=== PATIENT | female | born 1950 | race Caucasian/White ===

== ENCOUNTER → 2019-02-15 08:32 | Outpatient (CLI) | payer MEDICARE, SELFPAY ==
[2019-02-15 09:09] LABS: Basophils # 0.1 K/mm3 (0-0.2); Basophils % 1.2 % (0.1-2.0); Eosinophils # 0.8 K/mm3 (0.0-0.4); Eosinophils % 15.3 % (0.1-12.0); Hematocrit 43.5 % (37.0-47.0); Hemoglobin 13.4 g/dL (12.2-16.2); Lymphocytes # 1.4 K/mm3 (0.7-4.5); Lymphocytes % 25.9 % (10-50); Mean Corpuscular HGB Conc 30.8 g/dL (31.8-35.4); Mean Corpuscular Hemoglobin 28.8 pg (27.0-31.2); Mean Corpuscular Volume 93.4 fl (81-99); Monocytes # 0.3 K/mm3 (0.1-1.0); Monocytes % 5.9 % (1.7-9.3); Neutrophils # 2.8 K/mm3 (1.8-7.8); Neutrophils % 51.7 % (37.0-80.0); Platelet Count 204 K/mm3 (142-424); Red Blood Count 4.66 M/mm3 (4.20-5.40); Red Cell Distribution Width 14.6 % (11.5-17.5); White Blood Count 5.4 K/mm3 (4.8-10.8)
[2019-02-15 09:51] LABS: Alanine Aminotransferase 20 U/L (12-78); Albumin Level 3.7 gm/dL (3.4-5.0); Albumin/Globulin Ratio 1.3 (1.1-1.8); Alkaline Phosphatase 99 U/L (46-116); Aspartate Amino Transferase 21 U/L (15-37); Bilirubin,Total 0.6 mg/dL (0.2-1.0); Blood Urea Nitrogen 11 mg/dL (7-18); Calcium 9.2 mg/dL (8.5-10.1); Carbon Dioxide 26 mmol/L (21.0-32.0); Chloride 105 mmol/L (98-107); Chol/HDL Ratio 4.1 (1-3.5); Cholesterol 184 mg/dL (140-200); Creatinine,Serum 1.01 mg/dL (0.55-1.02); Estimated Glomerular Filt Rate 54 ml/min (>60); GFR (African American) 66 ML/MIN (>60); Globulin 2.9 gm/dl (1.3-3.2); Glucose 179 mg/dL (74-106); HDL Cholesterol 45 mg/dL (29-89); LDL Cholesterol 110 mg/dL (0-130); Sodium 141 mmol/L (136-145); Total Protein,Serum 6.6 gm/dL (6.4-8.2); Triglycerides 144 mg/dL (30-200); VLDL Cholesterol 29 mg/dL (0-40)
== END ==
PROVIDERS: PCP Internal Medicine Adolescent Medicine; Visit Provider Internal Medicine Adolescent Medicine
DX: J43.1 Panlobular emphysema (principal); Z86.39 Personal history of other endocrine, nutritional and metabolic disease; Z79.899 Other long term (current) drug therapy
CPT/HCPCS: 36415; 80053; 80061; 85025

== ENCOUNTER 2019-05-23 10:06 | Observation (INO) ==
--- NOTE | 2019-05-23 10:11 | Emergency Department Note ---
ED Disposition Clinical Impression: COPD with acute exacerbation RLL pneumonia Qualifiers: Aspiration pneumonia type: unspecified Disposition: Admitted as Observation Condition on Discharge: Fair (Stable) Referrals: Tyrell Owens MD [Primary Care Provider] - - Critical Care Critical Care Time: No Attestation: On , the high probability of a clinically significant, sudden or life threatening deterioration of the following system(s) required my full and direct attention, intervention and personal management. The time I documented below is in addition to time spent performing reported procedures but includes the following listed in this critical care notation. Medical Decision Making - Medical Records Medical records reviewed: Yes: I reviewed the patient's medical records. - Nii Inquiry Pt receiving controlled substance: No Nii was queried for this patient: No Vital Signs: 05/23/19 10:19 05/23/19 10:40 05/23/19 11:02 Temperature 98.1 F Temperature Source Oral Pulse Rate 92 H Pulse Rate [Right Radial] 102 H 86 Respiratory Rate 26 H 21 Blood Pressure [Right Arm] 231/99 H 154/59 H Blood Pressure Mean [Right Arm] 143 90 Blood Pressure Source [Right Arm] Automatic Cuff Automatic Cuff Blood Pressure Position [Right Arm] Sitting Sitting 02 Sat by Pulse Oximetry 90 L 95 98 Oxygen Delivery Method Room Air Nasal Cannula Oxygen Flow Rate (LPM) 2 - Lab Data Lab results reviewed: Yes: I reviewed the patient's lab results. Lab Results 05/23/19 10:13: Specimen Source R brachial, O2 % 2lpm, ABG pH 7.35, ABG pCO2 44.0, ABG pO2 71.6 L, ABG HCO3 23.6, ABG Total CO2 25.0, ABG O2 Saturation 94, ABG Base Excess -2.0 05/23/19 10:16: WBC 5.5, RBC 5.20, Hgb 15.5, Hct 46.7, MCV 89.8, MCH 29.7, MCHC 33.1, RDW 13.2, Plt Count 173, MPV 9.0, Neut % (Auto) 50.5, Lymph % (Auto) 27.3, [place] % (Auto) 4.3, Eos % (Auto) 17.0 H, Baso % (Auto) 0.9, Neut # (Auto) 2.8, Lymph # (Auto) 1.5, [place] # (Auto) 0.2, Eos # (Auto) 0.9 H, Baso # (Auto) 0.1 05/23/19 10:16: Sodium 144, Potassium 3.9, Chloride 107, Carbon Dioxide 25, Anion Gap 15.9 H, BUN 14, Creatinine 0.88, Estimated Creat Clear 80, Estimated GFR 64, Est GFR ( Amer) 77, Glucose 136 H, Calcium 9.1 05/23/19 10:16: B-Natriuretic Peptide 133 H 05/23/19 10:16: Lactate 1.3 05/23/19 10:16: Magnesium 2.2, Troponin I < 0.02 05/23/19 10:16: Total Bilirubin 0.6, Direct Bilirubin 0.1, Indirect Bilirubin 0.5, AST 20, ALT 23, Alkaline Phosphatase 88, Total Protein 7.7, Albumin 4.1 Result diagrams: 05/23/19 10:16 05/23/19 10:16 Orders (Tests/Meds): ED MEDICATIONS Discontinued Medications Generic Name Dose Route Start Last Admin Trade Name Freq PRN Reason Stop Dose Admin Albuterol Sulfate 10 mg 05/23/19 10:15 Albuterol 0.083% 2.5mg/3ml [facility] 05/23/19 10:16 ONCE ONE Albuterol/Ipratropium 3 ml 05/23/19 10:15 05/23/19 10:40 Duoneb 3ml Critical access hospital 05/23/19 10:16 3 ml ONCE ONE Administration Methylprednisolone Sodium Succinate 125 mg 05/23/19 10:16 05/23/19 10:22 Solu-Medrol 125mg/2ml Vial IV 05/23/19 10:17 125 mg ONCE ONE Administration ORDERS Category Date Time Status Influenza A&B Antigens, Rapid [Rapid Influenza A&B Lab 05/23/19 11:50 Received Antigens] Stat Troponin I Q3H Lab 05/23/19 13:15 Ordered Troponin I Q3H Lab 05/23/19 16:15 Ordered Blood Culture Stat Micro 05/23/19 10:16 Received - Radiology Data #1 Image(s): Chest Image Reviewed: Yes I reviewed the patient's radiology results [address] [place] [address] XRay Report Signed Patient: Ann Mcneill MR#: [id number] : 1950 Acct:[id number] Age/Sex: 68 / F ADM Date: 05/23/19 Loc: ER Attending Dr: Ordering Physician: Leonel Molina III, DO Date of Service: 05/23/19 Procedure(s): XR chest portable Accession Number(s): [id number] cc: Tyrell Owens MD; Rodney Moseley MD~ PROCEDURE: XR CHEST PORTABLE CLINICAL HISTORY: Dsypnea, wheezing COMPARISON: XR CHEST 2V from 01/08/2019 FINDINGS: The cardiomediastinal silhouette and pulmonary vascularity are within normal limits. Increased markings present in the right lung base may be due to an area of atelectasis or infiltrate No acute bony abnormalities. IMPRESSION: Right lower lobe atelectasis or infiltrate Dictated by: Rodney Moseley MD 05/23/2019 11:21 Electronically signed by Rodney Moseley MD in [place] 05/23/2019 11:21 - ECG Data Tracing #1 I reviewed this ECG and interpreted as documented below: (EKG at 10:15 AM showed a normal sinus rhythm at [address]-T changes.) Medical Decision Narrative: 10:21 patient evaluated. EKG, portable chest x-ray and screening labs ordered. I have also ordered a DuoNeb treatment followed by a 1 hour albuterol continuous neb. I have also ordered Solu-Medrol 125 mg IV push and may consider magnesium IV piggyback depending on how patient progresses. EEG performed and evaluated. 11:07 this patient's initial blood pressure was elevated repeat blood pressure at this time is 149/54. Patient had received 1 DuoNeb treatment and is currently getting her 1 hour continuous albuterol neb treatment. Patient sounds about 50% better but she still has diffuse end expiratory wheezing. Patient apparently does not use a nebulizer at home. She simply uses an MDI rescue inhaler without an AeroChamber. I have explained to patient that I am considering looking to possibly admit the patient for observation for further IV steroids and neb treatments. 11:58 patient's case discussed with her PCP Dr. Owens. He is agreed to accept care/admission of this patient. In light of her chest x-ray I have ordered Rocephin 1 g IV piggyback and Zithromax 500 mg IV piggyback. We will admit her and keep her on steroids and neb treatments also. Patient is aware of the res ults of her work-up, diagnosis and care plan. She agrees understands and all questions answered. Resp/SOB HPI - General Stated Complaint: soa Time Seen by Provider: 05/23/19 10:11 Mode of Arrival: Ambulatory Source of Information: Patient Limitations: No Limitations - History of Present Illness Patient is here in emergency room via private vehicle from home complaining of shortness of breath. Patient has a history of emphysema. She apparently has been having difficulty over the past 2 to 3 days, but her shortness of breath seemed to increase quite significantly last night. She has had a nonproductive cough and is audibly wheezing. Patient has been compliant with her home meds. No chest pain. No other complaints. - Related Data Home Medications Medication Instructions Recorded Confirmed hydroCHLOROthiazide [HCTZ 25mg 25 mg PO DAILY 05/23/19 05/23/19 tab] Previous Rx's Medication Instructions Recorded Albuterol Sulfate [Albuterol HFA 1 - 2 puffs IH Q4-6H PRN #1 inh 01/08/19 Inhaler] Allergies Allergy/AdvReac Type Severity Reaction Status Date / Time No Known Allergies Allergy Verified 01/08/19 14:39 [facility] History - Hepatitis A Screen Drug use history?: No Attestation statement:: This patient has been screened for Hepatitis A risk factors. I have reviewed the patient's past medical history: Yes - Social History Smoking Status: Former smoker #Yrs smoked (if former smoker): 55 Alcohol Intake: never Occupational Status: other ROS Obtained: Yes All systems reviewed & no additional complaints - Constitutional Constitutional: Reports system reviewed and no additional complaints, except as docu - Eyes Eyes: Reports system reviewed and no additional complaints, except as docu - ENT Ears, Nose, Mouth, and Throat: Reports system reviewed and no additional complaints, except as docu - Cardiovascular Cardiovascular: Reports system reviewed and no additional complaints, except as docu, Reports as per HPI, Denies chest pain, Denies diaphoresis, Reports dyspnea, Reports dyspnea on exertion, Denies leg edema - Respiratory Respiratory: Yes system reviewed and no additional complaints, except as docu, Yes as per HPI, Yes non-productive cough, Yes dyspnea, Yes wheezing - Gastrointestinal Gastrointestingal: Reports: system reviewed and no additional complaints, except as docu - Genitourinary Female Genitourinary: Reports system reviewed and no additional complaints, except as docu - Musculoskeletal Musculoskeletal: Reports system reviewed and no additional complaints, except as docu - Integumentary/Breasts Skin/Breast: Reports system reviewed and no additional complaints, except as docu - Neurologic Neurologic: Reports system reviewed and no additional complaints, except as docu - Endocrine Endocrine: Reports system reviewed and no additional complaints, except as docu - Hematologic/Lymphatic Henatologic/Lymphatic: Reports system reviewed and no additional complaints, except as docu - Allergic/Immunologic Allergic/Immunologic: Reports system reviewed and no additional complaints, except as docu Physical Exam - General General appearance: alert, anxious (mildly), in distress (In mild respiratory d istress with audible wheezing and accessory respiratory muscle use.) - Head Head exam: atraumatic, normocephalic - Eye Eye exam: Present: PERRL, EOMI - ENT ENT exam: Present: mucous membranes moist - Neck Neck exam: Present: trachea midline - Chest Chest inspection: Present: normal inspection, symmetric chest wall rise - Respiratory Respiratory exam: Present: wheezes (inspiratory and expiratory), accessory muscle use, other (Diminished BS bilaterally.) - Cardiovascular Cardiovascular exam: Present: tachycardia, normal heart sounds. Absent: systolic murmur - Abdominal Exam Abdominal exam: Present: soft, normal bowel sounds. Absent: tenderness, rebound - Extremities Exam Extremities exam: Present: normal inspection, full ROM - Neurological Exam Neurological exam: Present: alert, oriented X3, CN II-XII intact - Psychiatric Psychiatric exam: Present: anxious (mildly) - Skin Skin exam: Present: warm, dry, intact, normal color. Absent: rash, diaphoresis, erythema
[2019-05-23 10:38] LABS: Basophils # 0.1 K/mm3 (0-0.2); Basophils % 0.9 % (0.1-2.0); Eosinophils # 0.9 K/mm3 (0.0-0.4); Hematocrit 46.7 % (37.0-47.0); Hemoglobin 15.5 g/dL (12.2-16.2); Lymphocytes # 1.5 K/mm3 (0.7-4.5); Lymphocytes % 27.3 % (10-50); Mean Corpuscular HGB Conc 33.1 g/dL (31.8-35.4); Mean Corpuscular Volume 89.8 fl (81-99); Monocytes # 0.2 K/mm3 (0.1-1.0); Monocytes % 4.3 % (1.7-9.3); Neutrophils # 2.8 K/mm3 (1.8-7.8); Neutrophils % 50.5 % (37.0-80.0); Platelet Count 173 K/mm3 (142-424); Red Cell Distribution Width 13.2 % (11.5-17.5); White Blood Count 5.5 K/mm3 (4.8-10.8)
[2019-05-23 10:40] LABS: ABG HCO3 23.6 mmhg (22.0-26.0); ABG Oxygen Saturation 94 % (90-100); ABG PH 7.35 mmol/L (7.35-7.45); ABG PO2 71.6 mmhg (80-100)
[2019-05-23 10:41] LABS: Oxygen 2LPM %
[2019-05-23 10:47] LABS: Albumin Level 4.1 gm/dL (3.4-5.0); Bilirubin,Direct 0.1 mg/dL (0.0-0.2); Bilirubin,Indirect 0.5 mg/dL (0.0-0.9); Bilirubin,Total 0.6 mg/dL (0.2-1.0); Total Protein,Serum 7.7 gm/dL (6.4-8.2)
[2019-05-23 11:28] LABS: Anion Gap 15.9 mEq/L (5-15); Calcium 9.1 mg/dL (8.5-10.1)
--- NOTE | 2019-05-23 12:54 | Pharmacy Consult Notes ---
[facility] Pharmacy VTE Monitoring - Patient Demographics Admission date: 05/23/19 Report Date: 05/23/19 Time: 12:54 Allergies/Adverse Reactions: Patient Allergies No Known Allergies Allergy (Verified 01/08/19 14:39) Height: 1.7 m Weight: 95.254 kg Patient Problems: Current Active Problems RLL pneumonia (Acute) COPD with acute exacerbation (Acute) - VTE Risk Labs: VTE Related Lab Results Hgb 15.5 g/dL (12.2-16.2) 05/23/19 10:16 Hct 46.7 % (37.0-47.0) 05/23/19 10:16 Plt Count 173 K/mm3 (142-424) 05/23/19 10:16 BUN 14 mg/dL (7-18) 05/23/19 10:16 Creatinine 0.88 mg/dL (0.55-1.02) 05/23/19 10:16 Estimated Creat Clear 80 mL/min (50-200) 05/23/19 10:16 - Prophylaxis VTE Prophylaxis Ordered?: Yes Types of VTE Prophylaxis: TEDS Knee High Location of Applied Device: Bilateral Lower Extremeties - VTE Diagnosis Confirmed Treatment or plan recommended: Continue Current Treatment
--- NOTE | 2019-05-23 18:00 | History & Physical Report ---
*Admission Date: 05/23/19 *Chief complaint: Cough and congestion *History of present illness: Patient is here in emergency room via private vehicle from home complaining of shortness of breath. Patient has a history of emphysema. She apparently has been having difficulty over the past 2 to 3 days, but her shortness of breath seemed to increase quite significantly last night. She has had a nonproductive cough and is audibly wheezing. Patient has been compliant with her home meds. No chest pain. No other complaints. Hasn't been on her stiolto at home because of insurance issues... Not in office since January. [facility] History I have reviewed the patient's past medical history: Yes Medical History: Reports:: Hypertension Denies:: Diabetes Mellitus Type 1, Diabetes Mellitus Type 2 *Have you ever received a pneumonia vaccine?: Yes *Have you received a flu vaccine this season?: Yes Other Surgeries: Yes: Tubal Ligation - *Social History Educational Level: Completed [employer] Smoking Status: Former smoker Tobacco Type: cigarettes # Packs/Day (cigarettes): 1 #Yrs smoked (if former smoker): 50 Smoking End Date: 5 years ago Alcohol Intake: never *Occupational Status:: retired Housing: house Household Members: none *Travel in the last 8 weeks: None Family Hx:: Stroke Review of Systems - Review of Systems Review of systems:: pertinent systems reviewed and negative unless documented below Meds Home Medications Medication Instructions Recorded Confirmed Type Albuterol Sulfate [Albuterol HFA 1 - 2 puffs IH Q4-6H PRN #1 inh 01/08/19 05/23/19 Rx Inhaler] hydroCHLOROthiazide [HCTZ 25mg 25 mg PO DAILY 05/23/19 05/23/19 History tab] Allergies Allergy/AdvReac Type Severity Reaction Status Date / Time No Known Allergies Allergy Verified 01/08/19 14:39 Exam Vital signs and Labs for Last 24 Hours: Temp Pulse Resp BP Pulse Ox 97.6 F 95 H 22 131/52 L 95 05/23/19 16:00 05/23/19 16:00 05/23/19 16:00 05/23/19 16:00 05/23/19 16:00 Laboratory Results - last 24 hr 05/23/19 10:13: Specimen Source R brachial, O2 % 2lpm, ABG pH 7.35, ABG pCO2 44.0, ABG pO2 71.6 L, ABG HCO3 23.6, ABG Total CO2 25.0, ABG O2 Saturation 94, ABG Base Excess -2.0 05/23/19 10:16: WBC 5.5, RBC 5.20, Hgb 15.5, Hct 46.7, MCV 89.8, MCH 29.7, MCHC 33.1, RDW 13.2, Plt Count 173, MPV 9.0, Neut % (Auto) 50.5, Lymph % (Auto) 27.3, [place] % (Auto) 4.3, Eos % (Auto) 17.0 H, Baso % (Auto) 0.9, Neut # (Auto) 2.8, Lymph # (Auto) 1.5, [place] # (Auto) 0.2, Eos # (Auto) 0.9 H, Baso # (Auto) 0.1 05/23/19 10:16: Sodium 144, Potassium 3.9, Chloride 107, Carbon Dioxide 25, Anion Gap 15.9 H, BUN 14, Creatinine 0.88, Estimated Creat Clear 80, Estimated GFR 64, Est GFR ( Amer) 77, Glucose 136 H, Calcium 9.1 05/23/19 10:16: B-Natriuretic Peptide 133 H 05/23/19 10:16: Lactate 1.3 05/23/19 10:16: Magnesium 2.2, Troponin I < 0.02 05/23/19 10:16: Total Bilirubin 0.6, Direct Bilirubin 0.1, Indirect Bilirubin 0.5, AST 20, ALT 23, Alkaline Phosphatase 88, Total Protein 7.7, Albumin 4.1 05/23/19 12:08: Influenza Type A Ag Negative, Influenza Type B Ag Negative 05/23/19 13:18: Troponin I 0.02 05/23/19 16:20: Troponin I 0.03 I & O for Last 24 hours: Intake & Output 05/21/19 05/22/19 05/23/19 05/24/19 11:59 11:59 11:59 11:59 Intake Total 360 / 360 Balance 360 / 360 Weight 210 lb 208 lb 4 oz - Constitutional no acute distress, obese - *Routine HEENT Exam Head: Present: normocephalic, atraumatic Eye: Present: EOMI, PERRL ENT: Present: mucous membranes moist - *Routine Neck Exam Present: supple, full ROM. Absent: lymphadenopathy - *Routine Respiratory Exam Present: rales (in left lower lung field. Wheezing on expiration) - *Routine Cardiovascular Exam Present: RRR - *Routine Abdominal Exam Present: soft, normoactive bowel sounds - *Routine Extremities Exam Present: cyanosis, clubbing, edema - *Routine Neurological Exam Present: alert, oriented X3 Assessment and Plan (1) COPD with acute exacerbation Current visit: Yes Status: Acute Category: Medical Code(s): J44.1 - Chronic obstructive pulmonary disease with (acute) exacerbation Agree with admit... needs O2, IV steroids, IFV and abx. May need 2-3 days in house given new O2 requirement. (2) RLL pneumonia Current visit: Yes Status: Acute Qualifiers: Aspiration pneumonia type: unspecified Category: Medical Code(s): J18.9 - Pneumonia, unspecified organism
--- NOTE | 2019-05-23 18:43 | Electrocardiograph Report ---
APPROVED REPORT Exam: Resting ECG HR:100 bpm ECG Measurements Heart Rate 100 AXES [place] 142 P 80 QRSd 90 QRS 80 QT 336 T78 QTc 433 <Conclusion> Normal sinus rhythm Nonspecific ST and T wave abnormality Abnormal ECG Electronically signed by : Mateusz Pena, 05/23/2019 18:43:14
--- NOTE | 2019-05-24 07:48 | Progress Note ---
Internal Medicine - PN: Subj *Date: 05/24/19 *Time: 07:45 Interval history: Patient is without complaints. She is aggressively trying to wean herself from oxygen. Her room air sats have been sufficient but patient does report dyspnea on exertion to and from the bathroom Exam Vital signs and Labs for Last 24 Hours: Temp Pulse Resp BP Pulse Ox 97.5 F L 86 18 139/67 95 05/24/19 04:00 05/24/19 06:25 05/24/19 04:00 05/24/19 04:00 05/24/19 06:25 Laboratory Results - last 24 hr 05/23/19 10:13: Specimen Source R brachial, O2 % 2lpm, ABG pH 7.35, ABG pCO2 44.0, ABG pO2 71.6 L, ABG HCO3 23.6, ABG Total CO2 25.0, ABG O2 Saturation 94, ABG Base Excess -2.0 05/23/19 10:16: WBC 5.5, RBC 5.20, Hgb 15.5, Hct 46.7, MCV 89.8, MCH 29.7, MCHC 33.1, RDW 13.2, Plt Count 173, MPV 9.0, Neut % (Auto) 50.5, Lymph % (Auto) 27.3, [place] % (Auto) 4.3, Eos % (Auto) 17.0 H, Baso % (Auto) 0.9, Neut # (Auto) 2.8, Lymph # (Auto) 1.5, [place] # (Auto) 0.2, Eos # (Auto) 0.9 H, Baso # (Auto) 0.1 05/23/19 10:16: Sodium 144, Potassium 3.9, Chloride 107, Carbon Dioxide 25, Anion Gap 15.9 H, BUN 14, Creatinine 0.88, Estimated Creat Clear 80, Estimated GFR 64, Est GFR ( Amer) 77, Glucose 136 H, Calcium 9.1 05/23/19 10:16: B-Natriuretic Peptide 133 H 05/23/19 10:16: Lactate 1.3 05/23/19 10:16: Magnesium 2.2, Troponin I < 0.02 05/23/19 10:16: Total Bilirubin 0.6, Direct Bilirubin 0.1, Indirect Bilirubin 0.5, AST 20, ALT 23, Alkaline Phosphatase 88, Total Protein 7.7, Albumin 4.1 05/23/19 12:08: Influenza Type A Ag Negative, Influenza Type B Ag Negative 05/23/19 13:18: Troponin I 0.02 05/23/19 16:20: Troponin I 0.03 I & O for Last 24 hours: Intake & Output 05/21/19 05/22/19 05/23/19 05/24/19 11:59 11:59 11:59 11:59 Intake Total 730 / 730 Balance 730 / 730 Weight 210 lb 208 lb 4 oz Narrative: She shows no signs of respiratory distress. Lungs have diffuse expiratory wheezes heard anteriorly and posteriorly with rales in the posterior right base. Heart has a regular rate and rhythm Assessment and Plan (1) RLL pneumonia Current visit: Yes Status: Acute Qualifiers: Aspiration pneumonia type: unspecified Category: Medical Code(s): J18.9 - Pneumonia, unspecified organism (2) COPD with acute exacerbation Current visit: Yes Status: Acute Category: Medical Code(s): J44.1 - Chronic obstructive pulmonary disease with (acute) exacerbation - Assessment and plan all Dx Assessment and Plan for all problems:: Continue antibiotics, IV steroids, aerosols. Encourage patient to ambulate. I did recommend she use oxygen to relieve any dyspnea
[2019-05-24 08:14] LABS: Basophils % 0.1 % (0.1-2.0); Eosinophils % 0.4 % (0.1-12.0); Hematocrit 41.1 % (37.0-47.0); Lymphocytes % 11.9 % (10-50); Mean Corpuscular HGB Conc 32.7 g/dL (31.8-35.4); Mean Corpuscular Volume 90.4 fl (81-99); Monocytes # 0.1 K/mm3 (0.1-1.0); Monocytes % 1.7 % (1.7-9.3); Neutrophils # 6.9 K/mm3 (1.8-7.8); Neutrophils % 85.9 % (37.0-80.0); Platelet Count 183 K/mm3 (142-424); Red Blood Count 4.55 M/mm3 (4.20-5.40); Red Cell Distribution Width 13.6 % (11.5-17.5)
[2019-05-24 08:22] LABS: Hemoglobin 13.5 g/dL (12.2-16.2)
[2019-05-24 08:23] LABS: Anion Gap 16.7 mEq/L (5-15)
[2019-05-24 09:06] LABS: Lymphocytes % 15 % (10-50); Monocytes % 2 % (2-9); Neutrophils % 83 % (42-76); RBC Morphology Normal; Total Cells Counted 100
--- NOTE | 2019-05-25 08:24 | Discharge Summary ---
General - General Admission date:: 05/23/19 Discharge date: 05/25/19 HPI HPI: Patient is here in emergency room via private vehicle from home complaining of shortness of breath. Patient has a history of emphysema. She apparently has been having difficulty over the past 2 to 3 days, but her shortness of breath seemed to increase quite significantly last night. She has had a nonproductive cough and is audibly wheezing. Patient has been compliant with her home meds. No chest pain. No other complaints. Hasn't been on her stiolto at home because of insurance issues... Not in office since January. Hospital Course Hospital Course: Patient was admitted and placed on Rocephin and azithromycin as well as intravenous Solu-Medrol to treat her pneumonia and underlying COPD exacerbation. By the following morning patient was aggressively attempting to wean herself from oxygen and noticed mild dyspnea on exertion to and from the bathroom. Patient continued to ambulate and use supplemental oxygen only as needed. She remained off any supplemental oxygen from May 24 May 25. On the morning of the she was ambulating without difficulty. She was eating. Dyspnea was minimal. Patient was discharged home. Patient has been advised to follow- up with Dr. Dwyer within the next 2 days. She will go home on antibiotics, steroids and has been instructed to use her albuterol inhaler every 4 hours while she is awake Objective Vital signs: Temp Pulse Resp BP Pulse Ox 97.6 F 99 H 20 157/64 H 95 05/25/19 08:00 05/25/19 08:00 05/25/19 08:00 05/25/19 08:00 05/25/19 08:00 no acute distress - *Routine Respiratory Exam Present: rales (Faint rales right base), wheezes (Minimal and improved from yest erday) - *Routine Cardiovascular Exam Present: RRR, Normal S1, Normal S2 Results Labs on day of discharge: Labs from last 24 hours 05/24/19 05/24/19 07:30 07:30 WBC 8.0 D RBC 4.55 Hgb 13.5 D Hct 41.1 MCV 90.4 MCH 29.6 MCHC 32.7 RDW 13.6 Plt Count 183 MPV 9.0 Neut % (Auto) 85.9 H Lymph % (Auto) 11.9 [place] % (Auto) 1.7 Eos % (Auto) 0.4 Baso % (Auto) 0.1 Neut # (Auto) 6.9 Lymph # (Auto) 1.0 [place] # (Auto) 0.1 Eos # (Auto) 0.0 Baso # (Auto) 0.0 Total Counted 100 Neutrophils % (Manual) 83 H Lymphocytes % (Manual) 15 Monocytes % (Manual) 2 Platelet Estimate Normal RBC Morphology Normal Sodium 141 Potassium 3.7 Chloride 105 Carbon Dioxide 23 Anion Gap 16.7 H BUN 15 Creatinine 0.88 Estimated Creat Clear 79 Estimated GFR 64 Est GFR ( Amer) 77 Glucose 181 H D Calcium 9.0 Preliminary micro results at discharge 05/24/19 04:45 Sputum Culture - Preliminary Sputum - Expectorated Sputum DS: Diagnosis - Discharge Diagnosis (1) RLL pneumonia Status: Acute (2) COPD with acute exacerbation Status: Acute Discharge Plan - Patient Discharge Instructions ACTIVITY: Continue current activity DIET: continue same diet Patient Instructions: DI for Chronic Obstructive Pulmonary Disease, DI for Pneumonia -- Adult - Follow up Plan Follow up with: Tyrell Owens MD [Primary Care Provider] - 2 days Disposition: Home, Self-Mcc Medications: Home Medications Medication Instructions Recorded Confirmed Type Albuterol Sulfate [Albuterol HFA 1 - 2 puffs IH Q4-6H PRN #1 inh 01/08/19 05/23/19 Rx Inhaler] hydroCHLOROthiazide [HCTZ 25mg 25 mg PO DAILY 05/23/19 05/23/19 History tab] Azithromycin [Z-Wero 250mg Tab*] 250 mg PO UD DOSE PK #6 tab 05/25/19 Rx Cefdinir [Omnicef 300mg Capsule] 300 mg PO BID #10 cap 05/25/19 Rx predniSONE [Deltasone 20mg 20 mg PO DIRECTED #21 tab 05/25/19 Rx tablet] Prescriptions/Medication Reconciliation: New Azithromycin [Z-Wero 250mg Tab*] 250 mg PO UD DOSE PK #6 tab predniSONE [Deltasone 20mg tablet] 20 mg PO DIRECTED #21 tab Cefdinir [Omnicef 300mg Capsule] 300 mg PO BID #10 cap Continued Albuterol Sulfate [Albuterol HFA Inhaler] 1 - 2 puffs IH Q4-6H PRN #1 inh PRN Reason: Shortness Of Breath Or Wheezing hydroCHLOROthiazide [HCTZ 25mg tab] 25 mg PO DAILY - Problem Reconciliation Problems Reviewed?: Yes
== END 2019-05-25 10:20 | disposition home or self-care (01) ==
LOC: ER 10:06 → 2ND 10:06
PROVIDERS: ADMIT Internal Medicine Adolescent Medicine; ATTEND Internal Medicine Adolescent Medicine
CPT/HCPCS: 36415; 71010; 71045; 80048; 80076; 82803; 83605; 83735; 83880; 84484; 85007; 85025; 87040; 87070; 87205; 87275; 87276; 93005; 94640; 94761; 96372; 96374; 99282; G0378; J0456

== ENCOUNTER 2019-06-19 06:45 | Inpatient (IN) ==
[2019-06-19 07:19] LABS: Basophils # 0.1 K/mm3 (0-0.2); Basophils % 0.9 % (0.1-2.0); Eosinophils # 0.9 K/mm3 (0.0-0.4); Hematocrit 46.2 % (37.0-47.0); Hemoglobin 14.8 g/dL (12.2-16.2); Lymphocytes # 1.7 K/mm3 (0.7-4.5); Lymphocytes % 28.7 % (10-50); Mean Corpuscular Volume 92.8 fl (81-99); Mean Platelet Volume 8.8 fl (7.4-10.4); Monocytes # 0.3 K/mm3 (0.1-1.0); Monocytes % 4.8 % (1.7-9.3); Neutrophils % 50.6 % (37.0-80.0); Platelet Count 300 K/mm3 (142-424); Red Blood Count 4.98 M/mm3 (4.20-5.40); Red Cell Distribution Width 13.3 % (11.5-17.5); White Blood Count 5.9 K/mm3 (4.8-10.8)
[2019-06-19 07:19] LABS: ABG Base Excess -2.6 mmol/L (-2.4-2.3); ABG HCO3 21.9 mmhg (22.0-26.0); ABG Oxygen Saturation 98 % (90-100); ABG PCO2 34.7 mmhg (35.0-45.0); ABG PH 7.42 mmol/L (7.35-7.45); ABG PO2 101.7 mmhg (80-100)
[2019-06-19 07:23] LABS: Allen's Test Acceptable; Oxygen 2lpm nc %
[2019-06-19 07:30] LABS: Albumin Level 3.8 gm/dL (3.4-5.0); Anion Gap 15.5 mEq/L (5-15); Bilirubin,Direct 0.1 mg/dL (0.0-0.2); Bilirubin,Indirect 0.5 mg/dL (0.0-0.9); Bilirubin,Total 0.6 mg/dL (0.2-1.0); Calcium 9.7 mg/dL (8.5-10.1); Total Protein,Serum 7.5 gm/dL (6.4-8.2)
--- NOTE | 2019-06-19 07:31 | Emergency Department Note ---
ED Disposition Clinical Impression: Acute exacerbation of chronic obstructive airways disease, Obesity (BMI 30.0- 34.9), Eosinophilia Cardiac arrhythmia Qualifiers: Arrhythmia type: atrial flutter Atrial flutter type: unspecified Qualified Code(s): I48.92 - Unspecified atrial flutter Disposition: Admitted as Observation Condition on Discharge: Good Referrals: Tyrell Owens MD [Primary Care Provider] - - Critical Care Critical Care Time: No Attestation: On 06/19/19, the high probability of a clinically significant, sudden or life threatening deterioration of the following system(s) required my full and direct attention, intervention and personal management. The time I documented below is in addition to time spent performing reported procedures but includes the following listed in this critical care notation. Medical Decision Making - Medical Records Medical records reviewed: Yes: I reviewed the patient's medical records. - Nii Inquiry Pt receiving controlled substance: No Vital Signs: 06/19/19 06:56 06/19/19 07:13 06/19/19 07:17 Temperature 97.8 F Temperature Source Oral Pulse Rate Pulse Rate [Left Radial] 164 H 155 H Respiratory Rate 32 H 32 H Blood Pressure [Right Arm] 207/117 H 171/75 H Blood Pressure Mean [Right Arm] 147 107 Blood Pressure Source [Right Arm] Blood Pressure Position [Right Arm] Sitting Sitting 02 Sat by Pulse Oximetry 90 L 95 96 Oxygen Delivery Method Room Air Nasal Cannula Nasal Cannula Oxygen Flow Rate (LPM) 2 2 06/19/19 07:28 06/19/19 07:30 Temperature Temperature Source Pulse Rate 138 H Pulse Rate [Left Radial] 152 H Respiratory Rate Blood Pressure [Right Arm] 152/69 H Blood Pressure Mean [Right Arm] 96 Blood Pressure Source [Right Arm] Automatic Cuff Blood Pressure Position [Right Arm] Supine 02 Sat by Pulse Oximetry 98 95 Oxygen Delivery Method Nasal Cannula Room Air Oxygen Flow Rate (LPM) 2 - Lab Data Lab results reviewed: Yes: I reviewed the patient's lab results. Lab Results 06/19/19 06:56: WBC 5.9, RBC 4.98, Hgb 14.8, Hct 46.2, MCV 92.8, MCH 29.7, MCHC 32.0, RDW 13.3, Plt Count 300, MPV 8.8, Neut % (Auto) 50.6, Lymph % (Auto) 28.7, [place] % (Auto) 4.8, Eos % (Auto) 15.0 H, Baso % (Auto) 0.9, Neut # (Auto) 3.0, Lymph # (Auto) 1.7, [place] # (Auto) 0.3, Eos # (Auto) 0.9 H, Baso # (Auto) 0.1 06/19/19 06:56: Sodium 142, Potassium 3.5, Chloride 104, Carbon Dioxide 26, Anion Gap 15.5 H, BUN 18, Creatinine 1.16 H, Estimated Creat Clear 68, Estimated GFR 46 L, Est GFR ( Amer) 56 L, Glucose 152 H, Calcium 9.7, Total Bilirubin 0.6, Direct Bilirubin 0.1, Indirect Bilirubin 0.5, AST 26, ALT 29, Alkaline Phosphatase 89, Troponin I 0.03, Total Protein 7.5, Albumin 3.8 06/19/19 06:56: Lactate 2.2 H 06/19/19 07:08: Specimen Source Left radial, O2 % 2lpm nc, ABG pH 7.42, ABG pCO2 34.7 L, ABG pO2 101.7 H, ABG HCO3 21.9 L, ABG Total CO2 23.0, ABG O2 Saturation 98, ABG Base Excess -2.6 L, Rodney Test Acceptable Result diagrams: 06/19/19 06:56 06/19/19 06:56 Orders (Tests/Meds): ED MEDICATIONS Generic Name Dose Route Start Last Admin Trade Name Freq PRN Reason Stop Dose Admin Sodium Chloride 1,000 mls @ 999 mls/hr 06/19/19 07:15 06/19/19 07:06 Sod Chlor 0.9% 1000ml Bag IV 06/19/19 08:15 999 mls/hr .Q1H1M AMANDA Administration Diltiazem HCl 125 mg/ Sodium 125 mls @ 5 mls/hr 06/19/19 07:45 06/19/19 07:31 Chloride IV 07/19/19 07:44 5 mls/hr .Q25H AMANDA Administration Protocol 5 MG/HR Ceftriaxone Sodium 1 gm/ 50 mls @ 100 mls/hr 06/19/19 07:44 Sodium Chloride IV 06/19/19 08:13 ONCE ONE Protocol Discontinued Medications Generic Name Dose Route Start Last Admin Trade Name Freq PRN Reason Stop Dose Admin Albuterol/Ipratropium 3 ml 06/19/19 07:08 06/19/19 07:28 Duoneb 3ml Neb IH 06/19/19 07:09 3 ml ONCE ONE Administration Diltiazem HCl 10 mg 06/19/19 07:30 06/19/19 07:30 Cardizem 125mg/25ml Vial IV 06/19/19 07:31 10 mg ONCE ONE Administration Methylprednisolone Sodium Succinate 125 mg 06/19/19 07:05 06/19/19 07:05 Solu-Medrol 125mg/2ml Vial IV 06/19/19 07:06 125 mg ONCE ONE Administration ORDERS Category Date Time Status Chest XR -- portable [XR chest portable] Stat Exams 06/19/19 07:02 Taken B-Type Natriuretic Peptide Stat Lab 06/19/19 07:44 Ordered PT INR [Prothrombin Time INR] Stat Lab 06/19/19 07:28 Received T4 (Thyroxine) Stat Lab 06/19/19 06:56 Received Thyroid Stimulating Hormone Stat Lab 06/19/19 06:56 Received Troponin I Q3H Lab 06/19/19 10:15 Ordered Troponin I Q3H Lab 06/19/19 13:15 Ordered Blood Culture Stat Micro 06/19/19 06:56 Received - Radiology Data #1 Image(s): Chest Image Reviewed: Yes I reviewed the patient's radiology image Preliminary Findings: Abnormal (copd) - ECG Data Tracing #1 Arrhythmias present: aflutter Ischemic changes: non-specific ST-T wave changes - Physician Consults Physician Consulted: guillermo Reason -: Admission Resp/SOB HPI - General Chief Complaint: Shortness of Breath/Dyspnea Stated Complaint: SOB Time Seen by Provider: 06/19/19 07:05 Mode of Arrival: Wheelchair Source of Information: Patient, Relative, Medical Record Limitations: No Limitations Description of Symptoms (Recalled from ER Triage Doc. by RN): to ed per pvt car with c/o sob, chest tightness, rapid heart rate states sob woke her up this am. c/o rapid heart rate x several days. pt keeps a blood pressure diary and 06/16 her heart rate was 150's. pt states she took several albuterol txs this am with no change in symptoms. pt denies any hx of irreg or rapid heart rate. - History of Present Illness over the last few days has increased sob and heart rate - no def chest pain - had recent admit with sob - no known arrthymia MD Complaint: shortness of breath Onset (ago): day(s) Context: recent illness Severity: moderate Known history of: COPD Associated symptoms: cough, palpitations - Related Data Home oxygen amount: none Home Medications Medication Instructions Recorded Confirmed hydroCHLOROthiazide [HCTZ 25mg 25 mg PO DAILY 05/23/19 06/19/19 tab] Umeclidinium Brm/Vilanterol Tr 1 inh IH DAILY 06/19/19 06/19/19 [Anoro Ellipta 62.5-25 Mcg INH] Previous Rx's Medication Instructions Recorded Albuterol Sulfate [Albuterol HFA 1 - 2 puffs IH Q4-6H PRN #1 inh 01/08/19 Inhaler] Allergies Allergy/AdvReac Type Severity Reaction Status Date / Time No Known Allergies Allergy Verified 01/08/19 14:39 [facility] History - Hepatitis A Screen Drug use history?: No High risk sexual behaviors?: No History of sexually transmitted infection?: No Currently employed?: No Childcare worker?: No Do you have indoor plumbing?: Yes Do you have electricity?: Yes Attestation statement:: This patient has been screened for Hepatitis A risk factors. I have reviewed the patient's past medical history: Yes Medical History: Reports:: Hypertension Denies:: Diabetes Mellitus Type 1, Diabetes Mellitus Type 2, Home Oxygen Other Surgeries: Yes: Tubal Ligation - Social History Smoking Status: Former smoker Tobacco Type: cigarettes # Packs/Day (cigarettes): 1 #Yrs smoked (if former smoker): 50 Alcohol Intake: never Occupational Status: retired Housing: house Household Members: none Family Hx:: Stroke ROS Obtained: Yes All systems reviewed & no additional complaints - Constitutional Constitutional: Denies fever(s) - Eyes Eyes: Denies change in vision - ENT Ears, Nose, Mouth, and Throat: Denies sore throat - Cardiovascular Cardiovascular: Reports as per HPI, Denies chest pain, Reports dyspnea, Reports rapid heart rate - Respiratory Respiratory: Yes as per HPI, Yes cough, Yes non-productive cough, No coughing up blood - Gastrointestinal Gastrointestingal: Denies: abdominal pain - Genitourinary Male Genitourinary: Denies hematuria - Musculoskeletal Musculoskeletal: Denies joint pain, Denies joint swelling - Integumentary/Breasts Skin/Breast: Denies rash - Neurologic Neurologic: Denies focal weakness, Denies headache(s), Denies seizure-like activity Physical Exam - General General appearance: alert, in no apparent distress, obese - Head Head exam: normocephalic - Eye Eye exam: Present: PERRL, EOMI. Absent: scleral icterus - ENT ENT exam: Present: mucous membranes dry - Neck Neck exam: Present: trachea midline - Respiratory Respiratory exam: Present: wheezes. Absent: respiratory distress - Cardiovascular Cardiovascular exam: Present: tachycardia, irregular rhythm - Abdominal Exam Abdominal exam: Present: soft - Extremities Exam Extremities exam: Present: full ROM - Neurological Exam Neurological exam: Present: alert, oriented X3, CN II-XII intact - Psychiatric Psychiatric exam: Present: normal affect - Skin Skin exam: Absent: rash
[2019-06-19 07:45] LABS: INR 1.06 (0.9-1.1)
[2019-06-19 07:52] LABS: Thyroid Stimulating Hormone 4.29 uIU/ml (0.358-3.740)
--- NOTE | 2019-06-19 09:03 | Pharmacy Consult Notes ---
[facility] Pharmacy VTE Monitoring - Patient Demographics Admission date: 06/19/19 Report Date: 06/19/19 Time: 09:03 Allergies/Adverse Reactions: Patient Allergies No Known Allergies Allergy (Verified 01/08/19 14:39) Height: 1.68 m Weight: 93.894 kg Patient Problems: Current Active Problems Cardiac arrhythmia (Acute) Acute exacerbation of chronic obstructive airways disease (Acute) Obesity (BMI 30.0-34.9) (Acute) Eosinophilia (Acute) - VTE Risk Labs: VTE Related Lab Results Hgb 14.8 g/dL (12.2-16.2) 06/19/19 06:56 Hct 46.2 % (37.0-47.0) 06/19/19 06:56 Plt Count 300 K/mm3 (142-424) 06/19/19 06:56 PT 11.0 seconds (9.4-11.8) 06/19/19 07:28 INR 1.06 (0.9-1.1) 06/19/19 07:28 BUN 18 mg/dL (7-18) 06/19/19 06:56 Creatinine 1.16 mg/dL (0.55-1.02) H 06/19/19 06:56 Estimated Creat Clear 68 mL/min (50-200) 06/19/19 06:56 - Prophylaxis VTE Prophylaxis Ordered?: Yes Types of VTE Prophylaxis: TEDS Knee High Location of Applied Device: Bilateral Lower Extremeties - VTE Diagnosis Confirmed Treatment or plan recommended: Continue Current Treatment
--- NOTE | 2019-06-19 09:18 | Consult Report ---
History of Present Illness Consult date: 06/19/19 Requesting physician: Cholo Valdez Chief complaint: A. flutter with RVR Additional Medical History:: 1. COPD A. Tobacco use, discontinued 5 years ago, 75-year pack history 2. Hypertension 3. Hyperlipidemia 4. Family history of heart disease and diabetes 5. Atrial flutter, 06/19/2019, converted to sinus rhythm with IV diltiazem History of present illness: 68-year-old white female with known history of COPD and hypertension presented to the emergency department for 3-day history of increasing shortness of breath and rapid heart rate on her home blood pressure monitor. Patient denies any chest pain but relates increasing feeling of panic attack/shortness of breath symptoms. She denies any fever, chills, nausea, vomiting or diarrhea. She was recently started on Anora inhaler but has not noticed a significant benefit. In the ER patient was noted to have a heart rate in the 150 to 160 bpm range with an EKG showing what was felt to be atrial flutter. She was started on IV diltiazem with improvement in rate and by the time she was up on the floor the patient's heart rate was in the 80s and appeared to be sinus (confirmed by EKG). Her breathing was improved at this point. [facility] History Medical History: Reports:: Hypertension Denies:: Diabetes Mellitus Type 1, Diabetes Mellitus Type 2, Home Oxygen *Have you ever received a pneumonia vaccine?: No *Have you received a flu vaccine this season?: No Other Surgeries: Yes: Tubal Ligation - *Social History Smoking Status: Former smoker Tobacco Type: cigarettes # Packs/Day (cigarettes): 1 #Yrs smoked (if former smoker): 50 Alcohol Intake: never *Occupational Status:: retired Housing: house Household Members: none *Travel in the last 8 weeks: None Family Hx:: Stroke Meds Home Medications Medication Instructions Recorded Confirmed Type Albuterol Sulfate [Albuterol HFA 1 - 2 puffs IH Q4-6H PRN #1 inh 01/08/19 06/19/19 Rx Inhaler] hydroCHLOROthiazide [HCTZ 25mg 25 mg PO DAILY 05/23/19 06/19/19 History tab] Umeclidinium Brm/Vilanterol Tr 1 puff IH DAILY 06/19/19 06/19/19 History [Anoro Ellipta 62.5-25 Mcg INH] Allergies Allergy/AdvReac Type Severity Reaction Status Date / Time No Known Allergies Allergy Verified 01/08/19 14:39 Review of Systems - Review of Systems Review of systems:: pertinent systems reviewed and negative unless documented below - *Cardiovascular Reports shortness of breath, Denies chest pain - *Respiratory Reports shortness of breath, Reports wheezing - *Gastrointestinal Denies loose stools, Denies nausea, Denies vomiting - *Genitourinary Denies blood in urine - *Musculoskeletal Denies joint pain, Denies back pain - *Neurologic Denies localized weakness, Denies headache(s), Denies seizure-like activity Exam Vital signs and Labs for Last 24 Hours: Temp Pulse Resp BP Pulse Ox 97.8 F 87 30 H 142/78 H 96 06/19/19 08:57 06/19/19 08:57 06/19/19 08:57 06/19/19 08:57 06/19/19 08:43 Laboratory Results - last 24 hr 06/19/19 06:56: WBC 5.9, RBC 4.98, Hgb 14.8, Hct 46.2, MCV 92.8, MCH 29.7, MCHC 32.0, RDW 13.3, Plt Count 300, MPV 8.8, Neut % (Auto) 50.6, Lymph % (Auto) 28.7, [place] % (Auto) 4.8, Eos % (Auto) 15.0 H, Baso % (Auto) 0.9, Neut # (Auto) 3.0, Lymph # (Auto) 1.7, [place] # (Auto) 0.3, Eos # (Auto) 0.9 H, Baso # (Auto) 0.1 06/19/19 06:56: Sodium 142, Potassium 3.5, Chloride 104, Carbon Dioxide 26, Anion Gap 15.5 H, BUN 18, Creatinine 1.16 H, Estimated Creat Clear 68, Estimated GFR 46 L, Est GFR ( Amer) 56 L, Glucose 152 H, Calcium 9.7, Total Bilirubin 0.6, Direct Bilirubin 0.1, Indirect Bilirubin 0.5, AST 26, ALT 29, Alkaline Phosphatase 89, Troponin I 0.03, Total Protein 7.5, Albumin 3.8 06/19/19 06:56: Lactate 2.2 H 06/19/19 06:56: TSH 4.29 H, Thyroxine (T4) 12.9 06/19/19 06:56: B-Natriuretic Peptide 107 H 06/19/19 07:08: Specimen Source Left radial, O2 % 2lpm nc, ABG pH 7.42, ABG pCO2 34.7 L, ABG pO2 101.7 H, ABG HCO3 21.9 L, ABG Total CO2 23.0, ABG O2 Saturation 98, ABG Base Excess -2.6 L, Rodney Test Acceptable 06/19/19 07:28: PT 11.0, INR 1.06 I & O for Last 24 hours: Intake & Output 06/16/19 06/17/19 06/18/19 06/19/19 11:59 11:59 11:59 11:59 Weight 204 lb 3 oz - *Routine HEENT Exam Head: Present: normocephalic Eye: Present: EOMI, PERRL ENT: Present: mucous membranes moist - *Routine Neck Exam Present: supple. Absent: JVD, carotid bruit - *Routine Respiratory Exam Present: decreased breath sounds, wheezes. Absent: accessory muscle use, rales, rhonchi - *Routine Cardiovascular Exam Present: RRR. Absent: murmur, gallop, rubs - *Routine Abdominal Exam Present: soft. Absent: tenderness, distended, guarding - *Routine Extremities Exam Absent: edema, calf tenderness - *Routine Neurological Exam Present: alert, oriented X3, moving all extremities Assessment and Plan (1) Atrial flutter with rapid ventricular response Current visit: Yes Status: Acute Category: Medical Code(s): I48.92 - Unspecified atrial flutter (2) Hypertension Current visit: Yes Status: Acute Category: Medical Code(s): I10 - Essential (primary) hypertension (3) Acute exacerbation of chronic obstructive airways disease Current visit: Yes Status: Acute Category: Medical Code(s): J44.1 - Chronic obstructive pulmonary disease with (acute) exacerbation - Assessment and plan all Dx Assessment and Plan for all problems:: 1. New onset atrial flutter with rapid ventricular response likely secondary to COPD exacerbation. Patient has converted to sinus rhythm with IV diltiazem which we will switch to oral medication. We will obtain an echocardiogram to evaluate left atrial size and left ventricular ejection fraction. Patient's CHADS-VASC score is 3 (HTN, female,age) and gives a 3.2% risk of stroke per year. Recommend anticoagulation due to high likelihood for recurrence of a. fib/flutter in this pt with advanced COPD. 2. HTN 3. COPD, acute exacerbation, per Dr. Valdez
--- NOTE | 2019-06-19 15:39 | Cardiology Report ---
APPROVED REPORT EXAM: Comprehensive 2D, Doppler, and color-flow Echocardiogram Education Administrative Assistant: Debra Hodge CRT Ht: 5 ft 6 in Wt: 204lbs BSA: 2.02 BP: 171/75 mmHg Indications: COPD.AFLUTTER,SOA,HTN,EX SMOKER Left Ventricle Left atrium is mildly enlarged, left ventricle is normal size, mild concentric left ventricular hypertrophy, visually estimated ejection fraction 55% with no regional wall motion abnormality, diastolic parameters are inconclusive. Right Ventricle Right atrium and right ventricle mildly enlarged with normal contractility. Aortic Valve Aortic valve is minimally thickened and fibrosed, there is no aortic stenosis or aortic insufficiency. Mitral Valve Mitral valve is grossly normal, there is mild mitral regurgitation. Tricuspid Valve Tricuspid valve is grossly normal, there is mild tricuspid regurgitation. Tricuspid regurgitation jet velocity is inadequate for calculation of the right ventricular systolic pressure. Pulmonic Valve Pulmonic valve is poorly visualized. Great Vessels Aortic root is normal size. Pericardium No significant pericardial effusion noted. Conclusion 1. Mild biatrial enlargement, normal left ventricular size, mild concentric left ventricular hypertrophy, visually estimated ejection fraction 55% with no regional wall motion abnormality, endocardial surfaces are poorly visualized, diastolic parameters are inconclusive. 2. Mildly enlarged right ventricle with normal contractility. 3. Mild mitral and tricuspid regurgitation. 4. No significant pericardial effusion noted. Electronically signed by : Star Roland, 06/19/2019 15:38:48
--- NOTE | 2019-06-19 17:17 | History & Physical Report ---
*Admission Date: 06/19/19 *Chief complaint: tachycardia, SOA *History of present illness: 68-year-old white female with known history of COPD and hypertension presented to the emergency department for 3-day history of increasing shortness of breath and rapid heart rate on her home blood pressure monitor. Patient denies any chest pain but relates increasing feeling of panic attack/shortness of breath symptoms. She denies any fever, chills, nausea, vomiting or diarrhea. She was recently started on Anora inhaler but has not noticed a significant benefit. States she has been using her albuterol every 3-4 hours for the past several days as well due to shortness of breath. In the ER patient was noted to have a heart rate in the 150 to 160 bpm range with an EKG showing what was felt to be atrial flutter. She was started on IV diltiazem with improvement in rate. Upon arriving to the floor her heart rate was normal sinus rhythm and no longer tachycardic. EKG obtained. Cardiology was consulted and saw the patient earlier today. Concern for pneumonia for COPD exacerbation on admission as underlying etiology for her tachyarrhythmia. Upon assessment this afternoon she states she is having consistent shortness of breath and feels more tight as she has not had a breathing treatment in a few h ours. Otherwise states she feels somewhat improved without having her fast heart rate. Denies nausea, vomiting, chest pain, syncope, fever. [facility] History I have reviewed the patient's past medical history: Yes Medical History: Reports:: Chronic Obstructive Pulmonary Disease (COPD), Hyperlipidemia, Hypertension Denies:: Diabetes Mellitus Type 1, Diabetes Mellitus Type 2, Home Oxygen *Have you ever received a pneumonia vaccine?: Yes *Have you received a flu vaccine this season?: Yes Other Surgeries: Yes: Tubal Ligation - *Social History Smoking Status: Former smoker Tobacco Type: cigarettes # Packs/Day (cigarettes): 1 #Yrs smoked (if former smoker): 50 Smoking End Date: 05/21/2014 Alcohol Intake: never *Occupational Status:: retired Housing: house Household Members: none *Travel in the last 8 weeks: None Family Hx:: Coronary Artery Disease, Hypertension Review of Systems - Review of Systems Review of systems:: unable to obtain, pertinent systems reviewed and negative unless documented below (Routine point review of systems performed, pertinent positives and negatives per HPI) - *Neurologic Denies localized weakness, Denies headache(s), Denies seizure-like activity Meds Home Medications Medication Instructions Recorded Confirmed Type Albuterol Sulfate [Albuterol HFA 1 - 2 puffs IH Q4-6H PRN #1 inh 01/08/19 06/19/19 Rx Inhaler] hydroCHLOROthiazide [HCTZ 25mg 25 mg PO DAILY 05/23/19 06/19/19 History tab] Cholecalciferol (Vitamin D3) 2,000 unit PO DAILY 06/19/19 06/19/19 History [Vitamin D3 1,000 Unit Cap] Garlic 1,000 mg PO DAILY 06/19/19 06/19/19 History [place]-3/Dha/Epa/Fish Oil [Fish Oil 1,000 mg PO DAILY 06/19/19 06/19/19 History 1,000 mg Softgel] Umeclidinium Brm/Vilanterol Tr 1 puff IH DAILY 06/19/19 06/19/19 History [Anoro Ellipta 62.5-25 Mcg INH] Allergies Allergy/AdvReac Type Severity Reaction Status Date / Time No Known Allergies Allergy Verified 01/08/19 14:39 Exam Vital signs and Labs for Last 24 Hours: Temp Pulse Resp BP Pulse Ox 97.9 F 79 22 130/62 98 06/19/19 09:15 06/19/19 17:00 06/19/19 17:00 06/19/19 17:00 06/19/19 17:00 Laboratory Results - last 24 hr 06/19/19 06:56: WBC 5.9, RBC 4.98, Hgb 14.8, Hct 46.2, MCV 92.8, MCH 29.7, MCHC 32.0, RDW 13.3, Plt Count 300, MPV 8.8, Neut % (Auto) 50.6, Lymph % (Auto) 28.7, [place] % (Auto) 4.8, Eos % (Auto) 15.0 H, Baso % (Auto) 0.9, Neut # (Auto) 3.0, Lymph # (Auto) 1.7, [place] # (Auto) 0.3, Eos # (Auto) 0.9 H, Baso # (Auto) 0.1 06/19/19 06:56: Sodium 142, Potassium 3.5, Chloride 104, Carbon Dioxide 26, Anion Gap 15.5 H, BUN 18, Creatinine 1.16 H, Estimated Creat Clear 68, Estimated GFR 46 L, Est GFR ( Amer) 56 L, Glucose 152 H, Calcium 9.7, Total Bili grey 0.6, Direct Bilirubin 0.1, Indirect Bilirubin 0.5, AST 26, ALT 29, Alkaline Phosphatase 89, Troponin I 0.03, Total Protein 7.5, Albumin 3.8 06/19/19 06:56: Lactate 2.2 H 06/19/19 06:56: TSH 4.29 H, Thyroxine (T4) 12.9 06/19/19 06:56: B-Natriuretic Peptide 107 H 06/19/19 07:08: Specimen Source Left radial, O2 % 2lpm nc, ABG pH 7.42, ABG pCO2 34.7 L, ABG pO2 101.7 H, ABG HCO3 21.9 L, ABG Total CO2 23.0, ABG O2 Saturation 98, ABG Base Excess -2.6 L, Rodney Test Acceptable 06/19/19 07:28: PT 11.0, INR 1.06 06/19/19 10:20: Troponin I 0.03 06/19/19 11:30: Lactate 1.4 06/19/19 13:25: Troponin I 0.03 I & O for Last 24 hours: Intake & Output 06/16/19 06/17/19 06/18/19 06/19/19 23:59 23:59 23:59 23:59 Intake Total 1330 / 1330 Output Total 500 / 500 Balance 830 / 830 Weight 92.618 kg - Constitutional mild distress, obese - *Routine HEENT Exam Head: Present: normocephalic Eye: Present: EOMI, PERRL ENT: Present: mucous membranes moist - *Routine Neck Exam Present: supple. Absent: lymphadenopathy - *Routine Respiratory Exam Present: accessory muscle use, prolonged expiratory phase, wheezes, crackles - *Routine Cardiovascular Exam Present: RRR - *Routine Abdominal Exam Present: soft, normoactive bowel sounds. Absent: tenderness - *Routine Extremities Exam Absent: cyanosis, clubbing, edema - *Routine Skin Exam Present: warm. Absent: rash - *Routine Neurological Exam Present: alert, oriented X3 Assessment and Plan (1) Atrial flutter with rapid ventricular response Current visit: Yes Status: Acute Category: Medical Code(s): I48.92 - Unspecified atrial flutter Improved after IV diltiazem. Transition oral long-acting dosage given. Cardiology consulted. Appreciate recommendations. Additional Recs: 1. New onset atrial flutter with rapid ventricular response likely secondary to COPD exacerbation. Patient has converted to sinus rhythm with IV diltiazem which we will switch to oral medication. We will obtain an echocardiogram to evaluate left atrial size and left ventricular ejection fraction. Patient's CHADS-VASC score is 3 (HTN, female,age) and gives a 3.2% risk of stroke per year. Recommend anticoagulation due to high likelihood for recurrence of a. fib/flutter in this pt with advanced COPD. (2) Hypertension Current visit: Yes Status: Chronic Category: Medical Code(s): I10 - Essential (primary) hypertension (3) Acute exacerbation of chronic obstructive airways disease Current visit: Yes Status: Acute Category: Medical Code(s): J44.1 - Chronic obstructive pulmonary disease with (acute) exacerbation Change in her control since switching inhalers due to insurance. Continue breathing treatments with scheduled every 6 hours, every 1 hour as needed. Antibiotics and steroids as prescribed (4) Pneumonia Current visit: Yes Status: Acute Qualifiers: Laterality: right Lung location: lower lobe of lung Category: Medical Code(s): J18.9 - Pneumonia, unspecified organism Infiltrate right lower lobe. Initiated on antibiotics. Cultures obtained. Monitor for improvement. O2 is necessary for goal greater than 88% while asleep, greater 92% while awake (5) Obesity (BMI 30.0-34.9) Current visit: Yes Status: Chronic Category: Medical Code(s): E66.9 - Obesity, unspecified Complicates all aspects of her care (6) Acute kidney injury Current visit: Yes Status: Acute Category: Medical Code(s): N17.9 - Acute kidney failure, unspecified Greater than 20% above baseline. Baseline creatinine 0.88. Will monitor for improvement with fluid resuscitation
[2019-06-20 05:56] LABS: Basophils % 0.1 % (0.1-2.0); Eosinophils % 0.3 % (0.1-12.0); Hematocrit 37.3 % (37.0-47.0); Lymphocytes # 0.9 K/mm3 (0.7-4.5); Lymphocytes % 18.9 % (10-50); Mean Corpuscular HGB Conc 32.1 g/dL (31.8-35.4); Mean Corpuscular Volume 92.7 fl (81-99); Mean Platelet Volume 8.7 fl (7.4-10.4); Monocytes # 0.1 K/mm3 (0.1-1.0); Monocytes % 2.9 % (1.7-9.3); Neutrophils # 3.7 K/mm3 (1.8-7.8); Neutrophils % 77.9 % (37.0-80.0); Platelet Count 245 K/mm3 (142-424); Red Blood Count 4.02 M/mm3 (4.20-5.40); Red Cell Distribution Width 13.4 % (11.5-17.5); White Blood Count 4.8 K/mm3 (4.8-10.8)
[2019-06-20 06:02] LABS: Anion Gap 12.9 mEq/L (5-15)
[2019-06-20 06:33] LABS: Calcium 8.4 mg/dL (8.5-10.1)
--- NOTE | 2019-06-20 07:28 | Progress Note ---
Subjective Date: 06/20/19 Time: 07:25 Principal diagnosis: A. flutter Interval history: 68 yo WF eating breakfast in NAD. States her breathing has improved and she feels significantly better than on admission. Telemetry reveals that she has maintained NSR overnight. Discussed anticoagulation and referral for EP evaluation. She wishes to discuss with Dr. Valdez. Exam Vital signs and Labs for Last 24 Hours: Temp Pulse Resp BP Pulse Ox 97.9 F 97 H 16 108/55 L 95 06/20/19 05:20 06/20/19 06:18 06/19/19 20:00 06/20/19 04:00 06/20/19 06:18 Laboratory Results - last 24 hr 06/19/19 06:56: Sodium 142, Potassium 3.5, Chloride 104, Carbon Dioxide 26, Anion Gap 15.5 H, BUN 18, Creatinine 1.16 H, Estimated Creat Clear 68, Estimated GFR 46 L, Est GFR ( Amer) 56 L, Glucose 152 H, Calcium 9.7, Total Bilirubin 0.6, Direct Bilirubin 0.1, Indirect Bilirubin 0.5, AST 26, ALT 29, Alkaline Phosphatase 89, Troponin I 0.03, Total Protein 7.5, Albumin 3.8 06/19/19 06:56: Lactate 2.2 H 06/19/19 06:56: TSH 4.29 H, Thyroxine (T4) 12.9 06/19/19 06:56: B-Natriuretic Peptide 107 H 06/19/19 07:28: PT 11.0, INR 1.06 06/19/19 10:20: Troponin I 0.03 06/19/19 11:30: Lactate 1.4 06/19/19 13:25: Troponin I 0.03 06/20/19 05:41: WBC 4.8, RBC 4.02 L, Hgb 12.0 L D, Hct 37.3, MCV 92.7, MCH 29.8, MCHC 32.1, RDW 13.4, Plt Count 245, MPV 8.7, Neut % (Auto) 77.9, Lymph % (Auto) 18.9, [place] % (Auto) 2.9, Eos % (Auto) 0.3, Baso % (Auto) 0.1, Neut # (Auto) 3.7, Lymph # (Auto) 0.9, [place] # (Auto) 0.1, Eos # (Auto) 0.0, Baso # (Auto) 0.0 06/20/19 05:41: Sodium 139, Potassium 3.9, Chloride 105, Carbon Dioxide 25, Anion Gap 12.9, BUN 13 D, Creatinine 0.92 D, Estimated Creat Clear 80, Estimated GFR 61, Est GFR ( Amer) 73 D, Glucose 232 H D, Calcium 8.4 L D , Magnesium 2.0 I & O for Last 24 hours: Intake & Output 06/17/19 06/18/19 06/19/19 06/20/19 11:59 11:59 11:59 11:59 Intake Total 4755 / 4755 Output Total 1650 / 1650 Balance 3105 / 3105 Weight 204 lb 3 oz 209 lb 7 oz - *Routine HEENT Exam Head: Present: normocephalic Eye: Present: EOMI, PERRL ENT: Present: mucous membranes moist - *Routine Respiratory Exam Present: rhonchi, wheezes. Absent: accessory muscle use, rales - *Routine Cardiovascular Exam Present: RRR. Absent: murmur, gallop, rubs - *Routine Extremities Exam Absent: edema, calf tenderness - *Routine Neurological Exam Present: alert, oriented X3, moving all extremities Progress Note: A&P (1) Atrial flutter with rapid ventricular response Status: Acute Current Visit: Yes (2) Hypertension Status: Chronic Current Visit: Yes (3) Acute exacerbation of chronic obstructive airways disease Status: Acute Current Visit: Yes (4) Pneumonia Status: Acute Current Visit: Yes (5) Obesity (BMI 30.0-34.9) Status: Chronic Current Visit: Yes (6) Acute kidney injury Status: Acute Current Visit: Yes Assessment and Plan for All Diagnoses:: 1. Continue diltiazem CD 240 mg daily. Recommend anticoagulation (due to elevated CHADS-VASC score) with plans to refer to Electrophysiology for further evaluation and treatment as outpatient. Echo showed preserved LVEF with mild LVH and mild MR. 2. COPD exacerbation/pneumonia, per Dr. Valdez
--- NOTE | 2019-06-20 08:27 | Progress Note ---
Internal Medicine - PN: Subj *Date: 06/20/19 *Time: 08:25 Interval history: Overnight patient has remained in sinus rhythm. She feels much better. Continues to have some dyspnea when she walks around the room. Exam Vital signs and Labs for Last 24 Hours: Temp Pulse Resp BP Pulse Ox 97.9 F 89 20 144/45 H 97 06/20/19 05:20 06/20/19 08:00 06/20/19 08:00 06/20/19 08:00 06/20/19 08:11 Laboratory Results - last 24 hr 06/19/19 06:56: B-Natriuretic Peptide 107 H 06/19/19 10:20: Troponin I 0.03 06/19/19 11:30: Lactate 1.4 06/19/19 13:25: Troponin I 0.03 06/20/19 05:41: WBC 4.8, RBC 4.02 L, Hgb 12.0 L D, Hct 37.3, MCV 92.7, MCH 29.8, MCHC 32.1, RDW 13.4, Plt Count 245, MPV 8.7, Neut % (Auto) 77.9, Lymph % (Auto) 18.9, [place] % (Auto) 2.9, Eos % (Auto) 0.3, Baso % (Auto) 0.1, Neut # (Auto) 3.7, Lymph # (Auto) 0.9, [place] # (Auto) 0.1, Eos # (Auto) 0.0, Baso # (Auto) 0.0 06/20/19 05:41: Sodium 139, Potassium 3.9, Chloride 105, Carbon Dioxide 25, Anion Gap 12.9, BUN 13 D, Creatinine 0.92 D, Estimated Creat Clear 80, Estimated GFR 61, Est GFR ( Amer) 73 D, Glucose 232 H D, Calcium 8.4 L D , Magnesium 2.0 I & O for Last 24 hours: Intake & Output 06/17/19 06/18/19 06/19/19 06/20/19 11:59 11:59 11:59 11:59 Intake Total 4755 / 4755 Output Total 1650 / 1650 Balance 3105 / 3105 Weight 204 lb 3 oz 209 lb 7 oz Narrative: Patient is pleasant, alert, oriented x3. Up in chair. Heart rate regular. Lungs have better air movement. Some tightness in the bases. Minimal expiratory wheezing. Abdomen soft, obese. No edema or clubbing. Assessment and Plan (1) Atrial flutter with rapid ventricular response Current visit: Yes Status: Acute Category: Medical Code(s): I48.92 - Unspecified atrial flutter (2) Hypertension Current visit: Yes Status: Chronic Category: Medical Code(s): I10 - Essential (primary) hypertension (3) Acute exacerbation of chronic obstructive airways disease Current visit: Yes Status: Acute Category: Medical Code(s): J44.1 - Chronic obstructive pulmonary disease with (acute) exacerbation (4) Pneumonia Current visit: Yes Status: Acute Qualifiers: Laterality: right Lung location: lower lobe of lung Category: Medical Code(s): J18.9 - Pneumonia, unspecified organism (5) Obesity (BMI 30.0-34.9) Current visit: Yes Status: Chronic Category: Medical Code(s): E66.9 - Obesity, unspecified (6) Acute kidney injury Current visit: Yes Status: Acute Category: Medical Code(s): N17.9 - Acute kidney failure, unspecified - Assessment and plan all Dx Assessment and Plan for all problems:: Patient improving. In regards to her atrial fibrillation issues I agree with Eliquis therapy. Echocardiogram looks good. When she is able to be discharged from her lung disease standpoint we will discharge her on 30-day event recorder. Assess at outpatient whether or not EP assessment versus deseeding Eliquis if she maintains sinus rhythm.
--- NOTE | 2019-06-21 08:27 | Discharge Summary ---
General - General Admission date:: 06/19/19 Discharge date: 06/21/19 HPI HPI: 68-year-old white female with known history of COPD and hypertension presented to the emergency department for 3-day history of increasing shortness of breath and rapid heart rate on her home blood pressure monitor. Patient denies any chest pain but relates increasing feeling of panic attack/shortness of breath symptoms. She denies any fever, chills, nausea, vomiting or diarrhea. She was recently started on Anora inhaler but has not noticed a significant benefit. States she has been using her albuterol every 3-4 hours for the past several days as well due to shortness of breath. In the ER patient was noted to have a heart rate in the 150 to 160 bpm range with an EKG showing what was felt to be atrial flutter. She was started on IV diltiazem with improvement in rate. Upon arriving to the floor her heart rate was normal sinus rhythm and no longer tachycardic. EKG obtained. Cardiology was consulted and saw the patient earlier today. Concern for pneumonia for COPD exacerbation on admission as underlying etiology for her tachyarrhythmia. Upon assessment this afternoon she states she is having consistent shortness of breath and feels more tight as she has not had a breathing treatment in a few hours. Otherwise states she feels somewhat improved without having her fast heart rate. Denies nausea, vomiting, chest pain, syncope, fever. Hospital Course Hospital Course: Patient was admitted to the hospital, aggressive antibiotic therapy and steroid therapy was started. Patient converted to sinus rhythm after a very brief period of time on a Cardizem drip. She had no further episodes of A. fib or flutter. Lungs improve dramatically over the next couple of days and she did not have any further oxygen requirement after midnight this morning. This morning she feels almost back to her baseline wishes to be discharged home. Plan will be to discharge her home on steroids and antibiotics for the COPD exacerbation as well as Eliquis for her atrial fib/flutter. We will place her in a 30-day event recorder to see if flutter or fib recurs or whether or not this was a reactive MAT syndrome from her COPD exacerbation. I will see her in short-term follow-up in 2 days. Objective Vital signs: Temp Pulse Resp BP Pulse Ox 97.5 F L 82 18 138/55 L 94 L 06/21/19 08:00 06/21/19 08:00 06/21/19 08:00 06/21/19 08:00 06/21/19 08:00 Narrative: Sitting up in a chair, breathing comfortably. Vital signs normal, alert and oriented x3. Oropharynx clear, moist. No JVD. Lungs have good air movement, minimal expiratory wheezing but much improved over admission and close to baseline. Heart rate regular without murmurs. Abdomen soft. No edema, clubbing or cyanosis. Neurologically intact. Results Labs on day of discharge: Preliminary micro results at discharge 06/19/19 06:56 Blood Culture - Preliminary Blood NO GROWTH AFTER 48 HOURS 06/19/19 06:56 Blood Culture - Preliminary Blood NO GROWTH AFTER 48 HOURS 06/20/19 18:30 Sputum Culture - Preliminary Sputum - Expectorated Sputum DS: Diagnosis - Discharge Diagnosis (1) Atrial flutter with rapid ventricular response Status: Resolved (2) Hypertension Status: Chronic (3) Acute exacerbation of chronic obstructive airways disease Status: Acute (4) Pneumonia Status: Acute (5) Obesity (BMI 30.0-34.9) Status: Chronic (6) Acute kidney injury Status: Resolved Discharge Plan - Patient Discharge Instructions ACTIVITY: Continue current activity DIET: continue same diet Patient Instructions: Eosinophilia, DI for Chronic Obstructive Pulmonary Disease, DI for Atrial Flutter, DI for Obesity -- Adult - Follow up Plan Follow up with: Tyrell Owens MD [Primary Care Provider] - 06/23/19 10:15 am Disposition: Home, Self-Longterm Medications: Home Medications Medication Instructions Recorded Confirmed Type Albuterol Sulfate [Albuterol HFA 1 - 2 puffs IH Q4-6H PRN #1 inh 01/08/19 06/19/19 Rx Inhaler] hydroCHLOROthiazide [HCTZ 25mg 25 mg PO DAILY 05/23/19 06/19/19 History tab] Cholecalciferol (Vitamin D3) 2,000 unit PO DAILY 06/19/19 06/19/19 History [Vitamin D3 1,000 Unit Cap] Garlic 1,000 mg PO DAILY 06/19/19 06/19/19 History [place]-3/Dha/Epa/Fish Oil [Fish Oil 1,000 mg PO DAILY 06/19/19 06/19/19 History 1,000 mg Softgel] Umeclidinium Brm/Vilanterol Tr 1 puff IH DAILY 06/19/19 06/19/19 History [Anoro Ellipta 62.5-25 Mcg INH] Apixaban [Eliquis 5mg tab] 5 mg PO BID 30 Days #60 pack 06/21/19 Rx Azithromycin [Zithromax 250mg 250 mg PO DIRECTED #6 tab 06/21/19 Rx tab] Cefdinir [Omnicef 300mg Capsule] 300 mg PO BID #14 cap 06/21/19 Rx Ipratropium/Albuterol Sulfate 3 ml IH QIDP PRN #120 neb 06/21/19 Rx [Duoneb 3mL neb] Promethazine/Dextromethorphan 5 ml PO Q6HP PRN #240 ml 06/21/19 Rx [Promethazine-Dm Syrup] predniSONE [Deltasone 20mg 20 mg PO BID 7 Days #14 tab 06/21/19 Rx tablet] Prescriptions/Medication Reconciliation: New predniSONE [Deltasone 20mg tablet] 20 mg PO BID 7 Days #14 tab Cefdinir [Omnicef 300mg Capsule] 300 mg PO BID #14 cap Azithromycin [Zithromax 250mg tab] 250 mg PO DIRECTED #6 tab Ipratropium/Albuterol Sulfate [Duoneb 3mL neb] 3 ml IH QIDP PRN #120 neb PRN Reason: Wheezing Apixaban [Eliquis 5mg tab] 5 mg PO BID 30 Days #60 pack Promethazine/Dextromethorphan [Promethazine-Dm Syrup] 5 ml PO Q6HP PRN #240 ml PRN Reason: Cough Continued Albuterol Sulfate [Albuterol HFA Inhaler] 1 - 2 puffs IH Q4-6H PRN #1 inh PRN Reason: Shortness Of Breath Or Wheezing Umeclidinium Brm/Vilanterol Tr [Anoro Ellipta 62.5-25 Mcg INH] 1 puff IH DAILY [place]-3/Dha/Epa/Fish Oil [Fish Oil 1,000 mg Softgel] 1,000 mg PO DAILY Cholecalciferol (Vitamin D3) [Vitamin D3 1,000 Unit Cap] 2,000 unit PO DAILY hydroCHLOROthiazide [HCTZ 25mg tab] 25 mg PO DAILY Garlic 1,000 mg PO DAILY - Problem Reconciliation Problems Reviewed?: Yes
--- NOTE | 2019-06-21 21:00 | Electrocardiograph Report ---
APPROVED REPORT Exam: Resting ECG HR:154 bpm ECG Measurements Heart Rate 154 AXES QRSd 80 QRS 70 QT 294 T257 QTc 470 <Conclusion> Atrial fibrillation with rapid ventricular response Marked ST abnormality, possible inferior subendocardial injury Abnormal ECG Electronically signed by : Tyrell Owens, 06/21/2019 20:59:48
--- NOTE | 2019-06-21 21:00 | Electrocardiograph Report ---
APPROVED REPORT Exam: Resting ECG HR:81 bpm ECG Measurements Heart Rate [address] 128 P 76 QRSd 86 QRS 78 QT 378 T97 QTc 439 <Conclusion> Normal sinus rhythm with sinus arrhythmia Nonspecific T wave abnormality Abnormal ECG Electronically signed by : Tyrell Owens, 06/21/2019 20:59:36
== END 2019-06-21 12:25 | disposition home or self-care (01) | DRG 190 ==
LOC: 2ND 06:45 → ER 06:45 → 2ND 08:59 → OBSVTOIN 08:59
PROVIDERS: ADMIT Internal Medicine Adolescent Medicine; ATTEND Internal Medicine Adolescent Medicine
CPT/HCPCS: J0456

== ENCOUNTER 2019-11-17 10:16 | Emergency (ER) | payer MEDICARE, MEDICAID, SELFPAY ==
[2019-11-17 10:28] VITALS: BP 124/59; PULSE 100; RESP 20; TEMP 36.7; O2SAT 94; BMI 29.7
[2019-11-17 10:30] VITALS: PULSE 91; PULSE 95
[2019-11-17 10:31] VITALS: BMI 29.7
--- NOTE | 2019-11-17 10:32 | XR_ITS ---
PROCEDURE: XR CHEST 2V CLINICAL HISTORY: SOA, prod cough COMPARISON: XR CHEST 2V from 01/08/2019 XR CHEST PORTABLE from 05/23/2019 XR CHEST PORTABLE from 06/19/2019 FINDINGS: The cardiomediastinal silhouette and pulmonary vascularity are within normal limits. COPD. No lobar consolidation or collapse. Benign-appearing lucency left humeral head IMPRESSION: No acute finding Dictated by: Rodney Moseley MD 11/17/2019 10:45 Electronically signed by Rodney Moseley MD in [place] 11/17/2019 10:45
--- NOTE | 2019-11-17 10:32 | PC.NURSE ---
ER gave verbal orders on pt at this time
--- NOTE | 2019-11-17 10:34 | PC.NURSE ---
rad notified of xray
[2019-11-17 10:40] VITALS: BP 124/59; PULSE 96; RESP 22; O2SAT 97
--- NOTE | 2019-11-17 10:47 | PC.NURSE ---
rt at bedside
--- NOTE | 2019-11-17 10:50 | HMH.EDSOB ---
ED Disposition Clinical Impression: Asthma with exacerbation, COPD exacerbation Disposition: Home, Self-Care Condition on Discharge: Good Instructions: DI for Emphysema Prescriptions: Azithromycin 250 mg PO DAILY 5 Days #6 tab Transmission Status: Pending to [facility] Ipratropium/Albuterol Sulfate [Combivent Respimat Inh] 2 puff IH QID #1 inh Transmission Status: Pending to [facility] methylPREDNISolone [Medrol 4mg tab] 4 mg PO DIRECTED #21 tab Transmission Status: Pending to [facility] Referrals: Tyrell Owens MD [Primary Care Provider] - - Critical Care Critical Care Time: No Attestation: On , the high probability of a clinically significant, sudden or life threatening deterioration of the following system(s) required my full and direct attention, intervention and personal management. The time I documented below is in addition to time spent performing reported procedures but includes the following listed in this critical care notation. Medical Decision Making - Medical Records Medical records reviewed: Yes: I reviewed the patient's medical records. - Nii Inquiry Pt receiving controlled substance: No Vital Signs: 11/17/19 10:28 11/17/19 10:40 Temperature 98.1 F Temperature Source Oral Pulse Rate [Right Radial] 100 H 96 H Respiratory Rate 20 22 Blood Pressure [Right Arm] 124/59 L 124/59 L Blood Pressure Mean [Right Arm] 80 80 Blood Pressure Source [Right Arm] Automatic Cuff Automatic Cuff Blood Pressure Position [Right Arm] Sitting Sitting 02 Sat by Pulse Oximetry 94 L 97 Oxygen Delivery Method Room Air - Lab Data Lab results reviewed: Yes: I reviewed the patient's lab results. Orders (Tests/Meds): ED MEDICATIONS Discontinued Medications Generic Name Dose Route Start Last Admin Trade Name Freq PRN Reason Stop Dose Admin Albuterol Sulfate 2.5 mg 11/17/19 10:32 Albuterol 0.083% 2.5mg/3ml [facility] 11/17/19 10:33 ONCE ONE Albuterol/Ipratropium 3 ml 11/17/19 10:32 Duoneb 3ml [facility] 11/17/19 10:33 ONCE ONE Methylprednisolone Sodium Succinate 125 mg 11/17/19 10:32 Solu-Medrol 125mg/2ml Vial IV 11/17/19 10:33 ONCE ONE - Radiology Data #1 Image(s): Chest Preliminary Findings: Normal/NAD Medical Decision Narrative: Patient improved after steroids and IV and neb treatments Resp/SOB HPI - General Chief Complaint: Shortness of Breath/Dyspnea Stated Complaint: inf Time Seen by Provider: 11/17/19 10:20 Mode of Arrival: Ambulatory Source of Information: Patient Limitations: No Limitations Description of Symptoms (Recalled from ER Triage Doc. by RN): Pt reports SOA and productive cough since of last week. Pt reports hx of COPD, states she feels like its a flare up of her COPD. Pt reports has been using nebulizers at home - History of Present Illness Yvoc-ludd-cud female comes and she states she is got a flareup of her emphysema. She is been more short of breath and had a dry cough for last 2 days. Patient denies any fever patient denies any malaise or arthralgias. Patient also denies any sore throat or headache. Patient also denies any loss of taste or smell. She states this happens to her every spring and also in the fall when her allergies start to flareup. - Related Data Home Medications Medication Instructions Recorded Confirmed hydroCHLOROthiazide [HCTZ 25mg 25 mg PO DAILY 05/23/19 06/19/19 tab] Cholecalciferol (Vitamin D3) 2,000 unit PO DAILY 06/19/19 06/19/19 [Vitamin D3 1,000 Unit Cap] Garlic 1,000 mg PO DAILY 06/19/19 06/19/19 [place]-3/Dha/Epa/Fish Oil [Fish Oil 1,000 mg PO DAILY 06/19/19 06/19/19 1,000 mg Softgel] Umeclidinium Brm/Vilanterol Tr 1 puff IH DAILY 06/19/19 06/19/19 [Anoro Ellipta 62.5-25 Mcg INH] Previous Rx's Medication Instructions Recorded Albuterol Sulfate [Ventolin HFA 1 - 2 puffs IH Q4-6H PRN #1 inh 01/08/19 Inhaler]
--- NOTE | 2019-11-17 10:56 | PC.NURSE ---
RT here giving neb tx
[2019-11-17 11:30] VITALS: BP 124/54; PULSE 89; RESP 20; TEMP 36.7; O2SAT 95
== END 2019-11-17 11:30 | disposition home or self-care (01) ==
LOC: ER 10:56
PROVIDERS: Emergency Provider Family Medicine; PCP Internal Medicine Adolescent Medicine
DX: J44.1 Chronic obstructive pulmonary disease with (acute) exacerbation (principal); E78.5 Hyperlipidemia, unspecified; I10 Essential (primary) hypertension; Z87.891 Personal history of nicotine dependence; Z79.899 Other long term (current) drug therapy
CPT/HCPCS: 71046; 96374; 99283

== ENCOUNTER 2019-12-22 13:48 | Emergency (ER) | payer MEDICARE, MEDICAID, SELFPAY ==
[2019-12-22 14:13] VITALS: BP 126/61; PULSE 93; RESP 24; TEMP 36.4; O2SAT 93; BMI 31.9
--- NOTE | 2019-12-22 14:24 | XR_ITS ---
PROCEDURE: XR CHEST 2V CLINICAL HISTORY: cough COMPARISON: XR CHEST PORTABLE from 05/23/2019 XR CHEST PORTABLE from 06/19/2019 XR CHEST 2V from 11/17/2019 FINDINGS: The cardiomediastinal silhouette and pulmonary vascularity are within normal limits. The lungs are clear without infiltrates, suspicious nodules, or pleural effusions. No acute bony abnormalities. IMPRESSION: No acute findings. Dictated by: Rodney Moseley MD 12/22/2019 15:14 Electronically signed by Rodney Moseley MD in [place] 12/22/2019 15:14
--- NOTE | 2019-12-22 14:50 | HMH.EDUTC ---
[facility] Disposition Clinical Impression: COPD exacerbation Disposition: Home, Self-Care Condition on Discharge: Good Instructions: Chronic Obstructive Pulmonary Disease, DI for Chronic Obstructive Pulmonary Disease Additional Instructions: Drink plenty of fluids. Take tylenol or ibuprofen for pain or fever. Take the medications as directed. Follow up with your regular doctor. GO TO THE ER FOR ANY WORSENING SYMPTOMS Don't start the oral steroids until tomorrow, since you had the shot here today. The cough medication (promethazine dm) will make you drowsy, so don't drive or operate heavy machinery after taking it. Prescriptions: Promethazine/Dextromethorphan [Promethazine-Dm Syrup] 5 ml PO Q6HP PRN #240 syrup PRN Reason: Cough Transmission Status: Received by [facility] predniSONE [Deltasone 10mg tablet] 10 mg PO DAILY 9 Days #21 tab Transmission Status: Received by [facility] levoFLOXacin [Levaquin 500mg tab] 500 mg PO DAILY #7 tab Transmission Status: Received by [facility] Referrals: Tyrell Owens MD [Primary Care Provider] - Time of Disposition: 14:53 Medical Decision Making - Medical Records Medical records reviewed: No: I reviewed the patient's medical records. - Nii Inquiry Pt receiving controlled substance: No Vital Signs: 12/22/19 14:13 12/22/19 15:13 Temperature 97.6 F 97.6 F Temperature Source Oral Pulse Rate 93 H Pulse Rate [Right Brachial] 93 H Respiratory Rate 24 24 Blood Pressure 126/61 Blood Pressure [Right Arm] 126/61 Blood Pressure Mean [Right Arm] 82 Blood Pressure Source [Right Arm] Automatic Cuff Blood Pressure Position [Right Arm] Sitting 02 Sat by Pulse Oximetry 93 L Oxygen Delivery Method Room Air Orders (Tests/Meds): ED MEDICATIONS Discontinued Medications Generic Name Dose Route Start Last Admin Trade Name Freq PRN Reason Stop Dose Admin Ceftriaxone Sodium 1 gm 12/22/19 14:48 12/22/19 15:11 Rocephin 1gm Vial IM 12/22/19 14:49 1 gm ONCE ONE Administration Protocol Lidocaine HCl 0 ml 12/22/19 14:48 12/22/19 15:11 Lidocaine 1% 10ml Mdv IM 12/22/19 14:49 2.1 ml ONCE ONE Administration Methylprednisolone Sodium Succinate 125 mg 12/22/19 14:48 12/22/19 15:11 Solu-Medrol 125mg/2ml Vial IM 12/22/19 14:49 125 mg ONCE ONE Administration - Radiology Data #1 Image(s): Chest Image Reviewed: Yes I reviewed the patient's radiology image, Yes I have reviewed radiologist's interpretation Preliminary Findings: No Infiltrates Seen PROCEDURE: XR CHEST 2V CLINICAL HISTORY: cough COMPARISON: XR CHEST PORTABLE from 05/23/2019 XR CHEST PORTABLE from 06/19/2019 XR CHEST 2V from 11/17/2019 FINDINGS: The cardiomediastinal silhouette and pulmonary vascularity are within normal limits. The lungs are clear without infiltrates, suspicious nodules, or pleural effusions. No acute bony abnormalities. IMPRESSION: No acute findings. Dictated by: Rodney Moseley MD 12/22/2019 15:14 Electronically signed by Rodney Moseley MD in [place] 12/22/2019 15:14 [facility] HPI - General Stated complaint: COPD Time Seen by Provider: 12/22/19 14:20 Mode of Arrival: Ambulatory Source of Information: Patient Limitations: No Limitations Description of Symptoms (Recalled from Triage Doc. by RN): PATIENT C/O COUGH WITH WHITE SPUTUM AND WHEEZING THAT STARTED 12/07. HAS HISTORY OF COPD HEENT Symptoms (Recalled from RN notes): No Resp Symptoms (Recalled from RN notes): Yes Skin Symptoms (Recalled from RN notes): No MS Symptoms (Recalled from RN notes): No Functional Status (Recalled from RN notes): WNL - History of Present Illness Provider Complaint: She has a history of COPD. She states that over the past 1 week she has been having a worsening cough and chest congestion. She denies any chest pain. She does have a history of being hospitalized in May 2019 with pneumonia.
[2019-12-22 15:13] VITALS: BP 126/61; PULSE 93; RESP 24; TEMP 36.4; O2SAT 93
== END 2019-12-22 15:18 | disposition home or self-care (01) ==
PROVIDERS: Emergency Provider Nurse Practitioner Family; PCP Internal Medicine Adolescent Medicine
DX: J44.1 Chronic obstructive pulmonary disease with (acute) exacerbation (principal); I10 Essential (primary) hypertension; E78.5 Hyperlipidemia, unspecified; Z79.899 Other long term (current) drug therapy; Z87.891 Personal history of nicotine dependence
CPT/HCPCS: 71046; 96372; 99202

== ENCOUNTER → 2020-01-19 12:54 | Outpatient (CLI) | payer MEDICARE, MEDICAID, SELFPAY ==
--- NOTE | 2020-01-19 12:57 | MM_ITS ---
PROCEDURE: MM DIG SCREENING MAMM BI W/CAD Digital Breast Tomosynthesis Included CLINICAL INDICATION: SCREENING There is no personal or family history of breast cancer. The patient has had previous mammograms but they are not available for review. COMPARISON: No exams were available for comparison TECHNIQUE: Standard CC and MLO images and 3D Tomosynthesis was obtained. R2 CAD reviewed. FINDINGS: Scattered fibroglandular densities are seen in the central portions of both breasts. There are couple of benign-appearing microcalcifications in each breast. There is minimal focal arterial calcification right breast. There is no suspicious lesion in either breast and no suspicious microcalcifications. IMPRESSION: Fibrofatty parenchyma with no suspicious lesions seen BI-RAD Category: 2 Benign Finding(s) FOLLOW-UP: 1YR 1 Year Follow-up (A letter has been sent to the patient regarding results of the study.) Dictated by: Dr. Beck Ty MD 01/20/2020 10:11 Dr. Beck Ty MD in [place] 01/20/2020 10:11
--- NOTE | 2020-01-19 12:57 | XR_ITS ---
PROCEDURE: XR DEXA AXIAL SKELETON CLINICAL HISTORY: POST MENOPAUSAL COMPARISON: No exams were available for comparison FINDINGS: The right hip BMD is 0.776 with a T-score of -0.7. The left hip BMD is 0.841 with a T-score of -0.8. The lumbar spine BMD is 1.029 with a T-score of -0.2. IMPRESSION: This patient is considered normal according to the World Health Organization criteria. Fracture risk is low. Based on these results a follow-up exam is recommended in 2 year. Dictated by: Rodney Moseley MD 01/23/2020 12:54 Rodney Moseley MD in [place] 01/23/2020 12:54
== END ==
PROVIDERS: PCP Internal Medicine Adolescent Medicine; Visit Provider Internal Medicine Adolescent Medicine
DX: Z12.31 Encounter for screening mammogram for malignant neoplasm of breast (principal); Z13.820 Encounter for screening for osteoporosis; Z78.0 Asymptomatic menopausal state; I48.92 Unspecified atrial flutter
CPT/HCPCS: 77063; 77067; 77080

== ENCOUNTER → 2020-01-28 09:25 | Outpatient (CLI) | payer MEDICARE, MEDICAID, SELFPAY ==
[2020-01-28 11:19] LABS: Hemoglobin A1C 8.4 % (4.0-6.0)
== END ==
PROVIDERS: Visit Provider Internal Medicine Adolescent Medicine
DX: R73.9 Hyperglycemia, unspecified (principal)
CPT/HCPCS: 36415; 83036

== ENCOUNTER 2020-02-14 10:28 | Emergency (ER) | payer MEDICARE, MEDICAID, SELFPAY ==
--- NOTE | 2020-02-14 10:31 | HMH.EDGENADL ---
ED Disposition Clinical Impression: Palpitations Atrial flutter Qualifiers: Atrial flutter type: typical Qualified Code(s): I48.3 - Typical atrial flutter Disposition: Home, Self-Care Condition on Discharge: Good Additional Instructions: You need to start taking metoprolol tartrate 50 mg twice per day. You were given 1 dose of that while you were here today, he will take another 1 tonight. Continue Cardizem as prescribed. Stop lisinopril/HCTZ as we discussed. You will see Dr. Hawley on 9 AM Sunday morning. If you have any further pain or complaints, or anything new or changing, come back to the emergency department prior to that visit. Prescriptions: Metoprolol Tartrate 50 mg PO BID 30 Days #60 tab Transmission Status: [facility] Referrals: Tyrell Owens MD [Primary Care Provider] - Time of Disposition: 14:12 - Critical Care Critical Care Time: No Attestation: On , the high probability of a clinically significant, sudden or life threatening deterioration of the following system(s) required my full and direct attention, intervention and personal management. The time I documented below is in addition to time spent performing reported procedures but includes the following listed in this critical care notation. Medical Decision Making - Medical Records Medical records reviewed: Yes: I reviewed the patient's medical records. MR Comment: 69-year-old female presents emergency department with concern for her heart racing. She arrives to the emergency department hemodynamically stable, but is tachycardic on arrival. Initial EKG shows atrial flutter with a right around 150. She takes Cardizem and Eliquis at home for atrial flutter, will get labs including troponin and treat with fluid bolus and diltiazem. She denies any pain at this time. Reassessment, patient remained stable. She continues to deny any pain, shortness of breath, or any other symptoms. Given that her creatinine was elevated and she has acute kidney injury, and she also has a small elevation in her troponin, will keep her around for a 3-hour troponin. Also spoke with her PCP, and asked her to continue her Cardizem, will add metoprolol tartrate 50 twice daily to her regimen and stop her lisinopril HCTZ. She will follow-up 9 AM on Sunday. Her second troponin was the same as her first, she denies any other symptoms, and she wishes to go home. Given this, will get her discharge. She was given strict return precautions and discharge instructions including follow-up for further evaluation and treatment and verbalizes an understanding and agreement with the plan. Safe to discharge. - Nii Inquiry Pt receiving controlled substance: No Vital Signs: 02/14/20 10:47 02/14/20 10:56 02/14/20 11:08 Temperature 97.6 F Temperature Source Oral Pulse Rate [Right Radial] 149 H 116 H 138 H Respiratory Rate 20 20 16 Blood Pressure [Right Arm] 123/107 H 123/62 123/62 Blood Pressure Mean [Right Arm] 112 82 82 Blood Pressure Source [Right Arm] Automatic Cuff Automatic Cuff Blood Pressure Position [Right Arm] Supine Supine 02 Sat by Pulse Oximetry 94 L 93 L 95 Oxygen Delivery Method Room Air Room Air Room Air 02/14/20 11:45 02/14/20 13:57 Temperature Temperature Source Pulse Rate [Right Radial] 84 63 Respiratory Rate 16 24 Blood Pressure [Right Arm] 111/62 115/60 Blood Pressure Mean [Right Arm] 78 78 Blood Pressure Source [Right Arm] Automatic Cuff Automatic Cuff Blood Pressure Position [Right Arm] Sitting Sitting 02 Sat by Pulse Oximetry 95 92 L Oxygen Delivery Method Room Air Room Air - Lab Data Lab Results 02/14/20 10:45: WBC 8.7, RBC 4.53, Hgb 14.0, Hct 40.8, MCV 90.1, MCH 31.0, MCHC 34.3, RDW 14.1, Plt Count 246, MPV 8.3, Neut % (Auto) 69.2, Lymph % (Auto) 17.7, [place] % (Auto) 4.4, Eos % (Auto) 7.8, Baso % (Auto) 0.9, Neut # (Auto) 6.0, Lymph # (Auto) 1.5, [place] # (Auto) 0.4, Eos # (Auto) 0.7 H, Baso # (Auto) 0.1 02/14/20 1
--- NOTE | 2020-02-14 10:35 | ECG_ITS ---
APPROVED REPORT Exam: Resting ECG HR:147 bpm ECG Measurements Heart Rate 147 AXES NM P -88 QRSd 76 QRS 71 QT 344 T -89 QTc 538 <Conclusion> Atrial flutter with variable AV block Marked ST abnormality, possible inferior subendocardial injury Abnormal ECG Electronically signed by : Tyrell Owens, 02/17/2020 20:23:02
[2020-02-14 10:47] VITALS: BP 123/107; PULSE 149; RESP 20; TEMP 36.4; O2SAT 94; BMI 29.7
--- NOTE | 2020-02-14 10:52 | XR_ITS ---
PROCEDURE: XR CHEST PORTABLE CLINICAL HISTORY: heart racing Tachycardia COMPARISON: CR XR CHEST PORTABLE from 06/19/2019 CR XR CHEST 2V from 11/17/2019 CR XR CHEST 2V from 12/22/2019 FINDINGS: The cardiomediastinal silhouette and pulmonary vascularity are within normal limits. The lungs are clear without infiltrates, suspicious nodules, or pleural effusions. No acute bony abnormalities. IMPRESSION: No acute findings. Dictated by: Rodney Moseley MD 02/14/2020 11:47 Rodney Moseley MD in [place] 02/14/2020 11:47
[2020-02-14 10:56] VITALS: BP 123/62; PULSE 116; RESP 20; O2SAT 93
[2020-02-14 11:06] LABS: Chloride 107 mmol/L (98-107)
[2020-02-14 11:07] LABS: Potassium 4.6 mmoL/L (3.5-5.1); Sodium 140 mmol/L (136-145)
[2020-02-14 11:08] VITALS: BP 123/62; PULSE 138; RESP 16; O2SAT 95
[2020-02-14 11:09] LABS: Alanine Aminotransferase 28 U/L (12-78); Alkaline Phosphatase 69 U/L (38-126); Aspartate Amino Transferase 33 U/L (14-36); Bilirubin,Total 0.4 mg/dl (0.2-1.3); Blood Urea Nitrogen 32 mg/dl (7-17); Creatinine Clearance Estimated 42 mL/min (50-200); Estimated Glomerular Filt Rate 30 ml/min (>60); GFR (African American) 36 ML/MIN (>60)
[2020-02-14 11:10] LABS: Albumin Level 4.2 g/dl (3.5-5.0); Albumin/Globulin Ratio 1.6 (1.1-1.8); Anion Gap 13.6 mEq/L (5-15); Calcium 10.3 mg/dl (8.4-10.2); Carbon Dioxide 24 mmol/L (22.0-30.0); Globulin 2.7 g/dL (1.3-3.2); Glucose 161 mg/dl (74-100); Total Protein,Serum 6.9 g/dl (6.3-8.2)
[2020-02-14 11:14] LABS: Basophils # 0.1 K/mm3 (0-0.2); Basophils % 0.9 % (0.1-2.0); Eosinophils # 0.7 K/mm3 (0.0-0.4); Eosinophils % 7.8 % (0.1-12.0); Hematocrit 40.8 % (37.0-47.0); Lymphocytes # 1.5 K/mm3 (0.7-4.5); Lymphocytes % 17.7 % (10-50); Mean Corpuscular HGB Conc 34.3 g/dL (31.8-35.4); Mean Corpuscular Volume 90.1 fl (81-99); Mean Platelet Volume 8.3 fl (7.4-10.4); Monocytes # 0.4 K/mm3 (0.1-1.0); Monocytes % 4.4 % (1.7-9.3); Neutrophils % 69.2 % (37.0-80.0); Platelet Count 246 K/mm3 (142-424); Red Blood Count 4.53 M/mm3 (4.20-5.40); Red Cell Distribution Width 14.1 % (11.5-17.5); White Blood Count 8.7 K/mm3 (4.8-10.8)
[2020-02-14 11:21] LABS: Prothrombin Time 12.1 seconds (9.4-11.8); Troponin I 0.06 ng/ml (0.00-0.034)
[2020-02-14 11:45] VITALS: BP 111/62; PULSE 84; RESP 16; O2SAT 95
[2020-02-14 13:57] VITALS: BP 115/60; PULSE 63; RESP 24; O2SAT 92
[2020-02-14 14:00] LABS: Troponin I 0.06 ng/ml (0.00-0.034)
[2020-02-14 14:26] VITALS: BP 120/60; PULSE 70; RESP 15; TEMP 36.4; O2SAT 92
== END 2020-02-14 14:27 | disposition home or self-care (01) ==
PROVIDERS: Emergency Provider Emergency Medicine; PCP Internal Medicine Adolescent Medicine
DX: R00.2 Palpitations (principal); I48.3 Typical atrial flutter; R73.9 Hyperglycemia, unspecified; J44.9 Chronic obstructive pulmonary disease, unspecified; I10 Essential (primary) hypertension; E78.5 Hyperlipidemia, unspecified; Z79.899 Other long term (current) drug therapy; Z87.891 Personal history of nicotine dependence
CPT/HCPCS: 71045; 80053; 84484; 85025; 85610; 93005; 96365; 96375; 99284

== ENCOUNTER → 2020-06-10 06:37 | Outpatient (CLI) | payer MEDICARE, MEDICAID, SELFPAY ==
--- NOTE | 2020-06-10 | CA_ITS ---
APPROVED REPORT Exam: Pharmacologic Technologist: Coty Collins, Ht: 5 ft 7 in Wt: 195 lbs BSA: 2.00 m2 Medical History Medications: Albuterol,,,,, ElIQUIS,,,,, AZITHROMYCIN,,,,, CardIZin,,,,, BREztri aeroshpere,,,,, Metrprolol,,,,, Stress Test Details Test: LEXISCAN HR Resting HR: 60 bpm Max Heart Rate (APMHR): 150 bpm Max HR Achieved: 78 bpm Target HR (85% APMHR): 127 bpm % of APMHR: 52 Recovery HR: 70 bpm BP Resting BP: 146/75 mmHg Max BP: 151/64 mmHg Recovery BP: 151.0/64.0 mmHg ECG Resting ECG: NSR, [place] Clinical Exercise duration: 04:00 min Highest Stage Achieved: Stress ECG Conclusion Symptoms: SOA, Malaise, No CP Arrhythmias/Ectopy: None ST-T Changes: No significant changes. Conclusion: Unremarkable Lexiscan stress, Myoview images reported separately. Test Summary REST . . . . . . . Resting REST 04:44 . . 60 . 146/ 75 . . Stage 1 . . . . . . . Cardiolite injected Stage 1 01:00 . . 72 . . . . Stage 2 01:00 . . 77 . . . . Stage 3 01:00 . . 75 . 147/ 67 . . Stage 4 01:00 . . 74 . 132/ 63 . Stop exercise at 04:00 RECOVERY 01:00 . . 72 . . . . RECOVERY 02:00 . . 72 . 140/ 69 . . RECOVERY 03:00 . . 70 . 140/ 69 . . RECOVERY 03:22 . . 71 . 151/ 64 . . Electronically signed by : Star Roland, 06/10/2020 13:35:51
--- NOTE | 2020-06-10 06:56 | NM_ITS ---
APPROVED REPORT Exam: Nuclear Stress Test Indication: hypertension Patient Location: Outpatient Stress Tech: Jo-Ann Huerta [place] Tech:SAVANNA Mayorga RT(R)(N) Ht: 5 ft 7 in Wt: 195 lbs Bra Size: 38d HR: 65 bpm BP: 146/75 mmHg BSA: 2.00 m2 BMI: 30.5 History: hypertension Procedure: Patient received a 0.4 mg of intravenous Lexiscan, resting heart rate 65 bpm, resting blood pressure 146/75 mmHg, with Lexiscan maximum heart rate achived was 70 bpm which is Less than 85 % of the maximum predicted heart rate and blood pressure was 151/64 mmHg. With Lexiscan, patient denied any complaint of chest pain. Electrocardiogram Resting electrocardiogram showed sinus rhythm, with Lexiscan there is less than 1.[address] segment depression noted from the baseline EKG. The EKG portion of the Lexiscan is nondiagnostic. Cardiac Stress and Resting SPECT Images: Cardiac Stress and Resting SPECT images were obtained using technetium 99m Myoview 32.5 mCi stress and 10.47 mCi at rest. Gated SPECT for analysis of segmental wall motion and calculation of the ejection fraction also done. Prone imaging were also obtained. Cardiac stress and resting SPECT images show mild fixed defect in the anterior wall with normal contractility SPECT is likely secondary to soft tissue attenuation, no reversible ischemia seen. Computer derived ejection fraction is 63% with no regional wall motion abnormality, right ventricle is normal size and contractility. Conclusion: 1. The EKG portion of the Lexiscan is nondiagnostic. 2. No scintigraphic evidence of reversible ischemia seen, computer derived ejection fraction is 63% with no regional wall motion abnormality, right ventricle is normal size and contractility. 3. Normal Lexiscan Myoview study. Electronically signed by : Star Roland, 06/10/2020 13:41:04
== END ==
PROVIDERS: PCP Internal Medicine Adolescent Medicine; Visit Provider Internal Medicine Adolescent Medicine
DX: R07.9 Chest pain, unspecified (principal)
CPT/HCPCS: 78452; 93017; A9502; J2785

== ENCOUNTER → 2020-08-02 11:22 | Outpatient (CLI) | payer MEDICARE, MEDICAID, SELFPAY ==
[2020-08-02 12:02] LABS: Basophils # 0.1 K/mm3 (0-0.2); Basophils % 0.9 % (0.1-2.0); Eosinophils # 0.9 K/mm3 (0.0-0.4); Eosinophils % 9.9 % (0.1-12.0); Hematocrit 43.9 % (37.0-47.0); Lymphocytes # 1.6 K/mm3 (0.7-4.5); Mean Corpuscular Hemoglobin 30.1 pg (27.0-31.2); Mean Platelet Volume 8.4 fl (7.4-10.4); Monocytes # 0.5 K/mm3 (0.1-1.0); Monocytes % 5.5 % (1.7-9.3); Neutrophils # 5.5 K/mm3 (1.8-7.8); Neutrophils % 64.7 % (37.0-80.0); Platelet Count 220 K/mm3 (142-424); Red Blood Count 4.67 M/mm3 (4.20-5.40); Red Cell Distribution Width 13.9 % (11.5-17.5); White Blood Count 8.5 K/mm3 (4.8-10.8)
[2020-08-02 12:56] LABS: Chloride 106 mmol/L (98-107)
[2020-08-02 12:57] LABS: Potassium 4.6 mmoL/L (3.5-5.1); Sodium 141 mmol/L (136-145)
[2020-08-02 12:59] LABS: Alanine Aminotransferase 42 U/L (12-78); Alkaline Phosphatase 96 U/L (38-126); Anion Gap 9.6 mEq/L (5-15); Aspartate Amino Transferase 38 U/L (14-36); Bilirubin,Total 0.7 mg/dl (0.2-1.3); Blood Urea Nitrogen 19 mg/dl (7-17); Carbon Dioxide 30 mmol/L (22.0-30.0); Cholesterol 190 mg/dl (140-200); Estimated Glomerular Filt Rate 55 ml/min (>60); GFR (African American) 66 ML/MIN (>60); Triglycerides 79 mg/dl (30-150); VLDL Cholesterol 16 mg/dL (0-40)
[2020-08-02 13:00] LABS: Albumin Level 4.3 g/dl (3.5-5.0); Albumin/Globulin Ratio 1.6 (1.1-1.8); Calcium 10.1 mg/dl (8.4-10.2); Chol/HDL Ratio 2.8 (1-3.5); Globulin 2.7 g/dL (1.3-3.2); Glucose 126 mg/dl (74-100); HDL Cholesterol 67 mg/dl (40-60)
[2020-08-02 13:11] LABS: Direct LDL Cholesterol 85.61 mg/dL (100-129)
[2020-08-02 13:29] LABS: Thyroid Stimulating Hormone 3.45 uIU/mL (0.465-4.68)
== END ==
PROVIDERS: Visit Provider Internal Medicine Adolescent Medicine
DX: I48.92 Unspecified atrial flutter (principal); Z79.899 Other long term (current) drug therapy
CPT/HCPCS: 36415; 80053; 80061; 84443; 85025

== ENCOUNTER → 2020-11-03 09:50 | Outpatient (CLI) | payer MEDICARE, MEDICAID, SELFPAY ==
[2020-11-03 10:42] LABS: Basophils # 0.1 K/mm3 (0-0.2); Basophils % 0.9 % (0.1-2.0); Eosinophils # 0.9 K/mm3 (0.0-0.4); Eosinophils % 12.6 % (0.1-12.0); Lymphocytes # 1.7 K/mm3 (0.7-4.5); Lymphocytes % 22.7 % (10-50); Mean Corpuscular HGB Conc 33.4 g/dL (31.8-35.4); Mean Corpuscular Hemoglobin 30.3 pg (27.0-31.2); Mean Corpuscular Volume 90.8 fl (81-99); Mean Platelet Volume 8.2 fl (7.4-10.4); Monocytes # 0.4 K/mm3 (0.1-1.0); Monocytes % 5.7 % (1.7-9.3); Neutrophils # 4.2 K/mm3 (1.8-7.8); Neutrophils % 58.1 % (37.0-80.0); Platelet Count 222 K/mm3 (142-424); Red Blood Count 4.63 M/mm3 (4.20-5.40); Red Cell Distribution Width 13.7 % (11.5-17.5); White Blood Count 7.3 K/mm3 (4.8-10.8)
[2020-11-03 11:01] LABS: Hemoglobin A1C 6.7 % (4.0-6.0)
[2020-11-03 11:17] LABS: Chloride 105 mmol/L (98-107)
[2020-11-03 11:18] LABS: Potassium 4.8 mmoL/L (3.5-5.1); Sodium 139 mmol/L (136-145)
[2020-11-03 11:21] LABS: Alanine Aminotransferase 25 U/L (12-78); Albumin Level 4.2 g/dl (3.5-5.0); Albumin/Globulin Ratio 1.6 (1.1-1.8); Alkaline Phosphatase 103 U/L (38-126); Anion Gap 13.8 mEq/L (5-15); Aspartate Amino Transferase 29 U/L (14-36); Bilirubin,Total 0.8 mg/dl (0.2-1.3); Blood Urea Nitrogen 20 mg/dl (7-17); Calcium 9.8 mg/dl (8.4-10.2); Carbon Dioxide 25 mmol/L (22.0-30.0); Cholesterol 172 mg/dl (140-200); Estimated Glomerular Filt Rate 49 ml/min (>60); GFR (African American) 59 ML/MIN (>60); Globulin 2.6 g/dL (1.3-3.2); Glucose 150 mg/dl (74-100); Total Protein,Serum 6.8 g/dl (6.3-8.2); Triglycerides 97 mg/dl (30-150); VLDL Cholesterol 19 mg/dL (0-40)
[2020-11-03 11:22] LABS: Chol/HDL Ratio 3.2 (1-3.5); HDL Cholesterol 54 mg/dl (40-60)
[2020-11-03 11:32] LABS: Direct LDL Cholesterol 85.53 mg/dL (100-129)
== END ==
PROVIDERS: Visit Provider Internal Medicine Adolescent Medicine
DX: E11.9 Type 2 diabetes mellitus without complications (principal); J43.1 Panlobular emphysema; Z86.39 Personal history of other endocrine, nutritional and metabolic disease
CPT/HCPCS: 36415; 80053; 80061; 83036; 85025

== ENCOUNTER → 2021-01-27 10:42 | Outpatient (CLI) | payer MEDICARE, MEDICAID, SELFPAY ==
[2021-01-27 11:16] LABS: Basophils # 0.1 K/mm3 (0-0.2); Basophils % 1.1 % (0.1-2.0); Eosinophils # 0.9 K/mm3 (0.0-0.4); Eosinophils % 9.9 % (0.1-12.0); Hematocrit 45.1 % (37.0-47.0); Hemoglobin 14.6 g/dL (12.2-16.2); Lymphocytes # 1.4 K/mm3 (0.7-4.5); Lymphocytes % 15.8 % (10-50); Mean Corpuscular HGB Conc 32.5 g/dL (31.8-35.4); Mean Corpuscular Hemoglobin 30.7 pg (27.0-31.2); Mean Corpuscular Volume 94.7 fl (81-99); Mean Platelet Volume 8.6 fl (7.4-10.4); Monocytes # 0.5 K/mm3 (0.1-1.0); Monocytes % 5.3 % (1.7-9.3); Neutrophils # 6.2 K/mm3 (1.8-7.8); Neutrophils % 67.9 % (37.0-80.0); Platelet Count 280 K/mm3 (142-424); Red Blood Count 4.76 M/mm3 (4.20-5.40); Red Cell Distribution Width 13.6 % (11.5-17.5); White Blood Count 9.1 K/mm3 (4.8-10.8)
[2021-01-27 13:58] LABS: Alanine Aminotransferase 19 U/L (12-78); Albumin Level 3.9 g/dl (3.5-5.0); Albumin/Globulin Ratio 1.5 (1.1-1.8); Alkaline Phosphatase 112 U/L (38-126); Anion Gap 13.3 mEq/L (5-15); Aspartate Amino Transferase 26 U/L (14-36); Bilirubin,Total 0.5 mg/dl (0.2-1.3); Blood Urea Nitrogen 14 mg/dl (7-17); Calcium 9.6 mg/dl (8.4-10.2); Carbon Dioxide 30 mmol/L (22.0-30.0); Chloride 101 mmol/L (98-107); Chol/HDL Ratio 3.6 (1-3.5); Cholesterol 164 mg/dl (140-200); Estimated Glomerular Filt Rate 55 ml/min (>60); GFR (African American) 66 ML/MIN (>60); Globulin 2.6 g/dL (1.3-3.2); Glucose 126 mg/dl (74-100); HDL Cholesterol 45 mg/dl (40-60); Potassium 4.3 mmoL/L (3.5-5.1); Sodium 140 mmol/L (136-145); Total Protein,Serum 6.5 g/dl (6.3-8.2); Triglycerides 92 mg/dl (30-150); VLDL Cholesterol 18 mg/dL (0-40)
[2021-01-27 14:09] LABS: Direct LDL Cholesterol 89.73 mg/dL (100-129)
[2021-01-27 14:28] LABS: Thyroid Stimulating Hormone 2.88 uIU/mL (0.465-4.68)
[2021-01-27 14:30] LABS: Hemoglobin A1C 6.6 % (4.0-6.0)
== END ==
PROVIDERS: Visit Provider Internal Medicine Adolescent Medicine
DX: E11.9 Type 2 diabetes mellitus without complications (principal); I10 Essential (primary) hypertension; Z86.39 Personal history of other endocrine, nutritional and metabolic disease; Z79.899 Other long term (current) drug therapy
CPT/HCPCS: 36415; 80053; 80061; 83036; 84443; 85025

== ENCOUNTER 2021-05-22 13:21 | Emergency (ER) | payer MEDICARE, MEDICAID, SELFPAY ==
--- NOTE | 2021-05-22 | CA_ITS ---
FINAL REPORT TECHNIQUE: extremity venous duplex was performed with augmentation and compression. CLINICAL HISTORY: left calf pain, patient denies trauma, states her LLE began hurting 05/20/21 with pain in left calf progressively getting worse. FINDINGS: Proper flow is seen throughout the deep venous system. There is no evidence of deep venous thrombosis. IMPRESSION: No evidence of deep venous thrombosis in the left lower extremity. Reviewed, Interpreted and Dictated by Kenneth Denny MD Transcribed by Ana Miranda Authenticated by Kenneth Denny MD on 05/23/2021 02:19:48 PM [facility]
[2021-05-22 13:29] VITALS: BP 162/63; PULSE 78; RESP 16; TEMP 36.2; O2SAT 97; BMI 34.2
--- NOTE | 2021-05-22 13:53 | HMH.EDGENADL ---
ED Disposition Clinical Impression: Pain of left calf Disposition: Home, Self-Care Condition on Discharge: Good Additional Instructions: Tylenol as needed for pain. Follow-up with your primary care provider, call tomorrow. Referrals: Provider,Referral, [Referring] - - Critical Care Critical Care Time: No Attestation: On , the high probability of a clinically significant, sudden or life threatening deterioration of the following system(s) required my full and direct attention, intervention and personal management. The time I documented below is in addition to time spent performing reported procedures but includes the following listed in this critical care notation. Medical Decision Making - Nii Inquiry Pt receiving controlled substance: No Vital Signs: 05/22/21 13:29 05/22/21 14:00 Temperature 97.1 F L Temperature Source Oral Pulse Rate 62 Pulse Rate [Radial] 78 Respiratory Rate 16 Blood Pressure 146/56 H Blood Pressure [Right Arm] 162/63 H Blood Pressure Mean [Right Arm] 96 Blood Pressure Position [Right Arm] Sitting 02 Sat by Pulse Oximetry 97 95 Oxygen Delivery Method Room Air - Lab Data Lab Results 05/22/21 14:14: WBC 8.1, RBC 4.52, Hgb 13.7, Hct 43.4, MCV 96.2, MCH 30.3, MCHC 31.4 L, RDW 13.8, Plt Count 211, MPV 9.1, Neut % (Auto) 64.3, Lymph % (Auto) 19.4, [place] % (Auto) 4.9, Eos % (Auto) 10.3, Baso % (Auto) 1.0, Neut # (Auto) 5.2, Lymph # (Auto) 1.6, [place] # (Auto) 0.4, Eos # (Auto) 0.8 H, Baso # (Auto) 0.1 05/22/21 14:14: Sodium 139, Potassium 4.2, Chloride 105, Carbon Dioxide 29, BUN 19 H, Creatinine 1.10 H, Estimated Creat Clear 71, Estimated GFR 49 L, Est GFR ( Amer) 59, Glucose 126 H, Calcium 10.0, Total Bilirubin 0.6, AST 50 H, ALT 41, Alkaline Phosphatase 103, Total Protein 6.9, Albumin 4.1, Globulin 2.8, Albumin/Globulin Ratio 1.5 Result diagrams: 05/22/21 14:14 05/22/21 14:14 Orders (Tests/Meds): ORDERS Category Date Time Status CMP [Comprehensive Metabolic Panel] Stat Lab 05/22/21 14:14 Results Medical Decision Narrative: 2:05 PM: Patient declines any medication for pain. 5 PM: Doppler ultrasound negative. Discussed other diagnostic possibilities such as sciatica. Offered treatment with pain medication and or steroids. Patient declines. She says that she would prefer to follow-up with her primary care provider, Dr. Owens, tomorrow. General Adult HPI - General Chief complaint: PAIN Stated complaint: left leg pain Time Seen by Provider: 05/22/21 13:53 Mode of Arrival: Ambulatory Limitations: No Limitations Description of Symptoms (Recalled from ER Triage Doc. by RN): to ed per pvt car with c/o lt calf pain starting 05/20. denies any injury. states pain getting worse - History of Present Illness HPI narrative: Left calf pain woke her up out of sleep on Sunday night and has not stopped since. Occasionally radiates up into her left anterior thigh. Also while she is laying here on the stretcher she says that her left buttock area is hurting. Denies low back pain. Denies numbness or weakness of the extremities. Denies swelling. Denies chest pain, hemoptysis, shortness of breath. She is concerned that she might have a blood clot. No history of blood clots. She in fact is on Eliquis for irregular heartbeat. No recent surgery, travel, hospitalizations. - Related Data Home Medications Medication Instructions Recorded Confirmed hydroCHLOROthiazide [HCTZ 25mg 25 mg PO DAILY 05/23/19 06/19/19 tab] Cholecalciferol (Vitamin D3) 2,000 unit PO DAILY 06/19/19 06/19/19 [Vitamin D3 1,000 Unit Cap] Garlic 1,000 mg PO DAILY 06/19/19 06/19/19 [place]-3/Dha/Epa/Fish Oil [Fish Oil 1,000 mg PO DAILY 06/19/19 06/19/19 1,000 mg Softgel] Umeclidinium Brm/Vilanterol Tr 1 puff IH DAILY 06/19/19 06/19/19 [Anoro Ellipta 62.5-25 Mcg INH] Previous Rx's Medication Instructions Recorded Albuterol Sulfate [Ventolin HFA 1 - 2 puffs I
[2021-05-22 14:00] VITALS: BP 146/56; PULSE 62; O2SAT 95
--- NOTE | 2021-05-22 14:18 | PC.NURSE ---
spoke with vascular and they informed staff it woulkd be 330/4 before they arrived for doppler
[2021-05-22 14:30] LABS: Basophils # 0.1 K/mm3 (0-0.2); Eosinophils # 0.8 K/mm3 (0.0-0.4); Eosinophils % 10.3 % (0.1-12.0); Hematocrit 43.4 % (37.0-47.0); Hemoglobin 13.7 g/dL (12.2-16.2); Lymphocytes # 1.6 K/mm3 (0.7-4.5); Lymphocytes % 19.4 % (10-50); Mean Corpuscular HGB Conc 31.4 g/dL (31.8-35.4); Mean Corpuscular Hemoglobin 30.3 pg (27.0-31.2); Mean Corpuscular Volume 96.2 fl (81-99); Mean Platelet Volume 9.1 fl (7.4-10.4); Monocytes # 0.4 K/mm3 (0.1-1.0); Monocytes % 4.9 % (1.7-9.3); Neutrophils # 5.2 K/mm3 (1.8-7.8); Neutrophils % 64.3 % (37.0-80.0); Platelet Count 211 K/mm3 (142-424); Red Blood Count 4.52 M/mm3 (4.20-5.40); Red Cell Distribution Width 13.8 % (11.5-17.5); White Blood Count 8.1 K/mm3 (4.8-10.8)
[2021-05-22 14:32] LABS: Chloride 105 mmol/L (98-107); Potassium 4.2 mmoL/L (3.5-5.1); Sodium 139 mmol/L (136-145)
[2021-05-22 14:35] LABS: Alanine Aminotransferase 41 U/L (12-78); Albumin Level 4.1 g/dl (3.5-5.0); Albumin/Globulin Ratio 1.5 (1.1-1.8); Alkaline Phosphatase 103 U/L (38-126); Aspartate Amino Transferase 50 U/L (14-36); Bilirubin,Total 0.6 mg/dl (0.2-1.3); Blood Urea Nitrogen 19 mg/dl (7-17); Creatinine Clearance Estimated 71 mL/min (50-200); Estimated Glomerular Filt Rate 49 ml/min (>60); GFR (African American) 59 ML/MIN (>60); Globulin 2.8 g/dL (1.3-3.2); Total Protein,Serum 6.9 g/dl (6.3-8.2)
[2021-05-22 14:36] LABS: Glucose 126 mg/dl (74-100)
[2021-05-22 17:31] LABS: Anion Gap 9.2 mEq/L (5-15); Carbon Dioxide 29 mmol/L (22.0-30.0)
[2021-05-22 17:34] VITALS: BP 125/74; PULSE 78; RESP 16; TEMP 36.6; O2SAT 97
== END 2021-05-22 17:35 | disposition home or self-care (01) ==
PROVIDERS: Emergency Provider Emergency Medicine; PCP Internal Medicine Adolescent Medicine
DX: M79.662 Pain in left lower leg (principal); J44.9 Chronic obstructive pulmonary disease, unspecified; E78.5 Hyperlipidemia, unspecified; I10 Essential (primary) hypertension; E11.9 Type 2 diabetes mellitus without complications; Z79.899 Other long term (current) drug therapy
CPT/HCPCS: 80053; 85025; 93971; 99282

== ENCOUNTER 2021-07-21 14:00 | Outpatient (RCR) | payer MEDICARE, MEDICAID, SELFPAY ==
--- NOTE | 2021-06-21 14:57 | HMH.PTOPEV ---
PT Outpatient Evaluation Rehab PT Outpatient Evaluation Start: 06/21/21 14:21 Freq: Status: Active Protocol: Document 06/21/21 14:47 GEOVANI (Rec: 06/21/21 14:57 CANDELARIOJORGE [id number]) Electronically Signed By Binu Coulter, PT 06/21/21 14:47 Outpatient Therapy Subjective History Subjective History Patient is a 70 year old female presenting to outpatient PT with reports L foot/ankle pain starting approximately 1 month ago of insidious onset. No recent imaging to report. At onset, patient was worried about having a DVT so she went to ED . Doppler ultrasound negative . Comorbidities include hx of emphysema, COPD, Afib, diabetes, HTN and HL. Chief Complaint Pain,Stiff Symptom Type Ache,Sharp Symptoms Relieved By Rest/Positioning,Ice, Prescription Meds Prior Functional Limitations None Current Functional Limitations Housework,Sleeping,Standing, Walking,Stairs,Balance Symptom Description Constant but Variable Level of pain today (0-10) 5 Pain scale - at its best (0-10) 3 Pain scale - at its worst (0-10) 9 Ankle/Foot Eval Gait Observation General Gait Pattern Observation Antalgic Gait,Decrease Weight Bear (L) Assistive Device Ambulation Assistive Device None Palpation Tenderness left Ankle/Foot Palpation Overall Comment Mid substance to distal achilles 3/4 ATF TTP positive ROM Ankle/Foot Dorsiflexion w/Knee Extended -8 Active Range Motion (degrees) Ankle/Foot Dorsiflexion w/Knee Extended -2 Passive Range (degrees) Ankle/Foot Plantar Flexion Active Range WFL of Motion (degrees) Ankle/Foot Eversion Active Range of 10 Motion (degrees) Ankle/Foot Eversion Passive Range of 20 Motion (degrees) Ankle/Foot Inversion Active Range of 16 Motion (degrees) Ankle/Foot Inversion Passive Range of 30 Motion (degrees) Ankle/Foot ROM Limitations Soft Tissue Tightness Great Toe ROM Reason Not Measured Within Functional Limits Accessory Movements Ankle Accessory Movements that Elicit Talus Dorsal Iuka,Talus Symptoms Ventral Iuka MMT left Ankle Dorsiflexion Strength Grade 4 Good Ankle Plantarflexion Strength Grade 4 Good Foot Eversion Strength Grade 4- Good- Foot Inversion Strength Grade 4- Good- Outpatient T
== END 2021-07-21 14:05 | disposition home or self-care (01) ==
LOC: PT 14:00
PROVIDERS: PCP Internal Medicine Adolescent Medicine; Visit Provider Internal Medicine Adolescent Medicine
DX: M25.572 Pain in left ankle and joints of left foot (principal)
CPT/HCPCS: 97010; 97014; 97110; 97112; 97163; G0283

== ENCOUNTER → 2021-12-10 08:03 | Outpatient (CLI) | payer MEDICARE, MEDICAID, SELFPAY | PROVIDERS: PCP Internal Medicine Adolescent Medicine; Visit Provider Ophthalmology | DX: Z01.812 Encounter for preprocedural laboratory examination (principal); Z20.822 Contact with and (suspected) exposure to COVID-19 | CPT/HCPCS: C9803; U0003; U0005 ==

== ENCOUNTER 2021-12-13 06:35 | Day surgery (SDC) | payer MEDICARE, MEDICAID, SELFPAY ==
[2021-12-08 08:50] VITALS: BMI 32.8
[2021-12-13] VITALS (8 sets, daily range): BP systolic 117–133; BP diastolic 54–64; PULSE 62–73; RESP 16–18; TEMP 36.6–36.8; O2SAT 94–99
[2021-12-13 18:27] LABS: POC Glucose,Bedside 170 (70-110)
== END 2021-12-13 08:30 | disposition home or self-care (01) ==
LOC: OR 06:37
PROVIDERS: PCP Internal Medicine Adolescent Medicine; Visit Provider Ophthalmology
DX: H26.9 Unspecified cataract (principal); E11.9 Type 2 diabetes mellitus without complications; Z79.84 Long term (current) use of oral hypoglycemic drugs
CPT/HCPCS: 66984; 82962; V2632

== ENCOUNTER → 2021-12-24 07:59 | Outpatient (CLI) | payer MEDICARE, MEDICAID, SELFPAY | PROVIDERS: PCP Internal Medicine Adolescent Medicine; Visit Provider Family Medicine | DX: Z01.812 Encounter for preprocedural laboratory examination (principal); Z20.822 Contact with and (suspected) exposure to COVID-19 | CPT/HCPCS: C9803; U0003; U0005 ==

== ENCOUNTER 2021-12-27 07:02 | Day surgery (SDC) | payer MEDICARE, MEDICAID, SELFPAY ==
[2021-12-22 12:39] VITALS: BMI 32.8
[2021-12-27] VITALS (8 sets, daily range): BP systolic 115–154; BP diastolic 62–77; PULSE 57–66; RESP 16–18; TEMP 36.1; O2SAT 94–99
[2021-12-27 07:34] LABS: POC Glucose,Bedside 174 (70-110)
== END 2021-12-27 09:02 | disposition home or self-care (01) ==
LOC: OR 07:03
PROVIDERS: PCP Internal Medicine Adolescent Medicine; Visit Provider Ophthalmology
DX: H25.813 Combined forms of age-related cataract, bilateral (principal)
CPT/HCPCS: 66984; 82962; V2632

== ENCOUNTER → 2022-07-05 08:17 | Outpatient (CLI) | payer MEDICARE, MEDICAID, SELFPAY ==
[2022-07-05 08:37] LABS: Basophils # 0.1 K/mm3 (0-0.2); Eosinophils # 1.5 K/mm3 (0.0-0.4); Eosinophils % 19.2 % (0.1-12.0); Hematocrit 42.8 % (37.0-47.0); Hemoglobin 13.5 g/dL (12.2-16.2); Lymphocytes # 1.5 K/mm3 (0.7-4.5); Mean Corpuscular HGB Conc 31.5 g/dL (31.8-35.4); Mean Corpuscular Hemoglobin 29.5 pg (27.0-31.2); Mean Corpuscular Volume 93.5 fl (81-99); Mean Platelet Volume 9.1 fl (7.4-10.4); Monocytes # 0.4 K/mm3 (0.1-1.0); Monocytes % 5.3 % (1.7-9.3); Neutrophils # 4.4 K/mm3 (1.8-7.8); Neutrophils % 55.6 % (37.0-80.0); Platelet Count 224 K/mm3 (142-424); Red Blood Count 4.58 M/mm3 (4.20-5.40); Red Cell Distribution Width 14.4 % (11.5-17.5); White Blood Count 7.9 K/mm3 (4.8-10.8)
[2022-07-05 09:02] LABS: Chloride 110 mmol/L (98-107); Sodium 141 mmol/L (136-145)
[2022-07-05 09:03] LABS: Potassium 4.4 mmoL/L (3.5-5.1)
[2022-07-05 09:05] LABS: Alanine Aminotransferase 27 U/L (12-78); Albumin Level 3.8 g/dl (3.5-5.0); Albumin/Globulin Ratio 1.5 (1.1-1.8); Alkaline Phosphatase 88 U/L (38-126); Anion Gap 10.4 mEq/L (5-15); Aspartate Amino Transferase 30 U/L (14-36); Bilirubin,Total 0.7 mg/dl (0.2-1.3); Blood Urea Nitrogen 18 mg/dl (7-17); Calcium 8.8 mg/dl (8.4-10.2); Carbon Dioxide 25 mmol/L (22.0-30.0); Estimated Glomerular Filt Rate 71 ml/min (>60); GFR (African American) 85 ML/MIN (>60); Globulin 2.5 g/dL (1.3-3.2); Glucose 119 mg/dl (74-100); Total Protein,Serum 6.3 g/dl (6.3-8.2)
[2022-07-05 09:06] LABS: Magnesium 1.8 mg/dl (1.6-2.3)
[2022-07-05 09:15] LABS: NT Pro Brain Natriuretic Pep. 655 pg/mL (0-125)
[2022-07-05 09:24] LABS: T4 (Thyroxine) 11.8 ug/dl (5.53-11.0)
[2022-07-05 09:37] LABS: Thyroid Stimulating Hormone 3.16 uIU/mL (0.465-4.68)
[2022-07-05 09:47] LABS: Free Thyroxine Index 3.5 ug/dL (5.93-13.13); Triiodothryronine (T3) Uptake 30 % (23.5-40.5)
== END ==
PROVIDERS: PCP Internal Medicine Adolescent Medicine; Visit Provider Internal Medicine Adolescent Medicine
DX: R06.09 Other forms of dyspnea (principal); R60.9 Edema, unspecified; J43.1 Panlobular emphysema
CPT/HCPCS: 36415; 80053; 83735; 83880; 84436; 84443; 84479; 85025

== ENCOUNTER → 2022-07-06 07:12 | Outpatient (CLI) | payer MEDICARE, MEDICAID, SELFPAY ==
--- NOTE | 2022-07-06 07:16 | CA_ITS ---
APPROVED REPORT EXAM: Comprehensive 2D, Doppler, and color-flow Echocardiogram Pain Management Specialist: Renée Puga RT(R) Ht: 5 ft 7 in Wt: 211lbs BSA: 2.07 BP: 130/68 mmHg Indications: SOB, COPD, ex smoker, edema, HTN, obesity, hyperlipidemia 2D Dimensions LVOT 1.99 cm (M/F) 1.5-2.5 M-Mode Dimensions RVDd 3.49 cm (0.9-2.6) LA Diam 3.49 cm (1.9-4.0) LVDd 3.87 cm (3.5-5.7) Ao Diam 2.77 cm (2.0-3.7) LVDs 3.06 cm (3.5-5.7) IVSd 1.11 cm (0.6-1.1) PWd 0.94 cm (0.6-1.1) EF (Teich) 43.30% FS 20.90% EDV (Teich) 64.70 mL TAPSE 1.75 (<1.7) ESV (Teich) 36.70 mL LV Diastology E Decel Time 203.00 (160-240 msec) E/A Ratio 1.4 MED E' 8.10 (< 7 cm/sec) E'/MED E' Ratio 12.10 (>14) Mitral Valve MV E Max Maksim. 98.00 (40-130 cm/s) MV A Velocity 72.00 (40-130 cm/s) E/A Ratio 1.37 MV Decel. Time 203.00 (160-240 ms) MV PHT 60.00 ms Left Ventricle Left atrium is mildly enlarged, left ventricle is normal size estimated ejection fraction 55% with no regional wall motion abnormality, diastolic parameters are inconclusive. Right Ventricle Right atrium right ventricular mildly enlarged with normal contractility. Aortic Valve Aortic valve is minimally thickened and fibrosed there is no aortic stenosis or aortic insufficiency. Mitral Valve Mitral valve is grossly normal, there is trace mitral regurgitation. Tricuspid Valve Tricuspid valve grossly normal, there is trace tricuspid regurgitation, tricuspid regurgitation jet velocity is inadequate for calculation of the right ventricular systolic pressure. Pulmonic Valve Pulmonic valve is poorly visualized. Great Vessels Aortic root is normal size. Inferior vena cava is normal size with normal inspiratory collapse. Pericardium No significant pericardial effusion noted. Conclusion 1. Mild biatrial enlargement, normal left ventricular size, estimated ejection fraction 55% with no regional wall motion abnormality. Diastolic parameters are inconclusive. 2. Mildly enlarged right ventricle with normal contractility. 3. Trace mitral and tricuspid regurgitation. 4. No significant pericardial effusion noted. 5. Inferior vena cava is normal size with normal inspiratory collapse. Electronically signed by : Star Roland MD 07/07/2022 10:34:10
--- NOTE | 2022-07-06 08:19 | CT_ITS ---
FINAL REPORT TECHNIQUE: Thin section axial images were obtained from the lung apices through the upper abdomen without contrast. This study was performed with techniques to keep radiation doses as low as reasonably achievable (ALARA). Individualized dose reduction techniques using automated exposure control or adjustment of mA and/or kV according to the patient's size were employed. CLINICAL HISTORY: HYPERTENSION, SOB, FATIGUE COMPARISON: none FINDINGS: There is a nodule in the isthmus measuring 13 mm. There is no mediastinal, hilar, or axillary lymphadenopathy. There is no pleural or pericardial effusion. The ascending aorta measures 4 cm. There is lingular atelectasis. There is a 3 mm subpleural right upper lobe nodule seen on image 28. The lungs are otherwise clear. Limited, unenhanced evaluation of the upper abdomen demonstrates a 12 mm left adrenal nodule. The remainder of the upper abdomen is without acute abnormality. There is no acute osseous abnormality. IMPRESSION: 4 cm ascending aortic aneurysm. Small right upper lobe pulmonary nodule. Recommend follow-up in 6-12 months. Thyroid nodule. Consider ultrasound. Reviewed, Interpreted and Dictated by Talia Yancey MD Transcribed by Vilma Poon Authenticated and [facility]
== END ==
PROVIDERS: PCP Internal Medicine Adolescent Medicine; Visit Provider Internal Medicine Adolescent Medicine
DX: R06.09 Other forms of dyspnea (principal); R60.9 Edema, unspecified; I10 Essential (primary) hypertension; J43.1 Panlobular emphysema
CPT/HCPCS: 71250; 93306

== ENCOUNTER → 2022-10-04 12:35 | Outpatient (CLI) | payer MEDICARE, MEDICAID, SELFPAY ==
--- NOTE | 2022-10-04 12:40 | MM_ITS ---
PROCEDURE INFORMATION: Exam: MG Bilateral Screening 3D Mammography Exam date and time: 10/04/2022 12:50 PM Age: 71 years old Clinical indication: Screening mammogram TECHNIQUE: Imaging protocol: Bilateral Screening tomosynthesis and 2D mammography including computer-aided detection (CAD) when performed. COMPARISON: MG MM DIG SCREENING MAMM BI W/CAD 01/19/2020 1:03 PM FINDINGS: MAMMOGRAPHY: Breast composition: There are scattered areas of fibroglandular density. Mass: None. Architectural distortion: No new or suspicious architectural distortion. Calcifications: No new or suspicious calcifications are present Asymmetric density: No new or suspicious asymmetric density is present Skin thickening: None. Axillary adenopathy: None. IMPRESSION: No mammographic evidence of malignancy. Recommend annual screening mammography unless otherwise clinically indicated. ASSESSMENT: BI-RADS category 1: Negative
== END ==
PROVIDERS: PCP Internal Medicine Adolescent Medicine; Visit Provider Internal Medicine Adolescent Medicine
DX: Z12.31 Encounter for screening mammogram for malignant neoplasm of breast (principal)
CPT/HCPCS: 77063; 77067

== ENCOUNTER → 2022-10-09 10:06 | Outpatient (CLI) | payer MEDICARE, MEDICAID, SELFPAY ==
--- NOTE | 2022-10-09 10:09 | US_ITS ---
FINAL REPORT TECHNIQUE: Ultrasound images of the thyroid were obtained. CLINICAL HISTORY: NODULE FINDINGS: The thyroid is enlarged. Right lobe of the thyroid measures 5.7 cm in length. Left lobe measures 5.4 cm in length. Thyroid is echogenic and is heterogeneous. There are multiple bilateral nodules. Nodule 1. Isthmus, 17 x 15 x 7 mm, solid and isoechoic. TI-RADS category 3. Nodule 2. Isthmus, 14 x 12 x 7 mm , solid and hypoechoic. TI-RADS category 4. Nodule 3: Isthmus, 8 x 7 x 6 mm, solid and isoechoic. TI-RADS category 3. Nodule 4. Right lobe, 15 x 15 x 14, solid and hyperechoic. TI-RADS category 3. IMPRESSION: Multiple thyroid nodules most consistent with multinodular goiter. Consider follow-up ultrasound in 6-12 months. Reviewed, Interpreted and Dictated by Gus Barrow III, MD Transcribed by Praveena Marmolejo Authenticated and [facility]
== END ==
PROVIDERS: PCP Internal Medicine Adolescent Medicine; Visit Provider Internal Medicine Adolescent Medicine
DX: E04.1 Nontoxic single thyroid nodule (principal)
CPT/HCPCS: 76536

== ENCOUNTER → 2022-10-19 09:15 | Outpatient (CLI) | payer MEDICARE, MEDICAID, SELFPAY ==
--- NOTE | 2022-10-19 09:19 | XR_ITS ---
FINAL REPORT CLINICAL HISTORY: rt shoulder pain COMPARISON: None FINDINGS: RIGHT SHOULDER Three views demonstrate no acute fracture or dislocation. The visualized joint spaces are normally aligned. The soft tissues are unremarkable. IMPRESSION: No acute process. Reviewed, Interpreted and Dictated by Kenneth Denny MD Transcribed by Cheryle Patten Authenticated and [facility]
== END ==
PROVIDERS: PCP Internal Medicine Adolescent Medicine; Visit Provider Orthopaedic Surgery
DX: M25.511 Pain in right shoulder (principal)
CPT/HCPCS: 73030

== ENCOUNTER 2023-01-17 10:21 | Outpatient (CLI) | payer MEDICARE, MEDICAID, SELFPAY ==
[2023-01-17 10:23] VITALS: BMI 32.1
[2023-01-17 10:30] VITALS: BP 158/85; PULSE 71; RESP 22; TEMP 36.4; O2SAT 94
--- NOTE | 2023-01-17 10:48 | XR_ITS ---
FINAL REPORT TECHNIQUE: Chest PA & Lateral CLINICAL HISTORY: copd exacerbation COMPARISON: 02/14/2020 FINDINGS: 2 views of the chest were performed. The heart size is normal. The mediastinum is within normal limits. Atelectasis at the left base. There are no pleural effusions. There is no pneumothorax. The bony thorax appears intact. IMPRESSION: Atelectasis at the left base. Reviewed, Interpreted and Dictated by Kenneth Denny MD Transcribed by Vilma Poon Authenticated and [facility]
[2023-01-17 10:53] LABS: Basophils # 0.1 K/mm3 (0-0.2); Basophils % 0.5 % (0.1-2.0); Eosinophils # 1.4 K/mm3 (0.0-0.4); Eosinophils % 13.1 % (0.1-12.0); Hematocrit 43.8 % (37.0-47.0); Hemoglobin 13.8 g/dL (12.2-16.2); Lymphocytes # 1.7 K/mm3 (0.7-4.5); Lymphocytes % 16.1 % (10-50); Mean Corpuscular HGB Conc 31.5 g/dL (31.8-35.4); Mean Corpuscular Hemoglobin 29.8 pg (27.0-31.2); Mean Corpuscular Volume 94.5 fl (81-99); Mean Platelet Volume 8.7 fl (7.4-10.4); Monocytes # 0.5 K/mm3 (0.1-1.0); Monocytes % 5.2 % (1.7-9.3); Neutrophils # 6.8 K/mm3 (1.8-7.8); Platelet Count 237 K/mm3 (142-424); Red Blood Count 4.64 M/mm3 (4.20-5.40); Red Cell Distribution Width 14.1 % (11.5-17.5); White Blood Count 10.4 K/mm3 (4.8-10.8)
[2023-01-17 11:04] LABS: Alanine Aminotransferase 28 U/L (12-78); Albumin Level 3.9 g/dl (3.5-5.0); Albumin/Globulin Ratio 1.3 (1.1-1.8); Alkaline Phosphatase 97 U/L (38-126); Aspartate Amino Transferase 31 U/L (14-36); Bilirubin,Total 0.3 mg/dl (0.2-1.3); Blood Urea Nitrogen 18 mg/dl (7-17); Calcium 9.6 mg/dl (8.4-10.2); Carbon Dioxide 28 mmol/L (22.0-30.0); Chloride 104 mmol/L (98-107); Creatinine Clearance Estimated 74 mL/min (50-200); Estimated Glomerular Filt Rate 61 ml/min (>60); GFR (African American) 74 ML/MIN (>60); Glucose 225 mg/dl (74-100); Sodium 140 mmol/L (136-145); Total Protein,Serum 6.9 g/dl (6.3-8.2)
[2023-01-17 11:08] VITALS: BP 151/76; PULSE 74; RESP 20; O2SAT 94
--- NOTE | 2023-01-17 11:47 | PC.NURSE ---
01/17/23 1054 pt taken to x-ray per rad staff via wc for cxr as ordered per md. report given
--- NOTE | 2023-01-17 11:48 | PC.NURSE ---
01/17/23 1101 pt returned from rad and assisted to recliner chair. report received-pt in stable condition.
[2023-01-17 12:20] VITALS: BP 157/63; PULSE 60; RESP 20; O2SAT 94
== END 2023-01-17 12:20 | disposition home or self-care (01) ==
LOC: INF 10:22
PROVIDERS: PCP Internal Medicine Adolescent Medicine; Visit Provider Internal Medicine Adolescent Medicine
DX: J44.1 Chronic obstructive pulmonary disease with (acute) exacerbation (principal); E86.0 Dehydration
CPT/HCPCS: 71046; 80053; 85025; 87040; 96360; 96367; 96375; J0696

== ENCOUNTER 2023-01-27 09:26 | Emergency (ER) | payer MEDICARE, MEDICAID, SELFPAY ==
[2023-01-27 09:26] VITALS: BP 154/93; PULSE 90; RESP 20; TEMP 36.7; O2SAT 96; BMI 33.6
--- NOTE | 2023-01-27 09:38 | EXP.UTC ---
Discharge Plan Disposition Patient Disposition: Home, Self-Care Condition: Good Prescriptions Prescriptions: New phenazopyridine [Pyridium] 200 mg tablet 200 mg PO Q8H 2 Days Qty: 6 0RF levofloxacin [levofloxacin] 500 mg tablet 500 mg PO DAILY Qty: 7 0RF No Action azithromycin 250 MG tablet 250 mg PO DAILY 5 Days Qty: 6 0RF Rx Instructions: mon-wed-fri albuterol sulfate 18 GM HFA aerosol inhaler 1 - 2 puffs inhalation Q4-6H PRN (Reason: Shortness Of Breath Or Wheezing) Qty: 1 0RF omega 0-bkm-xba-fish oil 1,000 MG capsule 1,000 mg PO DAILY ipratropium-albuterol 3 ML solution for nebulization 3 ml inhalation QIDP PRN (Reason: Wheezing) Qty: 120 2RF atorvastatin 40 MG tablet 40 mg PO HS lisinopril 20 MG tablet 20 mg PO DAILY zinc 50 MG tablet 140 mg PO DAILY omega-3 fatty acids-fish oil 1 EACH capsule 2 tab PO DAILY cholecalciferol (vitamin D3) 50 MCG capsule 50 mcg PO DAILY empagliflozin 25 MG tablet 25 mg PO DAILY metoprolol tartrate 50 MG tablet 50 mg PO BID apixaban 5 MG tablets,dose pack 5 mg PO BID rejsheoltg-nfettpea-eslzixrnsw 10.7 GM HFA aerosol inhaler 2 puff IH BID Referrals Follow up/Referrals: Tyrell Owens MD [Primary Care Provider] - See instructions Activity Restrictions/Add. Instructions Additional Instructions/Restrictions: Drink plenty of fluids. Take tylenol or ibuprofen for pain or fever. Take the medications as directed. Follow up with your regular doctor. GO TO THE ER FOR ANY WORSENING SYMPTOMS The pyridium will make your urine turn orange, this is an expected side effect. It will stain your clothes if it comes into contact with them. We will culture the urine. That will tell what bacteria is causing your infection and which antibiotics will treat it best. Sometimes the first antibiotic we prescribe turns out to not work against different bacteria. So, make sure you follow up within 3 days if you are not getting better. Clinical Impressions Clinical Impression: Acute UTI Instructions Patient Instructions: Urine Culture, DI for Urinary Tract Infection (UTI), Phenazopyridine Discharge ED Provider: Cholo Zaman [facility] General Stated complaint: stomach pain and back pain Time Seen by Provider: 01/27/23 09:38 History of Present Illness Provider Complaint: She c/o low back pain and lower abdominal pain for the past 2 days. She also has dysuria and urinary frequency. Related Data Home Medications Medication Instructions Recorded Confirmed omega 9-yuc-lbs-fish oil 1,000 mg 1,000 mg PO DAILY Cholesterol 06/19/19 01/17/23 (120 mg-180 mg) capsule apixaban 5 mg (74 tabs) tablets in 5 mg PO BID Blood thinner 12/08/21 01/17/23 a dose pack atorvastatin 40 mg tablet 40 mg PO HS Cholesterol 12/08/21 01/17/23 cholecalciferol (vitamin D3) 50 50 mcg PO DAILY Supplement 12/08/21 01/17/23 mcg (2,000 unit) capsule empagliflozin 25 mg tablet 25 mg PO DAILY Diabetes 12/08/21 01/17/23 lisinopril 20 mg tablet 20 mg PO DAILY bp 12/08/21 01/17/23 metoprolol tartrate 50 mg tablet 50 mg PO BID bp 12/08/21 01/17/23 omega-3 fatty acids-fish oil 340 2 tab PO DAILY Supplement 12/08/21 01/17/23 mg-1,000 mg capsule zinc 50 mg tablet 140 mg PO DAILY Supplement 12/08/21 01/17/23 budesonide 160 mcg-glycopyr 9 2 puff inhalation BID COPD 12/13/21 01/17/23 mcg-formot 4.8 mcg/actuation HFA inhaler Previous Rx's Medication Instructions Recorded albuterol sulfate 90 mcg/actuation 1 - 2 puffs inhalation Q4-6H PRN 01/08/19 aerosol inhaler Shortness Of Breath Or Wheezing #1 inh ipratropium 0.5 mg-albuterol 3 mg 3 ml inhalation QIDP PRN Wheezing 06/21/19 (2.5 mg base)/3 mL nebulization #120 neb soln azithromycin 250 mg tablet 250 mg PO DAILY Infection 5 days 11/17/19 #6 tabs levofloxacin 500 mg tablet 500 mg PO DAILY #7 tabs 01/27/23 phenazopyridine 200 mg tablet 2
--- NOTE | 2023-01-27 09:50 | XR_ITS ---
PROCEDURE INFORMATION: Exam: XR Chest Exam date and time: 01/27/2023 9:45 AM Age: 72 years old Clinical indication: Cough; Additional info: Back pain TECHNIQUE: Imaging protocol: Radiologic exam of the chest. Views: 2 views. COMPARISON: CR XR CHEST 2V 01/17/2023 10:51 AM FINDINGS: Lungs: There is lingular platelike atelectasis. Pleural spaces: Unremarkable. No pleural effusion. No pneumothorax. Heart/Mediastinum: Unremarkable. No cardiomegaly. Bones/joints: Unremarkable. IMPRESSION: Platelike atelectasis.
--- NOTE | 2023-01-27 09:50 | PC.NURSE ---
Called rad to let them know about order
[2023-01-27 10:01] LABS: Microscopic, Urine URINE MICROSCOPIC (MICROSCOPIC)
[2023-01-27 10:05] LABS: Appearance,Urine SL CLOUDY (Clear); Bilirubin,Urine Negative (Negative); Blood, Urine Negative (Negative); Color,Urine YELLOW (Yellow); Glucose,Urine (UA) Negative (Negative); Ketones,Urine Negative (Negative); Leukocyte Esterase,Urine 2+ (Negative); Nitrate,Urine POSITIVE (Negative); PH,Urine 6.5 (5.0-8.5); Protein,Urine Negative (Negative); Urobilinogen,Urine 0.2 EU/dl (0.2)
[2023-01-27 10:18] LABS: Bacteria,Urine 3+ /lpf; RBC,Urine Occasional #/hpf (0-3)
[2023-01-27 10:35] VITALS: BP 156/93; PULSE 90; RESP 18; TEMP 36.7; O2SAT 96
== END 2023-01-27 10:35 | disposition home or self-care (01) ==
PROVIDERS: Emergency Provider Nurse Practitioner Family; PCP Internal Medicine Adolescent Medicine
DX: N39.0 Urinary tract infection, site not specified (principal); B96.5 Pseudomonas (aeruginosa) (mallei) (pseudomallei) as the cause of diseases classified elsewhere; M54.59 Other low back pain; R10.30 Lower abdominal pain, unspecified; J44.9 Chronic obstructive pulmonary disease, unspecified; E11.9 Type 2 diabetes mellitus without complications; E78.5 Hyperlipidemia, unspecified; I10 Essential (primary) hypertension; M19.90 Unspecified osteoarthritis, unspecified site; Z79.84 Long term (current) use of oral hypoglycemic drugs; Z87.891 Personal history of nicotine dependence
CPT/HCPCS: 71046; 81001; 87086; 87088; 87186; 99204; 99212; G0463

== ENCOUNTER 2023-02-03 18:48 | Emergency (ER) | payer MEDICARE, MEDICAID, SELFPAY ==
[2023-02-03 18:56] VITALS: BP 163/59; PULSE 84; O2SAT 94
[2023-02-03 18:59] VITALS: BP 163/59; PULSE 81; RESP 17; TEMP 36.9; O2SAT 93; BMI 33.8
[2023-02-03 19:01] VITALS: BP 128/52; PULSE 75; O2SAT 94
[2023-02-03 19:06] LABS: Microscopic, Urine URINE MICROSCOPIC (MICROSCOPIC)
[2023-02-03 19:07] LABS: Appearance,Urine CLEAR (Clear); Bilirubin,Urine Negative (Negative); Blood, Urine Negative (Negative); Color,Urine YELLOW (Yellow); Glucose,Urine (UA) Negative (Negative); Ketones,Urine Negative (Negative); Leukocyte Esterase,Urine Negative (Negative); Nitrate,Urine Negative (Negative); Protein,Urine Negative (Negative); Specific Gravity, Urine 1.025 (1.005-1.030); Urobilinogen,Urine 0.2 EU/dl (0.2)
--- NOTE | 2023-02-03 19:12 | CT_ITS ---
PROCEDURE INFORMATION: Exam: CT Abdomen And Pelvis With Contrast Exam date and time: 02/03/2023 7:39 PM Age: 72 years old Clinical indication: Abdominal pain; Additional info: Diarrhea, llq pain TECHNIQUE: Imaging protocol: Computed tomography of the abdomen and pelvis with contrast. Radiation optimization: All CT scans at this facility use at least one of these dose optimization techniques: automated exposure control; mA and/or kV adjustment per patient size (includes targeted exams where dose is matched to clinical indication); or iterative reconstruction. Contrast material: ISOVUE; Contrast volume: 75 ml; Contrast route: IV; REPORTING DATA: Count of CT and Cardiac NM exams in prior 12 months: This patient has received [address] and 0 known cardiac nuclear medicine studies in the 12 months prior to the current study. COMPARISON: CT CHEST WO CON 07/06/2022 8:25 AM FINDINGS: Liver: Unremarkable. Gallbladder and bile ducts: Unremarkable. Pancreas: Multiloculated cystic lesion in the pancreatic neck measuring 3.5 x 2.0 x 2.0 cm. No pancreatic ductal dilation. Spleen: Unremarkable. Adrenal glands: Unremarkable. Kidneys and ureters: No renal or ureteral stones. No hydronephrosis. Non-specific bilateral symmetric perinephric fat stranding. Stomach and bowel: No evidence of bowel obstruction or acute inflammatory changes in the gastrointestinal tract. Small 2.0 cm intramural lipoma incidentally noted in the ascending colon. Appendix: Appendix is visualized and is normal. Intraperitoneal space: No free fluid. No pneumoperitoneum. Vasculature: Moderate amount of calcific arterial atherosclerosis throughout the aorta. No abdominal aortic aneurysm. Lymph nodes: Unremarkable. Urinary bladder: Unremarkable. Reproductive: Unremarkable. Bones/joints: No evidence of acute osseous abnormality. Soft tissues: Unremarkable. IMPRESSION: 1. No acute findings in the abdomen or pelvis. 2. Multiloculated cystic lesion in the pancreatic neck measuring 3.5 x 2.0 x 2.0 cm. Please see comments below for current guidelines. 3. Additional non-acute ancillary findings are detailed above. COMMENTS: Regarding incidental complex pancreatic cystic lesions greater than 2.5 cm in size, current guidelines recommend endoscopic ultrasound with fine needle aspiration and surgical consultation. (Reference: Prudence, 2017) REFERENCES: Prudence BRADLEY, et al. Management of Incidental Pancreatic Cysts: A White Paper of the ACR Incidental Findings Committee. J Am Adam Radiol. 2017;14(7):911-923.
--- NOTE | 2023-02-03 19:12 | XR_ITS ---
PROCEDURE INFORMATION: Exam: XR Chest Exam date and time: 02/03/2023 7:18 PM Age: 72 years old Clinical indication: Cough and fever; Additional info: Fever, cough TECHNIQUE: Imaging protocol: Radiologic exam of the chest. Views: 2 views. COMPARISON: CR XR CHEST 2V 01/27/2023 9:45 AM FINDINGS: Lungs: No evidence of acute airspace consolidation. No pulmonary edema. Platelike atelectasis in the left upper lobe, unchanged from prior exam. Pleural spaces: No significant pleural effusion. No pneumothorax. Heart/Mediastinum: Cardiomediastinal silouhette is within normal limits. Bones/joints: No evidence of acute osseous abnormality. IMPRESSION: No acute findings. No evidence of pneumonia.
[2023-02-03 19:19] LABS: Basophils % 0.6 % (0.1-2.0); Eosinophils # 0.7 K/mm3 (0.0-0.4); Eosinophils % 15.1 % (0.1-12.0); Hematocrit 41.5 % (37.0-47.0); Hemoglobin 13.1 g/dL (12.2-16.2); Lymphocytes # 0.8 K/mm3 (0.7-4.5); Lymphocytes % 16.7 % (10-50); Mean Corpuscular HGB Conc 31.5 g/dL (31.8-35.4); Mean Corpuscular Hemoglobin 29.5 pg (27.0-31.2); Mean Corpuscular Volume 93.6 fl (81-99); Mean Platelet Volume 8.7 fl (7.4-10.4); Monocytes # 0.3 K/mm3 (0.1-1.0); Neutrophils % 61.7 % (37.0-80.0); Platelet Count 177 K/mm3 (142-424); Red Blood Count 4.44 M/mm3 (4.20-5.40); Red Cell Distribution Width 14.1 % (11.5-17.5); White Blood Count 4.9 K/mm3 (4.8-10.8)
--- NOTE | 2023-02-03 19:20 | HMH.EDGENADL ---
Discharge Plan Disposition Patient Disposition: Home, Self-Care Condition: Good Prescriptions Prescriptions: New ondansetron 4 mg tablet,disintegrating 4 mg PO Q8H PRN (Reason: nausea and vomiting) 4 Days Qty: 10 0RF No Action azithromycin 250 MG tablet 250 mg PO DAILY 5 Days Qty: 6 0RF Rx Instructions: mon-wed-fri albuterol sulfate 18 GM HFA aerosol inhaler 1 - 2 puffs inhalation Q4-6H PRN (Reason: Shortness Of Breath Or Wheezing) Qty: 1 0RF omega 5-rpt-ehh-fish oil 1,000 MG capsule 1,000 mg PO DAILY ipratropium-albuterol 3 ML solution for nebulization 3 ml inhalation QIDP PRN (Reason: Wheezing) Qty: 120 2RF atorvastatin 40 MG tablet 40 mg PO HS lisinopril 20 MG tablet 20 mg PO DAILY zinc 50 MG tablet 140 mg PO DAILY omega-3 fatty acids-fish oil 1 EACH capsule 2 tab PO DAILY cholecalciferol (vitamin D3) 50 MCG capsule 50 mcg PO DAILY empagliflozin 25 MG tablet 25 mg PO DAILY metoprolol tartrate 50 MG tablet 50 mg PO BID apixaban 5 MG tablets,dose pack 5 mg PO BID lyhumbipuc-fzpidlni-vmxjsdkeoo 10.7 GM HFA aerosol inhaler 2 puff IH BID phenazopyridine [Pyridium] 200 mg tablet 200 mg PO Q8H 2 Days Qty: 6 0RF levofloxacin [levofloxacin] 500 mg tablet 500 mg PO DAILY Qty: 7 0RF Referrals Follow up/Referrals: Tyrell Owens MD [Primary Care Provider] - See instructions Activity Restrictions/Add. Instructions Additional Instructions/Restrictions: You were evaluated in the emergency department today. Please fiber picker your prescription for Zofran and take as needed for symptoms. Hydrate at home is much as possible. Take Tylenol and ibuprofen at home as needed for pain. Follow-up with your primary care provider over the next 3 days. Return to the emergency department for new or worsening symptoms. You have an incidental finding for a pancreatic cyst on your CT scan, which I recommend follow-up with your primary care provider for it. Clinical Impressions Clinical Impression: Diarrhea, Pancreas cyst Instructions Patient Instructions: DI for Diarrhea and Traveler's Diarrhea -- Adult, DI for Nausea -- Adult Discharge ED Provider: Talia Harman General Adult HPI General Chief complaint: Nausea/Vomiting/Diarrhea Stated complaint: Nausea,diarrhea,fever Time Seen by Provider: 02/03/23 19:12 Mode of Arrival: Ambulatory Source of Information: Patient Limitations: No Limitations Description of Symptoms (Recalled from ER Triage Doc. by RN): 72 yo F presents to ED with c/o diarrhea, fever, fatigue, weakness. pt reports that symptoms began sunday, pt began to feel worse. History of Present Illness HPI narrative: This patient is a 72-year-old female with a history of COPD, hypertension, atrial flutter, and obesity presenting to the emergency department for evaluation with concern for several days of diarrhea and left lower quadrant abdominal pain. She also notes that she has had fever, fatigue, and weakness. She states that her diarrhea is loose and watery and nothing seems to make it better or worse. She has not had much of an appetite, but she is still able to eat and drink without vomiting. She denies any sore throat or congestion, but she does admit to mild cough. She states she was seen last week and diagnosed with urinary tract infection and put on antibiotics for this. She reports compliance with the antibiotics. Related Data Home Medications Medication Instructions Recorded Confirmed omega 1-dkx-zxy-fish oil 1,000 mg 1,000 mg PO DAILY Cholesterol 06/19/19 01/17/23 (120 mg-180 mg) capsule apixaban 5 mg (74 tabs) tablets in 5 mg PO BID Blood thinner 12/08/21 01/17/23 a dose pack atorvastatin 40 mg tablet 40 mg PO HS Cholesterol 12/08/21 01/17/23 cholecalciferol (vitamin D3) 50 50 mcg PO DAILY Supplement 12/08/21 01/17/23 mcg (2,000 unit) capsule empagliflozin 25 mg tablet 25 mg PO DAILY Diabetes
[2023-02-03 19:25] LABS: WBC,Urine Occasional #/hpf (0-3)
[2023-02-03 19:26] LABS: Alanine Aminotransferase 29 U/L (12-78); Albumin Level 3.4 g/dl (3.5-5.0); Albumin/Globulin Ratio 1.2 (1.1-1.8); Alkaline Phosphatase 104 U/L (38-126); Anion Gap 13.1 mEq/L (5-15); Aspartate Amino Transferase 32 U/L (14-36); Bilirubin,Total 0.6 mg/dl (0.2-1.3); Blood Urea Nitrogen 13 mg/dl (7-17); Calcium 8.8 mg/dl (8.4-10.2); Carbon Dioxide 25 mmol/L (22.0-30.0); Chloride 104 mmol/L (98-107); Creatinine Clearance Estimated 77 mL/min (50-200); Estimated Glomerular Filt Rate 70 ml/min (>60); GFR (African American) 85 ML/MIN (>60); Globulin 2.8 g/dL (1.3-3.2); Glucose 146 mg/dl (74-100); Lipase 53 U/L (23-300); Magnesium 1.7 mg/dl (1.6-2.3); Potassium 4.1 mmoL/L (3.5-5.1); Sodium 138 mmol/L (136-145); Total Protein,Serum 6.2 g/dl (6.3-8.2)
--- NOTE | 2023-02-03 19:27 | PC.NURSE ---
patient gone to CT at this time.
[2023-02-03 19:44] LABS: T4 (Thyroxine) 12.1 ug/dl (5.53-11.0)
[2023-02-03 19:47] VITALS: BP 102/63; PULSE 77; RESP 20; TEMP 36.9; O2SAT 92
[2023-02-03 19:57] LABS: Thyroid Stimulating Hormone 1.69 uIU/mL (0.465-4.68)
[2023-02-03 20:00] VITALS: BP 117/57; PULSE 73; O2SAT 90
[2023-02-03 20:56] VITALS: BP 122/40; PULSE 76; RESP 18; TEMP 37; O2SAT 92
== END 2023-02-03 20:57 | disposition home or self-care (01) ==
PROVIDERS: Emergency Provider Emergency Medicine; PCP Internal Medicine Adolescent Medicine
DX: R19.7 Diarrhea, unspecified (principal); R50.9 Fever, unspecified; R53.1 Weakness; K86.2 Cyst of pancreas; J44.9 Chronic obstructive pulmonary disease, unspecified; I10 Essential (primary) hypertension; I48.92 Unspecified atrial flutter; E11.65 Type 2 diabetes mellitus with hyperglycemia; E78.5 Hyperlipidemia, unspecified; Z87.891 Personal history of nicotine dependence; R10.32 Left lower quadrant pain
CPT/HCPCS: 71046; 74177; 80053; 81001; 83690; 83735; 84436; 84443; 85025; 96361; 96374; 96375; 99285; J0131; J2405; Q9967

== ENCOUNTER → 2023-02-23 16:34 | Outpatient (CLI) | payer MEDICARE, MEDICAID, SELFPAY ==
--- OUTSIDE RECORDS SUMMARY | 2023-02-23 16:38 | XMS_ITS | Patient Health Record ---
Author Name Unknown Organization [facility] Address [address] [place] [address] Care Team Providers Care Cargo Broker Name Role Phone Tyrell Owens Primary Care Provider Tyrell Owens Unavailable Unavailable MarshaAnn Unavailable [phone] MikeykenzieMelvi Unavailable [phone] NunezAnn barriga Unavailable [phone] ALLERGIES No Known Allergies RESULTS Component Value Reference Range Notes Rapid Covid/Flu A-B Combo (N ot yet reviewed by provider) Interpretation: Performing Lab: Notes/Report: Rapid Covid neg Flu A neg Flu B neg M-Complete Blood Count Auto Diff Reviewed date:07/05/2022 04:39:12 PM Interpretation: Performing Lab: Notes/Report: WBC 7.9 4.8-10.8 K/mm3 RBC 4.58 4.20-5.40 M/mm3 HGB 13.5 12.2-16.2 g/dL HCT 42.8 37.0-47.0 % MCV 93.5 81-99 fl MCH 29.5 27.0-31.2 pg MCHC 31.5 31.8-35.4 g/dL RDW 14.4 11.5-17.5 % PLT 224 142-424 K/mm3 MPV 9.1 7.4-10.4 fl NE% 55.6 37.0-80.0 % LY% 19.0 1
--- OUTSIDE RECORDS SUMMARY | 2023-02-23 16:38 | XMS_ITS | Continuity of Care Document ---
Author Name Unknown Organization [facility] Address [address] [address] Encounter ANETTE LOPEZ [id number] Date(s): 08/12/22 - 08/12/22 [facility] [address] [facility] [address] [place] [address] [place] Encounter Diagnosis Acute URI(Discharge Diagnosis) - 08/12/22 Discharge Disposition: Home or Self Care Attending Physician: Piero Bahena Allergies, Adverse Reactions, Alerts No Known Allergies Functional Status 08/12/22 Recent Travel History No recent travel Other exposure to Infectious Disease Non e Medications Azithromycin 5 Day Dose Pack 250 mg oral tablet 1 packets, Oral, Daily, Take 2 tabs (500 mg) day 1, then 1 tablet (250 mg) daily, days 2 through 5,# 6 tab, 0 Refill(s), Start Date: 08/12/22 10:42:00 CDT, [facility], cm, 08/12/22 9:49:00 CDT, Height Start Date: 08/12/22 Status: Ordered Breztri Aerosphere inhalation aerosol 0 Refill(s), Start Date: 08/12/22 9:53:00 CDT Start Date: 08/12/22 Status: Ordered DilTIAZem (Eqv-Cardizem CD) 240 mg/24 hours oral capsule, extended release 0 Refill(s), Start Date: 08/12/22 9:53:00 CDT Start Date: 08/12/22 Status: Ordered Eliquis 5 mg oral tablet 5 mg = 1 tab, Oral, BID, # 60 tab, 0 Refill(s), Start Date: 08/12/22 9:53:00 CDT Start Date: 08/12/22 Status: Ordered furosemide 20 mg oral tablet 0 Refill(s), Start Date: 08/12/22 9:53:00 CDT Start Date: 08/12/22 Status: Ordered ipratropium-albuterol 0.5 mg-2.5 mg/3 mLinhalation solution 0 Refill(s), Start Date: 08/12/22 9:53:00 CDT Start Date: 08/12/22 Status: Ordered lisinopril 20 mg oral tablet 0 Refill(s), Start Date: 08/12/22 9:53:00 CDT Start Date: 08/12/22 Status: Ordered Medrol 4 mg oral tablet 1 packets, Oral, Daily, as directed on package labeling, # 21 tab, 0 Refill(s), Start Date: 08/12/22 10:42:00 CDT, Pharmacy: [facility], 170, cm, 08/12/22 9:49:00 CDT, Height Start Date: 08/12/22 Stop Date: 08/18/22 Status: Ordered metFORMIN 750 mg oral tablet, extended release 0 Refill(s), Start Date: 08/12/22 9:52:00 CDT Start Date: 08/12/22 Status: Ordered Problem List Condition Confirmation Course Effective Dates Status Health [facility] Informant Acute URI Confirmed Active Results Laboratory List Name
--- NOTE | 2023-02-23 16:41 | XR_ITS ---
PROCEDURE INFORMATION: Exam: XR Chest Exam date and time: 02/23/2023 4:43 PM Age: 72 years old Clinical indication: Cough; Additional info: Acute cough. Emphysema x 4-5 years TECHNIQUE: Imaging protocol: Radiologic exam of the chest. Views: 2 views. COMPARISON: CR XR CHEST 2V 02/03/2023 7:18 PM FINDINGS: Lungs: Regions of parenchymal scarring left lung base. Pleural spaces: Unremarkable. No pleural effusion. No pneumothorax. Heart/Mediastinum: Unremarkable. No cardiomegaly. Bones/joints: Unremarkable. IMPRESSION: No evidence of acute cardiopulmonary disease.
== END ==
PROVIDERS: PCP Internal Medicine Adolescent Medicine; Visit Provider Physician Assistant
DX: R05.1 Acute cough (principal)
CPT/HCPCS: 71046

== ENCOUNTER 2023-05-06 18:48 | Emergency (ER) | payer MEDICARE, MEDICAID, SELFPAY ==
[2023-05-06 18:49] VITALS: BP 150/62; PULSE 80; RESP 30; TEMP 36.5; O2SAT 88; BMI 33.2
[2023-05-06 19:00] VITALS: PULSE 89
--- NOTE | 2023-05-06 19:07 | ECG_ITS ---
APPROVED REPORT Exam: Resting ECG HR:75 bpm ECG Measurements Heart Rate 75 AXES SC 167 P 85 QRSd 93 QRS 88 QT 376 T 70 QTc 405 Conclusion SINUS RHYTHM NONSPECIFIC ST & T-WAVE ABNORMALITY BORDERLINE ECG UNCONFIRMED REPORT Electronically signed by : Tyrell Owens MD 05/07/2023 14:45:28
--- NOTE | 2023-05-06 19:13 | PC.NURSE ---
RT at BS to administer breathing treatment
--- NOTE | 2023-05-06 19:14 | XR_ITS ---
PROCEDURE INFORMATION: Exam: XR Chest Exam date and time: 05/06/2023 7:16 PM Age: 72 years old Clinical indication: Shortness of breath; Additional info: SOA TECHNIQUE: Imaging protocol: Radiologic exam of the chest. Views: 1 view. COMPARISON: CR XR CHEST 2V 02/23/2023 4:43 PM FINDINGS: Lungs: Unremarkable. No consolidation. Pleural spaces: Unremarkable. No pleural effusion. No pneumothorax. Heart/Mediastinum: Unremarkable. No cardiomegaly. Bones/joints: Unremarkable. IMPRESSION: No acute findings.
[2023-05-06 19:21] LABS: Chloride 103 mmol/L (98-107); Potassium 4.1 mmoL/L (3.5-5.1); Sodium 139 mmol/L (136-145)
[2023-05-06 19:23] LABS: Basophils # 0.1 K/mm3 (0-0.2); Basophils % 0.7 % (0.1-2.0); Eosinophils # 2.6 K/mm3 (0.0-0.4); Eosinophils % 28.9 % (0.1-12.0); Hematocrit 43.2 % (37.0-47.0); Hemoglobin 14.1 g/dL (12.2-16.2); Lymphocytes # 1.7 K/mm3 (0.7-4.5); Mean Corpuscular HGB Conc 32.6 g/dL (31.8-35.4); Mean Corpuscular Volume 91.9 fl (81-99); Mean Platelet Volume 9.4 fl (7.4-10.4); Monocytes # 0.5 K/mm3 (0.1-1.0); Monocytes % 5.2 % (1.7-9.3); Neutrophils # 4.2 K/mm3 (1.8-7.8); Neutrophils % 46.2 % (37.0-80.0); Platelet Count 241 K/mm3 (142-424); Red Cell Distribution Width 14.2 % (11.5-17.5)
[2023-05-06 19:24] LABS: Alanine Aminotransferase 28 U/L (12-78); Albumin Level 4.4 g/dl (3.5-5.0); Albumin/Globulin Ratio 1.4 (1.1-1.8); Alkaline Phosphatase 114 U/L (38-126); Anion Gap 13.1 mEq/L (5-15); Aspartate Amino Transferase 41 U/L (14-36); Bilirubin,Total 0.6 mg/dl (0.2-1.3); Blood Urea Nitrogen 16 mg/dl (7-17); Carbon Dioxide 27 mmol/L (22.0-30.0); Creatinine Clearance Estimated 69 mL/min (50-200); Estimated Glomerular Filt Rate 49 ml/min (>60); GFR (African American) 59 ML/MIN (>60); Globulin 3.2 g/dL (1.3-3.2); Total Protein,Serum 7.6 g/dl (6.3-8.2)
[2023-05-06 19:25] LABS: Calcium 9.6 mg/dl (8.4-10.2); Glucose 143 mg/dl (74-100)
[2023-05-06 19:32] VITALS: PULSE 88
--- NOTE | 2023-05-06 19:33 | [facility].EDCP ---
Discharge Plan Disposition Patient Disposition: Home, Self-Care Prescriptions Prescriptions: New amoxicillin-pot clavulanate 875-125 mg tablet 1 tab PO BID 7 Days Qty: 14 0RF No Action azithromycin 250 MG tablet 250 mg PO DAILY 5 Days Qty: 6 0RF Rx Instructions: mon-sun-sun albuterol sulfate 18 GM HFA aerosol inhaler 1 - 2 puffs inhalation Q4-6H PRN (Reason: Shortness Of Breath Or Wheezing) Qty: 1 0RF omega 9-sns-gcs-fish oil 1,000 MG capsule 1,000 mg PO DAILY ipratropium-albuterol 3 ML solution for nebulization 3 ml inhalation QIDP PRN (Reason: Wheezing) Qty: 120 2RF atorvastatin 40 MG tablet 40 mg PO HS lisinopril 20 MG tablet 20 mg PO DAILY zinc 50 MG tablet 140 mg PO DAILY omega-3 fatty acids-fish oil 1 EACH capsule 2 tab PO DAILY cholecalciferol (vitamin D3) 50 MCG capsule 50 mcg PO DAILY empagliflozin 25 MG tablet 25 mg PO DAILY metoprolol tartrate 50 MG tablet 50 mg PO BID apixaban 5 MG tablets,dose pack 5 mg PO BID pxiyrlliyp-oowwfhbp-jqcsxdqjeg 10.7 GM HFA aerosol inhaler 2 puff IH BID phenazopyridine [Pyridium] 200 mg tablet 200 mg PO Q8H 2 Days Qty: 6 0RF levofloxacin [levofloxacin] 500 mg tablet 500 mg PO DAILY Qty: 7 0RF ondansetron 4 mg tablet,disintegrating 4 mg PO Q8H PRN (Reason: nausea and vomiting) 4 Days Qty: 10 0RF Referrals Follow up/Referrals: Tyrell Owens MD [Primary Care Provider] - See instructions Activity Restrictions/Add. Instructions Additional Instructions/Restrictions: Call your family doctor to establish care for this visit to the emergency department and schedule follow-up within 48 hours to ensure improvement. If you have any worsening of your condition or any other concerning signs or symptoms, return to the emergency department or your primary care doctor for further evaluation. Augmentin twice daily for 7 days. Clinical Impressions Clinical Impression: COPD exacerbation Discharge ED Provider: Peter Stanton General Chief Complaint: Shortness of Breath/Dyspnea Stated Complaint: soa Time Seen by Provider: 05/06/23 18:55 Mode of Arrival: Ambulatory Source of Information: Patient Limitations: No Limitations Description of Symptoms (Recalled from ER Triage Doc. by RN): SOA since sunday pt took last neb this moring and has hx of copd and no fever History of Present Illness HPI narrative: 72-year-old female hypertension, lipid make a flutter status post ablation still on Eliquis, COPD not on home oxygen presenting with shortness of breath. Patient states she has been feeling short of breath since Sunday. She chose and came to the emergency department today, 05/06 because she felt that her blood pressure was going up, she felt she was working harder to breathe and felt she was getting worse. Ambulance brought patient in. Receiving nebulizer on arrival. States she feels a lot better. No fevers or chills, nausea or vomiting, diarrhea, constipation, belly pain, chest pain, or any other concerns. Related Data Home Medications Medication Instructions Recorded Confirmed omega 9-wnq-nzi-fish oil 1,000 mg 1,000 mg PO DAILY Cholesterol 06/19/19 01/17/23 (120 mg-180 mg) capsule apixaban 5 mg (74 tabs) tablets in 5 mg PO BID Blood thinner 12/08/21 01/17/23 a dose pack atorvastatin 40 mg tablet 40 mg PO HS Cholesterol 12/08/21 01/17/23 cholecalciferol (vitamin D3) 50 50 mcg PO DAILY Supplement 12/08/21 01/17/23 mcg (2,000 unit) capsule empagliflozin 25 mg tablet 25 mg PO DAILY Diabetes 12/08/21 01/17/23 lisinopril 20 mg tablet 20 mg PO DAILY bp 12/08/21 01/17/23 metoprolol tartrate 50 mg tablet 50 mg PO BID bp 12/08/21 01/17/23 omega-3 fatty acids-fish oil 340 2 tab PO DAILY Supplement 12/08/21 01/17/23 mg-1,000 mg capsule zinc 50 mg tablet 140 mg PO DAILY Supplement 12/08/21 01/17/23 budesonide 160 mcg-glycopyr 9 2 puff inhalation BID COPD 12/13/21
[2023-05-06 19:35] LABS: Coronavirus 19, PCR Not Detected (NotDetected); Influenza A, PCR Not Detected (NotDetected); Influenza B, PCR Not Detected (NotDetected)
[2023-05-06 19:36] LABS: Troponin I 0.07 ng/ml (0.00-0.034)
[2023-05-06 19:59] LABS: VBG Base Excess -1.7 mmol/L (-2.4-2.3); VBG HCO3 24.2 mmol/L (23-30); VBG PH 7.33 mmol/L (7.31-7.41); VBG PO2 63.6 mmol/L (28-40); VBG Total CO2 25.7 mmol/L (23-27)
[2023-05-06 22:24] LABS: Troponin I 0.06 ng/ml (0.00-0.034)
[2023-05-06 22:58] VITALS: BP 138/71; PULSE 74; RESP 16; TEMP 36.8; O2SAT 96
== END 2023-05-06 22:59 | disposition home or self-care (01) ==
PROVIDERS: Emergency Provider Emergency Medicine; PCP Internal Medicine Adolescent Medicine
DX: J44.1 Chronic obstructive pulmonary disease with (acute) exacerbation (principal); I10 Essential (primary) hypertension; I48.92 Unspecified atrial flutter; E11.9 Type 2 diabetes mellitus without complications; E78.5 Hyperlipidemia, unspecified; Z87.891 Personal history of nicotine dependence
CPT/HCPCS: 71045; 80053; 82803; 84484; 85025; 87636; 93005; 96365; 96375; 99285; J0696

== ENCOUNTER 2023-06-16 08:42 | Observation (INO) | payer MEDICARE, MEDICAID, SELFPAY ==
[2023-06-16] VITALS (16 sets, daily range): BP systolic 136–170; BP diastolic 60–82; PULSE 73–90; RESP 20–22; TEMP 36.5–36.9; O2SAT 85–98; BMI 33.3; BMI 32.5
--- NOTE | 2023-06-16 08:52 | XR_ITS ---
PROCEDURE INFORMATION: Exam: XR Chest Exam date and time: 06/16/2023 8:59 AM Age: 72 years old Clinical indication: Shortness of breath; Additional info: SOA TECHNIQUE: Imaging protocol: Radiologic exam of the chest. Views: 1 view. COMPARISON: CR XR CHEST PORTABLE 05/06/2023 7:16 PM FINDINGS: Lungs: Unremarkable. No consolidation. Pleural spaces: Unremarkable. No pleural effusion. No pneumothorax. Heart/Mediastinum: Unremarkable. No cardiomegaly. Vasculature: The aorta is calcified and tortuous. Bones/joints: Unremarkable. IMPRESSION: No acute findings.
--- NOTE | 2023-06-16 08:52 | ECG_ITS ---
APPROVED REPORT Exam: Resting ECG HR:81 bpm ECG Measurements Heart Rate 81 AXES UT 166 P 76 QRSd 94 QRS 83 QT 371 T 71 QTc 408 Conclusion SINUS RHYTHM NORMAL ECG UNCONFIRMED REPORT Electronically signed by : Tyrell Owens MD 06/19/2023 16:51:07
--- NOTE | 2023-06-16 09:01 | ED_ITS ---
Discharge Plan Disposition Patient Disposition: Admitted Clinical Impressions Clinical Impression: COPD exacerbation Discharge ED Provider: Ro Maldonado General Chief Complaint: Shortness of Breath/Dyspnea Stated Complaint: Difficulty breathing,coughing Time Seen by Provider: 06/16/23 08:52 History of Present Illness HPI narrative: This 72-year-old female with a history of atrial fibrillation on blood thinners, COPD presents to the ER with 12 hours of shortness of breath. Patient denies any chest pain. She states her COPD is flaring. Patient states she has taken her nebulizer treatment every 3 hours since last night without significant improvement of symptoms. She also has a mildly productive cough. She denies fevers, chills, nausea, vomiting, diarrhea, or other associated symptoms. Related Data Home Medications Medication Instructions Recorded Confirmed omega 6-vza-asu-fish oil 1,000 mg 1,000 mg PO DAILY Cholesterol 06/19/19 06/16/23 (120 mg-180 mg) capsule apixaban 5 mg (74 tabs) tablets in 5 mg PO BID Blood thinner 12/08/21 06/16/23 a dose pack atorvastatin 40 mg tablet 40 mg PO HS Cholesterol 12/08/21 06/16/23 cholecalciferol (vitamin D3) 50 50 mcg PO DAILY Supplement 12/08/21 06/16/23 mcg (2,000 unit) capsule lisinopril 20 mg tablet 20 mg PO DAILY Hypertension 12/08/21 06/16/23 metoprolol tartrate 50 mg tablet 50 mg PO BID Hypertension 12/08/21 06/16/23 budesonide 160 mcg-glycopyr 9 2 puff inhalation BID COPD 12/13/21 06/16/23 mcg-formot 4.8 mcg/actuation HFA inhaler azithromycin 250 mg tablet 250 mg PO DAILY Infection 06/16/23 06/16/23 prevention diltiazem HCl 240 mg 240 mg PO DAILY Hypertension 06/16/23 06/16/23 capsule,extended release 24 hr furosemide 20 mg tablet 20 mg PO DAILY Edema 06/16/23 06/16/23 metformin 750 mg tablet,extended 750 mg PO DAILY Diabetes 06/16/23 06/16/23 release 24 hr methocarbamol 750 mg tablet 750 mg PO BID PRN Muscle spasms 06/16/23 06/16/23 montelukast 10 mg tablet 10 mg PO DAILY Inflammation 06/16/23 06/16/23 zinc gluconate 50 mg tablet 50 mg PO DAILY Supplement 06/16/23 06/16/23 Previous Rx's Medication Instructions Recorded albuterol sulfate 90 mcg/actuation 1 - 2 puffs inhalation Q4-6H PRN 01/08/19 aerosol inhaler Shortness Of Breath Or Wheezing #1 inh ipratropium 0.5 mg-albuterol 3 mg 3 ml inhalation QIDP PRN Wheezing 06/21/19 (2.5 mg base)/3 mL nebulization #120 neb soln ondansetron 4 mg disintegrating 4 mg PO Q8H PRN nausea and 02/03/23 tablet vomiting 4 days #10 tabs Allergies Allergy/AdvReac Type Severity Reaction Status Date / Time No Known Allergies Allergy Verified 01/27/23 09:[address] [facility] Disclaimer: The information contained in this section may have been updated after the patient was seen, as this information can be updated by other users. Medical History (Updated 06/16/23 @ 15:18 by Ro Maldonado MD) COPD (chronic obstructive pulmonary disease) Diabetes type 2, controlled HLD (hyperlipidemia) HTN (hypertension) Osteoarthritis Surgical History History of bilateral tubal ligation History of phacoemulsification of cataract of both eyes with intraocular lens implantation Family History Coronary artery disease Hypertension Social History Smoking Status: Never smoker second hand exposure: No alcohol intake: never current occupational status: retired and disabled Travel in the last 8 weeks: None household members: none housing: apartment caffeine: Yes ROS Obtained: Yes All systems reviewed & no additional complaints except as documented Constitutional Constitutional: Denies chills, Denies fever(s), Denies headache(s) and Denies weakness Eyes Eyes: Denies change in vision ENT Ears, Nose, Mouth, and Throat: Denies dizziness, Denies headache(s), Denies nasal congestion and Denies sore throat Cardiovascular Cardiovascular: Denies chest pain, Reports dyspnea and Denies leg edema Respiratory Respiratory: Reports cough and Reports dyspnea Gastrointestinal Gastrointestingal: Denies abdominal pain, constipation, diarrhea, nausea or vomiting Genitourinary Female Genitourinary: Denies dysuria Musculoskeletal Musculoskeletal: Denies arthralgias, Denies myalgias, Denies numbness and Denies tingling Integumentary/Breasts Skin/Breast: Denies change in pigmentation Neurologic Neurologic: Denies dizziness, Denies headache(s), Denies numbness, Denies tingling and Denies weakness Physical Exam General General appearance: alert and in no apparent distress Head Head exam: atraumatic and normocephalic Eye Eye exam: Present PERRL and EOMI ENT ENT exam: Present mucous membranes moist Neck Neck exam: Present normal inspection and full ROM Chest Chest inspection: Present symmetric chest wall rise Respiratory Respiratory exam: Present wheezes, prolonged expiratory phase and other (Increased work of breathing, 92-94% on room air); Absent respiratory distress or stridor Cardiovascular Cardiovascular exam: Present regular rate and normal rhythm Abdominal Exam Abdominal exam: Present soft; Absent distention or tenderness Extremities Exam Extremities exam: Present full ROM Neurological Exam Neurological exam: Present alert and oriented X3; Absent motor sensory deficit Psychiatric Psychiatric exam: Present normal affect and normal mood Skin Skin exam: Present warm and dry HEART Score HEART Score HEART Score assessment performed?: Yes History (anamnesis): Slightly suspicious ECG: Normal Age: >65 years Risk factors: 3 or more risk factors Troponin: </= normal limit HEART Score: 4 Critical Care Critical Care Time Critical Care Time: No Medical Decision Making Nii Inquiry Pt receiving controlled substance: No Vital Signs Vital Signs: 06/16/23 09:03 06/16/23 09:07 06/16/23 09:07 Temperature 98.4 F Temperature Source Oral Pulse Rate 79 82 Pulse Rate [Right Radial] 83 Respiratory Rate 22 Blood Pressure Blood Pressure [Right Arm] 162/76 H Blood Pressure Mean Blood Pressure Mean [Right Arm] 104 Blood Pressure Source Blood Pressure Position 02 Sat by Pulse Oximetry 92 L Oxygen Delivery Method Room Air Oxygen Flow Rate (LPM) 06/16/23 09:30 06/16/23 10:00 06/16/23 10:36 Temperature Temperature Source Pulse Rate 76 77 Pulse Rate [Right Radial] Respiratory Rate 20 20 Blood Pressure 141/77 H 137/74 Blood Pressure [Right Arm] Blood Pressure Mean 96 95 Blood Pressure Mean [Right Arm] Blood Pressure Source Blood Pressure Position 02 Sat by Pulse Oximetry 98 98 85 L Oxygen Delivery Method Nasal Cannula Room Air Oxygen Flow Rate (LPM) 2 06/16/23 10:42 06/16/23 11:43 06/16/23 11:50 Temperature 98.4 F Temperature Source Oral Pulse Rate 73 73 73 Pulse Rate [Right Radial] Respiratory Rate 22 22 22 Blood Pressure 170/82 H 140/62 140/62 Blood Pressure [Right Arm] Blood Pressure Mean Blood Pressure Mean [Right Arm] Blood Pressure Source Automatic Cuff Automatic Cuff Automatic Cuff Blood Pressure Position Sitting Sitting Sitting 02 Sat by Pulse Oximetry 97 97 Oxygen Delivery Method Oxygen Flow Rate (LPM) Lab Data Labs: Lab Results 06/16/23 08:54: VBG pH 7.32, VBG pCO2 46.2, VBG pO2 46.5 H, VBG HCO3 23.3, VBG Total CO2 24.7, VBG O2 Saturation 81.4 H, VBG Base Excess -2.8 L 06/16/23 09:00: WBC 8.4, RBC 4.67, Hgb 13.7, Hct 42.3, MCV 90.5, MCH 29.2, MCHC 32.3, RDW 14.9, Plt Count 196, MPV 9.0, Neut % (Auto) 44.7, Lymph % (Auto) 15.1, [place] % (Auto) 3.7, Eos % (Auto) 35.8 H, Baso % (Auto) 0.7, Neut # (Auto) 3.8, Lymph # (Auto) 1.3, [place] # (Auto) 0.3, Eos # (Auto) 3.0 H, Baso # (Auto) 0.1, PT 11.3, INR 1.05, Sodium 137, Potassium 4.0, Chloride 104, Carbon Dioxide 29, Anion Gap 8.0, BUN 7, Creatinine 0.80, Estimated Creat Clear 76, Estimated GFR 70, Est GFR ( Amer) 85, Glucose 186 H, Calcium 9.0, Total Bilirubin 0.5, AST 37 H, ALT 28, Alkaline Phosphatase 97, Troponin I 0.03, NT-Pro-B Natriuret Pep 771 H, Total Protein 6.6, Albumin 3.7, Globulin 2.9, Albumin/Globulin Ratio 1.3 06/16/23 11:15: Chlamy pneumoniae PCR TNP, Adenovirus (PCR) Not detected, B. pertussis DNA (PCR) TNP, Coronavirus OC43 (PCR) Not detected, Coronavirus HKU1 (PCR) Not detected, Coronavirus 229E (PCR) Not detected, SARS-CoV-2 (PCR) Not detected, Coronavirus NL63 (PCR) Not detected, Human Metapneumovir PCR Not detected, Influenza A (H1) PCR Not detected, Influ A (H1N1/09) PCR Not detected, Influenza A (H3) PCR Not detected, Influenza Type A (PCR) Not detected, Influenza Type B (PCR) Not detected, M. pneumoniae (PCR) TNP, Parainfluenza 1 (PCR) Not detected, Parainfluenza 2 (PCR) Not detected, Parainfluenza 3 (PCR) Not detected, Parainfluenza 4 (PCR) Not detected, RSV (PCR) Not detected, Entero/Rhino (PCR) Not detected 06/16/23 09:00 06/16/23 09:00 Response Orders (Tests/Meds): ED MEDICATIONS Generic Name Dose Route Start Last Admin Trade Name Freq PRN Reason Stop Dose Admin Albuterol/Ipratropium 3 ml 06/16/23 12:00 06/16/23 11:48 Ipratropium/Albuterol 3 Ml [facility] 07/16/23 11:59 3 ml Q6RT [facility] Administration Apixaban 5 mg 06/16/23 21:00 Apixaban 5mg Tablet PO 07/16/23 20:59 BID [facility] Atorvastatin Calcium 40 mg 06/16/23 21:00 Atorvastatin 40mg Tablet PO 07/16/23 20:59 HS [facility] Budesonide 0.5 mg 06/16/23 18:00 Budesonide 0.5mg/2ml [facility] 07/16/23 17:59 BIDRT [facility] Diltiazem HCl 240 mg 06/17/23 09:00 Diltiazem Er 240mg Capsule PO 07/17/23 08:59 DAILY [facility] Doxycycline Hyclate 100 mg/ 250 mls @ 166.667 mls/hr 06/16/23 14:15 06/16/23 14:59 Sodium Chloride IV 06/26/23 14:14 166.667 mls/hr BID [facility]ANDA Administration Lisinopril 20 mg 06/17/23 09:00 Lisinopril 20mg Tablet PO 07/17/23 08:59 DAILY [facility] Metformin HCl 500 mg 06/17/23 07:00 Metformin 500mg Tablet PO 07/17/23 06:59 DAILYDM [facility] Metoprolol Tartrate 50 mg 06/16/23 21:00 Metoprolol Tartrate 50mg Tablet PO 07/16/23 20:59 BID [facility] Montelukast Sodium 10 mg 06/17/23 09:00 Montelukast Sodium 10mg Tab PO 07/17/23 08:59 DAILY [facility] Non-Formulary Medication 2 puff 06/16/23 21:00 Pbrhoqwtkg-Wtbtoono-Ysdrnohbdk 07/16/23 20:59 BID [facility] Pantoprazole Sodium 40 mg 06/16/23 21:00 Pantoprazole 40mg Tablet PO 07/16/23 20:59 HS [facility] Prednisone 40 mg 06/16/23 11:15 06/16/23 11:42 Prednisone 20mg Tab PO 07/16/23 11:14 40 mg DAILY [facility] Administration Vitamin D 50 mcg 06/17/23 09:00 Cholecalciferol 1,000 Units (25mcg) Tablet PO 07/17/23 08:59 DAILY [facility] Discontinued Medications Generic Name Dose Route Start Last Admin Trade Name Freq PRN Reason Stop Dose Admin Albuterol Sulfate 20 mg 06/16/23 10:06 06/16/23 10:30 Albuterol 0.083% 2.5 Mg/3 Ml [facility] 06/16/23 10:07 20 mg ONCE ONE Administration Albuterol/Ipratropium 9 ml 06/16/23 08:52 06/16/23 09:07 Ipratropium/Albuterol 3 Ml [facility] 06/16/23 08:53 9 ml ONCE ONE Administration Furosemide 40 mg 06/16/23 14:14 06/16/23 14:59 Furosemide 40mg/4ml Vial IV 06/16/23 14:15 40 mg ONCE ONE Administration ORDERS Category Date Time Status CXR --portable [XR chest portable] Stat Exams 06/16/23 08:52 Completed BNP [Brain Natriuretic Peptide] Stat Lab 06/16/23 09:00 Completed CBC w/Auto Diff [Complete Blood Count Auto Diff] Stat Lab 06/16/23 09:00 Completed CMP [Comprehensive Metabolic Panel] Stat Lab 06/16/23 09:00 Completed Complete Blood Count Auto Diff [facility] Lab 06/17/23 06:00 Ordered Comprehensive Metabolic Panel [facility] Lab 06/17/23 06:00 Ordered Full Resp Panel w/COVID ([facility]) Routine Lab 06/16/23 11:15 Completed Magnesium [facility] Lab 06/17/23 06:00 Ordered PT INR [Prothrombin Time INR] Stat Lab 06/16/23 09:00 Completed Trop I [Troponin I] Stat Lab 06/16/23 09:00 Completed Troponin I Q3H Lab 06/16/23 13:20 Completed Troponin I Q3H Lab 06/16/23 14:55 Received VBG [Venous Blood Gas] Stat RT 06/16/23 08:54 Completed MDM Narrative Medical Decision Narrative: In summary, this 72year old female presents to the emergency department today with shortness of breath. On initial evaluation patient is hemodynamically stable but has increased work of breathing, prolonged expiratory phase, 92-94% on room air, wheezing throughout. Differential diagnosis includes but is not limited to COPD exacerbation, pneumonia, ACS, arrhythmia, I considered PE however patient is not hypotensive or tachycardic and is already anticoagulated, her symptoms are also much more consistent with COPD exacerbation. Based on these concerns, I ordered cardiac workup, chest x-ray, breathing treatments. ECG personally interpreted demonstrates sinus rhythm, rate 81, no interval abnormalities, normal axis, no STEMI. Patient received DuoNeb for treatment. Labs personally reviewed demonstrate normal pH, no hypercarbia, initial troponin mildly elevated though likely due to strain. Repeat troponin pending. BNP mildly elevated but nonactionable at 771, no leukocytosis or anemia, CMP nonactionable. XR personally interpreted demonstrates no lobar infiltrate, no pneumothorax. On reassessment patient continues to have wheezing and shortness of breath requiring 2 L nasal cannula. Ambulatory oxygen saturation on room air was 85%. Patient has no history of home oxygen requirement. Patient was started on continuous albuterol. At this point I believe she requires admission and patient is amenable to this plan. I discussed this with the hospitalist Dr. Valdez who is in agreement with this plan. He requested that I order viral testing which has been added. Patient was admitted to his service for continued management
[2023-06-16] MEDS: IPRATROPIUM/ALBUTEROL 3 ML NEB 9 ML IH (09:07)
[2023-06-16 09:12] LABS: Chloride 104 mmol/L (98-107); Sodium 137 mmol/L (136-145)
--- NOTE | 2023-06-16 09:12 | PC.NURSE ---
pt currently receiving breathing treatment.
[2023-06-16 09:14] LABS: Basophils # 0.1 K/mm3 (0-0.2); Basophils % 0.7 % (0.1-2.0); Eosinophils % 35.8 % (0.1-12.0); Hematocrit 42.3 % (37.0-47.0); Hemoglobin 13.7 g/dL (12.2-16.2); Lymphocytes # 1.3 K/mm3 (0.7-4.5); Lymphocytes % 15.1 % (10-50); Mean Corpuscular HGB Conc 32.3 g/dL (31.8-35.4); Mean Corpuscular Hemoglobin 29.2 pg (27.0-31.2); Mean Corpuscular Volume 90.5 fl (81-99); Monocytes # 0.3 K/mm3 (0.1-1.0); Monocytes % 3.7 % (1.7-9.3); Neutrophils # 3.8 K/mm3 (1.8-7.8); Neutrophils % 44.7 % (37.0-80.0); Platelet Count 196 K/mm3 (142-424); Red Blood Count 4.67 M/mm3 (4.20-5.40); Red Cell Distribution Width 14.9 % (11.5-17.5); White Blood Count 8.4 K/mm3 (4.8-10.8)
[2023-06-16 09:15] LABS: Alanine Aminotransferase 28 U/L (12-78); Alkaline Phosphatase 97 U/L (38-126); Aspartate Amino Transferase 37 U/L (14-36); Bilirubin,Total 0.5 mg/dl (0.2-1.3); Blood Urea Nitrogen 7 mg/dl (7-17); Creatinine Clearance Estimated 76 mL/min (50-200); Estimated Glomerular Filt Rate 70 ml/min (>60); GFR (African American) 85 ML/MIN (>60)
[2023-06-16 09:16] LABS: VBG Base Excess -2.8 mmol/L (-2.4-2.3); VBG HCO3 23.3 mmol/L (23-30); VBG Oxygen Saturation 81.4 % (50-70); VBG PCO2 46.2 mmol/L (35-51); VBG PH 7.32 mmol/L (7.31-7.41); VBG PO2 46.5 mmol/L (28-40); VBG Total CO2 24.7 mmol/L (23-27)
[2023-06-16 09:16] LABS: Albumin Level 3.7 g/dl (3.5-5.0); Albumin/Globulin Ratio 1.3 (1.1-1.8); Carbon Dioxide 29 mmol/L (22.0-30.0); Globulin 2.9 g/dL (1.3-3.2); Glucose 186 mg/dl (74-100); Total Protein,Serum 6.6 g/dl (6.3-8.2)
[2023-06-16 09:17] LABS: INR 1.05 (0.9-1.1); Prothrombin Time 11.3 seconds (10.1-12.5)
[2023-06-16 09:28] LABS: Troponin I 0.03 ng/ml (0.00-0.034)
--- NOTE | 2023-06-16 09:34 | PC.NURSE ---
pt and family updated at this time on poc
--- NOTE | 2023-06-16 09:35 | PC.NURSE ---
pt updated on wait time for 2 hour troponin.
--- NOTE | 2023-06-16 10:25 | PC.NURSE ---
Helped pt back from the bathroom, assiting with putting gown on, connected pt back to bp cuff and p. ox and nasal canula
[2023-06-16 10:26] LABS: NT Pro Brain Natriuretic Pep. 771 pg/mL (0-125)
[2023-06-16] MEDS: ALBUTEROL 0.083% 2.5 MG/3 ML NEB 20 MG IH (10:30)
--- NOTE | 2023-06-16 10:41 | PC.NURSE ---
pt starting continuous neb at this time.
--- NOTE | 2023-06-16 11:03 | PC.NURSE ---
dr freed speaking with dr li
--- NOTE | 2023-06-16 11:04 | PC.NURSE ---
CARE MANAGEMENT NOTIFIED OF ADMISSION
--- NOTE | 2023-06-16 11:05 | EXP.HP ---
History of Present Illness *Admission Date: 06/16/23 *Reason for visit:: Shortness of breath *History of present illness: Ms. Mcneill is a 72-year-old female with history of A-fib, COPD, obesity, hypertension, and diabetes. She presented to the ER because of complaint of worsening shortness of breath over the past 24 hours. She denies any fever, nausea, vomiting, chest pain. States she is having a flare of her COPD. Workup in the ER was negative for leukocytosis. Chest x-ray showing some increased vascular congestion but no focal consolidation or pneumonia. Patient's oxygenation is poor and she was requiring 2 L to sat greater than 90%. She is in the mid 80s with ambulation and at rest. ER consulted medicine for admission and further management of COPD exacerbation. On my evaluation, she is wheezy and states she still feels short of breath. Also adds that over the past month she has had some dyspnea to the point that she was post to have a procedure done earlier this month at and they canceled the procedure because of her breathing. Due to see pulmonology next month. No known sick contacts. Has not smoked in over a decade. [facility] Disclaimer: The information contained in this section may have been updated after the patient was seen, as this information can be updated by other users. Medical History (Updated 06/16/23 @ 15:18 by Ro Maldonado MD) COPD (chronic obstructive pulmonary disease) Diabetes type 2, controlled HLD (hyperlipidemia) HTN (hypertension) Osteoarthritis Surgical History History of bilateral tubal ligation History of phacoemulsification of cataract of both eyes with intraocular lens implantation Family History Coronary artery disease Hypertension Social History Smoking Status: Never smoker second hand exposure: No alcohol intake: never current occupational status: retired and disabled Travel in the last 8 weeks: None household members: none housing: apartment caffeine: Yes Review of Systems Review of Systems Review of systems (narrative): 14 point review of systems performed, pertinent positives and negatives as per HPI Constitutional Constitutional: Denies headache(s) and Denies weakness ENT Ears, Nose, Mouth, and Throat: Denies dizziness and Denies headache(s) *Musculoskeletal Musculoskeletal: Denies numbness and Denies tingling *Neurologic Neurologic: Denies dizziness, Denies headache(s), Denies numbness, Denies tingling and Denies weakness Meds Home Medications and Allergies Home Medications Medication Instructions Recorded Confirmed Type albuterol sulfate 90 mcg/actuation 1 - 2 puffs inhalation Q4-6H PRN 01/08/19 06/16/23 Rx aerosol inhaler Shortness Of Breath Or Wheezing #1 inh omega [id number]-gca-[id number]-fish oil 1,000 mg 1,000 mg PO DAILY Cholesterol 06/19/19 06/16/23 History (120 mg-180 mg) capsule ipratropium 0.5 mg-albuterol 3 mg 3 ml inhalation QIDP PRN Wheezing 06/21/19 06/16/23 Rx (2.5 mg base)/3 mL nebulization #120 neb soln apixaban 5 mg (74 tabs) tablets in 5 mg PO BID Blood thinner 12/08/21 06/16/23 History a dose pack atorvastatin 40 mg tablet 40 mg PO HS Cholesterol 12/08/21 06/16/23 History cholecalciferol (vitamin D3) 50 50 mcg PO DAILY Supplement 12/08/21 06/16/23 History mcg (2,000 unit) capsule lisinopril 20 mg tablet 20 mg PO DAILY Hypertension 12/08/21 06/16/23 History metoprolol tartrate 50 mg tablet 50 mg PO BID Hypertension 12/08/21 06/16/23 History budesonide 160 mcg-glycopyr 9 2 puff inhalation BID COPD 12/13/21 06/16/23 History mcg-formot 4.8 mcg/actuation HFA inhaler ondansetron 4 mg disintegrating 4 mg PO Q8H PRN nausea and 02/03/23 06/16/23 Rx tablet vomiting 4 days #10 tabs azithromycin 250 mg tablet 250 mg PO DAILY Infection 06/16/23 06/16/23 History prevention diltiazem HCl 240 mg 240 mg PO DAILY Hypertension 06/16/23 06/16/23 History capsule,extended release 24 hr furosemide 20 mg tablet 20 mg PO DAILY Edema 06/16/23 06/16/23 History metformin 750 mg tablet,extended 750 mg PO DAILY Diabetes 06/16/23 06/16/23 History release 24 hr methocarbamol 750 mg tablet 750 mg PO BID PRN Muscle spasms 06/16/23 06/16/23 History montelukast 10 mg tablet 10 mg PO DAILY Inflammation 06/16/23 06/16/23 History zinc gluconate 50 mg tablet 50 mg PO DAILY Supplement 06/16/23 06/16/23 History New Prescriptions to Start Prescriptions: Allergies Allergy/AdvReac Type Severity Reaction Status Date / Time No Known Allergies Allergy Verified 01/27/23 09:49 Exam Data for Last 24 hours Vital signs and Labs for Last 24 Hours: Temp Pulse Resp BP Pulse Ox O2 Del Method O2 Flow Rate 98.4 F 73 22 170/82 H 97 Room Air 2 06/16/23 09:03 06/16/23 10:42 06/16/23 10:42 06/16/23 10:42 06/16/23 10:42 06/16/23 10:36 06/16/23 09:30 Laboratory Results - last 24 hr 06/16/23 08:54: VBG pH 7.32, VBG pCO2 46.2, VBG pO2 46.5 H, VBG HCO3 23.3, VBG Total CO2 24.7, VBG O2 Saturation 81.4 H, VBG Base Excess -2.8 L 06/16/23 09:00: WBC 8.4, RBC 4.67, Hgb 13.7, Hct 42.3, MCV 90.5, MCH 29.2, MCHC 32.3, RDW 14.9, Plt Count 196, MPV 9.0, Neut % (Auto) 44.7, Lymph % (Auto) 15.1, [place] % (Auto) 3.7, Eos % (Auto) 35.8 H, Baso % (Auto) 0.7, Neut # (Auto) 3.8, Lymph # (Auto) 1.3, [place] # (Auto) 0.3, Eos # (Auto) 3.0 H, Baso # (Auto) 0.1, PT 11.3, INR 1.05, Sodium 137, Potassium 4.0, Chloride 104, Carbon Dioxide 29, Anion Gap 8.0, BUN 7, Creatinine 0.80, Estimated Creat Clear 76, Estimated GFR 70, Est GFR ( Amer) 85, Glucose 186 H, Calcium 9.0, Total Bilirubin 0.5, AST 37 H, ALT 28, Alkaline Phosphatase 97, Troponin I 0.03, NT-Pro-B Natriuret Pep 771 H, Total Protein 6.6, Albumin 3.7, Globulin 2.9, Albumin/Globulin Ratio 1.3 I & O for Last 24 hours: Intake & Output 06/13/23 06/14/23 06/15/23 06/16/23 23:59 23:59 23:59 23:59 Weight 96.615 kg Constitutional Constitutional: mild distress, obese and chronically ill appearing *Routine HEENT Exam Head: Present normocephalic Eye: Present EOMI and PERRL ENT: Present mucous membranes moist *Routine Neck Exam Neck: Present supple; Absent lymphadenopathy *Routine Respiratory Exam Respiratory: Present prolonged expiratory phase, wheezes and normal respiratory effort; Absent rhonchi or crackles *Routine Cardiovascular Exam Cardiovascular: Present RRR *Routine Abdominal Exam Abdominal: Present soft and normoactive bowel sounds; Absent tenderness *Routine Rectal Exam Rectal:: deferred *Routine Genitalia Exam Genitalia:: deferred *Routine Extremities Exam Extremities: Present edema (2+ to knees); Absent cyanosis or clubbing *Routine Skin Exam Skin: Present warm; Absent rash *Routine Neurological Exam Neurological: Present alert, oriented X3 and moving all extremities; Absent altered mental status Assessment and Plan *Assessment and plan (1) COPD exacerbation: Status: Acute Category: Medical Code(s): J44.1 - Chronic obstructive pulmonary disease with (acute) exacerbation (2) Obesity (BMI 30.0-34.9): Status: Chronic Category: Medical Code(s): E66.9 - Obesity, unspecified (3) Hypertension: Status: Chronic Category: Medical Code(s): I10 - Essential (primary) hypertension (4) Atrial flutter: Status: Acute Qualifiers: Atrial flutter type: typical Qualified Code(s): I48.3 - Typical atrial flutter Category: Medical Code(s): I48.92 - Unspecified atrial flutter (5) Diabetes type 2, controlled: Status: Acute Category: Medical Code(s): E11.9 - Type 2 diabetes mellitus without complications Plan 72-year-old female with history of diabetes, COPD, A-fib. Presented to the ER with dyspnea. Workup in the ER concerning for COPD exacerbation. Discussed case with ER physician, request admission for new oxygen requirement and further management. Medicine agreed to admit. Necessitating 2 L nasal cannula oxygen for sats greater 90%. Problems addressed as follows: COPD with exacerbation -Chest imaging personally reviewed, no focal consolidation. Will initiate doxycycline 100 mg twice daily for 5 days and prednisone 40 mg daily for 5 days. Supplemental oxygen, goal sats greater 90%. Currently on 2 L. Appointment to see pulmonology as an outpatient in the next month, encouraged to keep this DuoNebs every 6 hours scheduled Continue home Breztri Comprehensive respiratory panel negative White cell count normal, repeat CBC, CMP, magnesium ordered for the morning Continue Singulair 10 mg daily Atrial fibrillation Hypertension Hyperlipidemia -On chronic anticoagulation with Eliquis, continue 5 mg twice daily. Continue diltiazem for rate control 240 mg daily and metoprolol tartrate 50 mg twice daily -Continue lisinopril 10 mg daily, Lipitor 40 Lasix 40 mg IV x 1 given edema Diabetes: A1c pending. Continue metformin 500 mg daily. Sliding scale insulin with fingersticks ACHS Full code Diabetic diet Eliquis
[2023-06-16 11:19] LABS: Adenovirus,PCR Not Detected (NotDetected); Coronavirus 19, PCR Not Detected (NotDetected); Coronavirus 229E Not Detected (NotDetected); Coronavirus NL63 Not Detected (NotDetected); Coronavirus OC43 Not Detected (NotDetected); Coronovirus HKU1,PCR Not Detected (NotDetected); Human Metapneumovirus Not Detected (NotDetected); Influenza A, PCR Not Detected (NotDetected); Influenza AH1, 2009 Not Detected (NotDetected); Influenza AH1, PCR Not Detected (NotDetected); Influenza AH3,PCR Not Detected (NotDetected); Influenza B, PCR Not Detected (NotDetected); Parainfluenza 1, PCR Not Detected (NotDetected); Parainfluenza 2, PCR Not Detected (NotDetected); Parainfluenza 3, PCR Not Detected (NotDetected); Parainfluenza 4, PCR Not Detected (NotDetected); Respiratory Syncytial Virus Not Detected (NotDetected); Rhinovirus/Enterovirus Not Detected (NotDetected)
[2023-06-16] MEDS: predniSONE 20MG TAB 40 MG PO (11:42)
[2023-06-16] MEDS: IPRATROPIUM/ALBUTEROL 3 ML NEB IH ×3 (11:48→23:14)
--- NOTE | 2023-06-16 11:50 | PC.NURSE ---
report called to Yinka Crenshaw at this time.
[2023-06-16 13:56] LABS: Troponin I 0.03 ng/ml (0.00-0.034)
[2023-06-16] MEDS: FUROSEMIDE 40MG/4ML VIAL 40 MG IV (14:59)
[2023-06-16] MEDS: DOXYCYCLINE HYCLATE 100 MG in 0.9 % SODIUM CHLORIDE 250 ML 166.667000000000002 MG IV ×2 (14:59→20:59)
[2023-06-16 15:21] LABS: Troponin I 0.03 ng/ml (0.00-0.034)
[2023-06-16] MEDS: humaLOG 100 UNITS/ML 3ML VIAL (SSI) SQ ×2 (16:42→20:59)
[2023-06-16 16:46] LABS: Hemoglobin A1C 7.8 % (4.0-6.0)
[2023-06-16 16:50] LABS: POC Glucose,Bedside 227 (70-110)
[2023-06-16] MEDS: BUDESONIDE 0.5MG/2ML NEB 0.5 MG IH (19:07)
[2023-06-16 20:42] LABS: POC Glucose,Bedside 209 (70-110)
[2023-06-16] MEDS: METOPROLOL TARTRATE 50MG TABLET 50 MG PO (20:59)
[2023-06-16] MEDS: PANTOPRAZOLE 40MG TABLET 40 MG PO (20:59)
[2023-06-16] MEDS: ATORVASTATIN 40MG TABLET 40 MG PO (20:59)
[2023-06-16] MEDS: APIXABAN 5MG TABLET 5 MG PO (20:59)
[2023-06-17] VITALS (12 sets, daily range): BP systolic 119–141; BP diastolic 56–73; PULSE 70–90; RESP 16–20; TEMP 36.5–36.8; O2SAT 86–96; BMI 32.1
--- NOTE | 2023-06-17 05:08 | PC.NURSE ---
Pt has had no complaints through the night. Pt uses the bedside commode independently. Remains on 2L NC O2 >90%. Lung sounds expiratory wheezing. BLE pitting edema and redness noted. Call light in reach.
[2023-06-17 06:28] LABS: POC Glucose,Bedside 134 (70-110)
[2023-06-17] MEDS: BUDESONIDE 0.5MG/2ML NEB 0.5 MG IH ×2 (06:30→19:03)
[2023-06-17] MEDS: IPRATROPIUM/ALBUTEROL 3 ML NEB IH ×4 (06:30→23:35)
[2023-06-17 07:41] LABS: Alanine Aminotransferase 17 U/L (12-78); Albumin Level 3.5 g/dl (3.5-5.0); Albumin/Globulin Ratio 1.3 (1.1-1.8); Alkaline Phosphatase 105 U/L (38-126); Anion Gap 8.7 mEq/L (5-15); Aspartate Amino Transferase 29 U/L (14-36); Bilirubin,Total 0.6 mg/dl (0.2-1.3); Blood Urea Nitrogen 9 mg/dl (7-17); Calcium 9.3 mg/dl (8.4-10.2); Carbon Dioxide 30 mmol/L (22.0-30.0); Chloride 103 mmol/L (98-107); Creatinine Clearance Estimated 74 mL/min (50-200); Estimated Glomerular Filt Rate 82 ml/min (>60); GFR (African American) 99 ML/MIN (>60); Globulin 2.6 g/dL (1.3-3.2); Glucose 136 mg/dl (74-100); Magnesium 1.8 mg/dl (1.6-2.3); Potassium 3.7 mmoL/L (3.5-5.1); Sodium 138 mmol/L (136-145); Total Protein,Serum 6.1 g/dl (6.3-8.2)
[2023-06-17 07:47] LABS: Basophils % 0.5 % (0.1-2.0); Eosinophils # 0.1 K/mm3 (0.0-0.4); Hematocrit 37.8 % (37.0-47.0); Hemoglobin 12.5 g/dL (12.2-16.2); Lymphocytes # 1.2 K/mm3 (0.7-4.5); Lymphocytes % 20.8 % (10-50); Mean Corpuscular HGB Conc 32.9 g/dL (31.8-35.4); Mean Corpuscular Hemoglobin 29.8 pg (27.0-31.2); Mean Corpuscular Volume 90.4 fl (81-99); Mean Platelet Volume 9.2 fl (7.4-10.4); Monocytes # 0.4 K/mm3 (0.1-1.0); Monocytes % 7.1 % (1.7-9.3); Neutrophils # 4.1 K/mm3 (1.8-7.8); Neutrophils % 69.5 % (37.0-80.0); Platelet Count 194 K/mm3 (142-424); Red Blood Count 4.19 M/mm3 (4.20-5.40); Red Cell Distribution Width 15.2 % (11.5-17.5)
[2023-06-17] MEDS: MONTELUKAST SODIUM 10MG TAB 10 MG PO (08:43)
[2023-06-17] MEDS: LISINOPRIL 20MG TABLET 20 MG PO (08:43)
[2023-06-17] MEDS: dilTIAZem ER 240MG CAPSULE 240 MG PO (08:43)
[2023-06-17] MEDS: METOPROLOL TARTRATE 50MG TABLET 50 MG PO (08:43)
[2023-06-17] MEDS: APIXABAN 5MG TABLET 5 MG PO (08:43)
[2023-06-17] MEDS: CHOLECALCIFEROL 1,000 UNITS (25MCG) TABLET 50 MCG PO (08:44)
[2023-06-17] MEDS: predniSONE 20MG TAB 40 MG PO (08:44)
[2023-06-17] MEDS: DOXYCYCLINE HYCLATE 100 MG in 0.9 % SODIUM CHLORIDE 250 ML 166.667000000000002 MG IV ×2 (08:46→20:06)
--- NOTE | 2023-06-17 13:38 | P.PN_ITS ---
Subjective *Date: 06/17/23 *Time: 13:38 Interval history: Patient continues to have oxygen requirement today. Intermittently desatting into the mid 80s. Necessitating 1 to 2 L. No nausea or vomiting. Does feel she is breathing a little bit better but still short of breath. Afebrile ov ernight. Cough minimally productive. No nausea or vomiting. Medical Exam Vital signs and Labs for Last 24 Hours: Vital Signs Temp Pulse Pulse Resp BP Pulse Ox O2 Del Method 06/17/23 13:00 Nasal Cannula 06/17/23 11:00 Nasal Cannula 06/17/23 11:44 76 06/17/23 11:44 84 06/17/23 11:44 86 L Room Air 06/17/23 08:00 97.8 F 76 18 141/73 H 92 L Nasal Cannula 06/17/23 08:00 78 06/17/23 09:00 Nasal Cannula 06/17/23 08:00 Nasal Cannula 06/17/23 06:30 76 06/17/23 06:30 90 06/17/23 06:30 92 L Nasal Cannula 06/17/23 06:56 Nasal Cannula 06/17/23 04:00 98.0 F 72 20 119/56 L 96 Nasal Cannula 06/17/23 05:00 Nasal Cannula 06/17/23 04:00 80 06/17/23 02:43 Nasal Cannula 06/17/23 00:00 80 06/16/23 20:00 90 06/17/23 00:00 97.7 F 78 18 135/56 L 92 L Nasal Cannula 06/17/23 00:42 Nasal Cannula 06/16/23 23:14 82 06/16/23 23:14 79 06/16/23 23:14 97 Nasal Cannula 06/16/23 23:00 Nasal Cannula 06/16/23 21:00 Nasal Cannula 06/16/23 20:00 Nasal Cannula 06/16/23 20:00 97.9 F 88 20 147/60 H 94 L Nasal Cannula 06/16/23 19:06 95 Nasal Cannula 06/16/23 18:34 Nasal Cannula 06/16/23 16:00 97.7 F 84 22 136/65 94 L Nasal Cannula 06/16/23 16:48 Nasal Cannula 06/16/23 16:04 90 06/16/23 15:10 91 L Nasal Cannula 06/16/23 14:33 Nasal Cannula O2 Flow Rate 06/17/23 13:00 2 06/17/23 11:00 2 06/17/23 11:44 06/17/23 11:44 06/17/23 11:44 06/17/23 08:00 2 06/17/23 08:00 06/17/23 09:00 2 06/17/23 08:00 2 06/17/23 06:30 06/17/23 06:30 06/17/23 06:30 2 06/17/23 06:56 2 06/17/23 04:00 2 06/17/23 05:00 2 06/17/23 04:00 06/17/23 02:43 2 06/17/23 00:00 06/16/23 20:00 06/17/23 00:00 2 06/17/23 00:42 2 06/16/23 23:14 06/16/23 23:14 06/16/23 23:14 3 06/16/23 23:00 2 06/16/23 21:00 3 06/16/23 20:00 3 06/16/23 20:00 2 06/16/23 19:06 5 06/16/23 18:34 3 06/16/23 16:00 3 06/16/23 16:48 3 06/16/23 16:04 06/16/23 15:10 3 06/16/23 14:33 2 Intake and Output 06/16/23 06/17/23 06/17/23 23:59 07:59 15:59 Intake Total 250 / 610 360 / 610 Output Total 1300 / 1900 600 / 1650 1050 / 1650 Balance -1300 / -1700 -350 / -1040 -690 / -1040 Intake: Intake, Oral Amount 360 / 360 Intake, Total IV Amount 250 / 250 Doxycycline Hyclate 100 mg In 0 250 / 250 .9 % Sodium Chloride 250 ml @ 166.667 mls/hr IV BID [facility] Rx#: [id number] Output: Output, Urine Amount 1300 / 1900 600 / 1650 1050 / 1650 Other: Number of Voids 3 0 Number of Unmeasured Voids 0 1 0 Weight 93.043 kg Patient Weight 06/17/23 23:59 Weight 93.043 kg Laboratory Results - last 24 hr 06/16/23 09:00: Hemoglobin A1c 7.8 H 06/16/23 13:20: Troponin I 0.03 06/16/23 14:55: Troponin I 0.03 06/16/23 16:37: POC Glucose 227 H 06/16/23 20:30: POC Glucose 209 H 06/17/23 06:21: POC Glucose 134 H 06/17/23 07:09: WBC 6.0 D, RBC 4.19 L, Hgb 12.5, Hct 37.8, MCV 90.4, MCH 29.8, MCHC 32.9, RDW 15.2, Plt Count 194, MPV 9.2, Neut % (Auto) 69.5, Lymph % (Auto) 20.8, [place] % (Auto) 7.1, Eos % (Auto) 2.0, Baso % (Auto) 0.5, Neut # (Auto) 4.1, Lymph # (Auto) 1.2, [place] # (Auto) 0.4, Eos # (Auto) 0.1, Baso # (Auto) 0.0, Sodium 138, Potassium 3.7, Chloride 103, Carbon Dioxide 30, Anion Gap 8.7, BUN 9 D, Creatinine 0.70, Estimated Creat Clear 74, Estimated GFR 82, Est GFR ( Amer) 99, Glucose 136 H D, Calcium 9.3, Magnesium 1.8, Total Bilirubin 0.6, AST 29, ALT 17 D, Alkaline Phosphatase 105, Total Protein 6.1 L, Albumin 3.5, Globulin 2.6, Albumin/Globulin Ratio 1.3 I & O for Labs for Last 24 Hours: Intake & Output 06/14/23 06/15/23 06/16/23 06/17/23 23:59 23:59 23:59 23:59 Intake Total 200 / 200 610 / 610 Output Total 1300 / 1900 1650 / 1650 Balance -1100 / -1700 -1040 / -1040 Weight 94.347 kg 93.043 kg Constitutional: Present no acute distress, obese and chronically ill appearing Head: Present atraumatic and normocephalic Neck: Present normal inspection Respiratory: Present prolonged expiratory phase, wheezes (Both inspiratory and expiratory) and normal respiratory effort; Absent rhonchi or crackles Cardiac: Present Reg Rate and Rhythm GI: Present soft and normal bowel sounds; Absent distention or tenderness Extremities: Present normal inspection and full ROM Skin: Present intact; Absent erythema Neuro: Present Grossly Intact, alert, awake, oriented x 3 and moves all extremities Assessment and Plan *Assessment and plan (1) COPD exacerbation: Status: Acute Category: Medical Code(s): J44.1 - Chronic obstructive pulmonary disease with (acute) exacerbation (2) Obesity (BMI 30.0-34.9): Status: Chronic Category: Medical Code(s): E66.9 - Obesity, unspecified (3) Hypertension: Status: Chronic Category: Medical Code(s): I10 - Essential (primary) hypertension (4) Atrial flutter: Status: Acute Qualifiers: Atrial flutter type: typical Qualified Code(s): I48.3 - Typical atrial flutter Category: Medical Code(s): I48.92 - Unspecified atrial flutter (5) Diabetes type 2, controlled: Status: Acute Category: Medical Code(s): E11.9 - Type 2 diabetes mellitus without complications Plan 72-year-old female with history of diabetes, COPD, A-fib. Presented to the ER with dyspnea. Workup in the ER concerning for COPD exacerbation. Discussed case with ER physician, request admission for new oxygen requirement and further management. Medicine agreed to admit. Necessitating 2 L nasal cannula oxygen for sats greater 90%. Continues to have oxygen requirement today. Continues to require inpatient management. Problems addressed as follows: COPD with exacerbation Continue doxycycline 100 mg IV twice daily x 5 days. Continue prednisone 40 mg p.o. x 5 days Supplemental oxygen, goal sats greater 90%. Currently on 2 L. Appointment to see pulmonology as an outpatient in the next month, encouraged to keep this DuoNebs every 6 hours scheduled Continue home Breztri White cell count remains normal at 6. Electrolytes and kidney function within normal range., repeat CBC, CMP, magnesium ordered for the morning Continue Singulair 10 mg daily Atrial fibrillation Hypertension Hyperlipidemia -On chronic anticoagulation with Eliquis, continue 5 mg twice daily. Continue diltiazem for rate control 240 mg daily and metoprolol tartrate 50 mg twice daily -Continue lisinopril 10 mg daily, Lipitor 40 Diabetes: A1C 7.8. Only takes long-acting metformin, will continue sliding scale during admission. Resume metformin at discharge. Fingersticks ACHS Full code Diabetic diet Eliquis
--- NOTE | 2023-06-17 14:02 | PC.NURSE ---
PT TOLERATED WALK TEST WELL. DID DESAT TO 89% BUT QUICKLY RECOVERED. CURRENTLY SATURATING 92% ON ROOM AIR AT REST.
[2023-06-17] MEDS: humaLOG 100 UNITS/ML 3ML VIAL (SSI) SQ ×2 (16:44→20:06)
[2023-06-17 16:52] LABS: POC Glucose,Bedside 232 (70-110)
--- NOTE | 2023-06-17 17:59 | PC.NURSE ---
pt has remained on room air for most of shift. tolerated walk test in hallway well without o2 support. no complaints.
[2023-06-17 19:36] LABS: POC Glucose,Bedside 232 (70-110)
[2023-06-17] MEDS: PANTOPRAZOLE 40MG TABLET 40 MG PO (20:06)
[2023-06-17] MEDS: ELIQUIS 5 MG PO (20:07)
[2023-06-17] MEDS: METFORMIN 750 MG 1 EACH PO (20:07)
[2023-06-17] MEDS: METOPROLOL TARTRATE 50 MG PO (20:07)
[2023-06-17] MEDS: PAT OWN MED ***ATORVASTATIN 40MG 40 MG PO (20:07)
[2023-06-17] MEDS: BUDESONIDE IH (20:15)
[2023-06-17] MEDS: GLYCOPYRROLATE IH (20:15)
[2023-06-17] MEDS: FORMOTEROL IH (20:15)
[2023-06-18] VITALS: BP 128/59; PULSE 70; PULSE 72; RESP 18; TEMP 36.4; O2SAT 90
[2023-06-18 04:00] VITALS: BP 121/58; PULSE 70; PULSE 74; RESP 18; TEMP 36.4; O2SAT 92; BMI 32.5
--- NOTE | 2023-06-18 05:03 | PC.NURSE ---
Pt has remained on room air, O2 sat >90%. Pt has had no complaints through the night. Expiratory wheezing bilaterally. Slight BLE edema present. Pt ambulates to the bedside commode.
[2023-06-18 05:34] VITALS: PULSE 73; PULSE 75; O2SAT 90
[2023-06-18] MEDS: FORMOTEROL IH (05:34)
[2023-06-18] MEDS: GLYCOPYRROLATE IH (05:34)
[2023-06-18] MEDS: BUDESONIDE IH (05:34)
[2023-06-18] MEDS: BUDESONIDE 0.5MG/2ML NEB 0.5 MG IH (05:34)
[2023-06-18] MEDS: IPRATROPIUM/ALBUTEROL 3 ML NEB IH (05:34)
[2023-06-18 06:02] LABS: POC Glucose,Bedside 142 (70-110)
[2023-06-18 06:52] LABS: Basophils % 0.4 % (0.1-2.0); Eosinophils # 0.2 K/mm3 (0.0-0.4); Eosinophils % 2.7 % (0.1-12.0); Hematocrit 37.8 % (37.0-47.0); Hemoglobin 12.5 g/dL (12.2-16.2); Lymphocytes # 1.7 K/mm3 (0.7-4.5); Lymphocytes % 22.8 % (10-50); Mean Corpuscular HGB Conc 32.9 g/dL (31.8-35.4); Mean Corpuscular Hemoglobin 29.5 pg (27.0-31.2); Mean Corpuscular Volume 89.5 fl (81-99); Mean Platelet Volume 9.1 fl (7.4-10.4); Monocytes # 0.5 K/mm3 (0.1-1.0); Neutrophils # 5.2 K/mm3 (1.8-7.8); Neutrophils % 68.2 % (37.0-80.0); Platelet Count 204 K/mm3 (142-424); Red Blood Count 4.23 M/mm3 (4.20-5.40); Red Cell Distribution Width 15.2 % (11.5-17.5); White Blood Count 7.6 K/mm3 (4.8-10.8)
[2023-06-18 06:59] LABS: Anion Gap 8.6 mEq/L (5-15); Blood Urea Nitrogen 16 mg/dl (7-17); Calcium 9.3 mg/dl (8.4-10.2); Carbon Dioxide 30 mmol/L (22.0-30.0); Chloride 104 mmol/L (98-107); Creatinine Clearance Estimated 74 mL/min (50-200); Estimated Glomerular Filt Rate 61 ml/min (>60); GFR (African American) 74 ML/MIN (>60); Glucose 136 mg/dl (74-100); Potassium 3.6 mmoL/L (3.5-5.1); Sodium 139 mmol/L (136-145)
--- NOTE | 2023-06-18 07:30 | P.DS_ITS ---
General Admission date:: 06/16/23 Discharge date: 06/18/23 HPI HPI HPI: Ms. Mcneill is a 72-year-old female with history of A-fib, COPD, obesity, hypertension, and diabetes. She presented to the ER because of complaint of worsening shortness of breath over the past 24 hours. She denies any fever, nausea, vomiting, chest pain. States she is having a flare of her COPD. Workup in the ER was negative for leukocytosis. Chest x-ray showing some increased vascular congestion but no focal consolidation or pneumonia. Patient's oxygenation is poor and she was requiring 2 L to sat greater than 90%. She is i n the mid 80s with ambulation and at rest. ER consulted medicine for admission and further management of COPD exacerbation. On my evaluation, she is wheezy and states she still feels short of breath. Also adds that over the past month she has had some dyspnea to the point that she was post to have a procedure done earlier this month at and they canceled the procedure because of her breathing. Due to see pulmonology next month. No known sick contacts. Has not smoked in over a decade. Hospital Course Hospital Course Hospital Course: 72-year-old female with history of diabetes, COPD, A-fib. Presented to the ER with dyspnea. Workup in the ER concerning for COPD exacerbation. Discussed case with ER physician, request admission for new oxygen requirement and further management. Medicine agreed to admit. Initially had an oxygen requirement of 2 L. Able to wean with treatment during admission to room air. Stable for discharge home to complete antibiotics and steroids. Problems addressed as follows: COPD with exacerbation Presented with COPD exacerbation, no focal consolidation on chest imaging. White cell count normal but had increased oxygen requirement which was new. Started on antibiotics and steroids. Able to wean oxygen during admission. Will continue doxycycline and prednisone to complete 5-day course. DuoNebs during admission. Resume Breztri and DuoNebs at home per home regimen. Continue Singulair. Patient scheduled to see pulmonology next month, encouraged to keep appointment. Given improvement, will discharge home with close follow- up with PCP later this week. Atrial fibrillation Hypertension Hyperlipidemia -On chronic anticoagulation with Eliquis, continue 5 mg twice daily. Continue diltiazem for rate control 240 mg daily and metoprolol tartrate 50 mg twice daily. Continue lisinopril 10 mg daily, Lipitor 40mg nightly. Diabetes: A1C 7.8. Only takes long-acting metformin, will continue sliding scale during admission. Resume metformin ER at discharge. Exam Data for Last 24 hours Vital signs and Labs for Last 24 Hours: Temp Pulse Resp BP Pulse Ox O2 Del Method O2 Flow Rate 98.0 F 78 20 119/56 L 92 L Nasal Cannula 2 06/17/23 04:00 06/17/23 08:00 06/17/23 04:00 06/17/23 04:00 06/17/23 06:30 06/17/23 09:00 06/17/23 09:00 Laboratory Results - last 24 hr 06/16/23 09:00: Hemoglobin A1c 7.8 H, NT-Pro-B Natriuret Pep 771 H 06/16/23 11:15: Chlamy pneumoniae PCR TNP, Adenovirus (PCR) Not detected, B. pertussis DNA (PCR) TNP, Coronavirus OC43 (PCR) Not detected, Coronavirus HKU1 (PCR) Not detected, Coronavirus 229E (PCR) Not detected, SARS-CoV-2 (PCR) Not detected, Coronavirus NL63 (PCR) Not detected, Human Metapneumovir PCR Not detected, Influenza A (H1) PCR Not detected, Influ A (H1N1/09) PCR Not detected, Influenza A (H3) PCR Not detected, Influenza Type A (PCR) Not detected, Influenza Type B (PCR) Not detected, M. pneumoniae (PCR) TNP, Parainfluenza 1 (PCR) Not detected, Parainfluenza 2 (PCR) Not detected, Parainfluenza 3 (PCR) Not detected, Parainfluenza 4 (PCR) Not detected, RSV (PCR) Not detected, Entero/Rhino (PCR) Not detected 06/16/23 13:20: Troponin I 0.03 06/16/23 14:55: Troponin I 0.03 06/16/23 16:37: POC Glucose 227 H 06/16/23 20:30: POC Glucose 209 H 06/17/23 06:21: POC Glucose 134 H 06/17/23 07:09: WBC 6.0 D, RBC 4.19 L, Hgb 12.5, Hct 37.8, MCV 90.4, MCH 29.8, MCHC 32.9, RDW 15.2, Plt Count 194, MPV 9.2, Neut % (Auto) 69.5, Lymph % (Auto) 20.8, [place] % (Auto) 7.1, Eos % (Auto) 2.0, Baso % (Auto) 0.5, Neut # (Auto) 4.1, Lymph # (Auto) 1.2, [place] # (Auto) 0.4, Eos # (Auto) 0.1, Baso # (Auto) 0.0, So dium 138, Potassium 3.7, Chloride 103, Carbon Dioxide 30, Anion Gap 8.7, BUN 9 D, Creatinine 0.70, Estimated Creat Clear 74, Estimated GFR 82, Est GFR ( Amer) 99, Glucose 136 H D, Calcium 9.3, Magnesium 1.8, Total Bilirubin 0.6, AST 29, ALT 17 D, Alkaline Phosphatase 105, Total Protein 6.1 L, Albumin 3.5, Globulin 2.6, Albumin/Globulin Ratio 1.3 I & O for Last 24 hours: Intake & Output 06/14/23 06/15/23 06/16/23 06/17/23 23:59 23:59 23:59 23:59 Intake Total 200 / 200 610 / 610 Output Total 1300 / 1900 600 / 600 Balance -1100 / -1700 Weight 94.347 kg 93.043 kg Constitutional Constitutional: no acute distress, obese and chronically ill appearing *Routine HEENT Exam Head: Present normocephalic Eye: Present EOMI and PERRL ENT: Present mucous membranes moist *Routine Neck Exam Neck: Present supple; Absent lymphadenopathy *Routine Respiratory Exam Respiratory: Present prolonged expiratory phase and wheezes; Absent rhonchi or crackles *Routine Cardiovascular Exam Cardiovascular: Present RRR *Routine Abdominal Exam Abdominal: Present soft and normoactive bowel sounds; Absent tenderness *Routine Rectal Exam Patient deferred: visual exam *Routine Exam Patient deferred: external exam *Routine Extremities Exam Extremities: Absent cyanosis, clubbing or edema *Routine Skin Exam Skin: Present warm; Absent rash *Routine Neurological Exam Neurological: Present alert, oriented X3 and moving all extremities; Absent altered mental status Results Data Completed and Pending Labs on day of discharge: Labs from last 24 hours 06/17/23 06/17/23 06/16/23 07:09 06:21 20:30 WBC 6.0 D RBC 4.19 L Hgb 12.5 Hct 37.8 MCV 90.4 MCH 29.8 MCHC 32.9 RDW 15.2 Plt Count 194 MPV 9.2 Neut % (Auto) 69.5 Lymph % (Auto) 20.8 [place] % (Auto) 7.1 Eos % (Auto) 2.0 Baso % (Auto) 0.5 Neut # (Auto) 4.1 Lymph # (Auto) 1.2 [place] # (Auto) 0.4 Eos # (Auto) 0.1 Baso # (Auto) 0.0 Sodium 138 Potassium 3.7 Chloride 103 Carbon Dioxide 30 Anion Gap 8.7 BUN 9 D Creatinine 0.70 Estimated Creat Clear 74 Estimated GFR 82 Est GFR ( Amer) 99 Glucose 136 H D POC Glucose 134 H 209 H Hemoglobin A1c Calcium 9.3 Magnesium 1.8 Total Bilirubin 0.6 AST 29 ALT 17 D Alkaline Phosphatase 105 Troponin I NT-Pro-B Natriuret Pep Total Protein 6.1 L Albumin 3.5 Globulin 2.6 Albumin/Globulin Ratio 1.3 Chlamy pneumoniae PCR Adenovirus (PCR) B. pertussis DNA (PCR) Coronavirus OC43 (PCR) Coronavirus HKU1 (PCR) Coronavirus 229E (PCR) SARS-CoV-2 (PCR) Coronavirus NL63 (PCR) Human Metapneumovir PCR Influenza A (H1) PCR Influ A (H1N1/09) PCR Influenza A (H3) PCR Influenza Type A (PCR) Influenza Type B (PCR) M. pneumoniae (PCR) Parainfluenza 1 (PCR) Parainfluenza 2 (PCR) Parainfluenza 3 (PCR) Parainfluenza 4 (PCR) RSV (PCR) Entero/Rhino (PCR) 06/16/23 06/16/23 06/16/23 16:37 14:55 13:20 WBC RBC Hgb Hct MCV MCH MCHC RDW Plt Count MPV Neut % (Auto) Lymph % (Auto) [place] % (Auto) Eos % (Auto) Baso % (Auto) Neut # (Auto) Lymph # (Auto) [place] # (Auto) Eos # (Auto) Baso # (Auto) Sodium Potassium Chloride Carbon Dioxide Anion Gap BUN Creatinine Estimated Creat Clear Estimated GFR Est GFR ( Amer) Glucose POC Glucose 227 H Hemoglobin A1c Calcium Magnesium Total Bilirubin AST ALT Alkaline Phosphatase Troponin I 0.03 0.03 NT-Pro-B Natriuret Pep Total Protein Albumin Globulin Albumin/Globulin Ratio Chlamy pneumoniae PCR Adenovirus (PCR) B. pertussis DNA (PCR) Coronavirus OC43 (PCR) Coronavirus HKU1 (PCR) Coronavirus 229E (PCR) SARS-CoV-2 (PCR) Coronavirus NL63 (PCR) Human Metapneumovir PCR Influenza A (H1) PCR Influ A (H1N1/) PCR Influenza A (H3) PCR Influenza Type A (PCR) Influenza Type B (PCR) M. pneumoniae (PCR) Parainfluenza 1 (PCR) Parainfluenza 2 (PCR) Parainfluenza 3 (PCR) Parainfluenza 4 (PCR) RSV (PCR) Entero/Rhino (PCR) 06/16/23 06/16/23 11:15 09:00 WBC RBC Hgb Hct MCV MCH MCHC RDW Plt Count MPV Neut % (Auto) Lymph % (Auto) [place] % (Auto) Eos % (Auto) Baso % (Auto) Neut # (Auto) Lymph # (Auto) [place] # (Auto) Eos # (Auto) Baso # (Auto) Sodium Potassium Chloride Carbon Dioxide Anion Gap BUN Creatinine Estimated Creat Clear Estimated GFR Est GFR ( Amer) Glucose POC Glucose Hemoglobin A1c 7.8 H Calcium Magnesium Total Bilirubin AST ALT Alkaline Phosphatase Troponin I NT-Pro-B Natriuret Pep 771 H Total Protein Albumin Globulin Albumin/Globulin Ratio Chlamy pneumoniae PCR TNP Adenovirus (PCR) Not detected B. pertussis DNA (PCR) TNP Coronavirus OC43 (PCR) Not detected Coronavirus HKU1 (PCR) Not detected Coronavirus 229E (PCR) Not detected SARS-CoV-2 (PCR) Not detected Coronavirus NL63 (PCR) Not detected Human Metapneumovir PCR Not detected Influenza A (H1) PCR Not detected Influ A (H1N1/09) PCR Not detected Influenza A (H3) PCR Not detected Influenza Type A (PCR) Not detected Influenza Type B (PCR) Not detected M. pneumoniae (PCR) TNP Parainfluenza 1 (PCR) Not detected Parainfluenza 2 (PCR) Not detected Parainfluenza 3 (PCR) Not detected Parainfluenza 4 (PCR) Not detected RSV (PCR) Not detected Entero/Rhino (PCR) Not detected DS: Diagnosis Discharge Diagnosis (1) COPD exacerbation: Status: Acute Code(s): J44.1 - Chronic obstructive pulmonary disease with (acute) exacerbation (2) Obesity (BMI 30.0-34.9): Status: Chronic Code(s): E66.9 - Obesity, unspecified (3) Hypertension: Status: Chronic Code(s): I10 - Essential (primary) hypertension (4) Atrial flutter: Status: Acute Code(s): I48.92 - Unspecified atrial flutter Qualifiers: Atrial flutter type: typical Qualified Code(s): I48.3 - Typical atrial flutter (5) Diabetes type 2, controlled: Status: Acute Code(s): E11.9 - Type 2 diabetes mellitus without complications Meds Home Medications and Allergies Home Medications Medication Instructions Recorded Confirmed Type albuterol sulfate 90 mcg/actuation 1 - 2 puffs inhalation Q4-6H PRN 01/08/19 06/16/23 Rx aerosol inhaler Shortness Of Breath Or Wheezing #1 inh omega 6-ert-jen-fish oil 1,000 mg 1,000 mg PO DAILY Cholesterol 06/19/19 06/16/23 History (120 mg-180 mg) capsule ipratropium 0.5 mg-albuterol 3 mg 3 ml inhalation QIDP PRN Wheezing 06/21/19 06/16/23 Rx (2.5 mg base)/3 mL nebulization #120 neb soln apixaban 5 mg (74 tabs) tablets in 5 mg PO BID Blood thinner 12/08/21 06/16/23 History a dose pack atorvastatin 40 mg tablet 40 mg PO HS Cholesterol 12/08/21 06/16/23 History cholecalciferol (vitamin D3) 50 50 mcg PO DAILY Supplement 12/08/21 06/16/23 History mcg (2,000 unit) capsule lisinopril 20 mg tablet 20 mg PO DAILY Hypertension 12/08/21 06/16/23 History metoprolol tartrate 50 mg tablet 50 mg PO BID Hypertension 12/08/21 06/16/23 History budesonide 160 mcg-glycopyr 9 2 puff inhalation BID COPD 12/13/21 06/16/23 History mcg-formot 4.8 mcg/actuation HFA inhaler ondansetron 4 mg disintegrating 4 mg PO Q8H PRN nausea and 02/03/23 06/16/23 Rx tablet vomiting 4 days #10 tabs azithromycin 250 mg tablet 250 mg PO DAILY Infection 06/16/23 06/16/23 History prevention diltiazem HCl 240 mg 240 mg PO DAILY Hypertension 06/16/23 06/16/23 History capsule,extended release 24 hr furosemide 20 mg tablet 20 mg PO DAILY Edema 06/16/23 06/16/23 History metformin 750 mg tablet,extended 750 mg PO DAILY Diabetes 06/16/23 06/16/23 History release 24 hr methocarbamol 750 mg tablet 750 mg PO BID PRN Muscle spasms 06/16/23 06/16/23 History montelukast 10 mg tablet 10 mg PO DAILY Inflammation 06/16/23 06/16/23 History zinc gluconate 50 mg tablet 50 mg PO DAILY Supplement 06/16/23 06/16/23 History doxycycline hyclate 100 mg capsule 100 mg PO BID 4 days #7 caps 06/17/23 Rx prednisone 20 mg tablet 40 mg PO DAILY 3 days #6 tabs 06/17/23 Rx New Prescriptions to Start Prescriptions: doxycycline jonahclate Cholo Valdez prednisone Cholo Valdez Allergies Allergy/AdvReac Type Severity Reaction Status Date / Time No Known Allergies Allergy Verified 01/27/23 09:49 Discharge Plan Disposition Patient Disposition: Home, Self-Care Condition: Fair Follow up Plan Follow up with: Tyrell Owens MD [Primary Care Provider] - 06/25/23 10:30 am Prescriptions/Medication Reconciliation: New prednisone 20 mg Tablet 40 mg PO DAILY 3 Days Qty: 6 0RF doxycycline hyclate 100 mg capsule 100 mg PO BID 4 Days Qty: 7 0RF Continued diltiazem HCl 240 mg capsule,extended release 24hr 240 mg PO DAILY furosemide 20 mg tablet 20 mg PO DAILY Patient Comments: TAKE ONE TABLET BY MOUTH EVERY DAY metformin 750 mg tablet extended release 24 hr 750 mg PO DAILY methocarbamol 750 mg Tablet 750 mg PO BID PRN (Reason: Muscle spasms) montelukast 10 mg tablet 10 mg PO DAILY zinc gluconate 50 mg Tablet 50 mg PO DAILY albuterol sulfate 18 GM HFA aerosol inhaler 1 - 2 puffs inhalation Q4-6H PRN (Reason: Shortness Of Breath Or Wheezing) Qty: 1 0RF omega 0-hhf-tfv-fish oil 1,000 MG capsule 1,000 mg PO DAILY ipratropium-albuterol 3 ML solution for nebulization 3 ml inhalation QIDP PRN (Reason: Wheezing) Qty: 120 2RF atorvastatin 40 MG tablet 40 mg PO HS lisinopril 20 MG tablet 20 mg PO DAILY cholecalciferol (vitamin D3) 50 MCG capsule 50 mcg PO DAILY metoprolol tartrate 50 MG tablet 50 mg PO BID apixaban 5 MG tablets,dose pack 5 mg PO BID hucxdfioqh-awwyslol-whnakguhux 10.7 GM HFA aerosol inhaler 2 puff IH BID ondansetron 4 mg tablet,disintegrating 4 mg PO Q8H PRN (Reason: nausea and vomiting) 4 Days Qty: 10 0RF Held azithromycin 250 MG tablet 250 mg PO DAILY Hold Instructions: Resume after completing doxycycline course Rx Instructions: mon-wed-fri Problem Reconciliation Problems Reviewed?: Yes Patient Discharge Instructions ACTIVITY: Continue current activity DIET: continue same diet Patient Instructions: DI for Heart Failure, DI for Chronic Obstructive Pulmonary Disease Providers Primary Care Provider: Tyrell Owens Admit Provider: Cholo Valdez Attending Provider: Cholo Valdez
[2023-06-18 07:38] VITALS: BP 135/53; PULSE 76; RESP 18; TEMP 36.7; O2SAT 91
[2023-06-18 08:00] VITALS: PULSE 80
--- NOTE | 2023-06-18 09:49 | PC.NURSE ---
RESP CARE NOTE: Pt walked 225 feet within 6 mins, oxygen saturation remained 91% throughout walk. Pt did have exertional dyspnea during the last 1 minute of walk that she described as level 3 of dyspnea scale.
--- NOTE | 2023-06-18 10:12 | HMH.PHAINT1 ---
Pharmacy Intervention Comments: DISCHARGE MEDICATION COUNSELING PROVIDED. DISCUSSED HOLDING AZITHROMYCIN UNTIL DOXYCYLINE COMPLETE. DISCUSSED STARTING THE FOLLOWING: -DOXYCYCLINE (TWICE DAILY, TAKE WITH FOOD, N/V/D, RASH/SKIN IRRITATION POSSIBLE) -PREDNISONE (STEROID, DAILY, TAKE WITH BREAKFAST, MAY CAUSE INSOMNIA, UPSET STOMACH, INCREASED HUNGER, INCREASED BLOOD SUGAR) PATIENT VERBALIZED NO QUESTIONS AT THIS TIME.
[2023-06-18] MEDS: DOXYCYCLINE HYCLATE 100 MG in 0.9 % SODIUM CHLORIDE 250 ML 166.667000000000002 MG IV (10:24)
[2023-06-18] MEDS: MONTELUKAST SODIUM 10MG TAB 10 MG PO (10:26)
[2023-06-18] MEDS: VITAMIN D3 50 MCG 1 EACH PO (10:27)
[2023-06-18] MEDS: predniSONE 20MG TAB 40 MG PO (10:27)
[2023-06-18] MEDS: DILTIAZEM 240 MG PO (10:28)
[2023-06-18] MEDS: ELIQUIS 5 MG PO (10:28)
[2023-06-18] MEDS: METOPROLOL TARTRATE 50 MG PO (10:28)
[2023-06-18] MEDS: LISINOPRIL 20 MG PO (10:28)
--- NOTE | 2023-06-19 11:25 | CARE MANAGER ---
Called and spoke with patient regarding recent discharge. Patient stated that she is doing well, was aware of f/u appt and has started new medication. No concerns voiced or questions at time of call.
== END 2023-06-18 12:45 | disposition home or self-care (01) ==
LOC: ER 08:50 → 2ND 11:22
PROVIDERS: Admitting Provider Internal Medicine Adolescent Medicine; Emergency Provider Emergency Medicine; PCP Internal Medicine Adolescent Medicine; Visit Provider Internal Medicine Adolescent Medicine
DX: E66.9 Obesity, unspecified; I10 Essential (primary) hypertension; I48.3 Typical atrial flutter; E11.9 Type 2 diabetes mellitus without complications; Z79.84 Long term (current) use of oral hypoglycemic drugs; Z79.899 Other long term (current) drug therapy; Z79.01 Long term (current) use of anticoagulants; I48.91 Unspecified atrial fibrillation; R06.02 Shortness of breath; R05.8 Other specified cough; J44.1 Chronic obstructive pulmonary disease with (acute) exacerbation
CPT/HCPCS: 36415; 71045; 80048; 80053; 82803; 82962; 83036; 83735; 83880; 84484; 85025; 85610; 87632; 87635; 93005; 94640; 99285; G0378

== ENCOUNTER 2023-07-18 15:22 | Observation (INO) | payer MEDICARE, MEDICAID, SELFPAY ==
--- NOTE | 2023-07-18 15:33 | PC.NURSE ---
arrived by w/c from ED admissions
[2023-07-18 16:00] VITALS: BP 130/72; PULSE 120; TEMP 36.8; O2SAT 93
[2023-07-18 16:24] VITALS: BMI 32.3
[2023-07-18 16:29] LABS: POC Glucose,Bedside 167 (70-110)
[2023-07-18 16:31] VITALS: PULSE 127
--- NOTE | 2023-07-18 17:00 | ECG_ITS ---
APPROVED REPORT Exam: Resting ECG HR:124 bpm ECG Measurements Heart Rate 124 AXES QRSd 70 QRS 72 QT 311 T 46 QTc 385 Conclusion ATRIAL FIBRILLATION WITH RAPID VENTRICULAR RESPONSE LOW QRS VOLTAGE IN PRECORDIAL LEADS [QRS DEFLECTION < 1.0 mV IN CHEST LEADS] NONSPECIFIC ST & T-WAVE ABNORMALITY ABNORMAL RHYTHM ECG UNCONFIRMED REPORT Electronically signed by : Tyrell Owens MD 07/19/2023 20:02:29
--- NOTE | 2023-07-18 17:25 | PC.NURSE ---
patient hear rate noted to be between 120-130's, monitor placed and rhythm indicates possible afib. EKG obtained and reads atrial fibrillation with rvr. Dr. Mendez notified. Awaiting orders.
--- NOTE | 2023-07-18 17:35 | CT_ITS ---
PROCEDURE INFORMATION: Exam: CTA Chest With Contrast Exam date and time: 07/18/2023 7:32 PM Age: 72 years old Clinical indication: Shortness of breath; Additional info: Pe, pna TECHNIQUE: Imaging protocol: Computed tomographic angiography of the chest with contrast. Exam focused on the arteries. 3D rendering (Not supervised by radiologist): MIP and/or 3D reconstructed images were created by the technologist. Radiation optimization: All CT scans at this facility use at least one of these dose optimization techniques: automated exposure control; mA and/or kV adjustment per patient size (includes targeted exams where dose is matched to clinical indication); or iterative reconstruction. Contrast material: ISOVUE 370; Contrast volume: 75 ml; Contrast route: INTRAVENOUS (IV); COMPARISON: 1. CT CHEST WO CON 07/06/2022 8:25 AM 2. CR XR CHEST PORTABLE 06/16/2023 8:59 AM 3. CR XR CHEST PORTABLE 05/06/2023 7:16 PM FINDINGS: Pulmonary arteries: There is no evidence for clinically relevant pulmonary arterial filling defect. Tiny distal filling defects may be present but are of dubious clinical significance. Aorta: There is atherosclerotic disease of the visualized aorta and its major branch vessels. Lungs: There is patchy atelectasis at the lung bases. Scattered areas of bronchial wall thickening which are likely chronic inflammatory. A few areas of subpleural reticulation are noted, nonspecific. There are few scattered areas of parenchymal consolidation which may reflect early or resolving pneumonia. There is clustered nodularity in the right middle lobe which is likely inflammatory. Pleural spaces: Unremarkable. No pneumothorax. No pleural effusion. Heart: Unremarkable. No cardiomegaly. No pericardial effusion. Coronary arteries: There is mild coronary atherosclerotic disease/calcification although evaluation is limited secondary to the non gated nature of the study. Lymph nodes: There are mildly prominent mediastinal lymph nodes which are nonenlarged. Bones/joints: There is diffuse degenerative disease of the visualized osseous structures. Soft tissues: Unremarkable. IMPRESSION: 1. Scattered small parenchymal consolidation and inflammatory nodularity suggesting early or resolving pneumonia. 2. No evidence for clinically relevant pulmonary arterial filling defect.
--- NOTE | 2023-07-18 17:37 | EXP.HP ---
History of Present Illness *Admission Date: 07/18/23 *Reason for visit:: SOB *History of present illness: Patient is a 72-year-old female with past medical history of COPD atrial fibrillation diabetes mellitus who presents to the hospital from pulmonary clinic due to complaint of shortness of breath. According to the patient she has been feeling short of breath for past 2 days, it is getting worse, she also has noticed lower extremity swelling. She mentions she always have left lower extremity swelling greater than the right leg, she has nonproductive cough. Patient has otherwise denied chest pain nausea vomiting diarrhea constipation dysuria fevers chills. [facility] Disclaimer: The information contained in this section may have been updated after the patient was seen, as this information can be updated by other users. Medical History (Updated 07/18/23 @ 15:57 by Leny Sampson RN) Acute respiratory failure with hypoxia Afib COPD (chronic obstructive pulmonary disease) Diabetes type 2, controlled HLD (hyperlipidemia) HTN (hypertension) Osteoarthritis Tachycardia Surgical History History of bilateral tubal ligation History of phacoemulsification of cataract of both eyes with intraocular lens implantation Family History Other Coronary artery disease Hypertension Social History (Updated 07/18/23 @ 15:46 by Leny Sampson, RN) Smoking Status: Never smoker second hand exposure: No alcohol intake: never current occupational status: retired and disabled Travel in the last 8 weeks: None household members: none housing: apartment caffeine: Yes Review of Systems Review of Systems Review of systems (narrative): as per HPI Meds Home Medications and Allergies Home Medications Medication Instructions Recorded Confirmed Type albuterol sulfate 90 mcg/actuation 1 - 2 puffs inhalation Q4-6H PRN 01/08/19 07/18/23 Rx aerosol inhaler Shortness Of Breath Or Wheezing #1 inh omega 8-dse-kdr-fish oil 1,000 mg 1,000 mg PO DAILY Cholesterol 06/19/19 07/18/23 History (120 mg-180 mg) capsule ipratropium 0.5 mg-albuterol 3 mg 3 ml inhalation QIDP PRN Wheezing 06/21/19 07/18/23 Rx (2.5 mg base)/3 mL nebulization #120 neb soln apixaban 5 mg (74 tabs) tablets in 5 mg PO BID Blood thinner 12/08/21 07/18/23 History a dose pack atorvastatin 40 mg tablet 40 mg PO HS Cholesterol 12/08/21 07/18/23 History cholecalciferol (vitamin D3) 50 50 mcg PO DAILY Supplement 12/08/21 07/18/23 History mcg (2,000 unit) capsule lisinopril 20 mg tablet 20 mg PO DAILY Hypertension 12/08/21 07/18/23 History metoprolol tartrate 50 mg tablet 50 mg PO BID Hypertension 12/08/21 07/18/23 History budesonide 160 mcg-glycopyr 9 2 puff inhalation BID COPD 12/13/21 07/18/23 History mcg-formot 4.8 mcg/actuation HFA inhaler azithromycin 250 mg tablet 250 mg PO DAILY Infection 06/16/23 07/18/23 History prevention diltiazem HCl 240 mg 240 mg PO DAILY Hypertension 06/16/23 07/18/23 History capsule,extended release 24 hr furosemide 20 mg tablet 20 mg PO DAILY Edema 06/16/23 07/18/23 History metformin 750 mg tablet,extended 750 mg PO DAILY Diabetes 06/16/23 07/18/23 History release 24 hr methocarbamol 750 mg tablet 750 mg PO BID PRN Muscle spasms 06/16/23 07/18/23 History montelukast 10 mg tablet 10 mg PO DAILY Inflammation 06/16/23 07/18/23 History zinc gluconate 50 mg tablet 50 mg PO DAILY Supplement 06/16/23 07/18/23 History pantoprazole 40 mg tablet,delayed 40 mg PO DAILY 07/18/23 07/18/23 History release New Prescriptions to Start Prescriptions: Allergies Allergy/AdvReac Type Severity Reaction Status Date / Time No Known Allergies Allergy Verified 07/18/23 14:00 Exam Data for Last 24 hours Vital signs and Labs for Last 24 Hours: Temp Pulse BP Pulse Ox O2 Del Method O2 Flow Rate 98.2 F 127 H 130/72 93 L Nasal Cannula 3 07/18/23 16:00 07/18/23 16:31 07/18/23 16:00 07/18/23 16:00 07/18/23 17:00 07/18/23 17:00 Laboratory Results - last 24 hr 07/18/23 16:21: POC Glucose 167 H I & O for Last 24 hours: Intake & Output 07/15/23 07/16/23 07/17/23 07/18/23 23:59 23:59 23:59 23:59 Weight 93.509 kg Constitutional Constitutional: no acute distress *Routine HEENT Exam Head: Present normocephalic Eye: Present EOMI and PERRL ENT: Present mucous membranes moist *Routine Neck Exam Neck: Present supple; Absent lymphadenopathy *Routine Respiratory Exam Respiratory: Present wheezes *Routine Cardiovascular Exam Cardiovascular: Present tachycardia and irregularly irregular *Routine Abdominal Exam Abdominal: Present soft and normoactive bowel sounds; Absent tenderness *Routine Rectal Exam Rectal:: deferred *Routine Genitalia Exam Genitalia:: deferred *Routine Extremities Exam Extremities: Absent cyanosis, clubbing or edema *Routine Skin Exam Skin: Present warm; Absent rash *Routine Neurological Exam Neurological: Present alert and oriented X3 Assessment and Plan *Assessment and plan (1) COPD exacerbation: Status: Acute Category: Medical Code(s): J44.1 - Chronic obstructive pulmonary disease with (acute) exacerbation (2) Acute respiratory failure with hypoxia: Status: Acute Category: Medical Code(s): J96.01 - Acute respiratory failure with hypoxia (3) Diabetes type 2, controlled: Status: Acute Category: Medical Code(s): E11.9 - Type 2 diabetes mellitus without complications (4) Atrial flutter: Status: Acute Qualifiers: Atrial flutter type: typical Qualified Code(s): I48.3 - Typical atrial flutter Category: Medical Code(s): I48.92 - Unspecified atrial flutter Plan Patient is a 72-year-old female with past medical history of COPD atrial fibrillation diabetes mellitus who presents to the hospital from pulmonary clinic due to complaint of shortness of breath. According to the patient she has been feeling short of breath for past 2 days, it is getting worse, she also has noticed lower extremity swelling. She mentions she always have left lower extremity swelling greater than the right leg, she has nonproductive cough. Patient has otherwise denied chest pain nausea vomiting diarrhea constipation dysuria fevers chills. Assessment and plan Acute hypoxic respiratory failure satting less than 90% on room air COPD exacerbation Suspect acute CHF Start DuoNebs Start IV Solu-Medrol CTA chest to rule out PE Start IV doxycycline A-fib with RVR IV Lopressor Resume home Cardizem, metoprolol Resume home Eliquis Diabetes mellitus Insulin sliding scale DVT prophylaxis-on Eliquis
[2023-07-18] MEDS: METOPROLOL TARTRATE 5MG/5ML VIAL 2.5 MG IV (17:45)
[2023-07-18] MEDS: LISINOPRIL 20MG TABLET 20 MG PO (17:46)
[2023-07-18] MEDS: FUROSEMIDE 20MG TABLET 20 MG PO (17:46)
[2023-07-18] MEDS: dilTIAZem ER 240MG CAPSULE 240 MG PO (17:47)
[2023-07-18] MEDS: METHYLPREDNISOLONE SOD SUCC 40MG VIAL 40 MG IV (18:27)
[2023-07-18] MEDS: DOXYCYCLINE HYCLATE 100 MG in 0.9 % SODIUM CHLORIDE 250 ML 166.667000000000002 MG IV (18:27)
[2023-07-18 19:13] LABS: Blood Urea Nitrogen 14 mg/dl (7-17); Calcium 8.7 mg/dl (8.4-10.2); Carbon Dioxide 25 mmol/L (22.0-30.0); Chloride 100 mmol/L (98-107); Creatinine Clearance Estimated 74 mL/min (50-200); Estimated Glomerular Filt Rate 54 ml/min (>60); GFR (African American) 66 ML/MIN (>60); Glucose 153 mg/dl (74-100); Sodium 131 mmol/L (136-145)
[2023-07-18 19:35] LABS: NT Pro Brain Natriuretic Pep. 2110 pg/mL (0-125)
[2023-07-18] MEDS: IOPAMIDOL-370 (76%);100ML BOTTLE 75 ML IV (19:48)
[2023-07-18] MEDS: 0.9 % SODIUM CHLORIDE 50 ML VIAL IV (19:49)
[2023-07-18] MEDS: SODIUM CHLORIDE 0.9% 10ML SYR (RAD ONLY) 10 ML IV (19:50)
[2023-07-18 20:00] VITALS: BP 128/68; PULSE 110; PULSE 95; RESP 18; TEMP 37.1; O2SAT 92; O2SAT 94
[2023-07-18] MEDS: ATORVASTATIN 40MG TABLET 40 MG PO (20:26)
[2023-07-18] MEDS: APIXABAN 5 MG 5 EACH PO (20:26)
[2023-07-18] MEDS: METOPROLOL TARTRATE 50MG TABLET 50 MG PO (20:27)
[2023-07-18] MEDS: LEVALBUTEROL 0.63MG/3ML NEB 0.630000000000000004 MG IH (20:42)
[2023-07-18 20:47] VITALS: PULSE 114; PULSE 124; O2SAT 94
[2023-07-18 21:12] LABS: POC Glucose,Bedside 171 (70-110)
[2023-07-19] VITALS (16 sets, daily range): BP systolic 86–128; BP diastolic 42–67; PULSE 69–100; RESP 14–26; TEMP 36.3–36.7; O2SAT 91–96; BMI 32.3
[2023-07-19] MEDS: LEVALBUTEROL 0.63MG/3ML NEB 0.630000000000000004 MG IH ×6 (01:01→22:03)
--- NOTE | 2023-07-19 04:36 | PC.NURSE ---
Pt is alert and oriented x4, and currently on 3L and sating at 95%. Pt reports SOB intermittently and c/o trouble breathing at times. Notified RT and Chris of changes, Neb orders increased to Q4. at the beginning of shift Pt HR was 120-130, Pt HR is 90-95 at this time Pt treated per MAR. Pt denies pain, and other needs at this time
[2023-07-19] MEDS: BUDESONIDE 0.5MG/2ML NEB 0.5 MG IH ×2 (05:18→18:24)
[2023-07-19] MEDS: METHYLPREDNISOLONE SOD SUCC 40MG VIAL 40 MG IV ×2 (05:28→16:23)
[2023-07-19] MEDS: DOXYCYCLINE HYCLATE 100 MG in 0.9 % SODIUM CHLORIDE 250 ML 166.667000000000002 MG IV (05:28)
[2023-07-19] MEDS: humaLOG 100 UNITS/ML 3ML VIAL (SSI) SQ ×4 (06:05→20:46)
[2023-07-19 06:15] LABS: POC Glucose,Bedside 210 (70-110)
--- NOTE | 2023-07-19 06:30 | CA_ITS ---
APPROVED REPORT EXAM: Comprehensive 2D, Doppler, and color-flow Echocardiogram Crude Unit Operator: Renée Puga RT(R) Ht: 5 ft 7 in Wt: 205lbs BSA: 2.04 BP: 130/72 mmHg Indications: COPD exacerbation, pedal edema, SOA, AFIB, HTN, tachycardia, DM, hyperlipidemia, ordered as a limted echo. 2D Dimensions Left Atrium 3.43 cm F: 2.7 - 3.8 M-Mode Dimensions RVDd 2.49 cm (0.9-2.6) LVDd 3.98 cm (3.5-5.7) Ao Diam 3.03 cm (2.0-3.7) LVDs 3.01 cm (3.5-5.7) IVSd 0.92 cm (0.6-1.1) PWd 0.92 cm (0.6-1.1) EF (Teich) 49.00% FS 24.40% EDV (Teich) 69.20 mL ESV (Teich) 35.30 mL Tricuspid Valve TR P. Velocity 257.00 cm/s RAP Estimate 10.00 mmHg RVSP 36.50 mmHg Other Information Study Quality: Fair Conclusion This is a limited TTE to evaluate for LVEF and pericardial effusion. Limited windows were obtained. The left ventricle size is normal. There is increased LV wall thickness. There is no regional wall motion abnormalities. LVEF is 65%. The right ventricle is normal in size and function. There is a small sized anterior pericardial effusion present. There is a slight invagination of the right ventricle in diastole, but with no clear echo indications of tamponade. The IVC is normal in size and collapsible with respirophasic variation. There is no significant transvalvular flow variation. Clinical correlation and serial TTE evaluations are recommended in the setting of pericardial effusion. Electronically signed by : Juliane Gastelum MD 07/19/2023 14:35:52
[2023-07-19 06:40] LABS: Chloride 101 mmol/L (98-107); Sodium 131 mmol/L (136-145)
[2023-07-19 06:41] LABS: Potassium 4.1 mmoL/L (3.5-5.1)
[2023-07-19 06:43] LABS: Blood Urea Nitrogen 20 mg/dl (7-17); Creatinine Clearance Estimated 57 mL/min (50-200); Estimated Glomerular Filt Rate 40 ml/min (>60); GFR (African American) 49 ML/MIN (>60)
[2023-07-19 06:44] LABS: Anion Gap 12.1 mEq/L (5-15); Calcium 8.4 mg/dl (8.4-10.2); Carbon Dioxide 22 mmol/L (22.0-30.0); Glucose 223 mg/dl (74-100)
[2023-07-19 07:05] LABS: Basophils % 0.8 % (0.1-2.0); Eosinophils % 0.1 % (0.1-12.0); Hematocrit 43.1 % (37.0-47.0); Hemoglobin 13.2 g/dL (12.2-16.2); Lymphocytes # 0.6 K/mm3 (0.7-4.5); Lymphocytes % 22.3 % (10-50); Mean Corpuscular HGB Conc 30.6 g/dL (31.8-35.4); Mean Corpuscular Hemoglobin 29.4 pg (27.0-31.2); Mean Platelet Volume 8.7 fl (7.4-10.4); Monocytes # 0.1 K/mm3 (0.1-1.0); Monocytes % 4.2 % (1.7-9.3); Neutrophils # 1.8 K/mm3 (1.8-7.8); Neutrophils % 72.6 % (37.0-80.0); Platelet Count 177 K/mm3 (142-424); Red Blood Count 4.48 M/mm3 (4.20-5.40); Red Cell Distribution Width 14.9 % (11.5-17.5); White Blood Count 2.4 K/mm3 (4.8-10.8)
--- NOTE | 2023-07-19 08:12 | HMH.PHAINT1 ---
Pharmacy Intervention Comments: Reviewed home medications using external fill history and spoke with patient at bedside. Of note, pt said doctor asked her to hold the pantoprazole 1 week ago prior to a procedure (07/11) and she has not resumed taking it since then.
[2023-07-19] MEDS: *PAT OWN MED* APIXABAN 5MG TABLET 5 MG PO ×2 (08:52→20:48)
[2023-07-19] MEDS: METOPROLOL TARTRATE 50 MG PO ×2 (08:52→20:49)
[2023-07-19] MEDS: DILTIAZEM 240 MG PO (08:52)
--- NOTE | 2023-07-19 09:47 | EXP.PULM.CON ---
History of Present Illness History of present illness: Ms. Mcneill is a 72-year-old female greater than [id number] smoking history, last smoked in 2013 cancer diagnosis COPD with frequent exacerbation presented to the clinic yesterday with worsening respiratory status and hypoxia eventually admitted for further evaluation and management. Patient today admits improving respiratory status. [facility] Disclaimer: The information contained in this section may have been updated after the patient was seen, as this information can be updated by other users. Medical History (Updated 07/19/23 @ 11:54 by Rodney Presley MD) Acute and chronic respiratory failure with hypoxia Acute respiratory failure with hypoxia Afib COPD (chronic obstructive pulmonary disease) Diabetes type 2, controlled HLD (hyperlipidemia) HTN (hypertension) Osteoarthritis Tachycardia Surgical History History of bilateral tubal ligation History of phacoemulsification of cataract of both eyes with intraocular lens implantation Family History Other Coronary artery disease Hypertension Social History (Updated 07/18/23 @ 15:46 by Leny Sampson, RN) Smoking Status: Never smoker second hand exposure: No alcohol intake: never current occupational status: retired and disabled Travel in the last 8 weeks: None household members: none housing: apartment caffeine: Yes Review of Systems Constitutional Constitutional: Denies anorexia, Denies body ache(s), Reports fatigue and Reports lethargy Eyes Eyes: Denies eye discharge, Denies dry eyes, Denies irritation and Denies itchy eyes ENT Ears, Nose, Mouth, and Throat: Denies epistaxis, Denies facial pain, Denies lip swelling and Denies throat swelling *Cardiovascular Cardiovascular: Reports dyspnea and Reports dyspnea on exertion *Respiratory Respiratory: Reports chest congestion, Reports cough, Reports dyspnea, Reports dyspnea on exertion, Denies excessive phlegm production, Denies hemoptysis, Denies pain on inspiration and Reports wheezing *Gastrointestinal Gastrointestinal: Denies abdominal pain, Denies belching and Denies cramping *Musculoskeletal Musculoskeletal: Reports back pain, Reports myalgias and Reports other (No small joint swelling or Pain) Psychiatric Psychiatric: Denies homicidal ideation and Denies suicidal ideation Endocrine Endocrine: Reports fatigue and Denies heat intolerance Hematologic/Lymphatic Hematologic/Lymphatic: Denies easy bleeding and Denies lymphadenopathy Allergic/Immunologic Allergic/Immunologic: Denies itchy eyes, Denies lip swelling, Denies throat swelling and Reports wheezing Pulmonology Exam Inpatient Vital signs and Labs for Last 24 Hours: Temp Pulse Resp BP Pulse Ox O2 Del Method O2 Flow Rate 97.9 F 86 16 114/52 L 95 Nasal Cannula 3 07/19/23 08:00 07/19/23 08:00 07/19/23 08:00 07/19/23 08:00 07/19/23 08:00 07/19/23 09:29 07/19/23 09:29 Laboratory Results - last 24 hr 07/18/23 16:21: POC Glucose 167 H 07/18/23 18:41: NT-Pro-B Natriuret Pep 2110 H 07/18/23 18:55: Sodium 131 L, Potassium 4.0, Chloride 100, Carbon Dioxide 25, Anion Gap 10.0, BUN 14, Creatinine 1.00, Estimated Creat Clear 74, Estimated GFR 54 L, Est GFR ( Amer) 66, Glucose 153 H, Calcium 8.7 07/18/23 20:33: POC Glucose 171 H 07/19/23 05:59: WBC 2.4 L, RBC 4.48, Hgb 13.2, Hct 43.1, MCV 96.0, MCH 29.4, MCHC 30.6 L, RDW 14.9, Plt Count 177, MPV 8.7, Neut % (Auto) 72.6, Lymph % (Auto) 22.3, [place] % (Auto) 4.2, Eos % (Auto) 0.1, Baso % (Auto) 0.8, Neut # (Auto) 1.8, Lymph # (Auto) 0.6 L, [place] # (Auto) 0.1, Eos # (Auto) 0.0, Baso # (Auto) 0.0, Sodium 131 L, Potassium 4.1, Chloride 101, Carbon Dioxide 22, Anion Gap 12.1, BUN 20 H D, Creatinine 1.30 H D, Estimated Creat Clear 57, Estimated GFR 40 L, Est GFR ( Amer) 49 L D, Glucose 223 H D, Calcium 8.4 07/19/23 06:02: POC Glucose 210 H I & O for Labs for Last 24 Hours: Intake & Output 02/2607/17/23 07/18/23 07/19/23 23:59 23:59 23:59 23:59 Intake Total 480 / 600 360 / 360 Output Total 200 / 200 0 / 0 Balance 280 / 400 360 / 360 Weight 206 lb 2.436 oz 206 lb 2.433 oz Constitutional: Present moderate distress Head: Present normocephalic and atraumatic ENT: Present normal exam, normal oropharynx and mucous membranes moist Neck: Present normal inspection and full ROM Respiratory: Present prolonged expiratory phase, respiratory distress, wheezes and able to speak in complete sentences Cardiac: Present S1/S2, Tachycardia and radial pulses present GI: Present soft and distention; Absent tenderness or guarding Rectal (female): Present deferred (female): Present deferred Skin: Present intact; Absent cyanosis or jaundice Neuro: Present alert, awake and oriented x 3 Extremities: Present normal inspection; Absent clubbing or cyanosis Psychiatric: Present normal affect and cooperative Meds Home Medications and Allergies Home Medications Medication Instructions Recorded Confirmed Type albuterol sulfate 90 mcg/actuation 1 - 2 puffs inhalation Q4-6H PRN 01/08/19 07/18/23 Rx aerosol inhaler Shortness Of Breath Or Wheezing #1 inh omega 1-jyk-yah-fish oil 1,000 mg 2,000 mg PO DAILY Cholesterol 06/19/19 07/19/23 History (120 mg-180 mg) capsule ipratropium 0.5 mg-albuterol 3 mg 3 ml inhalation QIDP PRN Wheezing 06/21/19 07/18/23 Rx (2.5 mg base)/3 mL nebulization #120 neb soln atorvastatin 40 mg tablet 40 mg PO HS Cholesterol 12/08/21 07/18/23 History cholecalciferol (vitamin D3) 50 50 mcg PO DAILY Supplement 12/08/21 07/18/23 History mcg (2,000 unit) capsule lisinopril 20 mg tablet 20 mg PO DAILY Hypertension 12/08/21 07/18/23 History metoprolol tartrate 50 mg tablet 50 mg PO BID Hypertension 12/08/21 07/18/23 History budesonide 160 mcg-glycopyr 9 2 puff inhalation BID COPD 12/13/21 07/18/23 History mcg-formot 4.8 mcg/actuation HFA inhaler azithromycin 250 mg tablet 250 mg PO DAILY Infection 06/16/23 07/18/23 History prevention diltiazem HCl 240 mg 240 mg PO DAILY Hypertension 06/16/23 07/18/23 History capsule,extended release 24 hr furosemide 20 mg tablet 20 mg PO DAILY Edema 06/16/23 07/18/23 History metformin 750 mg tablet,extended 750 mg PO DAILY Diabetes 06/16/23 07/18/23 History release 24 hr montelukast 10 mg tablet 10 mg PO DAILY Inflammation 06/16/23 07/18/23 History zinc gluconate 50 mg tablet 50 mg PO DAILY Supplement 06/16/23 07/18/23 History apixaban 5 mg tablet (Eliquis) 5 mg PO BID 07/19/23 07/19/23 History New Prescriptions to Start Prescriptions: Allergies Allergy/AdvReac Type Severity Reaction Status Date / Time No Known Allergies Allergy Verified 07/18/23 14:00 Results Laboratory Findings 07/19/23 05:59 07/19/23 05:59 Abnormal lab findings: Abnormal Labs 07/18/23 07/18/23 07/18/23 16:21 18:41 18:55 WBC MCHC Lymph # (Auto) Sodium 131 L BUN Creatinine Estimated GFR 54 L Est GFR ( Amer) Glucose 153 H POC Glucose 167 H NT-Pro-B Natriuret Pep 2110 H 07/18/23 07/19/23 07/19/23 20:33 05:59 06:02 WBC 2.4 L MCHC 30.6 L Lymph # (Auto) 0.6 L Sodium 131 L BUN 20 H D Creatinine 1.30 H D Estimated GFR 40 L Est GFR ( Amer) 49 L D Glucose 223 H D POC Glucose 171 H 210 H NT-Pro-B Natriuret Pep Assessment and Plan *Assessment and plan (1) COPD with acute exacerbation: Status: Acute Category: Medical Code(s): J44.1 - Chronic obstructive pulmonary disease with (acute) exacerbation (2) Acute and chronic respiratory failure with hypoxia: Status: Acute Category: Medical Code(s): J96.21 - Acute and chronic respiratory failure with hypoxia (3) Pneumonia: Status: Resolved Qualifiers: Laterality: right Lung location: lower lobe of lung Category: Medical Code(s): J18.9 - Pneumonia, unspecified organism Plan Ms. Mcneill is a 72-year-old female greater than [id number] smoking history, last smoked in 2013 cancer diagnosis COPD with frequent exacerbation presented to the clinic yesterday with worsening respiratory status and hypoxia eventually admitted for further evaluation and management. Patient today admits improving respiratory status. No recent prior PFTs available for review. CTA upon admission no evidence of pulmonary embolism but bilateral nodular groundglass opacities noted. No dense consolidative changes noted. No significant emphysematous changes noted. No evidence of interstitial lung disease. Afebrile. Hemodynamically stable. Comprehensive respiratory viral PCR panel negative. Leukopenia noted. On examination patient appeared to be in moderate respiratory distress but significantly improved from yesterday. Chest continues to show significant wheezing though improved from yesterday. Patient on room air saturating 92%. Plan: Oxygen supplementation only as needed to maintain O2 saturation above 90 to 95% Change antibiotics to levofloxacin 750 mg daily to complete a total of 5-day course Follow with sputum culture, AFB and fungal prep and cultures. No need for airborne isolation. Continue Xopenex and ipratropium every 4 hours scheduled along with Pulmicort Q12 scheduled. Home inhalers include Trelegy 100. Continue methylprednisolone 40 mg IV every 12 hours # Thank you for involving pulmonary in this patient care. Will continue to follow.
--- NOTE | 2023-07-19 10:09 | PC.NURSE ---
Left lower ext with plus 2 edema noted.
[2023-07-19 10:21] LABS: POC Glucose,Bedside 207 (70-110)
[2023-07-19] MEDS: LEVOFLOXACIN/D5W 750 MG/150 ML 750 MG/150 ML PIGGYBACK 100 MG IV (12:21)
[2023-07-19] MEDS: IPRATROPIUM BROMIDE 0.5 MG/2.5ML SOLUTION IH ×3 (14:21→22:02)
--- NOTE | 2023-07-19 15:04 | P.PN_ITS ---
Subjective *Date: 07/19/23 *Time: 15:04 Interval history: patient was seen and evaluated at the bedside. No reported acute events overnight, denies chest pain, shortness of breath, nausea, vomiting, abdominal pain. Exam Data for Last 24 hours Vital signs and Labs for Last 24 Hours: Temp Pulse Resp BP Pulse Ox O2 Del Method O2 Flow Rate 98.1 F 98 H 17 106/50 L 91 L Room Air 2 07/19/23 11:40 07/19/23 14:20 07/19/23 11:40 07/19/23 11:40 07/19/23 14:20 07/19/23 14:20 07/19/23 14:19 Laboratory Results - last 24 hr 07/18/23 16:21: POC Glucose 167 H 07/18/23 18:41: NT-Pro-B Natriuret Pep 2110 H 07/18/23 18:55: Sodium 131 L, Potassium 4.0, Chloride 100, Carbon Dioxide 25, Anion Gap 10.0, BUN 14, Creatinine 1.00, Estimated Creat Clear 74, Estimated GFR 54 L, Est GFR ( Amer) 66, Glucose 153 H, Calcium 8.7 07/18/23 20:33: POC Glucose 171 H 07/19/23 05:59: WBC 2.4 L, RBC 4.48, Hgb 13.2, Hct 43.1, MCV 96.0, MCH 29.4, MCHC 30.6 L, RDW 14.9, Plt Count 177, MPV 8.7, Neut % (Auto) 72.6, Lymph % (Auto) 22.3, [place] % (Auto) 4.2, Eos % (Auto) 0.1, Baso % (Auto) 0.8, Neut # (Auto) 1.8, Lymph # (Auto) 0.6 L, [place] # (Auto) 0.1, Eos # (Auto) 0.0, Baso # (Auto) 0.0, Sodium 131 L, Potassium 4.1, Chloride 101, Carbon Dioxide 22, Anion Gap 12.1, BUN 20 H D, Creatinine 1.30 H D, Estimated Creat Clear 57, Estimated GFR 40 L, Est GFR ( Amer) 49 L D, Glucose 223 H D, Calcium 8.4 07/19/23 06:02: POC Glucose 210 H 07/19/23 10:14: POC Glucose 207 H I & O for Last 24 hours: Intake & Output 07/16/23 07/17/23 07/18/23 07/19/23 23:59 23:59 23:59 23:59 Intake Total 480 / 600 750 / 750 Output Total 200 / 200 0 / 0 Balance 280 / 400 750 / 750 Weight 93.509 kg 93.509 kg Constitutional Constitutional: no acute distress *Routine HEENT Exam Head: Present normocephalic Eye: Present EOMI and PERRL ENT: Present mucous membranes moist *Routine Neck Exam Neck: Present supple; Absent lymphadenopathy *Routine Respiratory Exam Respiratory: Present rhonchi and wheezes *Routine Cardiovascular Exam Cardiovascular: Present RRR *Routine Abdominal Exam Abdominal: Present soft and normoactive bowel sounds; Absent tenderness *Routine Extremities Exam Extremities: Absent cyanosis, clubbing or edema *Routine Skin Exam Skin: Present warm; Absent rash *Routine Neurological Exam Neurological: Present alert and oriented X3 Assessment and Plan *Assessment and plan (1) COPD exacerbation: Status: Acute Category: Medical Code(s): J44.1 - Chronic obstructive pulmonary disease with (acute) exacerbation (2) Acute respiratory failure with hypoxia: Status: Acute Category: Medical Code(s): J96.01 - Acute respiratory failure with hypoxia (3) Diabetes type 2, controlled: Status: Acute Category: Medical Code(s): E11.9 - Type 2 diabetes mellitus without complications (4) Atrial flutter: Status: Acute Qualifiers: Atrial flutter type: typical Qualified Code(s): I48.3 - Typical atrial flutter Category: Medical Code(s): I48.92 - Unspecified atrial flutter Plan Patient is a 72-year-old female with past medical history of COPD atrial fibrillation diabetes mellitus who presents to the hospital from pulmonary clinic due to complaint of shortness of breath. According to the patient she has been feeling short of breath for past 2 days, it is getting worse, she also has noticed lower extremity swelling. She mentions she always have left lower extremity swelling greater than the right leg, she has nonproductive cough. Patient has otherwise denied chest pain nausea vomiting diarrhea constipation dysuria fevers chills. Assessment and plan Acute hypoxic respiratory failure satting less than 90% on room air COPD exacerbation Suspect acute CHF Start DuoNebs Start IV Solu-Medrol CTA chest to rule out PE Started on Levofloxacin, continue Echo report - The left ventricle size is normal. There is increased LV wall thickness. There is no regional wall motion abnormalities. LVEF is 65%. The right ventricle is normal in size and function. There is a small sized anterior pericardial effusion present. There is a slight invagination of the right ventricle in diastole, but with no clear echo indications of tamponade. The IVC is normal in size and collapsible with respirophasic variation. There is no significant transvalvular flow variation. Diarrrhea present on admission check C diff sample AIRAM - hold off nephrotoxic meds A-fib with RVR IV Lopressor Resume home Cardizem, metoprolol Resume home Eliquis cardiology consulted for pericardial effusion per echo Diabetes mellitus Insulin sliding scale DVT prophylaxis-on Eliquis
--- NOTE | 2023-07-19 15:18 | PC.NURSE ---
aox 4, up with assistance as needed, weaned down from 3L TO 2L nc now at 94%, states she doesn't wear oxygen at home, echo done today, new Cardiology consult added today, 20g L ac sl.
--- NOTE | 2023-07-19 16:05 | EXP.CARD.CON ---
History of Present Illness History of Present Illness Consult date: 07/19/23 Requesting physician: Tita Mendez Consult reason: atrial fibrillation Chief complaint: SOA Additional Medical History:: 1. COPD A. Tobacco use, discontinued 2014, 75-year pack history B. CTA of the chest, 07/18/2023, scattered small parenchymal consolidation and inflammatory nodularity suggesting early or resolving pneumonia. No evidence for pulmonary embolus. 2. Hypertension A. Echo, 07/06/2022, mild biatrial enlargement, normal LV size, EF 55% with no regional WMA. Mild RV enlargement with normal contractility. Trace MR and TR. B. Limited echocardiogram, 07/19/2023, normal LV with increased LV wall thickness but no regional WMA. EF 65%. Small sized anterior pericardial effusion with slight invagination of the RV in diastole but no evidence of tamponade. 3. Hyperlipidemia 4. Family history of heart disease and diabetes 5. Atrial flutter, 06/19/2019, converted to sinus rhythm with IV diltiazem A. [id number] score 3 (hypertension, female, age) B. Anticoagulation with Eliquis 6. HFpEF, 07/19/2023 A. Echo, 06/2023, EF 65%. B. BNP 2109 with CTA of chest showing evidence for pneumonia History of present illness: Patient is a 72-year-old female with past medical history of COPD atrial fibrillation diabetes mellitus who presents to the hospital from pulmonary clinic due to complaint of shortness of breath. According to the patient she has been feeling short of breath for past 2 days, it is getting worse, she also has noticed lower extremity swelling. She mentions she always have left lower extremity swelling greater than the right leg, she has nonproductive cough. Patient has otherwise denied chest pain nausea vomiting diarrhea constipation dysuria fevers chills. The above per Dr. Mendez. Cardiology consulted for echocardiogram evidence of small pericardial effusion with RV invagination but without evidence of tamponade. Patient denies any chest pain, pressure or tightness. Shortness of breath has improved since hospitalization. [facility] Disclaimer: The information contained in this section may have been updated after the patient was seen, as this information can be updated by other users. Medical History (Updated 07/19/23 @ 17:21 by IWONA Benjamin) Acute and chronic respiratory failure with hypoxia Acute respiratory failure with hypoxia Afib COPD (chronic obstructive pulmonary disease) Diabetes type 2, controlled HLD (hyperlipidemia) HTN (hypertension) Osteoarthritis Tachycardia Surgical History History of bilateral tubal ligation History of phacoemulsification of cataract of both eyes with intraocular lens implantation Family History Other Coronary artery disease Hypertension Social History (Updated 07/18/23 @ 15:46 by Leny Sampson, RN) Smoking Status: Never smoker second hand exposure: No alcohol intake: never current occupational status: retired and disabled Travel in the last 8 weeks: None household members: none housing: apartment caffeine: Yes Review of Systems Review of Systems Review of systems:: pertinent systems reviewed and negative unless documented below *Cardiovascular Cardiovascular: Denies chest pain, Reports dyspnea and Reports dyspnea on exertion *Respiratory Respiratory: Reports dyspnea and Reports dyspnea on exertion Exam Data for Last 24 hours Vital signs and Labs for Last 24 Hours: Temp Pulse Resp BP Pulse Ox O2 Del Method O2 Flow Rate 97.6 F 73 20 105/42 L 94 L Room Air 2 07/19/23 15:29 07/19/23 15:29 07/19/23 15:29 07/19/23 15:29 07/19/23 15:29 07/19/23 15:29 07/19/23 14:19 Laboratory Results - last 24 hr 07/18/23 16:21: POC Glucose 167 H 07/18/23 18:41: NT-Pro-B Natriuret Pep 2110 H 07/18/23 18:55: Sodium 131 L, Potassium 4.0, Chloride 100, Carbon Dioxide 25, Anion Gap 10.0, BUN 14, Creatinine 1.00, Estimated Creat Clear 74, Estimated GFR 54 L, Est GFR ( Amer) 66, Glucose 153 H, Calcium 8.7 07/18/23 20:33: POC Glucose 171 H 07/19/23 05:59: WBC 2.4 L, RBC 4.48, Hgb 13.2, Hct 43.1, MCV 96.0, MCH 29.4, MCHC 30.6 L, RDW 14.9, Plt Count 177, MPV 8.7, Neut % (Auto) 72.6, Lymph % (Auto) 22.3, [place] % (Auto) 4.2, Eos % (Auto) 0.1, Baso % (Auto) 0.8, Neut # (Auto) 1.8, Lymph # (Auto) 0.6 L, [place] # (Auto) 0.1, Eos # (Auto) 0.0, Baso # (Auto) 0.0, Sodium 131 L, Potassium 4.1, Chloride 101, Carbon Dioxide 22, Anion Gap 12.1, BUN 20 H D, Creatinine 1.30 H D, Estimated Creat Clear 57, Estimated GFR 40 L, Est GFR ( Amer) 49 L D, Glucose 223 H D, Calcium 8.4 07/19/23 06:02: POC Glucose 210 H 07/19/23 10:14: POC Glucose 207 H I & O for Last 24 hours: Intake & Output 07/17/23 07/18/23 07/19/23 07/20/23 11:59 11:59 11:59 11:59 Intake Total 840 / 840 390 / 390 Output Total 200 / 200 0 / 0 Balance 640 / 640 390 / 390 Weight 206 lb 2.433 oz Constitutional Constitutional: no acute distress *Routine Respiratory Exam Respiratory: Present decreased breath sounds, wheezes and crackles *Routine Cardiovascular Exam Cardiovascular: Present irregularly irregular; Absent murmur, gallop or rubs *Routine Extremities Exam Extremities: Absent edema *Routine Neurological Exam Neurological: Present alert and oriented X3 Meds Home Medications and Allergies Home Medications Medication Instructions Recorded Confirmed Type albuterol sulfate 90 mcg/actuation 1 - 2 puffs inhalation Q4-6H PRN 01/08/19 07/18/23 Rx aerosol inhaler Shortness Of Breath Or Wheezing #1 inh omega 6-vrs-naf-fish oil 1,000 mg 2,000 mg PO DAILY Cholesterol 06/19/19 07/19/23 History (120 mg-180 mg) capsule ipratropium 0.5 mg-albuterol 3 mg 3 ml inhalation QIDP PRN Wheezing 06/21/19 07/18/23 Rx (2.5 mg base)/3 mL nebulization #120 neb soln atorvastatin 40 mg tablet 40 mg PO HS Cholesterol 12/08/21 07/18/23 History cholecalciferol (vitamin D3) 50 50 mcg PO DAILY Supplement 12/08/21 07/18/23 History mcg (2,000 unit) capsule lisinopril 20 mg tablet 20 mg PO DAILY Hypertension 12/08/21 07/18/23 History metoprolol tartrate 50 mg tablet 50 mg PO BID Hypertension 12/08/21 07/18/23 History budesonide 160 mcg-glycopyr 9 2 puff inhalation BID COPD 12/13/21 07/18/23 History mcg-formot 4.8 mcg/actuation HFA inhaler azithromycin 250 mg tablet 250 mg PO DAILY Infection 06/16/23 07/18/23 History prevention diltiazem HCl 240 mg 240 mg PO DAILY Hypertension 06/16/23 07/18/23 History capsule,extended release 24 hr furosemide 20 mg tablet 20 mg PO DAILY Edema 06/16/23 07/18/23 History metformin 750 mg tablet,extended 750 mg PO DAILY Diabetes 06/16/23 07/18/23 History release 24 hr montelukast 10 mg tablet 10 mg PO DAILY Inflammation 06/16/23 07/18/23 History zinc gluconate 50 mg tablet 50 mg PO DAILY Supplement 06/16/23 07/18/23 History apixaban 5 mg tablet (Eliquis) 5 mg PO BID 07/19/23 07/19/23 History New Prescriptions to Start Prescriptions: Allergies Allergy/AdvReac Type Severity Reaction Status Date / Time No Known Allergies Allergy Verified 07/18/23 14:00 Assessment and Plan *Assessment and plan (1) Acute and chronic respiratory failure with hypoxia: Status: Acute Category: Medical Code(s): J96.21 - Acute and chronic respiratory failure with hypoxia (2) COPD with acute exacerbation: Status: Acute Category: Medical Code(s): J44.1 - Chronic obstructive pulmonary disease with (acute) exacerbation (3) Diabetes type 2, controlled: Status: Acute Qualifiers: 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: unspecified [place] insulin use status Diabetes mellitus complication status: with unspecified complications Qualified Code(s): E11.8 - Type 2 diabetes mellitus with unspecified complications Category: Medical Code(s): E11.9 - Type 2 diabetes mellitus without complications (4) Afib: Status: Acute Qualifiers: Atrial fibrillation type: unspecified Qualified Code(s): I48.91 - Unspecified atrial fibrillation Category: Medical Code(s): I48.91 - Unspecified atrial fibrillation (5) Pericardial effusion: Status: Acute Category: Medical Code(s): I31.39 - Other pericardial effusion (noninflammatory) (6) (HFpEF) heart failure with preserved ejection fraction: Status: Acute Qualifiers: Heart failure chronicity: unspecified Qualified Code(s): I50.30 - Unspecified diastolic (congestive) heart failure Category: Medical Code(s): I50.30 - Unspecified diastolic (congestive) heart failure Plan 1. Acute hypoxic respiratory failure -Likely secondary to pneumonia and possible HFpEF with elevated BNP -Oxygen as needed -On antibiotics and steroid therapy along with pulmonary toiletry 2. Small pericardial effusion without evidence of tamponade -Will repeat limited echocardiogram tomorrow for follow-up -No need treatment at this time 3. History of atrial fibrillation -Continue Eliquis, diltiazem and beta-jose therapy 4. Diabetes mellitus 5. COPD with acute exacerbation -Treatment per pulmonary 6. HFpEF -Single dose of Lasix given on admission with subsequent AIRAM and decreased blood pressure. -Lasix and lisinopril subsequently discontinued -Continue to monitor renal function -Will add Jardiance 10 mg daily -Consider restarting Lasix and/or spironolactone pending renal functions tomorrow
[2023-07-19 16:17] LABS: POC Glucose,Bedside 219 (70-110)
[2023-07-19] MEDS: MONTELUKAST SODIUM 10MG TAB 10 MG PO (16:23)
[2023-07-19 20:19] LABS: POC Glucose,Bedside 185 (70-110)
[2023-07-19] MEDS: PANTOPRAZOLE 40MG TABLET 40 MG PO (20:47)
[2023-07-19] MEDS: ATORVASTATIN 40 MG PO (20:48)
[2023-07-20] VITALS (8 sets, daily range): BP systolic 98–115; BP diastolic 50–57; PULSE 68–113; RESP 18–22; TEMP 36.4–36.7; O2SAT 94–97; BMI 30.2
[2023-07-20] MEDS: IPRATROPIUM BROMIDE 0.5 MG/2.5ML SOLUTION IH ×3 (02:13→10:01)
[2023-07-20] MEDS: LEVALBUTEROL 0.63MG/3ML NEB 0.630000000000000004 MG IH ×3 (02:13→10:01)
[2023-07-20 05:19] LABS: POC Glucose,Bedside 206 (70-110)
[2023-07-20] MEDS: METHYLPREDNISOLONE SOD SUCC 40MG VIAL 40 MG IV (05:25)
[2023-07-20] MEDS: SODIUM CHLORIDE 0.9% 10ML FLUSH SYRINGE 10 ML IV (05:25)
[2023-07-20] MEDS: humaLOG 100 UNITS/ML 3ML VIAL (SSI) SQ ×2 (05:25→10:47)
[2023-07-20] MEDS: BUDESONIDE 0.5MG/2ML NEB 0.5 MG IH (06:26)
[2023-07-20 06:56] LABS: Anion Gap 13.3 mEq/L (5-15); Blood Urea Nitrogen 33 mg/dl (7-17); Calcium 9.1 mg/dl (8.4-10.2); Carbon Dioxide 24 mmol/L (22.0-30.0); Chloride 99 mmol/L (98-107); Creatinine Clearance Estimated 58 mL/min (50-200); Estimated Glomerular Filt Rate 44 ml/min (>60); GFR (African American) 53 ML/MIN (>60); Glucose 200 mg/dl (74-100); Potassium 4.3 mmoL/L (3.5-5.1); Sodium 132 mmol/L (136-145)
[2023-07-20 06:57] LABS: Basophils % 0.7 % (0.1-2.0); Eosinophils % 0.1 % (0.1-12.0); Hematocrit 43.6 % (37.0-47.0); Hemoglobin 13.4 g/dL (12.2-16.2); Lymphocytes # 1.1 K/mm3 (0.7-4.5); Lymphocytes % 19.1 % (10-50); Mean Corpuscular HGB Conc 30.7 g/dL (31.8-35.4); Mean Corpuscular Volume 94.5 fl (81-99); Mean Platelet Volume 9.6 fl (7.4-10.4); Monocytes # 0.2 K/mm3 (0.1-1.0); Monocytes % 3.6 % (1.7-9.3); Neutrophils # 4.6 K/mm3 (1.8-7.8); Neutrophils % 76.5 % (37.0-80.0); Platelet Count 207 K/mm3 (142-424); Red Blood Count 4.62 M/mm3 (4.20-5.40); Red Cell Distribution Width 15.3 % (11.5-17.5)
--- NOTE | 2023-07-20 08:00 | CA_ITS ---
APPROVED REPORT EXAM: Comprehensive 2D, Doppler, and color-flow Echocardiogram Government Affairs Researcher: Debra Hodge CRT Ht: 5 ft 7 in Wt: 206lbs BSA: 2.05 BP: 130/72 mmHg Indications: Pericardial Effusion Other Information Study Quality: Technically Difficult Conclusion This is a limited TTE to evaluate for pericardial effusion. Limited windows were obtained. Technically difficult study. The left ventricle appears normal in size and function. LVEF is 65%. There is a small sized, circumferential pericardial effusion present. The largest pocket measures 0.7 cm in diastole. There is no evidence of chamber collapsibility or transvalvular respirophasic variation. The IVC is small and collapsible. No echo indications of tamponade. Electronically signed by : Juliane Gastelum MD 07/20/2023 12:55:46
[2023-07-20] MEDS: ZINC SULFATE 220MG CAPSULE 220 MG PO (09:07)
[2023-07-20] MEDS: DILTIAZEM 240 MG PO (09:07)
[2023-07-20] MEDS: *PAT OWN MED* APIXABAN 5MG TABLET 5 MG PO (09:07)
--- NOTE | 2023-07-20 09:56 | P.PN_ITS ---
Subjective *Date: 07/20/23 *Time: 12:17 Interval history: No acute respiratory events overnight. Patient admits continued improvement in her respiratory symptoms. Pulmonology Exam Inpatient Vital signs and Labs for Last 24 Hours: Temp Pulse Resp BP Pulse Ox O2 Del Method O2 Flow Rate 97.9 F 113 H 19 98/53 L 97 Nasal Cannula 2 07/20/23 08:00 07/20/23 08:00 07/20/23 08:00 07/20/23 08:00 07/20/23 08:00 07/20/23 09:00 07/20/23 09:00 Laboratory Results - last 24 hr 07/19/23 10:14: POC Glucose 207 H 07/19/23 16:11: POC Glucose 219 H 07/19/23 20:02: POC Glucose 185 H 07/20/23 05:12: POC Glucose 206 H 07/20/23 06:08: WBC 6.0 D, RBC 4.62, Hgb 13.4, Hct 43.6, MCV 94.5, MCH 29.0, MCHC 30.7 L, RDW 15.3, Plt Count 207, MPV 9.6, Neut % (Auto) 76.5, Lymph % (Auto) 19.1, [place] % (Auto) 3.6, Eos % (Auto) 0.1, Baso % (Auto) 0.7, Neut # (Auto) 4.6, Lymph # (Auto) 1.1, [place] # (Auto) 0.2, Eos # (Auto) 0.0, Baso # (Auto) 0.0, Sodium 132 L, Potassium 4.3, Chloride 99, Carbon Dioxide 24, Anion Gap 13.3, BUN 33 H D, Creatinine 1.20 H, Estimated Creat Clear 58, Estimated GFR 44 L, Est GFR ( Amer) 53 L, Glucose 200 H, Calcium 9.1 I & O for Labs for Last 24 Hours: Intake & Output 07/17/23 07/18/23 07/19/23 07/20/23 23:59 23:59 23:59 23:59 Intake Total 480 / 600 990 / 1210 460 / 460 Output Total 200 / 200 0 / 0 0 / 0 Balance 280 / 400 990 / 1210 460 / 460 Weight 206 lb 2.436 oz 206 lb 2.433 oz 193 lb 1 oz Constitutional: Present mild distress Head: Present normocephalic and atraumatic ENT: Present normal exam, normal oropharynx and mucous membranes moist Neck: Present normal inspection and full ROM Respiratory: Present prolonged expiratory phase, respiratory distress, wheezes and able to speak in complete sentences Cardiac: Present S1/S2, Tachycardia and radial pulses present GI: Present soft and distention; Absent tenderness or guarding Rectal (female): Present deferred (female): Present deferred Skin: Present intact; Absent cyanosis or jaundice Neuro: Present alert, awake and oriented x 3 Extremities: Present normal inspection; Absent clubbing or cyanosis Psychiatric: Present normal affect and cooperative Assessment and Plan *Assessment and plan (1) COPD with acute exacerbation: Status: Acute Category: Medical Code(s): J44.1 - Chronic obstructive pulmonary disease with (acute) exacerbation (2) Acute and chronic respiratory failure with hypoxia: Status: Acute Category: Medical Code(s): J96.21 - Acute and chronic respiratory failure with hypoxia (3) Pneumonia: Status: Resolved Qualifiers: Laterality: right Lung location: lower lobe of lung Category: Medical Code(s): J18.9 - Pneumonia, unspecified organism Plan Ms. Mcneill is a 72-year-old female greater than [id number] smoking history, last smoked in 2013 cancer diagnosis COPD with frequent exacerbation presented to the clinic yesterday with worsening respiratory status and hypoxia eventually admitted for further evaluation and management. Patient today admits improving respiratory status. No recent prior PFTs available for review. CTA upon admission no evidence of pulmonary embolism but bilateral nodular groundglass opacities noted. No dense consolidative changes noted. No sig nificant emphysematous changes noted. No evidence of interstitial lung disease. Afebrile. Hemodynamically stable. Comprehensive respiratory viral PCR panel negative. Leukopenia noted. On initial consult examination patient appeared to be in moderate respiratory distress but significantly improved from yesterday. Chest continues to show significant wheezing though improved from yesterday. Patient on room air saturating 92%. Interval update: No acute respiratory events overnight. Continued to remain on room air. This morning on examination on room air saturating 94%. Continue to show wheezing but significantly improved. Plan: Oxygen supplementation only as needed to maintain O2 saturation above 90 to 95% Continue levofloxacin 750 mg daily to complete a total of 5-day course Follow with sputum culture, AFB and fungal prep and cultures. No need for airborne isolation. Continue Breztri which is home inhaler therapy upon discharge. DuoNebs every 6 hours on as-needed basis We instructed prednisone 40 mg daily to complete a total of 5-day course starting today upon discharge # Thank you for involving pulmonary in this patient care. Will follow the patient in pulmonary clinic 5 days post discharge.
[2023-07-20 10:34] LABS: POC Glucose,Bedside 274 (70-110)
[2023-07-20] MEDS: LEVOFLOXACIN/D5W 750 MG/150 ML 750 MG/150 ML PIGGYBACK 100 MG IV (12:30)
--- NOTE | 2023-07-20 13:33 | EXP.DC.SUM ---
General Admission date:: 07/18/23 Discharge date: 07/20/23 HPI HPI HPI: Patient is a 72-year-old female with past medical history of COPD atrial fibrillation diabetes mellitus who presents to the hospital from pulmonary clinic due to complaint of shortness of breath. According to the patient she has been feeling short of breath for past 2 days, it is getting worse, she also has noticed lower extremity swelling. She mentions she always have left lower extremity swelling greater than the right leg, she has nonproductive cough. Patient has otherwise denied chest pain nausea vomiting diarrhea constipation dysuria fevers chills. Hospital Course Hospital Course Hospital Course: Patient was seen and evaluated at the bedside on the day of discharge. Patient wishes to be discharged. All patient questions were answered and patient was given time to ask questions. Patient was discharged in stable condition. Patient understands that she can return to ER in case of any sudden changes in health. Total time spent on DC - 38 mins Patient is a 72-year-old female with past medical history of COPD atrial fibrillation diabetes mellitus who presents to the hospital from pulmonary clinic due to complaint of shortness of breath. According to the patient she has been feeling short of breath for past 2 days, it is getting worse, she also has noticed lower extremity swelling. She mentions she always have left lower extremity swelling greater than the right leg, she has nonproductive cough. Patient has otherwise denied chest pain nausea vomiting diarrhea constipation dysuria fevers chills. Assessment and plan Acute hypoxic respiratory failure satting less than 90% on room air - improved COPD exacerbation - improved DC on oral levofloxacin and Prednisone Echo report - The left ventricle size is normal. There is increased LV wall thickness. There is no regional wall motion abnormalities. LVEF is 65%. The right ventricle is normal in size and function. There is a small sized anterior pericardial effusion present. There is a slight invagination of the right ventricle in diastole, but with no clear echo indications of tamponade. The IVC is normal in size and collapsible with respirophasic variation. There is no significant transvalvular flow variation. Diarrrhea present on admission - resolved AIRAM - improving A-fib with RVR - stable Diabetes mellitus Insulin sliding scale DVT prophylaxis-on Eliquis Exam Data for Last 24 hours Vital signs and Labs for Last 24 Hours: Temp Pulse Resp BP Pulse Ox O2 Del Method O2 Flow Rate 98.0 F 91 H 18 115/56 L 94 L Nasal Cannula 2 07/20/23 11:28 07/20/23 11:28 07/20/23 11:28 07/20/23 11:28 07/20/23 11:28 07/20/23 12:14 07/20/23 12:14 Laboratory Results - last 24 hr 07/19/23 16:11: POC Glucose 219 H 07/19/23 20:02: POC Glucose 185 H 07/20/23 05:12: POC Glucose 206 H 07/20/23 06:08: WBC 6.0 D, RBC 4.62, Hgb 13.4, Hct 43.6, MCV 94.5, MCH 29.0, MCHC 30.7 L, RDW 15.3, Plt Count 207, MPV 9.6, Neut % (Auto) 76.5, Lymph % (Auto) 19.1, [place] % (Auto) 3.6, Eos % (Auto) 0.1, Baso % (Auto) 0.7, Neut # (Auto) 4.6, Lymph # (Auto) 1.1, [place] # (Auto) 0.2, Eos # (Auto) 0.0, Baso # (Auto) 0.0, Sodium 132 L, Potassium 4.3, Chloride 99, Carbon Dioxide 24, Anion Gap 13.3, BUN 33 H D, Creatinine 1.20 H, Estimated Creat Clear 58, Estimated GFR 44 L, Est GFR ( Amer) 53 L, Glucose 200 H, Calcium 9.1 07/20/23 10:28: POC Glucose 274 H I & O for Last 24 hours: Intake & Output 07/17/23 07/18/23 07/19/23 07/20/23 23:59 23:59 23:59 23:59 Intake Total 480 / 600 990 / 1210 700 / 700 Output Total 200 / 200 0 / 0 0 / 0 Balance 280 / 400 990 / 1210 700 / 700 Weight 93.509 kg 93.509 kg 87.572 kg Constitutional Constitutional: no acute distress *Routine HEENT Exam Head: Present normocephalic Eye: Present EOMI and PERRL ENT: Present mucous membranes moist *Routine Neck Exam Neck: Present supple; Absent lymphadenopathy *Routine Respiratory Exam Respiratory: Present CTA bilaterally *Routine Cardiovascular Exam Cardiovascular: Present RRR *Routine Abdominal Exam Abdominal: Present soft and normoactive bowel sounds; Absent tenderness *Routine Extremities Exam Extremities: Absent cyanosis, clubbing or edema *Routine Skin Exam Skin: Present warm; Absent rash *Routine Neurological Exam Neurological: Present alert and oriented X3 Results Data Completed and Pending Labs on day of discharge: Labs from last 24 hours 07/20/23 07/20/23 07/20/23 10:28 06:08 05:12 WBC 6.0 D RBC 4.62 Hgb 13.4 Hct 43.6 MCV 94.5 MCH 29.0 MCHC 30.7 L RDW 15.3 Plt Count 207 MPV 9.6 Neut % (Auto) 76.5 Lymph % (Auto) 19.1 [place] % (Auto) 3.6 Eos % (Auto) 0.1 Baso % (Auto) 0.7 Neut # (Auto) 4.6 Lymph # (Auto) 1.1 [place] # (Auto) 0.2 Eos # (Auto) 0.0 Baso # (Auto) 0.0 Sodium 132 L Potassium 4.3 Chloride 99 Carbon Dioxide 24 Anion Gap 13.3 BUN 33 H D Creatinine 1.20 H Estimated Creat Clear 58 Estimated GFR 44 L Est GFR ( Amer) 53 L Glucose 200 H POC Glucose 274 H 206 H Calcium 9.1 07/19/23 07/19/23 20:02 16:11 WBC RBC Hgb Hct MCV MCH MCHC RDW Plt Count MPV Neut % (Auto) Lymph % (Auto) [place] % (Auto) Eos % (Auto) Baso % (Auto) Neut # (Auto) Lymph # (Auto) [place] # (Auto) Eos # (Auto) Baso # (Auto) Sodium Potassium Chloride Carbon Dioxide Anion Gap BUN Creatinine Estimated Creat Clear Estimated GFR Est GFR ( Amer) Glucose POC Glucose 185 H 219 H Calcium DS: Diagnosis Discharge Diagnosis (1) COPD with acute exacerbation: Status: Acute Code(s): J44.1 - Chronic obstructive pulmonary disease with (acute) exacerbation (2) Acute and chronic respiratory failure with hypoxia: Status: Acute Code(s): J96.21 - Acute and chronic respiratory failure with hypoxia (3) Pneumonia: Status: Resolved Code(s): J18.9 - Pneumonia, unspecified organism Qualifiers: Laterality: right Lung location: lower lobe of lung Meds Home Medications and Allergies Home Medications Medication Instructions Recorded Confirmed Type albuterol sulfate 90 mcg/actuation 1 - 2 puffs inhalation Q4-6H PRN 01/08/19 07/18/23 Rx aerosol inhaler Shortness Of Breath Or Wheezing #1 inh omega 4-vkd-rfw-fish oil 1,000 mg 2,000 mg PO DAILY Cholesterol 06/19/19 07/19/23 History (120 mg-180 mg) capsule ipratropium 0.5 mg-albuterol 3 mg 3 ml inhalation QIDP PRN Wheezing 06/21/19 07/18/23 Rx (2.5 mg base)/3 mL nebulization #120 neb soln atorvastatin 40 mg tablet 40 mg PO HS Cholesterol 12/08/21 07/18/23 History cholecalciferol (vitamin D3) 50 50 mcg PO DAILY Supplement 12/08/21 07/18/23 History mcg (2,000 unit) capsule lisinopril 20 mg tablet 20 mg PO DAILY Hypertension 12/08/21 07/18/23 History metoprolol tartrate 50 mg tablet 50 mg PO BID Hypertension 12/08/21 07/18/23 History budesonide 160 mcg-glycopyr 9 2 puff inhalation BID COPD 12/13/21 07/18/23 History mcg-formot 4.8 mcg/actuation HFA inhaler azithromycin 250 mg tablet 250 mg PO DAILY Infection 06/16/23 07/18/23 History prevention diltiazem HCl 240 mg 240 mg PO DAILY Hypertension 06/16/23 07/18/23 History capsule,extended release 24 hr furosemide 20 mg tablet 20 mg PO DAILY Edema 06/16/23 07/18/23 History metformin 750 mg tablet,extended 750 mg PO DAILY Diabetes 06/16/23 07/18/23 History release 24 hr montelukast 10 mg tablet 10 mg PO DAILY Inflammation 06/16/23 07/18/23 History zinc gluconate 50 mg tablet 50 mg PO DAILY Supplement 06/16/23 07/18/23 History apixaban 5 mg tablet (Eliquis) 5 mg PO BID 07/19/23 07/19/23 History empagliflozin 10 mg tablet 10 mg PO DAILY 30 days #30 tabs 07/20/23 Rx (Jardiance) levofloxacin 500 mg tablet 500 mg PO DAILY 5 days #5 tabs 07/20/23 Rx prednisone 50 mg tablet 50 mg PO DAILY 5 days #5 tabs 07/20/23 Rx New Prescriptions to Start Prescriptions: empagliflozin [Jardiance] Andrea,Tita levofloxacin Andrea,Irfan prednisone Andrea,Irfan Allergies Allergy/AdvReac Type Severity Reaction Status Date / Time No Known Allergies Allergy Verified 07/18/23 14:00 Discharge Plan Disposition Patient Disposition: Home, Self-Care Condition: Good Follow up Plan Follow up with: Matty Salinas MD [Staff Physician] - 08/01/23 9:30 am Rodney Presley MD [Physician] - 08/07/23 3:30 pm Tyrell Owens MD [Primary Care Provider] - Enter time for follow up Prescriptions/Medication Reconciliation: New Jardiance 10 mg Tablet 10 mg PO DAILY 30 Days Qty: 30 0RF prednisone 50 mg tablet 50 mg PO DAILY 5 Days Qty: 5 0RF levofloxacin 500 mg tablet 500 mg PO DAILY 5 Days Qty: 5 0RF Continued diltiazem HCl 240 mg capsule,extended release 24hr 240 mg PO DAILY furosemide 20 mg tablet 20 mg PO DAILY Patient Comments: TAKE ONE TABLET BY MOUTH EVERY DAY metformin 750 mg tablet extended release 24 hr 750 mg PO DAILY montelukast 10 mg tablet 10 mg PO DAILY zinc gluconate 50 mg Tablet 50 mg PO DAILY azithromycin 250 MG tablet 250 mg PO DAILY Hold Instructions: Resume after completing doxycycline course Rx Instructions: mon-wed-sun Eliquis 5 mg tablet 5 mg PO BID albuterol sulfate 18 GM HFA aerosol inhaler 1 - 2 puffs inhalation Q4-6H PRN (Reason: Shortness Of Breath Or Wheezing) Qty: 1 0RF omega 6-ufc-jru-fish oil 1,000 MG capsule 2,000 mg PO DAILY ipratropium-albuterol 3 ML solution for nebulization 3 ml inhalation QIDP PRN (Reason: Wheezing) Qty: 120 2RF atorvastatin 40 MG tablet 40 mg PO HS lisinopril 20 MG tablet 20 mg PO DAILY cholecalciferol (vitamin D3) 50 MCG capsule 50 mcg PO DAILY metoprolol tartrate 50 MG tablet 50 mg PO BID [id number]-anqceanc-wgukeyljma 10.7 GM HFA aerosol inhaler 2 puff IH BID Problem Reconciliation Problems Reviewed?: Yes Patient Discharge Instructions ACTIVITY: Ambulate as tolerated DIET: continue same diet Patient Instructions: DI for Chronic Obstructive Pulmonary Disease Providers Primary Care Provider: Tyrell Owens Admit Provider: Tita Mendez Attending Provider: Tita Mendez
--- NOTE | 2023-07-20 13:42 | HMH.PHAINT1 ---
Pharmacy Intervention Comments: DISCHARGE MEDICATION COUNSELING PROVIDED. DISCUSSED THE FOLLOWING NEW MEDICATIONS: -JARDIANCE (FOR HEART DISEASE, ALSO IMPACTS BLOOD SUGAR, TAKE WITH FOOD, UPSET STOMACH POSSIBLE, INCREASED RISK OF UTI/YEAST INFECTION) -LEVOFLOXACIN (ANTIBIOTIC, DAILY, TAKE WITH FOOD, N/V/D POSSIBLE) -PREDNISONE (STEROID, DAILY, TAKE IN THE MORNING WITH BREAKFAST, N/V/D POSSIBLE, CAN ELEVATE BLOOD SUGAR, INSOMNIA POSSIBLE IF TAKEN TOO LATE IN THE DAY). PATIENT STATES SHE WAS TOLD TO HOLD OFF ON TAKING THE JARDIANCE UNTIL SHE FOLLOWS UP WITH CARDIOLOGY, NO FURTHER QUESTIONS VERBALIZED AT THIS TIME.
[2023-07-20 15:30] LABS: C difficile Toxins AB, EIA Negative (Negative)
--- NOTE | 2023-07-20 15:55 | EXP.CARD.PN ---
Subjective Subjective Date: 07/20/23 Time: 15:55 Principal diagnosis: Pericardial effusion Interval history: Patient was seen earlier today, this is a late note. 72-year-old white female in bedside chair in no acute distress. No complaints and is anxious to go home. Exam Data for Last 24 hours Vital signs and Labs for Last 24 Hours: Temp Pulse Resp BP Pulse Ox O2 Del Method O2 Flow Rate 98.0 F 91 H 18 115/56 L 94 L Nasal Cannula 2 07/20/23 11:28 07/20/23 11:28 07/20/23 11:28 07/20/23 11:28 07/20/23 11:28 07/20/23 12:14 07/20/23 12:14 Laboratory Results - last 24 hr 07/19/23 05:38: C. difficile Toxin A&B Negative 07/19/23 16:11: POC Glucose 219 H 07/19/23 20:02: POC Glucose 185 H 07/20/23 05:12: POC Glucose 206 H 07/20/23 06:08: WBC 6.0 D, RBC 4.62, Hgb 13.4, Hct 43.6, MCV 94.5, MCH 29.0, MCHC 30.7 L, RDW 15.3, Plt Count 207, MPV 9.6, Neut % (Auto) 76.5, Lymph % (Auto) 19.1, Mcdowell % (Auto) 3.6, Eos % (Auto) 0.1, Baso % (Auto) 0.7, Neut # (Auto) 4.6, Lymph # (Auto) 1.1, Mcdowell # (Auto) 0.2, Eos # (Auto) 0.0, Baso # (Auto) 0.0, Sodium 132 L, Potassium 4.3, Chloride 99, Carbon Dioxide 24, Anion Gap 13.3, BUN 33 H D, Creatinine 1.20 H, Estimated Creat Clear 58, Estimated GFR 44 L, Est GFR ( Amer) 53 L, Glucose 200 H, Calcium 9.1 07/20/23 10:28: POC Glucose 274 H I & O for Last 24 hours: Intake & Output 07/18/23 07/19/23 07/20/23 07/21/23 11:59 11:59 11:59 11:59 Intake Total 840 / 840 1090 / 1090 240 / 240 Output Total 200 / 200 0 / 0 Balance 640 / 640 1090 / 1090 240 / 240 Weight 206 lb 2.433 oz 193 lb 1 oz *Routine Respiratory Exam Respiratory: Present CTA bilaterally *Routine Cardiovascular Exam Cardiovascular: Present RRR Progress Note: A&P Assessment and plan (1) COPD with acute exacerbation: Status: Acute (2) Acute and chronic respiratory failure with hypoxia: Status: Acute (3) Pneumonia: Status: Resolved Assessment and Plan Assessment and Plan for All Diagnoses:: 1. Acute hypoxic respiratory failure -Likely secondary to pneumonia and possible HFpEF with elevated BNP -Oxygen as needed -On antibiotics and steroid therapy along with pulmonary toiletry 2. Small pericardial effusion without evidence of tamponade -Limited echo today shows slight improvement with no evidence of tamponade -No need treatment at this time 3. History of atrial fibrillation -Continue Eliquis, diltiazem and beta-jose therapy 4. Diabetes mellitus 5. COPD with acute exacerbation -Treatment per pulmonary 6. HFpEF -Single dose of Lasix given on admission with subsequent AIRAM and decreased blood pressure. -Lasix and lisinopril subsequently discontinued -Continue to monitor renal function -Will add Jardiance 10 mg daily if patient able to tolerate. Previously developed diarrhea on it. -Renal function slightly improved today. Stable from a cardiac standpoint for discharge home. Medication recommendations: Eliquis 5 mg twice daily Atorvastatin 40 mg daily Metoprolol 50 mg twice daily Diltiazem ER 240 mg daily Jardiance 10 mg daily if she can tolerate it Lasix 20 mg daily as needed Lisinopril 20 mg daily Follow-up in our office in 1 to 2 weeks.
--- NOTE | 2023-07-24 14:00 | CARE MANAGER ---
Contacted patient related to hospital discharge. She states she is tired, but is ok. Patient states that she is aware of follow up appointments. Denies questions or concerns.
== END 2023-07-20 14:36 | disposition home or self-care (01) ==
PROVIDERS: Admitting Provider Internal Medicine; PCP Internal Medicine Adolescent Medicine; Visit Provider Internal Medicine
DX: J44.1 Chronic obstructive pulmonary disease with (acute) exacerbation (principal); J96.01 Acute respiratory failure with hypoxia; E11.9 Type 2 diabetes mellitus without complications; I48.3 Typical atrial flutter; J96.21 Acute and chronic respiratory failure with hypoxia; J18.9 Pneumonia, unspecified organism; I48.91 Unspecified atrial fibrillation; I31.39 Other pericardial effusion (noninflammatory); I50.30 Unspecified diastolic (congestive) heart failure; R19.7 Diarrhea, unspecified
CPT/HCPCS: G0379; 36415; 71275; 80048; 82962; 83880; 85025; 87070; 87116; 87186; 87205; 87206; 87220; 87324; 93005; 93308; 94640; 94761; G0378; J1956; Q9967

== ENCOUNTER 2023-08-17 07:03 | Outpatient (CLI) | payer MEDICARE, MEDICAID, SELFPAY ==
--- NOTE | 2023-08-17 | CA_ITS ---
APPROVED REPORT Exam: Pharmacologic Technologist: Adia Rousseau, Ht: 5 ft 7 in Wt: 196 lbs BSA: 2.00 m2 HR: 96 bpm BP: 126/54 mmHg Rhythm: AFIB, CONTROLLED V.RATE, LOW VOLTAGE QRS Indications: CP, ABN EKG Medical History Medical History: HTN, Hyperlipidemia, Diabetes, Smoking Medications: Lisinopril,,,,, Metoprolol,,,,, Metformin,,,,, Atorvastatin,,,,, Duoneb,,,,, Albuterol,,,,, Montelukast,,,,, Vit D3,,,,, Prednisone,,,,, DilTiazem,,,,, Levofloxacin,,,,, Apixaban,,,,, Allergies: No known drug allergies Cardiac Risk Factors: HTN, Hyperlipidemia, FHX of CAD, Diabetes , Smoking Stress Test Details Test: LEXISCAN HR Resting HR: 88 bpm Max Heart Rate (APMHR): 147 bpm Max HR Achieved: 105 bpm Target HR (85% APMHR): 125 bpm % of APMHR: 71 Recovery HR: 97 bpm BP Resting BP: 126/54 mmHg Max BP: 133/66 mmHg Recovery BP: 129.0/66.0 mmHg ECG Resting ECG: A-fib, controlled ventricular rate, low voltage in precordial leads Stress ECG: No ST changes Arrhythmia: Occasional PVCs Clinical Exercise duration: 04:01 min Highest Stage Achieved: Exercise capacity: 1.0 METs Stress ECG Conclusion PT HAD SOA AND HEAD DISCOMFORT NO CP OCCASIONAL PVCS NO SIGNIFICANT ST CHANGES UNREMARKABLE LEXICSAN STRESS MYOVIEW IMAGES REPORTED SEPARATELY Test Summary REST 06:57 . . 88 . 126/ 54 . . Stage 1 01:00 . . 97 . . . . Stage 2 01:00 . . 85 . 132/ 63 . . Stage 3 01:00 . . 99 . 122/ 64 . . Stage 4 01:00 . . 89 . 129/ 70 . . Stage 4 01:01 . . 89 . 129/ 70 . Stop exercise at 04:01 RECOVERY 01:00 . . 89 . . . . RECOVERY 02:00 . . 96 . . . . RECOVERY 03:00 . . 88 . 133/ 66 . . RECOVERY 04:00 . . 83 . 129/ 66 . . RECOVERY 04:24 . . 95 . 129/ 66 . . Electronically signed by : Juliane Gastelum MD 08/20/2023 10:47:25
--- NOTE | 2023-08-17 07:07 | NM_ITS ---
APPROVED REPORT Exam: Nuclear Stress Test Indication: Chest pain, SOB, Fatigue, Abnormal EKG, HTN, DM, High cholesterol, Family history Patient Location: Outpatient Stress Tech: Adia Rousseau MD Tech:Shauna LiSAVANNA RT(R)(N) Ht: 5 ft 7 in Wt: 199 lbs Bra Size: 44B HR: 88 bpm BP: 126/54 mmHg BSA: 2.02 m2 TID: 1.09 BMI: 31.1 History: Chest pain, SOB, Fatigue, Abnormal EKG, HTN, DM, High cholesterol, Family history Procedure: Patient received 0.4 mg of intravenous Lexiscan, resting heart rate 88 bpm, resting blood pressure 126/54 mmHg, with Lexiscan maximum heart rate achieved was 105 bpm which is % of the maximum predicted heart rate and blood pressure was 133/66 mmHg. With Lexiscan, patient denied any complaint of chest pain. Cardiac Stress and Resting SPECT Images: Cardiac Stress and Resting SPECT images were obtained using technetium 99m Myoview 32.5 mCi stress and 10.95 mCi at rest. Resting and stress imaging in supine and prone positions demonstrate no evidence of fixed or reversible perfusion defect. Gated imaging demonstrates normal global and regional LV systolic function. LVEF is calculated at 67%. Conclusion: No evidence of fixed or reversible perfusion defect. Gated imaging demonstrates normal global and regional LV systolic function. LVEF is calculated at 67%. Electronically signed by : Juliane Gastelum MD 08/22/2023 12:55:54
--- NOTE | 2023-08-17 07:10 | CA_ITS ---
APPROVED REPORT EXAM: Limited 2D Echocardiogram Supervisor Long Goods: Debra Hodge CRT Ht: 5 ft 7 in Wt: 196lbs BSA: 2.00 BP: 147/69 mmHg Indications: PERICARDIAL EFFUSION CHECK 0.7 CM ON ECHO 07/18/23 Other Information Study Quality: Technically Difficult Conclusion This is a limited TTE to evaluate for pericardial effusion. Limited windows were obtained. Technically difficult study. There is a small sized, anterior pericardial effusion present. The largest pocket measures 0.4 cm in diastole. No evidence of chamber collapse. No echo indications of tamponade. Compared to prior study from 07/20/2023, the pericardial effusion appears slightly improved. Electronically signed by : Juliane Gastelum MD 08/20/2023 01:07:55
[2023-08-17] MEDS: REGADENOSON 0.4MG/5ML SYRINGE 0.400000000000000022 MG IV (11:08)
[2023-08-17] MEDS: SODIUM CHLORIDE 0.9% 10ML SYR (RAD ONLY) 10 ML IV ×2 (11:09)
[2023-08-17] MEDS: ISOTOPE MYOVIEW (PER STUDY) 1 DOSE IV (11:09)
== END 2023-08-17 23:59 ==
LOC: RAD 07:04
PROVIDERS: PCP Internal Medicine Adolescent Medicine; Visit Provider Nurse Practitioner Family
DX: R06.00 Dyspnea, unspecified (principal); I50.30 Unspecified diastolic (congestive) heart failure; I31.39 Other pericardial effusion (noninflammatory); I10 Essential (primary) hypertension; E11.9 Type 2 diabetes mellitus without complications; Z79.84 Long term (current) use of oral hypoglycemic drugs
CPT/HCPCS: 78452; 93017; 93018; 93308; A9502; J2785

== ENCOUNTER 2023-08-29 09:54 | Outpatient (CLI) | payer MEDICARE, MEDICAID, SELFPAY | END 2023-08-29 23:59 | LOC: RT 09:55 | PROVIDERS: PCP Internal Medicine Adolescent Medicine; Visit Provider Physician Assistant | DX: I48.91 Unspecified atrial fibrillation (principal) | CPT/HCPCS: 93225 ==

== ENCOUNTER 2023-09-01 10:13 | Inpatient (IN) | payer MEDICARE, MEDICAID, SELFPAY ==
[2023-09-01] VITALS (19 sets, daily range): BP systolic 95–188; BP diastolic 50–83; PULSE 77–158; RESP 19–29; TEMP 36.6–36.9; O2SAT 93–100; BMI 32.1; BMI 32.3
--- NOTE | 2023-09-01 10:09 | ECG_ITS ---
APPROVED REPORT Exam: Resting ECG HR:153 bpm ECG Measurements Heart Rate 153 AXES QRSd 69 QRS 83 QT 214 T 0 QTc 300 Conclusion ATRIAL FIBRILLATION WITH RAPID VENTRICULAR RESPONSE Electronically signed by : THUY VALERA, 09/01/2023 15:26:59
[2023-09-01 10:27] LABS: Chloride 102 mmol/L (98-107)
[2023-09-01 10:28] LABS: Potassium 4.6 mmoL/L (3.5-5.1); Sodium 134 mmol/L (136-145)
[2023-09-01 10:30] LABS: Alanine Aminotransferase 51 U/L (12-78); Albumin Level 3.6 g/dl (3.5-5.0); Albumin/Globulin Ratio 1.3 (1.1-1.8); Alkaline Phosphatase 109 U/L (38-126); Anion Gap 9.6 mEq/L (5-15); Aspartate Amino Transferase 47 U/L (14-36); Blood Urea Nitrogen 12 mg/dl (7-17); Carbon Dioxide 27 mmol/L (22.0-30.0); Estimated Glomerular Filt Rate 82 ml/min (>60); GFR (African American) 99 ML/MIN (>60); Globulin 2.8 g/dL (1.3-3.2); Total Protein,Serum 6.4 g/dl (6.3-8.2)
--- NOTE | 2023-09-01 10:30 | XR_ITS ---
PROCEDURE INFORMATION: Exam: XR Chest Exam date and time: 09/01/2023 10:29 AM Age: 72 years old Clinical indication: Shortness of breath; Additional info: Copd exacerbation, cf lll pna TECHNIQUE: Imaging protocol: Radiologic exam of the chest. Views: 2 views. COMPARISON: CT ANGIO CHEST PE PROTOCOL 07/18/2023 7:32 PM FINDINGS: Lungs: Unremarkable. No consolidation. Pleural spaces: Unremarkable. No pleural effusion. No pneumothorax. Heart/Mediastinum: Unremarkable. No cardiomegaly. Bones/joints: Unremarkable. IMPRESSION: No acute findings.
[2023-09-01 10:31] LABS: Calcium 9.2 mg/dl (8.4-10.2); Glucose 225 mg/dl (74-100)
[2023-09-01 10:33] LABS: VBG Base Excess -4.5 mmol/L (-2.4-2.3); VBG HCO3 21.3 mmol/L (23-30); VBG Oxygen Saturation 96.6 % (50-70); VBG PH 7.33 mmol/L (7.31-7.41); VBG PO2 95.1 mmol/L (28-40); VBG Total CO2 22.6 mmol/L (23-27)
[2023-09-01 10:34] LABS: Lactate Venous 2.3 mmol/L (0.4-2.0)
[2023-09-01 10:35] LABS: Basophils # 0.1 K/mm3 (0-0.2); Basophils % 0.8 % (0.1-2.0); Eosinophils # 0.5 K/mm3 (0.0-0.4); Eosinophils % 5.8 % (0.1-12.0); Hematocrit 39.4 % (37.0-47.0); Hemoglobin 12.2 g/dL (12.2-16.2); Lymphocytes # 0.3 K/mm3 (0.7-4.5); Lymphocytes % 2.6 % (10-50); Mean Corpuscular HGB Conc 30.9 g/dL (31.8-35.4); Mean Corpuscular Volume 93.7 fl (81-99); Mean Platelet Volume 8.9 fl (7.4-10.4); Monocytes # 0.4 K/mm3 (0.1-1.0); Monocytes % 3.7 % (1.7-9.3); Neutrophils # 8.2 K/mm3 (1.8-7.8); Platelet Count 209 K/mm3 (142-424); Red Blood Count 4.21 M/mm3 (4.20-5.40); Red Cell Distribution Width 15.9 % (11.5-17.5); White Blood Count 9.4 K/mm3 (4.8-10.8)
[2023-09-01 10:40] LABS: NT Pro Brain Natriuretic Pep. 2980 pg/mL (0-125)
[2023-09-01 10:43] LABS: Troponin I 0.03 ng/ml (0.00-0.034)
--- NOTE | 2023-09-01 10:43 | PC.NURSE ---
patient back in room at this time.
[2023-09-01 10:45] LABS: MANUAL DIFFERENTIAL MANUAL DIFFERENTIAL (MANUAL DIFF)
--- NOTE | 2023-09-01 10:54 | [facility].EDCP ---
Discharge Plan Disposition Patient Disposition: Admitted Chief Complaint: Shortness of Breath/Dyspnea Prescriptions Prescriptions: No Action Jardiance 10 mg tablet 10 mg PO DAILY Qty: 30 3RF diltiazem HCl 240 mg capsule,extended release 24hr 240 mg PO DAILY furosemide 20 mg tablet 20 mg PO DAILY Patient Comments: TAKE ONE TABLET BY MOUTH EVERY DAY metformin 750 mg tablet extended release 24 hr 750 mg PO DAILY montelukast 10 mg tablet 10 mg PO DAILY zinc gluconate 50 mg Tablet 50 mg PO DAILY Eliquis 5 mg tablet 5 mg PO BID albuterol sulfate 18 GM HFA aerosol inhaler 1 - 2 puffs inhalation Q4-6H PRN (Reason: Shortness Of Breath Or Wheezing) Qty: 1 0RF omega 5-bda-vkb-fish oil 1,000 MG capsule 2,000 mg PO DAILY ipratropium-albuterol 3 ML solution for nebulization 3 ml inhalation QIDP PRN (Reason: Wheezing) Qty: 120 2RF atorvastatin 40 MG tablet 40 mg PO HS lisinopril 20 MG tablet 20 mg PO DAILY cholecalciferol (vitamin D3) 50 MCG capsule 50 mcg PO DAILY metoprolol tartrate 50 MG tablet 50 mg PO BID vktbwujqhf-csmlpoys-krcmygotol 10.7 GM HFA aerosol inhaler 2 puff IH BID Clinical Impressions Clinical Impression: CHF exacerbation, Atrial fibrillation with RVR Discharge ED Provider: Peter Stanton HPI General Chief Complaint: Shortness of Breath/Dyspnea Stated Complaint: rapid heart rate, shortness of breath Time Seen by Provider: 09/01/23 10:19 Mode of Arrival: Wheelchair Source of Information: Patient Limitations: No Limitations Description of Symptoms (Recalled from ER Triage Doc. by RN): pt presents to ED from dr adamson office for further evaluation. per pt report she began to have shortness of breath that got worse over the night. pt is 85% on room air and does have a high heart rate upon assessment. pt does have history of copd and afib. History of Present Illness HPI narrative: Is a 72-year-old female history of COPD not currently on home oxygen, a febrile Eliquis, CHF, ACS diabetes, presenting with shortness of breath. Has been getting worse for the past 24 hours or so. Made worse with exertion, better with rest. Patient has not been having chest pain, fevers or chills, nausea or vomiting. She does not usually have cough with her COPD, has been coughing up yellow sputum and in large amounts. No sick contact she know of Please note that above description of symptoms, in this electronic medical record under categorization of recalled from ER triage doctor by RN are reflective of an initial nursing assessment, however, is not reflective of my full history and physical exam that was personally taken and clarified. Consequentially, this preceding description of symptoms, which may include the patient's categorized chief complaint in the EMR, do not reflect my personal clinical impression, and the ultimate description of history of present illness and patient stated complaints should be deferred to this section of the note. Unless stated otherwise or congruent with this section of the note, additional signs, symptoms, or incongruence should be interpreted as inaccurate with my clinical impression. Related Data Home Medications Medication Instructions Recorded Confirmed omega 6-kxl-psa-fish oil 1,000 mg 2,000 mg PO DAILY Cholesterol 06/19/19 09/01/23 (120 mg-180 mg) capsule atorvastatin 40 mg tablet 40 mg PO HS Cholesterol 12/08/21 09/01/23 cholecalciferol (vitamin D3) 50 50 mcg PO DAILY Supplement 12/08/21 09/01/23 mcg (2,000 unit) capsule lisinopril 20 mg tablet 20 mg PO DAILY Hypertension 12/08/21 09/01/23 metoprolol tartrate 50 mg tablet 50 mg PO BID Hypertension 12/08/21 09/01/23 budesonide 160 mcg-glycopyr 9 2 puff inhalation BID COPD 12/13/21 09/01/23 mcg-formot 4.8 mcg/actuation HFA inhaler diltiazem HCl 240 mg 240 mg PO DAILY Hypertension 06/16/23 09/01/23 capsule,extended release 24 hr furosemide 20 mg tablet 20 mg PO DAILY Edema 06/16/23 09/01/23 metformin 750 mg tablet,extended 750 mg PO DAILY Diabetes 06/16/23 09/01/23 release 24 hr montelukast 10 mg tablet 10 mg PO DAILY Inflammation 06/16/23 09/01/23 zinc gluconate 50 mg tablet 50 mg PO DAILY Supplement 06/16/23 09/01/23 apixaban 5 mg tablet (Eliquis) 5 mg PO BID 07/19/23 09/01/23 Previous Rx's Medication Instructions Recorded albuterol sulfate 90 mcg/actuation 1 - 2 puffs inhalation Q4-6H PRN 01/08/19 aerosol inhaler Shortness Of Breath Or Wheezing #1 inh ipratropium 0.5 mg-albuterol 3 mg 3 ml inhalation QIDP PRN Wheezing 06/21/19 (2.5 mg base)/3 mL nebulization #120 neb soln empagliflozin 10 mg tablet 10 mg PO DAILY #30 tabs 08/01/23 (Jardiance) Allergies Allergy/AdvReac Type Severity Reaction Status Date / Time No Known Allergies Allergy Verified 09/01/23 10:41 [facility] Disclaimer: The information contained in this section may have been updated after the patient was seen, as this information can be updated by other users. Medical History Hypoxia Abnormal electrocardiogram [ECG] [EKG] Hypertension Chest pain Acute and chronic respiratory failure with hypoxia Afib Tachycardia Acute respiratory failure with hypoxia Osteoarthritis HTN (hypertension) HLD (hyperlipidemia) Diabetes type 2, controlled COPD (chronic obstructive pulmonary disease) Surgical History History of phacoemulsification of cataract of both eyes with intraocular lens implantation History of bilateral tubal ligation Family History Other Coronary artery disease Hypertension Social History Smoking Status: Former smoker tobacco type: cigarettes packs per day: 1 second hand exposure: No alcohol intake: never current occupational status: retired and disabled Travel in the last 8 weeks: None household members: none housing: apartment caffeine: Yes ROS Obtained: Yes All systems reviewed & no additional complaints except as documented Physical Exam General General appearance: alert and in distress (Respiratory) Head Head exam: atraumatic and normocephalic Eye Eye exam: Present normal appearance, PERRL and EOMI ENT ENT exam: Present mucous membranes moist Neck Neck exam: Present normal inspection, full ROM and trachea midline Chest Chest inspection: Present normal inspection and symmetric chest wall rise Respiratory Respiratory exam: Present wheezes (Bilaterally, worse on left), accessory muscle use, prolonged expiratory phase and other (2 L nasal cannula in place, not on ox at home); Absent respiratory distress or stridor Cardiovascular Cardiovascular exam: Present tachycardia and irregular rhythm Abdominal Exam Abdominal exam: Present soft; Absent distention, tenderness, guarding, rebound or rigidity Extremities Exam Extremities exam: Present edema Neurological Exam Neurological exam: Present alert, oriented X3, CN II-XII intact and normal gait; Absent motor sensory deficit Skin Skin exam: Present warm and dry; Absent diaphoresis or erythema HEART Score HEART Score HEART Score assessment performed?: Yes History (anamnesis): Moderately suspicious ECG: Non-specific disturbance Age: >65 years Risk factors: 3 or more risk factors Troponin: 1-3x normal limit HEART Score: 7 Critical Care Critical Care Time Critical Care Time: No Medical Decision Making Medical Records Medical records reviewed: Yes I reviewed the patient's medical records. Nii Inquiry Pt receiving controlled substance: No Nii was queried for this patient: No Vital Signs Vital Signs: 09/01/23 10:13 09/01/23 11:01 09/01/23 11:31 Temperature 97.9 F Temperature Source Oral Pulse Rate 128 H 158 H Pulse Rate [Left Radial] 155 H Respiratory Rate 19 28 H 29 H Blood Pressure 122/56 L 148/81 H Blood Pressure [Right Arm] 188/68 H Blood Pressure Mean [Right Arm] 108 02 Sat by Pulse Oximetry 93 L 98 96 Oxygen Delivery Method Nasal Cannula Nasal Cannula Room Air Oxygen Flow Rate (LPM) 2 2 09/01/23 12:01 09/01/23 12:42 09/01/23 13:00 Temperature Temperature Source Pulse Rate 77 111 H 105 H Pulse Rate [Left Radial] Respiratory Rate 24 23 27 H Blood Pressure 95/50 L 118/52 L 129/65 Blood Pressure [Right Arm] Blood Pressure Mean [Right Arm] 02 Sat by Pulse Oximetry 95 96 96 Oxygen Delivery Method Room Air Oxygen Flow Rate (LPM) 09/01/23 13:30 Temperature Temperature Source Pulse Rate Pulse Rate [Left Radial] Respiratory Rate 22 Blood Pressure 117/58 L Blood Pressure [Right Arm] Blood Pressure Mean [Right Arm] 02 Sat by Pulse Oximetry Oxygen Delivery Method Oxygen Flow Rate (LPM) Lab Data Labs: Lab Results 09/01/23 10:16: WBC 9.4, RBC 4.21, Hgb 12.2, Hct 39.4, MCV 93.7, MCH 29.0, MCHC 30.9 L, RDW 15.9, Plt Count 209, MPV 8.9, Neut % (Auto) 87.0 H, Lymph % (Auto) 2.6 L, Cobb % (Auto) 3.7, Eos % (Auto) 5.8, Baso % (Auto) 0.8, Neut # (Auto) 8.2 H, Lymph # (Auto) 0.3 L, Cobb # (Auto) 0.4, Eos # (Auto) 0.5 H, Baso # (Auto) 0.1, Total Counted 100, Neutrophils % (Manual) 86 H, Lymphocytes % (Manual) 5 L, Monocytes % (Manual) 3, Eosinophils % (Manual) 6 H, Platelet Estimate Normal, RBC Morphology Normal, Sodium 134 L, Potassium 4.6, Chloride 102, Carbon Dioxide 27, Anion Gap 9.6, BUN 12, Creatinine 0.70, Estimated GFR 82, Est GFR ( Amer) 99, Glucose 225 H, Calcium 9.2, Total Bilirubin 1.0, AST 47 H, ALT 51, Alkaline Phosphatase 109, Troponin I 0.03, NT-Pro-B Natriuret Pep 2980 H, Total Protein 6.4, Albumin 3.6, Globulin 2.8, Albumin/Globulin Ratio 1.3 09/01/23 10:23: VBG pH 7.33, VBG pCO2 41.0, VBG pO2 95.1 H, VBG HCO3 21.3 L, VBG Total CO2 22.6 L, VBG O2 Saturation 96.6 H, VBG Base Excess -4.5 L, VBG Lactic Acid 2.3 H 09/01/23 13:06: Troponin I 0.04 H 09/01/23 10:16 09/01/23 10:16 Response Orders (Tests/Meds): ED MEDICATIONS Generic Name Dose Route Start Last Admin Trade Name Freq PRN Reason Stop Dose Admin Apixaban 5 mg 09/01/23 21:00 Apixaban 5mg Tablet PO 10/01/23 20:59 BID AMANDA Atorvastatin Calcium 40 mg 09/01/23 21:00 Atorvastatin 40mg Tablet PO 10/01/23 20:59 HS AMANDA Diltiazem HCl 240 mg 09/02/23 09:00 Diltiazem Er 240mg Capsule PO 10/02/23 08:59 DAILY AMANDA Empagliflozin 10 mg 09/02/23 09:00 Empagliflozin 10mg Tablet PO 05/14/24 08:59 DAILY AMANDA Furosemide 40 mg 09/01/23 14:00 Furosemide 40mg/4ml Vial IV 09/01/23 14:01 ONCE ONE Ipratropium [place] 0.5 mg 09/01/23 18:00 Ipratropium [place] 0.5 Mg/2.5ml Solution 10/01/23 17:59 Q6RT [facility] Levalbuterol HCl 1.25 mg 09/01/23 18:00 Levalbuterol 1.25mg/3ml Neb 10/01/23 17:59 Q6RT [facility] Metoprolol Tartrate 100 mg 09/01/23 21:00 Metoprolol Tartrate 50mg Tablet PO 10/01/23 20:59 BID AMANDA Montelukast Sodium 10 mg 09/02/23 09:00 Montelukast Sodium 10mg Tab PO 10/02/23 08:59 DAILY AMANDA Non-Formulary Medication 750 mg 09/02/23 09:00 Metformin PO 10/02/23 08:59 DAILY [facility] Non-Formulary Medication 2 puff 09/01/23 21:00 Dxfsprulln-Gfhrumiq-Buqkcwigqx 10/01/23 20:59 BID [facility] Prednisone 40 mg 09/02/23 09:00 Prednisone 20mg Tab PO 10/02/23 08:59 DAILY [facility] Discontinued Medications Generic Name Dose Route Start Last Admin Trade Name Freq PRN Reason Stop Dose Admin Albuterol/Ipratropium 9 ml 09/01/23 10:29 09/01/23 11:08 Ipratropium/Albuterol 3 Ml [facility] 09/01/23 10:30 9 ml ONCE ONE Administration Diltiazem HCl 20 mg 09/01/23 12:00 09/01/23 12:04 Diltiazem 25mg/5ml Vial IV 09/01/23 12:01 20 mg ONCE ONE Administration Diltiazem HCl 180 mg 09/01/23 11:55 09/01/23 12:04 Diltiazem Hcl 180mg Cap.Er.24h PO 09/01/23 11:56 180 mg ONCE ONE Administration Diltiazem HCl 25 mg 09/01/23 12:27 09/01/23 12:44 Diltiazem 25mg/5ml Vial IV 09/01/23 12:28 25 mg ONCE ONE Administration Furosemide 40 mg 09/01/23 11:48 09/01/23 12:04 Furosemide 40mg/4ml Vial IV 09/01/23 11:49 40 mg ONCE ONE Administration Ceftriaxone Sodium 2 gm/ 100 mls @ 200 mls/hr 09/01/23 12:29 09/01/23 12:43 Sodium Chloride IV 09/01/23 12:58 200 mls/hr ONCE ONE Administration Methylprednisolone Sodium Succinate 125 mg 09/01/23 10:29 09/01/23 11:08 Methylprednisolone Sod Succ 125mg Vial IV 09/01/23 10:30 125 mg ONCE ONE Administration ORDERS Category Date Time Status CXR 2 view (NOT portable) [XR chest 2V] Stat Exams 09/01/23 10:30 Completed CBC w/Auto Diff [Complete Blood Count Auto Diff] Stat Lab 09/01/23 10:16 Completed CMP [Comprehensive Metabolic Panel] Stat Lab 09/01/23 10:16 Completed Complete Blood Count Auto Diff [facility] Lab 09/02/23 06:00 Ordered Comprehensive Metabolic Panel [facility] Lab 09/02/23 06:00 Ordered Magnesium [facility] Lab 09/02/23 06:00 Ordered NT Pro Brain Natriuretic Pep. Stat Lab 09/01/23 10:16 Completed Trop I [Troponin I] Stat Lab 09/01/23 10:16 Completed Troponin I Q3H Lab 09/01/23 13:06 Completed Troponin I Q3H Lab 09/01/23 16:30 Ordered VBG [Venous Blood Gas] Stat RT 09/01/23 10:23 Completed MDM Narrative Medical Decision Narrative: Is a 72-year-old female history of COPD not currently on home oxygen, a febrile Eliquis, CHF, ACS diabetes, presenting with shortness of breath. Has been getting worse for the past 24 hours or so. Made worse with exertion, better with rest. Patient has not been having chest pain, fevers or chills, nausea or vomiting. She does not usually have cough with her COPD, has been coughing up yellow sputum and in large amounts. No sick contact she know of. History was obtained via conversation with. On arrival, patient hemodynamically stable, alert, oriented x4, appropriate, GCS 15, moving all extremities spontaneously, pupils equal and reactive to light. Full physical exam performed and significant for 72-year-old female who is in moderate respiratory distress. Breathing through pursed lips, prolonged expiratory phase, bilateral wheezes, worse on the left. Cardiac exam notable for irregularly irregular rhythm and tachycardia concerning for A-fib with RVR. Lower extremities are swollen, left greater than right, which is chronic per patient. Pulses are equal and symmetric. Differential includes COPD exacerbation, microvascular coronary artery disease, CHF, ACS, MO, coronary artery dissection, pneumothorax, PE, dissection, pericarditis, myocarditis, pneumothorax, aortic aneurysm, pneumonia, bronchitis, among others. Patient was given DuoNeb, Solu-Medrol, aspirin for symptomatic management and correction of underlying abnormalities. Workup independently interpreted and significant for nonactionable CBC. VBG nonactionable. Lactate 2.3. chemistry nonactionable, initial troponin 0.03, BNP almost 3000. Chest x-ray without acute cardiopulmonary airspace disease. See radiology read for full review of final results. Independent interpretation of EKG shows A-fib with RVR with T wave inversions to 3 and aVF without reciprocal change. [place] normal. Patient placed on continuous cardiac monitoring and continuous pulse ox with initial blood pressure 188/68, heart rate 155, saturation 93 on 2 L nasal cannula. Heart score 7. Patient was placed in observation beginning at 10 AM in order to rule out evolving MO with delta troponins, give meds and treatment, monitor and determine need for admission versus home-going. The patient was provided meds, monitoring while awaiting results. Independent interpretation of results demonstrated increase of delta troponin 25%. On reevaluation, patient still working hard to breathe, tachycardic. She was given 2 doses of diltiazem in the meantime. Repeat evaluation. At this time, I feel patient is appropriate admission. Total observation time 4 hours. On repeat evaluation, patient still feeling poorly, but feeling much better after DuoNebs. Heart rate still in the 150s. A-fib with RVR. Patient was given 20 mg IV diltiazem. Mild relief, but shortly thereafter became tachycardic again. Was given 25 mg IV diltiazem. Repeat EKG A-fib RVR [address] depressions in septal leads, but no reciprocal change. After second dose of diltiazem, patient's rate slowed to around 110 115 bpm. Given BNP, patient was given 40 mg IV Lasix. Hospital medicine was contacted and case was discussed at length, to be admitted for diuresis and medical tune up with possible cardiology consultation. Because patient high risk for clinical decompensation, deemed appropriate for inpatient admission. Results were relayed to patient who voiced understanding and patient was agreeable to inpatient admission and management. Patient was admitted to the hospital for further definitive management.
[2023-09-01 11:05] LABS: Eosinophils % 6 % (0-3); Lymphocytes % 5 % (10-50); Monocytes % 3 % (2-9); Neutrophils % 86 % (42-76); Platelet Estimate Normal; RBC Morphology Normal; Total Cells Counted 100
[2023-09-01] MEDS: IPRATROPIUM/ALBUTEROL 3 ML NEB 9 ML IH (11:08)
[2023-09-01] MEDS: METHYLPREDNISOLONE SOD SUCC 125MG VIAL 125 MG IV (11:08)
[2023-09-01] MEDS: dilTIAZem 25MG/5ML VIAL 20 MG IV (12:04)
[2023-09-01] MEDS: dilTIAZem HCL 180MG CAP.ER.24H 180 MG PO (12:04)
[2023-09-01] MEDS: FUROSEMIDE 40MG/4ML VIAL 40 MG IV ×2 (12:04→14:56)
--- NOTE | 2023-09-01 12:20 | ECG_ITS ---
APPROVED REPORT Exam: Resting ECG HR:128 bpm ECG Measurements Heart Rate 128 AXES QRSd 82 QRS 75 QT 318 T 46 QTc 394 Conclusion ATRIAL FIBRILLATION WITH RAPID VENTRICULAR RESPONSE MODERATE ST DEPRESSION Electronically signed by : THUY VALERA, 09/01/2023 15:27:28
[2023-09-01] MEDS: CEFTRIAXONE SODIUM 2 GM in 0.9 % SODIUM CHLORIDE 100 ML IV (12:43)
[2023-09-01] MEDS: dilTIAZem 25MG/5ML VIAL 25 MG IV (12:44)
--- NOTE | 2023-09-01 13:07 | PC.NURSE ---
second trop sent to lab
[2023-09-01 13:34] LABS: Troponin I 0.04 ng/ml (0.00-0.034)
--- NOTE | 2023-09-01 13:53 | PC.NURSE ---
call made to feed house supervisor for bed placement for pt admission. feed house supervisor reports busy with something, will call back in a moment
--- NOTE | 2023-09-01 14:12 | PC.NURSE ---
report called to lilo on second floor
--- NOTE | 2023-09-01 14:25 | PC.NURSE ---
Pt arrived to the floor at this time via w/c
[2023-09-01 14:34] LABS: Reflex Lactic Add Lactic Reflex
[2023-09-01 15:12] LABS: Lactic Acid Follow Up (RFLX 1) 4.1 mmol/L (0.7-2.1)
--- NOTE | 2023-09-01 16:14 | EXP.HP ---
History of Present Illness *Admission Date: 09/01/23 *Reason for visit:: weakness, SOA *History of present illness: Ms. Mcneill is a 72-year-old female with history of A-fib, COPD, obesity, hypertension, diabetes, heart failure with preserved ejection fraction. She presented to the ER because of complaint of worsening shortness of breath over the past 2 to 3 days. Denies any fever, nausea, vomiting, chest pain. No known sick contacts. 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 On arrival to the ER, concern for A-fib with RVR with heart rate in the 110-120 range, chest x-ray showing hyperinflation but no consolidation or airspace disease. White cell count normal with left shift. Significant work of breathing, placed on oxygen for comfort. Requiring 2 L at this time. Desats with ambulation. Responded for a brief period of time to nebulizer. Also found to have elevated BNP and significant lower extremity edema concerning for volume overload and CHF exacerbation. Medicine was consulted for admission and further management. Received dose of ceftriaxone prior to admission. On arrival and evaluation after arriving to the floor, patient appears in mild respiratory distress. Sats are in the low 90s on 2 L. Poor air movement on exam. Administering repeat nebulizer. Will obtain CTA of the chest. States she feels really short of breath after going to the bathroom and getting back in bed. Reports she has been having increased cough with yellow sputum production. Has had multiple episodes over the past 4 months of similar presentation both here and at other hospitals. Recently established with pulmonology. [facility] Disclaimer: The information contained in this section may have been updated after the patient was seen, as this information can be updated by other users. Medical History Hypoxia Abnormal electrocardiogram [ECG] [EKG] Hypertension Chest pain Acute and chronic respiratory failure with hypoxia Afib Tachycardia Acute respiratory failure with hypoxia Osteoarthritis HTN (hypertension) HLD (hyperlipidemia) Diabetes type 2, controlled COPD (chronic obstructive pulmonary disease) Surgical History History of phacoemulsification of cataract of both eyes with intraocular lens implantation History of bilateral tubal ligation Family History Coronary artery disease Hypertension Social History Smoking Status: Former smoker tobacco type: cigarettes packs per day: 1 second hand exposure: No alcohol intake: never current occupational status: retired and disabled Travel in the last 8 weeks: None household members: none housing: apartment caffeine: Yes Review of Systems Review of Systems Review of systems (narrative): 14 point review of systems performed, pertinent positives and negatives as per HPI Meds Home Medications and Allergies Home Medications Medication Instructions Recorded Confirmed Type albuterol sulfate 90 mcg/actuation 1 - 2 puffs inhalation Q4-6H PRN 01/08/19 09/01/23 Rx aerosol inhaler Shortness Of Breath Or Wheezing #1 inh omega 9-nos-jcx-fish oil 1,000 mg 2,000 mg PO DAILY Cholesterol 06/19/19 09/01/23 History (120 mg-180 mg) capsule ipratropium 0.5 mg-albuterol 3 mg 3 ml inhalation QIDP PRN Wheezing 06/21/19 09/01/23 Rx (2.5 mg base)/3 mL nebulization #120 neb soln atorvastatin 40 mg tablet 40 mg PO HS Cholesterol 12/08/21 09/01/23 History cholecalciferol (vitamin D3) 50 50 mcg PO DAILY Supplement 12/08/21 09/01/23 History mcg (2,000 unit) capsule lisinopril 20 mg tablet 20 mg PO DAILY Hypertension 12/08/21 09/01/23 History metoprolol tartrate 50 mg tablet 50 mg PO BID Hypertension 12/08/21 09/01/23 History budesonide 160 mcg-glycopyr 9 2 puff inhalation BID COPD 12/13/21 09/01/23 History mcg-formot 4.8 mcg/actuation HFA inhaler diltiazem HCl 240 mg 240 mg PO DAILY Hypertension 06/16/23 09/01/23 History capsule,extended release 24 hr furosemide 20 mg tablet 20 mg PO DAILY Edema 06/16/23 09/01/23 History metformin 750 mg tablet,extended 750 mg PO DAILY Diabetes 06/16/23 09/01/23 History release 24 hr montelukast 10 mg tablet 10 mg PO DAILY Inflammation 06/16/23 09/01/23 History zinc gluconate 50 mg tablet 50 mg PO DAILY Supplement 06/16/23 09/01/23 History apixaban 5 mg tablet (Eliquis) 5 mg PO BID 07/19/23 09/01/23 History empagliflozin 10 mg tablet 10 mg PO DAILY #30 tabs 08/01/23 09/01/23 Rx (Jardiance) New Prescriptions to Start Prescriptions: Allergies Allergy/AdvReac Type Severity Reaction Status Date / Time No Known Allergies Allergy Verified 09/01/23 10:41 Exam Data for Last 24 hours Vital signs and Labs for Last 24 Hours: Temp Pulse Resp BP Pulse Ox O2 Del Method O2 Flow Rate 98.2 F 113 H 24 131/64 93 L Nasal Cannula 2 09/01/23 14:45 09/01/23 14:45 09/01/23 14:45 09/01/23 14:45 09/01/23 14:45 09/01/23 15:00 09/01/23 15:00 Laboratory Results - last 24 hr 09/01/23 10:16: WBC 9.4, RBC 4.21, Hgb 12.2, Hct 39.4, MCV 93.7, MCH 29.0, MCHC 30.9 L, RDW 15.9, Plt Count 209, MPV 8.9, Neut % (Auto) 87.0 H, Lymph % (Auto) 2.6 L, [place] % (Auto) 3.7, Eos % (Auto) 5.8, Baso % (Auto) 0.8, Neut # (Auto) 8.2 H, Lymph # (Auto) 0.3 L, [place] # (Auto) 0.4, Eos # (Auto) 0.5 H, Baso # (Auto) 0.1, Total Counted 100, Neutrophils % (Manual) 86 H, Lymphocytes % (Manual) 5 L, Monocytes % (Manual) 3, Eosinophils % (Manual) 6 H, Platelet Estimate Normal, RBC Morphology Normal, Sodium 134 L, Potassium 4.6, Chloride 102, Carbon Dioxide 27, Anion Gap 9.6, BUN 12, Creatinine 0.70, Estimated GFR 82, Est GFR ( Amer) 99, Glucose 225 H, Calcium 9.2, Total Bilirubin 1.0, AST 47 H, ALT 51, Alkaline Phosphatase 109, Troponin I 0.03, NT-Pro-B Natriuret Pep 2980 H, Total Protein 6.4, Albumin 3.6, Globulin 2.8, Albumin/Globulin Ratio 1.3 09/01/23 10:23: VBG pH 7.33, VBG pCO2 41.0, VBG pO2 95.1 H, VBG HCO3 21.3 L, VBG Total CO2 22.6 L, VBG O2 Saturation 96.6 H, VBG Base Excess -4.5 L, VBG Lactic Acid 2.3 H 09/01/23 13:06: Troponin I 0.04 H 09/01/23 14:50: Lactate 4.1 H I & O for Last 24 hours: Intake & Output 08/29/23 08/30/23 08/31/23 09/01/23 23:59 23:59 23:59 23:59 Output Total 0 / 0 Balance 0 / 0 Weight 93.553 kg Constitutional Constitutional: mild distress, obese and chronically ill appearing *Routine HEENT Exam Head: Present normocephalic Eye: Present EOMI and PERRL ENT: Present mucous membranes moist Comments: Facial flushing *Routine Neck Exam Neck: Present supple; Absent lymphadenopathy Routine Chest/Breast/Axilla Exam Comments: Barrel chested *Routine Respiratory Exam Respiratory: Present accessory muscle use, prolonged expiratory phase, wheezes and diminished air movement; Absent rhonchi or crackles *Routine Cardiovascular Exam Cardiovascular: Present tachycardia and irregularly irregular *Routine Abdominal Exam Abdominal: Present soft and normoactive bowel sounds; Absent tenderness *Routine Rectal Exam Rectal:: deferred *Routine Genitalia Exam Genitalia:: deferred *Routine Extremities Exam Extremities: Present edema (2+ to knees); Absent cyanosis or clubbing *Routine Skin Exam Skin: Present warm; Absent rash *Routine Neurological Exam Neurological: Present alert, oriented X3 and moving all extremities; Absent altered mental status Assessment and Plan *Assessment and plan (1) COPD exacerbation: Status: Acute Category: Medical Code(s): J44.1 - Chronic obstructive pulmonary disease with (acute) exacerbation (2) Obesity (BMI 30.0-34.9): Status: Chronic Category: Medical Code(s): E66.9 - Obesity, unspecified (3) Hypertension: Status: Chronic Qualifiers: Hypertension type: unspecified Qualified Code(s): I10 - Essential (primary) hypertension Category: Medical Code(s): I10 - Essential (primary) hypertension (4) Atrial flutter: Status: Acute Qualifiers: Atrial flutter type: typical Qualified Code(s): I48.3 - Typical atrial flutter Category: Medical Code(s): I48.92 - Unspecified atrial flutter (5) Diabetes type 2, controlled: Status: Acute Qualifiers: Diabetes mellitus complication status: with unspecified complications Diabetes mellitus intermediate card tender insulin use: unspecified intermediate card tender insulin use status Qualified Code(s): E11.8 - Type 2 diabetes mellitus with unspecified complications Category: Medical Code(s): E11.9 - Type 2 diabetes mellitus without complications (6) Atrial fibrillation with RVR: Status: Acute Category: Medical Code(s): I48.91 - Unspecified atrial fibrillation (7) (HFpEF) heart failure with preserved ejection fraction: Status: Acute Qualifiers: Heart failure chronicity: unspecified Qualified Code(s): I50.30 - Unspecified diastolic (congestive) heart failure Category: Medical Code(s): I50.30 - Unspecified diastolic (congestive) heart failure (8) CHF exacerbation: Status: Acute Category: Medical Code(s): I50.9 - Heart failure, unspecified Plan 72-year-old female with history of diabetes, COPD, A-fib. Presented to the ER with dyspnea. Workup in the ER concerning for COPD exacerbation, acute on diastolic heart failure, respiratory distress, A-fib/flutter with RVR. Discussed case with ER physician, request admission for new oxygen requirement and further management. Medicine agreed to admit. Necessitating 2 L nasal cannula oxygen for sats greater 90%. Comprehensive respiratory panel pending. Patient's distress visually appears worse than she appears on paper. Problems addressed as follows: COPD with exacerbation -Chest imaging personally reviewed, no focal consolidation, appears hyperinflated. Poor air movement on exam. -Continue ceftriaxone 1 g IV daily. Received 125 mg Methylpred in the ER, oral prednisone 40 mg daily for 5 days. - Supplemental oxygen, goal sats greater 90%. Currently on 2 L. - Levalbuterol and ipratropium scheduled every 4 hours; given respiratory on exam, will provide 1 hour of continuous DuoNebs to help open airways and improve airflow. - Continue home Breztri - Comprehensive respiratory panel pending - White cell count 9.4, hemoglobin 12.2. Neutrophil predominant 87%. Blood gas obtained, pH normal on VBG with normal CO2 and pO2 - repeat CBC, CMP, magnesium ordered for the morning - Continue Singulair 10 mg daily -CT PE protocol is pending -CBC, CMP, magnesium ordered for the morning. -Lactate elevated at 4.1, repeat pending. Obtained after nebulizer in the ER, concern for type II lactic acidosis. Patient not hypotensive. Low concern for shock Atrial fibrillation Acute on chronic heart failure with preserved ejection fraction Hypertension Hyperlipidemia -On chronic anticoagulation with Eliquis, continue 5 mg twice daily. Continue diltiazem 240 mg daily -Increase metoprolol to tartrate to 100 mg twice daily -Holding lisinopril given adjustments and rate controlling medications and their potential impact on blood pressure -Continue Lipitor 40 - Lasix 80 mg IV so far today. Monitor for diuresis. Will continue 40 mg IV twice daily - BNP 2900, troponin detectable at 0.05. No ischemic changes on EKG. Diabetes: A1c pending. Continue metformin 750 mg daily, continue empagliflozin 10 mg daily, Sliding scale insulin with fingersticks ACHS Full code Diabetic diet Eliquis
[2023-09-01] MEDS: METOPROLOL TARTRATE 5MG/5ML VIAL 5 MG IV (16:50)
[2023-09-01 16:57] LABS: Reflex Lactic (2 hrs) Add Lactic Reflex
[2023-09-01 17:04] LABS: Troponin I 0.05 ng/ml (0.00-0.034)
--- NOTE | 2023-09-01 17:14 | CT_ITS ---
PROCEDURE INFORMATION: Exam: CTA Chest With Contrast Exam date and time: 09/01/2023 7:39 PM Age: 72 years old Clinical indication: Dyspnea; Additional info: Dyspnea, possible pe TECHNIQUE: Imaging protocol: Computed tomographic angiography of the chest with contrast. Exam focused on the arteries. 3D rendering (Not supervised by radiologist): MIP and/or 3D reconstructed images were created by the technologist. Radiation optimization: All CT scans at this facility use at least one of these dose optimization techniques: automated exposure control; mA and/or kV adjustment per patient size (includes targeted exams where dose is matched to clinical indication); or iterative reconstruction. Contrast material: ISOVUE; Contrast volume: 70 ml; Contrast route: INTRAVENOUS (IV); COMPARISON: CT ANGIO CHEST PE PROTOCOL 07/18/2023 7:32 PM FINDINGS: Limitations: Breathing motion artifact. Pulmonary arteries: Normal. No pulmonary emboli. Aorta: Zhux-xm-xxpezzil atherosclerosis. No aortic aneurysm. No aortic dissection. Thyroid: Stable thyroid nodules. Lungs: Mild left lower lobe consolidative opacities adjacent to pleural effusion. Mild bilateral lower lobe tree-in-bud opacities. No masses. Pleural spaces: Unremarkable. No pneumothorax. Small left pleural effusion. Heart: Cardiomegaly. No pericardial effusion. Lymph nodes: Stable mildly prominent right lower paratracheal and bilateral hilar lymph nodes. Pancreas: Stable multiloculated cystic mass at the pancreatic neck. Bones/joints: Degenerative changes. No acute fracture. Soft tissues: Unremarkable. IMPRESSION: 1. No pulmonary artery embolism. 2. Small left pleural effusion. Mild adjacent consolidative opacities likely representing atelectasis although infection cannot be excluded. 3. Mild bilateral lower lobe tree-in-bud opacities suggestive of an infectious or inflammatory bronchiolitis.
[2023-09-01] MEDS: LEVALBUTEROL 1.25MG/3ML NEB 1.25 MG IH ×2 (17:30→21:56)
[2023-09-01 17:31] LABS: Adenovirus,PCR Not Detected (NotDetected); Coronavirus 19, PCR Not Detected (NotDetected); Coronavirus 229E Not Detected (NotDetected); Coronavirus NL63 Not Detected (NotDetected); Coronavirus OC43 Not Detected (NotDetected); Coronovirus HKU1,PCR Not Detected (NotDetected); Human Metapneumovirus Not Detected (NotDetected); Influenza A, PCR Not Detected (NotDetected); Influenza AH1, PCR Not Detected (NotDetected); Influenza AH3,PCR Not Detected (NotDetected); Influenza B, PCR Not Detected (NotDetected); Parainfluenza 1, PCR Not Detected (NotDetected); Parainfluenza 2, PCR Not Detected (NotDetected); Parainfluenza 3, PCR Not Detected (NotDetected); Parainfluenza 4, PCR Not Detected (NotDetected); Respiratory Syncytial Virus Not Detected (NotDetected); Rhinovirus/Enterovirus Not Detected (NotDetected)
[2023-09-01] MEDS: IPRATROPIUM BROMIDE 0.5 MG/2.5ML SOLUTION IH ×2 (17:35→21:55)
[2023-09-01] MEDS: humaLOG 100 UNITS/ML 3ML VIAL (SSI) SQ ×2 (17:42→21:04)
[2023-09-01 18:02] LABS: POC Glucose,Bedside 332 (70-110)
[2023-09-01 18:20] LABS: Lactic Acid Follow up (RFLX 2) 3.5 mmol/L (0.7-2.1)
[2023-09-01 18:51] LABS: Influenza AH1, 2009 Detected (NotDetected)
--- NOTE | 2023-09-01 19:39 | PC.NURSE ---
Patient off unit to CT scan at this time
[2023-09-01] MEDS: 0.9 % SODIUM CHLORIDE 50 ML VIAL 40 ML IV (19:48)
[2023-09-01] MEDS: IOPAMIDOL-370 (76%);100ML BOTTLE 70 ML IV (19:48)
[2023-09-01] MEDS: SODIUM CHLORIDE 0.9% 10ML SYR (RAD ONLY) 10 ML IV (19:48)
--- NOTE | 2023-09-01 19:58 | PC.NURSE ---
Patient back in room from CT
[2023-09-01 21:03] LABS: POC Glucose,Bedside 279 (70-110)
[2023-09-01] MEDS: METOPROLOL TARTRATE 50MG TABLET 100 MG PO (21:03)
[2023-09-01] MEDS: ATORVASTATIN 40MG TABLET 40 MG PO (21:03)
[2023-09-01] MEDS: APIXABAN 5MG TABLET 5 MG PO (21:03)
[2023-09-01] MEDS: METHYLPREDNISOLONE SOD SUCC 125MG VIAL 60 MG IV (21:03)
[2023-09-01] MEDS: OSELTAMIVIR 75MG CAPSULE 75 MG PO (21:06)
[2023-09-01] MEDS: BUDESONIDE GLYCOPYR FORMOTEROL 2 EACH IH (22:20)
[2023-09-02] VITALS (29 sets, daily range): BP systolic 93–194; BP diastolic 39–85; PULSE 88–124; RESP 16–28; TEMP 36.4–36.8; O2SAT 86–97; BMI 32.3
[2023-09-02] MEDS: IPRATROPIUM BROMIDE 0.5 MG/2.5ML SOLUTION IH ×6 (01:51→22:10)
[2023-09-02] MEDS: LEVALBUTEROL 1.25MG/3ML NEB 1.25 MG IH ×6 (02:49→22:10)
--- NOTE | 2023-09-02 04:26 | PC.NURSE ---
Patient has rested well with intermittent complaints of shortness of breath, scheduled inhalers/breathing treatments as prescribed per RT with relief of symptoms. Patient is currently on 2LNC. Lung sounds are diminished throughout with scattered rhonchi. Purewick in place draining clear yellow urine. No acute changes noted.
[2023-09-02] MEDS: humaLOG 100 UNITS/ML 3ML VIAL (SSI) SQ ×4 (06:05→20:42)
[2023-09-02 06:06] LABS: POC Glucose,Bedside 203 (70-110)
[2023-09-02] MEDS: METFORMIN 500MG TABLET 750 MG PO (06:06)
[2023-09-02 07:30] LABS: Chloride 103 mmol/L (98-107); Potassium 4.6 mmoL/L (3.5-5.1); Sodium 136 mmol/L (136-145)
[2023-09-02 07:33] LABS: Alanine Aminotransferase 45 U/L (12-78); Albumin Level 3.6 g/dl (3.5-5.0); Albumin/Globulin Ratio 1.3 (1.1-1.8); Alkaline Phosphatase 108 U/L (38-126); Anion Gap 9.6 mEq/L (5-15); Aspartate Amino Transferase 53 U/L (14-36); Basophils % 0.5 % (0.1-2.0); Bilirubin,Total 0.6 mg/dl (0.2-1.3); Blood Urea Nitrogen 20 mg/dl (7-17); Calcium 9.2 mg/dl (8.4-10.2); Carbon Dioxide 28 mmol/L (22.0-30.0); Creatinine Clearance Estimated 74 mL/min (50-200); Eosinophils % 0.4 % (0.1-12.0); Estimated Glomerular Filt Rate 70 ml/min (>60); GFR (African American) 85 ML/MIN (>60); Globulin 2.8 g/dL (1.3-3.2); Glucose 209 mg/dl (74-100); Hematocrit 38.5 % (37.0-47.0); Hemoglobin 12.2 g/dL (12.2-16.2); Lymphocytes # 0.4 K/mm3 (0.7-4.5); Lymphocytes % 4.8 % (10-50); Mean Corpuscular HGB Conc 31.7 g/dL (31.8-35.4); Mean Corpuscular Hemoglobin 29.7 pg (27.0-31.2); Mean Corpuscular Volume 93.6 fl (81-99); Mean Platelet Volume 9.1 fl (7.4-10.4); Monocytes # 0.2 K/mm3 (0.1-1.0); Monocytes % 2.3 % (1.7-9.3); Neutrophils # 7.1 K/mm3 (1.8-7.8); Neutrophils % 92.1 % (37.0-80.0); Platelet Count 178 K/mm3 (142-424); Red Blood Count 4.12 M/mm3 (4.20-5.40); Total Protein,Serum 6.4 g/dl (6.3-8.2); White Blood Count 7.8 K/mm3 (4.8-10.8)
[2023-09-02 07:34] LABS: Magnesium 1.8 mg/dl (1.6-2.3)
[2023-09-02 07:37] LABS: MANUAL DIFFERENTIAL MANUAL DIFFERENTIAL (MANUAL DIFF)
[2023-09-02] MEDS: METOPROLOL TARTRATE 50MG TABLET 100 MG PO (08:16)
[2023-09-02] MEDS: dilTIAZem ER 240MG CAPSULE 240 MG PO (08:16)
[2023-09-02] MEDS: APIXABAN 5MG TABLET 5 MG PO (08:16)
[2023-09-02] MEDS: BUDESONIDE GLYCOPYR FORMOTEROL 2 EACH IH (08:17)
[2023-09-02 08:34] LABS: Lymphocytes % 2 % (10-50); Monocytes % 2 % (2-9); Neutrophils % 96 % (42-76); Total Cells Counted 100
[2023-09-02 08:35] LABS: Platelet Estimate Normal; RBC Morphology Normal
[2023-09-02] MEDS: OSELTAMIVIR 75MG CAPSULE 75 MG PO ×2 (08:53→20:22)
[2023-09-02] MEDS: METHYLPREDNISOLONE SOD SUCC 125MG VIAL 60 MG IV ×2 (08:53→20:21)
--- NOTE | 2023-09-02 09:14 | PC.NURSE ---
86% resting room air sat.
[2023-09-02 11:18] LABS: POC Glucose,Bedside 177 (70-110)
[2023-09-02] MEDS: CEFTRIAXONE SODIUM 1 GM in 0.9 % SODIUM CHLORIDE 50 ML IV (11:32)
--- NOTE | 2023-09-02 12:25 | EXP.ACUTE.PN ---
Subjective *Date: 09/02/23 *Time: 12:25 Interval history: Patient still tachypneic but appears less distressed this morning. No longer breathing through pursed lips. Improved flushing of face. No fever overnight. States she is feeling a little bit better. Is still quite wheezy on exam. No nausea or vomiting. No chest pain. Tolerating 2 L nasal cannula. Medical Exam Vital signs and Labs for Last 24 Hours: Vital Signs Temp Pulse Pulse Resp BP BP Pulse Ox 09/02/23 11:39 98.2 F 09/02/23 11:00 09/02/23 10:30 108 H 16 09/02/23 10:30 108 H 09/02/23 10:30 114 H 09/02/23 10:30 93 L 09/02/23 09:46 105 H 18 146/72 H 97 09/02/23 09:14 86 L 09/02/23 08:35 09/02/23 08:00 110 H 09/02/23 08:00 95 09/02/23 08:00 107 H 20 135/79 94 L 09/02/23 07:52 97.6 F 09/02/23 06:18 101 H 09/02/23 06:18 107 H 09/02/23 06:18 94 L 09/02/23 06:00 98 H 24 146/78 H 96 09/02/23 04:00 104 H 09/02/23 04:00 102 H 22 169/79 H 96 09/02/23 02:50 99 H 09/02/23 02:49 100 H 09/02/23 02:00 100 H 22 145/83 H 96 09/02/23 00:00 90 09/02/23 00:00 98 H 24 113/73 93 L 09/01/23 22:24 09/01/23 22:23 103 H 09/01/23 22:23 101 H 09/01/23 22:00 105 H 22 139/69 100 09/01/23 20:09 100 H 95 09/01/23 20:00 93 H 09/01/23 20:00 98.5 F 94 H 23 114/57 L 93 L 09/01/23 18:45 09/01/23 18:00 112 H 28 H 115/56 L 96 09/01/23 17:45 104 H 09/01/23 17:45 95 09/01/23 17:32 97 H 28 H 134/65 95 09/01/23 17:30 103 H 09/01/23 17:30 111 H 94 L 09/01/23 17:00 09/01/23 16:00 110 H 09/01/23 15:00 09/01/23 14:45 98.2 F 113 H 24 131/64 93 L 09/01/23 14:22 97.9 F 103 H 20 126/83 09/01/23 14:00 103 H 21 128/63 95 09/01/23 13:30 22 117/58 L 09/01/23 13:00 105 H 27 H 129/65 96 09/01/23 12:42 111 H 23 118/52 L 96 O2 Del Method O2 Flow Rate FiO2 09/02/23 11:39 09/02/23 11:00 Nasal Cannula 2 09/02/23 10:30 09/02/23 10:30 09/02/23 10:30 09/02/23 10:30 Nasal Cannula 2 09/02/23 09:46 Nasal Cannula 2 09/02/23 09:14 Room Air 09/02/23 08:35 Nasal Cannula 2 09/02/23 08:00 09/02/23 08:00 Nasal Cannula 2 09/02/23 08:00 Nasal Cannula 2 09/02/23 07:52 09/02/23 06:18 09/02/23 06:18 09/02/23 06:18 Nasal Cannula 2 09/02/23 06:00 Nasal Cannula 2 09/02/23 04:00 09/02/23 04:00 Nasal Cannula 2 09/02/23 02:50 09/02/23 02:49 09/02/23 02:00 Nasal Cannula 2 09/02/23 00:00 09/02/23 00:00 Nasal Cannula 1 09/01/23 22:24 Nasal Cannula 2 09/01/23 22:23 09/01/23 22:23 09/01/23 22:00 Room Air 1 09/01/23 20:09 Nasal Cannula 2 09/01/23 20:00 09/01/23 20:00 Nasal Cannula 2 09/01/23 18:45 Nasal Cannula 2 09/01/23 18:00 Nasal Cannula 2 09/01/23 17:45 09/01/23 17:45 Nasal Cannula 2 09/01/23 17:32 Nasal Cannula 2 09/01/23 17:30 09/01/23 17:30 Nasal Cannula 2 09/01/23 17:00 Nasal Cannula 2 09/01/23 16:00 09/01/23 15:00 Nasal Cannula 2 09/01/23 14:45 Nasal Cannula 3 09/01/23 14:22 Nasal Cannula 4 09/01/23 14:00 Room Air 09/01/23 13:30 09/01/23 13:00 09/01/23 12:42 Intake and Output 09/01/23 09/02/23 09/02/23 23:59 07:59 15:59 Intake Total 135 / 255 180 / 840 660 / 840 Output Total 400 / 400 1500 / 2150 650 / 2150 Balance -265 / -145 -1320 / -1310 10 / -1310 Intake: Intake, Oral Amount 135 / 255 180 / 840 660 / 840 Output: Output, Urine Amount 400 / 400 1500 / 2150 650 / 2150 Other: Number of Unmeasured Voids 2 Number of Bowel Movements 1 1 Weight 93.553 kg Patient Weight 09/02/23 23:59 Weight 93.553 kg Laboratory Results - last 24 hr 09/01/23 13:06: Troponin I 0.04 H 09/01/23 14:50: Lactate 4.1 H 09/01/23 16:35: Troponin I 0.05 H 09/01/23 17:12: Chlamy pneumoniae PCR TNP, Adenovirus (PCR) Not detected, B. pertussis DNA (PCR) TNP, Coronavirus OC43 (PCR) Not detected, Coronavirus HKU1 (PCR) Not detected, Coronavirus 229E (PCR) Not detected, SARS-CoV-2 (PCR) Not detected, Coronavirus NL63 (PCR) Not detected, Human Metapneumovir PCR Not detected, Influenza A (H1) PCR Not detected, Influ A (H1N1/09) PCR Detected A, Influenza A (H3) PCR Not detected, Influenza Type A (PCR) Not detected, Influenza Type B (PCR) Not detected, M. pneumoniae (PCR) TNP, Parainfluenza 1 (PCR) Not detected, Parainfluenza 2 (PCR) Not detected, Parainfluenza 3 (PCR) Not detected, Parainfluenza 4 (PCR) Not detected, RSV (PCR) Not detected, Entero/Rhino (PCR) Not detected 09/01/23 17:15: Lactate 3.5 H 09/01/23 17:31: POC Glucose 332 H* 09/01/23 20:55: POC Glucose 279 H 09/02/23 05:58: POC Glucose 203 H 09/02/23 06:48: WBC 7.8, RBC 4.12 L, Hgb 12.2, Hct 38.5, MCV 93.6, MCH 29.7, MCHC 31.7 L, RDW 16.0, Plt Count 178, MPV 9.1, Neut % (Auto) 92.1 H, Lymph % (Auto) 4.8 L, [place] % (Auto) 2.3, Eos % (Auto) 0.4, Baso % (Auto) 0.5, Neut # (Auto) 7.1, Lymph # (Auto) 0.4 L, [place] # (Auto) 0.2, Eos # (Auto) 0.0, Baso # (Auto) 0.0, Total Counted 100, Neutrophils % (Manual) 96 H, Lymphocytes % (Manual) 2 L, Monocytes % (Manual) 2, Platelet Estimate Normal, RBC Morphology Normal, Sodium 136, Potassium 4.6, Chloride 103, Carbon Dioxide 28, Anion Gap 9.6, BUN 20 H D, Creatinine 0.80, Estimated Creat Clear 74, Estimated GFR 70, Est GFR ( Amer) 85, Glucose 209 H, Calcium 9.2, Magnesium 1.8, Total Bilirubin 0.6, AST 53 H, ALT 45, Alkaline Phosphatase 108, Total Protein 6.4, Albumin 3.6, Globulin 2.8, Albumin/Globulin Ratio 1.3 09/02/23 11:04: POC Glucose 177 H I & O for Labs for Last 24 Hours: Intake & Output 08/30/23 08/31/23 09/01/23 09/02/23 23:59 23:59 23:59 23:59 Intake Total 135 / 255 840 / 840 Output Total 400 / 400 2150 / 2150 Balance -265 / -145 -1310 / -1310 Weight 93.553 kg 93.553 kg Constitutional: Present mild distress, obese, chronically ill appearing and cooperative Head: Present atraumatic and normocephalic ENT: Present normal exam Respiratory: Present accessory muscle use, prolonged expiratory phase, rhonchi and wheezes (Diffuse); Absent crackles Cardiac: Present Tachycardia Comment:: Irregularly irregular GI: Present soft and normal bowel sounds; Absent distention or tenderness Extremities: Present normal inspection and full ROM Skin: Present intact; Absent erythema Neuro: Present Grossly Intact, alert, awake, oriented x 3 and moves all extremities Assessment and Plan *Assessment and plan (1) Influenza due to identified 2008 H1N1 influenza virus with pneumonia: Status: Acute Category: Medical Code(s): J10.00 - Influenza due to other identified influenza virus with unspecified type of pneumonia (2) Acute hypoxemic respiratory failure: Status: Acute Category: Medical Code(s): J96.01 - Acute respiratory failure with hypoxia (3) COPD exacerbation: Status: Acute Category: Medical Code(s): J44.1 - Chronic obstructive pulmonary disease with (acute) exacerbation (4) Obesity (BMI 30.0-34.9): Status: Chronic Category: Medical Code(s): E66.9 - Obesity, unspecified (5) Hypertension: Status: Chronic Qualifiers: Hypertension type: unspecified Qualified Code(s): I10 - Essential (primary) hypertension Category: Medical Code(s): I10 - Essential (primary) hypertension (6) Atrial flutter: Status: Acute Qualifiers: Atrial flutter type: typical Qualified Code(s): I48.3 - Typical atrial flutter Category: Medical Code(s): I48.92 - Unspecified atrial flutter (7) Diabetes type 2, controlled: Status: Acute Qualifiers: 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: unspecified senior living insulin use status Diabetes mellitus complication status: with unspecified complications Qualified Code(s): E11.8 - Type 2 diabetes mellitus with unspecified complications Category: Medical Code(s): E11.9 - Type 2 diabetes mellitus without complications (8) Atrial fibrillation with RVR: Status: Acute Category: Medical Code(s): I48.91 - Unspecified atrial fibrillation (9) (HFpEF) heart failure with preserved ejection fraction: Status: Acute Qualifiers: Heart failure chronicity: unspecified Qualified Code(s): I50.30 - Unspecified diastolic (congestive) heart failure Category: Medical Code(s): I50.30 - Unspecified diastolic (congestive) heart failure (10) CHF exacerbation: Status: Acute Category: Medical Code(s): I50.9 - Heart failure, unspecified Plan 72-year-old female with history of diabetes, COPD, A-fib. Presented to the ER with dyspnea. Workup in the ER concerning for COPD exacerbation, acute on diastolic heart failure, respiratory distress, A-fib/flutter with RVR. Discussed case with ER physician, request admission for new oxygen requirement and further management. Medicine agreed to admit. Found to be positive for flu (H1/N1). Hypoxic this morning on room air at 86%. Necessitating 2 L nasal cannula oxygen for sats greater 90%. Continues to require inpatient management. Problems addressed as follows: Flu pneumonia Hypoxemic respiratory failure COPD with exacerbation -Chest imaging personally reviewed, no focal consolidation, appears hyperinflated. CT with sparse patchy airspace disease. -Comprehensive panel positive for flu. -Hypoxic this morning 86% on room air. Continue supplemental oxygen for goal sats greater than 90% -Continue ceftriaxone 1 g IV daily. Continue Methylpred 60 mg IV twice daily -Monitoring for decompensation, given patient's underlying COPD poor air movement on exam. -Continue ceftriaxone 1 g IV daily. Received 125 mg Methylpred in the ER, oral prednisone 40 mg daily for 5 days. - Levalbuterol and ipratropium scheduled every 4 hours -Continue home Breztri -Pulmonology consult for the morning -White cell count stable at 7.8. Afebrile overnight. Continues to have neutrophil predominance of almost 90%. -Repeat CBC, CMP, magnesium ordered for the morning - Continue Singulair 10 mg daily Atrial fibrillation Acute on chronic heart failure with preserved ejection fraction Hypertension Hyperlipidemia -On chronic anticoagulation with Eliquis, continue 5 mg twice daily. Continue diltiazem 240 mg daily -Increase metoprolol to tartrate to 100 mg twice daily -Holding lisinopril given adjustments and rate controlling medications and their potential impact on blood pressure -Continue Lipitor 40 -Holding on further diuresis given her flu. Reevaluate need for diuresis tomorrow. Magnesium 1.8, potassium 4.6. No repletion today. - BNP 2900, troponin detectable at 0.05. No ischemic changes on EKG. Diabetes: A1c 7.8. Continue metformin 750 mg daily, continue empagliflozin 10 mg daily, Sliding scale insulin with fingersticks ACHS Full code Diabetic diet Eliquis
--- NOTE | 2023-09-02 13:50 | PC.NURSE ---
pt assisted to BSC and back to bed at this time. When going back to bed pt's oxygen dropped to 70% on 2LNC. RT called for treatment and Dr. Valdez called to update on patient event. Dr. Valdez to bedside to see patient. Pt coached on breathing techniques. After breathing tx pt's sats 94% on 2LNC. pt states she does feel like her breathing has improved after tx. Call light w/i reach.
[2023-09-02] MEDS: LISINOPRIL 20MG TABLET 20 MG PO (14:45)
[2023-09-02 15:55] LABS: POC Glucose,Bedside 225 (70-110)
--- NOTE | 2023-09-02 17:02 | PC.NURSE ---
pt alert and oriented t/o shift. ls diminished t/o with expiratory rhonci and wheezing, movement decreased. pt currently on 2LNC. Weak, hacky cough noted. Pt was able to tolerate sitting in the chair this shift for a couple hours but when getting up to go back to bed pt desat to the 70's. Breathing tx was given and Dr. Valdez came to see pt. Pt was coached on breathing techniques, oxygen increased at time of event, pt recovery approx 10 mins. Pt was up with assistance x 1 prior to desating. pt has edema noted to BLE. Pt has been afib on the monitor. Abdomen soft, nontender. Pt did have bowel movement this shift per BSC. Pt refused to have basin bath. Pt currently has purewick in place d/t breathing. call light w/i reach.
--- NOTE | 2023-09-02 17:17 | PC.NURSE ---
RT called for treatment at this time. O2 dropped to 70's. Dr. Valdez notified per Luke Jordan RN. Order given for ABG. O2 increased to 4LNC sats increased to 90. Pt work of breathing increased, pursed lip breathing. Pt alert and able to answer questions.
--- NOTE | 2023-09-02 17:39 | PC.NURSE ---
critical abg results called to this nurse. Dr. Valdez called at this time with results. verbal order given to notify RT of pt needing to be placed on bipap. RT Lilli called.
[2023-09-02 17:40] LABS: ABG Base Excess -1.1 mmol/L (-2.4-2.3); ABG HCO3 27.6 mmhg (22.0-26.0); ABG Oxygen Saturation 100 % (90-100); ABG PO2 263.3 mmhg (80-100); ABG TCO2 30.1 mmhg (23-27); Allen's Test Acceptable; Oxygen 100 %; Source Right Radial
[2023-09-02 17:41] LABS: ABG PCO2 79.7 mmhg (35.0-45.0); ABG PH 7.16 mmol/L (7.35-7.45)
--- NOTE | 2023-09-02 17:48 | PC.NURSE ---
RT Lilli at bedside to place pt on bipap.
--- NOTE | 2023-09-02 17:51 | PC.NURSE ---
RT speaking with Dr. Presley at this time for bipap settings. Pt educated on need for bipap and was in agreeance prior to placement.
--- NOTE | 2023-09-02 18:33 | PC.NURSE ---
RT called d/t pt's sat staying 87%. bipap currrent settings 16/8, rate-18, fio2-21%.
--- NOTE | 2023-09-02 18:45 | PC.NURSE ---
pt's FIO2 increased to 30% per RT.
--- NOTE | 2023-09-02 19:01 | PC.NURSE ---
RT decreased pt's fio2 to 25%.
--- NOTE | 2023-09-02 19:59 | XR_ITS ---
PROCEDURE INFORMATION: Exam: XR Chest Exam date and time: 09/02/2023 8:25 PM Age: 72 years old Clinical indication: Dyspnea; Additional info: SOB TECHNIQUE: Imaging protocol: Radiologic exam of the chest. Views: 1 view. Total images: 1 COMPARISON: CT ANGIO CHEST PE PROTOCOL 09/01/2023 7:39 PM FINDINGS: Tubes, catheters and devices: EKG leads are present. Lungs: Mild left basilar atelectasis versus infiltrate. The right lung is clear. No pulmonary vascular congestion or interstitial edema. Pleural spaces: Unremarkable. No pleural effusion. No pneumothorax. Heart/Mediastinum: Unremarkable. No cardiomegaly. No mediastinal widening or hilar enlargement. Vasculature: Atherosclerotic aortic arch. Bones/joints: Osteopenia. Soft tissues: Breast attenuation artifact. IMPRESSION: Mild left basilar atelectasis versus infiltrate.
[2023-09-02] MEDS: VANCOMYCIN CONSULT REQUEST 1 EACH NOTAPPLIC (20:02)
[2023-09-02] MEDS: CEFEPIME HCL 2 GM in 0.9 % SODIUM CHLORIDE 100 ML IV (20:20)
[2023-09-02] MEDS: PAT OWN MED ***METOPROLOL TARTRATE 50MG 100 MG PO (20:21)
[2023-09-02] MEDS: PAT OWN MED ***ATORVASTATIN 40MG 40 MG PO (20:22)
[2023-09-02] MEDS: PAT OWN MED ***MONTELUKAST SODIUM 10MG 10 MG PO (20:22)
[2023-09-02] MEDS: PAT OWN MED ***APIXABAN 5MG 5 MG PO (20:22)
[2023-09-02] MEDS: VANCOMYCIN HCL 2,000 MG in 0.9 % SODIUM CHLORIDE 500 ML 250 MG IV (21:08)
[2023-09-03] VITALS (21 sets, daily range): BP systolic 89–145; BP diastolic 32–88; PULSE 80–108; RESP 18–36; TEMP 36.5–36.8; O2SAT 90–98; BMI 32.3
[2023-09-03] MEDS: IPRATROPIUM BROMIDE 0.5 MG/2.5ML SOLUTION IH ×5 (02:35→21:45)
[2023-09-03] MEDS: LEVALBUTEROL 1.25MG/3ML NEB 1.25 MG IH ×5 (02:35→21:45)
[2023-09-03] MEDS: CEFEPIME HCL 2 GM in 0.9 % SODIUM CHLORIDE 100 ML IV (04:22)
[2023-09-03] MEDS: humaLOG 100 UNITS/ML 3ML VIAL (SSI) SQ ×4 (05:05→20:21)
[2023-09-03 05:08] LABS: POC Glucose,Bedside 212 (70-110)
[2023-09-03] MEDS: BUDESONIDE 0.5MG/2ML NEB 0.5 MG IH ×2 (05:33→17:46)
--- NOTE | 2023-09-03 05:36 | PC.NURSE ---
This RN heard pt call out. When walking into room pt is frantic stating a tube on her bipap has come off. No obvious disconnections noted on bipap. Bi pap not alarming at this time. Pt O2 dropping down to lower 80s/upper 70s. Pt was taken off bipap and placed on 4 L nc. RT called to bedside. Pt hyperventilating. Pt was sat up in bed and given a drink of water. Pt O2 beginning to come up - mid/upper 80s when RT arrived at bedside. RT placed pt back on bipap and turned FIO2 to 28% and started breathing treatment. After breathing treatment finished, pt FIO2 was titrated back to 21%. Pt comfortable in bed. Current O2 92%.
[2023-09-03 06:04] LABS: ABG Base Excess -1.3 mmol/L (-2.4-2.3); ABG HCO3 23.8 mmhg (22.0-26.0); ABG Oxygen Saturation 93 % (90-100); ABG PCO2 40.7 mmhg (35.0-45.0); ABG PH 7.38 mmol/L (7.35-7.45); ABG PO2 68.7 mmhg (80-100)
[2023-09-03 06:05] LABS: Oxygen 21% %; PEEP 6; Vent Rate 18
[2023-09-03 06:06] LABS: Allen's Test Acceptable; Source Right Radial
[2023-09-03 06:52] LABS: Chloride 105 mmol/L (98-107)
[2023-09-03 06:53] LABS: Potassium 4.7 mmoL/L (3.5-5.1); Sodium 136 mmol/L (136-145)
[2023-09-03 06:55] LABS: Alanine Aminotransferase 65 U/L (12-78); Aspartate Amino Transferase 93 U/L (14-36); Blood Urea Nitrogen 32 mg/dl (7-17); Creatinine Clearance Estimated 74 mL/min (50-200); Estimated Glomerular Filt Rate 70 ml/min (>60); GFR (African American) 85 ML/MIN (>60)
[2023-09-03 06:56] LABS: Albumin Level 3.5 g/dl (3.5-5.0); Albumin/Globulin Ratio 1.2 (1.1-1.8); Alkaline Phosphatase 104 U/L (38-126); Anion Gap 9.7 mEq/L (5-15); Bilirubin,Total 0.7 mg/dl (0.2-1.3); Calcium 9.3 mg/dl (8.4-10.2); Carbon Dioxide 26 mmol/L (22.0-30.0); Globulin 2.9 g/dL (1.3-3.2); Glucose 207 mg/dl (74-100); Total Protein,Serum 6.4 g/dl (6.3-8.2)
--- NOTE | 2023-09-03 07:49 | PC.NURSE ---
Pt placed on 4L O2 NC while eating breakfast.
--- NOTE | 2023-09-03 08:05 | EXP.PHA.CONS ---
Pharmacy Consult Date: 09/03/23 Time: 08:07 Referring provider: DR CUENCA Reason for Consult:: VANCOMYCIN DOSING CONSULT Allergies Allergy/AdvReac Type Severity Reaction Status Date / Time No Known Allergies Allergy Verified 09/01/23 10:41 Home Medications Medication Instructions Recorded Confirmed Type omega 5-pyd-boy-fish oil 1,000 mg 2,000 mg PO DAILY 06/19/19 09/01/23 History (120 mg-180 mg) capsule ipratropium 0.5 mg-albuterol 3 mg 3 ml inhalation QIDP PRN Wheezing 06/21/19 09/01/23 Rx (2.5 mg base)/3 mL nebulization #120 neb soln atorvastatin 40 mg tablet 40 mg PO HS Cholesterol 12/08/21 09/01/23 History cholecalciferol (vitamin D3) 50 50 mcg PO DAILY Supplement 12/08/21 09/01/23 History mcg (2,000 unit) capsule lisinopril 20 mg tablet 20 mg PO DAILY Hypertension 12/08/21 09/01/23 History metoprolol tartrate 50 mg tablet 50 mg PO BID Hypertension 12/08/21 09/01/23 History budesonide 160 mcg-glycopyr 9 2 puff inhalation BID COPD 12/13/21 09/01/23 History mcg-formot 4.8 mcg/actuation HFA inhaler diltiazem HCl 240 mg 240 mg PO DAILY Hypertension 06/16/23 09/01/23 History capsule,extended release 24 hr furosemide 20 mg tablet 20 mg PO DAILY Edema 06/16/23 09/01/23 History metformin 750 mg tablet,extended 750 mg PO HS Diabetes 06/16/23 09/03/23 History release 24 hr montelukast 10 mg tablet 10 mg PO DAILY 06/16/23 09/01/23 History zinc gluconate 50 mg tablet 50 mg PO DAILY 06/16/23 09/01/23 History apixaban 5 mg tablet (Eliquis) 5 mg PO BID 07/19/23 09/01/23 History albuterol sulfate 90 mcg/actuation 1 - 2 inh inhalation Q4HP PRN 09/02/23 09/02/23 History aerosol inhaler SHORTNESS OF AIR New Prescriptions to Start Prescriptions: Height: 1.7 m Weight: 93.553 kg Laboratory Results:: Laboratory Results - last 24 hr 09/02/23 06:48: Total Counted 100, Neutrophils % (Manual) 96 H, Lymphocytes % (Manual) 2 L, Monocytes % (Manual) 2, Platelet Estimate Normal, RBC Morphology Normal 09/02/23 11:04: POC Glucose 177 H 09/02/23 15:47: POC Glucose 225 H 09/02/23 17:30: Specimen Source Right radial, O2 % 100, ABG pH 7.16 L*, ABG pCO2 79.7 H, ABG pO2 263.3 H, ABG HCO3 27.6 H, ABG Total CO2 30.1 H, ABG O2 Saturation 100, ABG Base Excess -1.1, Rodney Test Acceptable 09/03/23 05:01: POC Glucose 212 H 09/03/23 05:30: Sodium 136, Potassium 4.7, Chloride 105, Carbon Dioxide 26, Anion Gap 9.7, BUN 32 H D, Creatinine 0.80, Estimated Creat Clear 74, Estimated GFR 70, Est GFR ( Amer) 85, Glucose 207 H, Calcium 9.3, Magnesium 2.0 D, Total Bilirubin 0.7, AST 93 H D, ALT 65 D, Alkaline Phosphatase 104, Total Protein 6.4, Albumin 3.5, Globulin 2.9, Albumin/Globulin Ratio 1.2 09/03/23 06:00: Specimen Source Right radial, O2 % 21%, ABG pH 7.38, ABG pCO2 40.7, ABG pO2 68.7 L, ABG HCO3 23.8, ABG Total CO2 25.0, ABG O2 Saturation 93, ABG Base Excess -1.3, Rodney Test Acceptable, Vent Rate 18, PEEP 6 Medical History: Medical History (Updated 09/02/23 @ 12:27 by Cholo Cuenca MD) Hypoxia Abnormal electrocardiogram [ECG] [EKG] Hypertension Chest pain Acute and chronic respiratory failure with hypoxia Afib Tachycardia Acute respiratory failure with hypoxia Osteoarthritis HTN (hypertension) HLD (hyperlipidemia) Diabetes type 2, controlled COPD (chronic obstructive pulmonary disease) Assessment and Plan Assessment and plan all Dx Assessment and Plan for all problems:: Pharmacokinetic dosing service Objective: Age: 72 yo Serum creatinine: 1 mg/dL Height: 66.9 Inches Weight (kg): 93.553 Diagnosis: SEPSIS Assessment: IBW (kg): 61.37 Dosing wt(kg): 93.553 Estimated Creatinine clearance (ml/min): 48.5 CRCL method: Cockcroft and Gault using ibw(default). Drug selected: Vancomycin Loading dose (mg): 2000 MG Vd (liters): 65.5 (factor used: 0.7 L/kg) Maurice (hr-1): 0.045 Half life (hrs): 15.40 CLvanco=?? 2.947 L/hr Recommended dose: 1500 mg Interval: 24 hrs Infusion time (hrs): 2.0 Predicted peak (mcg/mL): 33.2 Predicted trough (mcg/mL): 12.34 Total body weight is being used for vancomycin dosing. Recommendations: Give Vancomycin 1500 mg q 24 hrs with an expected Cpeak of 33.2 mcg/ml and an expected Ctrough of 12.34 mcg/ml TO START 09/03/23 AT 22:00, ONE TIME LOADING DOSE OF VANCOMYCIN 2000 MG IV GIVEN 09/02/23 AT 21:08. AUC 0-24 /YESICA Data: YESICA 0.5 mcg/mL:?? AUC/YESICA:? 1018.0 YESICA 1.0 mcg/mL:?? AUC/YESICA:? 509.0 --------- YESICA 1.5 mcg/mL:?? AUC/YESICA:? 339.3 YESICA 2.0 mcg/mL:?? AUC/YESICA:? 254.5 Thank you for the consult
[2023-09-03] MEDS: LISINOPRIL 20MG TABLET 20 MG PO (08:25)
[2023-09-03] MEDS: OSELTAMIVIR 75MG CAPSULE 75 MG PO ×2 (08:26→20:20)
[2023-09-03] MEDS: FUROSEMIDE 40 MG TABLET PO (08:26)
[2023-09-03] MEDS: METHYLPREDNISOLONE SOD SUCC 125MG VIAL 60 MG IV ×2 (08:27→20:20)
[2023-09-03] MEDS: PAT OWN MED ***APIXABAN 5MG 5 MG PO (08:28)
[2023-09-03] MEDS: DILTIAZEM 240 MG PO (08:28)
[2023-09-03] MEDS: PAT OWN MED ***METOPROLOL TARTRATE 50MG 100 MG PO (08:28)
[2023-09-03 08:29] LABS: Basophils % 0.2 % (0.1-2.0); Eosinophils % 0.2 % (0.1-12.0); Hematocrit 41.8 % (37.0-47.0); Lymphocytes # 0.6 K/mm3 (0.7-4.5); Lymphocytes % 5.8 % (10-50); Mean Corpuscular HGB Conc 31.2 g/dL (31.8-35.4); Mean Corpuscular Hemoglobin 29.8 pg (27.0-31.2); Mean Corpuscular Volume 95.4 fl (81-99); Mean Platelet Volume 9.3 fl (7.4-10.4); Monocytes # 0.2 K/mm3 (0.1-1.0); Monocytes % 1.8 % (1.7-9.3); Neutrophils # 9.4 K/mm3 (1.8-7.8); Neutrophils % 92.1 % (37.0-80.0); Platelet Count 203 K/mm3 (142-424); Red Blood Count 4.38 M/mm3 (4.20-5.40); Red Cell Distribution Width 15.7 % (11.5-17.5); White Blood Count 10.2 K/mm3 (4.8-10.8)
[2023-09-03 08:42] LABS: MANUAL DIFFERENTIAL MANUAL DIFFERENTIAL (MANUAL DIFF)
--- NOTE | 2023-09-03 10:25 | P.CONS_ITS ---
History of Present Illness History of present illness: Ms. Mcneill is a 72-year-old female with reported history of COPD, A-fib, hypertension and diabetes heart failure with preserved ejection fraction presented to the ER complaining of worsening respiratory distress to the 2 days prior to her admission. Patient has been tolerating well since admission with nasal oxygen supplementation however during her hospital course noted to have worsening altered mentation and hypercarbic respiratory failure needing noninvasive ventilator therapy and pulmonary was called for further evaluation and management. [facility] Disclaimer: The information contained in this section may have been updated after the patient was seen, as this information can be updated by other users. Medical History Hypoxia Abnormal electrocardiogram [ECG] [EKG] Hypertension Chest pain Acute and chronic respiratory failure with hypoxia Afib Tachycardia Acute respiratory failure with hypoxia Osteoarthritis HTN (hypertension) HLD (hyperlipidemia) Diabetes type 2, controlled COPD (chronic obstructive pulmonary disease) Surgical History History of phacoemulsification of cataract of both eyes with intraocular lens implantation History of bilateral tubal ligation Family History Coronary artery disease Hypertension Social History Smoking Status: Former smoker tobacco type: cigarettes packs per day: 1 second hand exposure: No alcohol intake: never current occupational status: retired and disabled Travel in the last 8 weeks: None household members: none housing: apartment caffeine: Yes Review of Systems Constitutional Constitutional: Reports anorexia, Reports body ache(s) and Reports fatigue Eyes Eyes: Denies eye discharge, Denies dry eyes, Denies irritation and Denies itchy eyes ENT Ears, Nose, Mouth, and Throat: Denies epistaxis, Denies facial pain, Denies lip swelling and Denies throat swelling *Cardiovascular Cardiovascular: Reports dyspnea and Reports dyspnea on exertion *Respiratory Respiratory: Reports chest congestion, Reports cough, Reports dyspnea, Reports dyspnea on exertion, Reports excessive phlegm production, Denies hemoptysis, Denies pain on inspiration, Denies pain with cough and Reports wheezing *Gastrointestinal Gastrointestinal: Denies abdominal pain, Denies belching and Denies cramping *Musculoskeletal Musculoskeletal: Reports back pain, Reports myalgias and Reports other (No small joint swelling or Pain) Psychiatric Psychiatric: Denies homicidal ideation and Denies suicidal ideation Endocrine Endocrine: Reports fatigue and Denies heat intolerance Hematologic/Lymphatic Hematologic/Lymphatic: Denies easy bleeding and Denies lymphadenopathy Allergic/Immunologic Allergic/Immunologic: Denies itchy eyes, Denies lip swelling, Denies throat swelling and Reports wheezing Pulmonology Exam Inpatient Vital signs and Labs for Last 24 Hours: Temp Pulse Resp BP Pulse Ox O2 Del Method O2 Flow Rate 98.2 F 94 H 24 145/88 H 93 L Nasal Cannula 2 09/03/23 07:49 09/03/23 10:00 09/03/23 10:00 09/03/23 10:00 09/03/23 10:00 09/03/23 10:00 09/03/23 10:00 FiO2 21 09/03/23 06:00 Laboratory Results - last 24 hr 09/02/23 11:04: POC Glucose 177 H 09/02/23 15:47: POC Glucose 225 H 09/02/23 17:30: Specimen Source Right radial, O2 % 100, ABG pH 7.16 L*, ABG pCO2 79.7 H, ABG pO2 263.3 H, ABG HCO3 27.6 H, ABG Total CO2 30.1 H, ABG O2 Saturation 100, ABG Base Excess -1.1, Rodney Test Acceptable 09/03/23 05:01: POC Glucose 212 H 09/03/23 05:30: WBC 10.2 D, RBC 4.38, Hgb 13.0, Hct 41.8, MCV 95.4, MCH 29.8, M CHC 31.2 L, RDW 15.7, Plt Count 203, MPV 9.3, Neut % (Auto) 92.1 H, Lymph % (Auto) 5.8 L, [place] % (Auto) 1.8, Eos % (Auto) 0.2, Baso % (Auto) 0.2, Neut # (Auto) 9.4 H, Lymph # (Auto) 0.6 L, [place] # (Auto) 0.2, Eos # (Auto) 0.0, Baso # (Auto) 0.0, Sodium 136, Potassium 4.7, Chloride 105, Carbon Dioxide 26, Anion Gap 9.7, BUN 32 H D, Creatinine 0.80, Estimated Creat Clear 74, Estimated GFR 70, Est GFR ( Amer) 85, Glucose 207 H, Calcium 9.3, Magnesium 2.0 D, Total Bilirubin 0.7, AST 93 H D, ALT 65 D, Alkaline Phosphatase 104, Total Protein 6.4, Albumin 3.5, Globulin 2.9, Albumin/Globulin Ratio 1.2 09/03/23 06:00: Specimen Source Right radial, O2 % 21%, ABG pH 7.38, ABG pCO2 40.7, ABG pO2 68.7 L, ABG HCO3 23.8, ABG Total CO2 25.0, ABG O2 Saturation 93, ABG Base Excess -1.3, Rodney Test Acceptable, Vent Rate 18, PEEP 6 I & O for Labs for Last 24 Hours: Intake & Output 08/31/23 09/01/23 09/02/23 09/03/23 23:59 23:59 23:59 23:59 Intake Total 135 / 255 1979 / 1979 270 / 270 Output Total 400 / 400 2200 / 2200 450 / 450 Balance -265 / -145 -220 / -220 -180 / -180 Weight 206 lb 4 oz 206 lb 3.985 oz 206 lb 3.985 oz Constitutional: Present moderate distress Head: Present normocephalic and atraumatic ENT: Present normal exam, normal oropharynx and mucous membranes moist Neck: Present normal inspection and full ROM Respiratory: Present prolonged expiratory phase, respiratory distress, wheezes, diminished air movement and able to speak in complete sentences; Absent normal respiratory effort Cardiac: Present S1/S2, Tachycardia and radial pulses present GI: Present soft and distention; Absent tenderness or guarding Rectal (female): Present deferred (female): Present deferred Skin: Present intact; Absent cyanosis or jaundice Neuro: Present alert, awake and oriented x 3 Extremities: Present normal inspection and edema; Absent clubbing or cyanosis Psychiatric: Present normal affect and cooperative Meds Home Medications and Allergies Home Medications Medication Instructions Recorded Confirmed Type omega 4-lvk-xqj-fish oil 1,000 mg 2,000 mg PO DAILY 06/19/19 09/01/23 History (120 mg-180 mg) capsule ipratropium 0.5 mg-albuterol 3 mg 3 ml inhalation QIDP PRN Wheezing 06/21/19 09/01/23 Rx (2.5 mg base)/3 mL nebulization #120 neb soln atorvastatin 40 mg tablet 40 mg PO HS Cholesterol 12/08/21 09/01/23 History cholecalciferol (vitamin D3) 50 50 mcg PO DAILY Supplement 12/08/21 09/01/23 History mcg (2,000 unit) capsule lisinopril 20 mg tablet 20 mg PO DAILY Hypertension 12/08/21 09/01/23 History metoprolol tartrate 50 mg tablet 50 mg PO BID Hypertension 12/08/21 09/01/23 History budesonide 160 mcg-glycopyr 9 2 puff inhalation BID COPD 12/13/21 09/01/23 History mcg-formot 4.8 mcg/actuation HFA inhaler diltiazem HCl 240 mg 240 mg PO DAILY Hypertension 06/16/23 09/01/23 History capsule,extended release 24 hr furosemide 20 mg tablet 20 mg PO DAILY Edema 06/16/23 09/01/23 History metformin 750 mg tablet,extended 750 mg PO HS Diabetes 06/16/23 09/03/23 History release 24 hr montelukast 10 mg tablet 10 mg PO DAILY 06/16/23 09/01/23 History zinc gluconate 50 mg tablet 50 mg PO DAILY 06/16/23 09/01/23 History apixaban 5 mg tablet (Eliquis) 5 mg PO BID 07/19/23 09/01/23 History albuterol sulfate 90 mcg/actuation 1 - 2 inh inhalation Q4HP PRN 09/02/23 09/02/23 History aerosol inhaler SHORTNESS OF AIR New Prescriptions to Start Prescriptions: Allergies Allergy/AdvReac Type Severity Reaction Status Date / Time No Known Allergies Allergy Verified 09/01/23 10:41 Results Laboratory Findings 09/03/23 05:30 09/03/23 05:30 ABG ABG pH 7.38 mmol/L (7.35-7.45) 09/03/23 06:00 ABG pCO2 40.7 mmhg (35.0-45.0) 09/03/23 06:00 ABG pO2 68.7 mmhg (80-100) L 09/03/23 06:00 ABG O2 Saturation 93 % (90-100) 09/03/23 06:00 Abnormal lab findings: Abnormal Labs 09/01/23 09/01/23 09/01/23 10:16 10:23 13:06 RBC MCHC 30.9 L Neut % (Auto) 87.0 H Lymph % (Auto) 2.6 L Neut # (Auto) 8.2 H Lymph # (Auto) 0.3 L Eos # (Auto) 0.5 H Neutrophils % (Manual) 86 H Lymphocytes % (Manual) 5 L Eosinophils % (Manual) 6 H ABG pH ABG pCO2 ABG pO2 ABG HCO3 ABG Total CO2 VBG pO2 95.1 H VBG HCO3 21.3 L VBG Total CO2 22.6 L VBG O2 Saturation 96.6 H VBG Base Excess -4.5 L VBG Lactic Acid 2.3 H Sodium 134 L BUN Glucose 225 H POC Glucose Lactate AST 47 H Troponin I 0.04 H NT-Pro-B Natriuret Pep 2980 H Influ A (H1N1/09) PCR 09/01/23 09/01/23 09/01/23 14:50 16:35 17:12 RBC MCHC Neut % (Auto) Lymph % (Auto) Neut # (Auto) Lymph # (Auto) Eos # (Auto) Neutrophils % (Manual) Lymphocytes % (Manual) Eosinophils % (Manual) ABG pH ABG pCO2 ABG pO2 ABG HCO3 ABG Total CO2 VBG pO2 VBG HCO3 VBG Total CO2 VBG O2 Saturation VBG Base Excess VBG Lactic Acid Sodium BUN Glucose POC Glucose Lactate 4.1 H AST Troponin I 0.05 H NT-Pro-B Natriuret Pep Influ A (H1N1/09) PCR Detected A 09/01/23 09/01/23 09/01/23 17:15 17:31 20:55 RBC MCHC Neut % (Auto) Lymph % (Auto) Neut # (Auto) Lymph # (Auto) Eos # (Auto) Neutrophils % (Manual) Lymphocytes % (Manual) Eosinophils % (Manual) ABG pH ABG pCO2 ABG pO2 ABG HCO3 ABG Total CO2 VBG pO2 VBG HCO3 VBG Total CO2 VBG O2 Saturation VBG Base Excess VBG Lactic Acid Sodium BUN Glucose POC Glucose 332 H* 279 H Lactate 3.5 H AST Troponin I NT-Pro-B Natriuret Pep Influ A (H1N1/09) PCR 09/02/23 09/02/23 09/02/23 05:58 06:48 11:04 RBC 4.12 L MCHC 31.7 L Neut % (Auto) 92.1 H Lymph % (Auto) 4.8 L Neut # (Auto) Lymph # (Auto) 0.4 L Eos # (Auto) Neutrophils % (Manual) 96 H Lymphocytes % (Manual) 2 L Eosinophils % (Manual) ABG pH ABG pCO2 ABG pO2 ABG HCO3 ABG Total CO2 VBG pO2 VBG HCO3 VBG Total CO2 VBG O2 Saturation VBG Base Excess VBG Lactic Acid Sodium BUN 20 H D Glucose 209 H POC Glucose 203 H 177 H Lactate AST 53 H Troponin I NT-Pro-B Natriuret Pep Influ A (H1N1/) PCR 09/02/23 09/02/23 09/03/23 15:47 17:30 05:01 RBC MCHC Neut % (Auto) Lymph % (Auto) Neut # (Auto) Lymph # (Auto) Eos # (Auto) Neutrophils % (Manual) Lymphocytes % (Manual) Eosinophils % (Manual) ABG pH 7.16 L* ABG pCO2 79.7 H ABG pO2 263.3 H ABG HCO3 27.6 H ABG Total CO2 30.1 H VBG pO2 VBG HCO3 VBG Total CO2 VBG O2 Saturation VBG Base Excess VBG Lactic Acid Sodium BUN Glucose POC Glucose 225 H 212 H Lactate AST Troponin I NT-Pro-B Natriuret Pep Influ A (H1N1) PCR 09/03/23 09/03/23 05:30 06:00 RBC MCHC 31.2 L Neut % (Auto) 92.1 H Lymph % (Auto) 5.8 L Neut # (Auto) 9.4 H Lymph # (Auto) 0.6 L Eos # (Auto) Neutrophils % (Manual) Lymphocytes % (Manual) Eosinophils % (Manual) ABG pH ABG pCO2 ABG pO2 68.7 L ABG HCO3 ABG Total CO2 VBG pO2 VBG HCO3 VBG Total CO2 VBG O2 Saturation VBG Base Excess VBG Lactic Acid Sodium BUN 32 H D Glucose 207 H POC Glucose Lactate AST 93 H D Troponin I NT-Pro-B Natriuret Pep Influ A (H1N1) PCR Assessment and Plan *Assessment and plan (1) Influenza due to identified 2008 H1N1 influenza virus with pneumonia: Status: Acute Category: Medical Code(s): J10.00 - Influenza due to other identified influenza virus with unspecified type of pneumonia (2) Acute and chronic respiratory failure with hypoxia: Status: Acute Category: Medical Code(s): J96.21 - Acute and chronic respiratory failure with hypoxia Plan Ms. Mcneill is a 72-year-old female with reported history of COPD, A-fib, hypertension and diabetes heart failure with preserved ejection fraction presented to the ER complaining of worsening respiratory distress to the 2 days prior to her admission. Patient has been tolerating well since admission with nasal oxygen supplementation however during her hospital course noted to have worsening altered mentation and hypercarbic respiratory failure needing noninvasive ventilator therapy and pulmonary was called for further evaluation and management. Of note patient was recently seen in the hospital early July 2023 for similar presentation and discharged home on inhalers on levofloxacin to complete a total of 5-day course for presumed pneumonia Patient upon admission was managed for COPD exacerbation with continuing ceftriaxone, prednisone along with ablation therapies as needed on home inhaler therapy which include Breztri. Afebrile. Hemodynamically stable. No evidence of significant leukocytosis upon admission. CTA upon admission August 2023, no evidence of pulmonary embolism. No significant dense consolidative changes noted except for patchy areas of airspace disease in the left lower lobe and groundglass opacity in the right lower lobe. These lower lobe findings were new from her prior CTA chest from Jun 2023 Patient was initiated on invasive ventilator therapy 09/01/2021 for worsening hypercarbic respiratory failure. Repeat gas from this morning improving provide with respiratory failure, PaO2 at 68.7 on FiO2 21% on BiPAP. Patient at baseline on 2 to 4 L nasal cannula oxygen supplementation. Patient examination to moderate respiratory distress. Significant wheezing noted on auscultation. On 2 L saturating 90 to 96%. Will continue to wean as tolerated. Plan: Antibiotics can be weaned to ceftriaxone and azithromycin OR levoflaxacin to complete a total of 5-day course from pulmonary standpoint pending sputum culture results Continue Tamiflu for a total of 10 days Incentive spirometry and flutter valve DuoNebs every 4 hours scheduled along with Pulmicort every 12 scheduled Discontinue BiPAP therapy at night pending clinical improvement. Continue methylprednisolone 60 IV twice daily. # Thank you for involving pulmonary in this patient care. Will continue to follow.
--- NOTE | 2023-09-03 10:29 | HMH.OTEV ---
OT Inpatient Evaluation Rehab OT IP Evaluation Start: 09/02/23 12:26 Freq: ONCE Status: Active Protocol: Document 09/03/23 10:20 PAWAN (Rec: 09/03/23 10:29 PAWAN [id number]) Rehab OT IP Assessment Subjective History Ms. Mcneill is a 72-year- old female with history of A- fib, COPD, obesity, hypertension, diabetes, heart failure with preserved ejection fraction. She presented to the ER because of complaint of worsening shortness of breath over the past 2 to 3 days. Denies any fever, nausea, vomiting, chest pain. No known sick contacts . Saw her occupational therapist's assistant 2 days ago, was short of breath at that time but has reportedly gotten worse since that visit. On arrival to the ER, concern for A-fib with RVR with heart rate in the 110-120 range, chest x-ray showing hyperinflation but no consolidation or airspace disease. White cell count normal with left shift. Significant work of breathing, placed on oxygen for comfort. Requiring 2 L at this time. Desats with ambulation. Responded for a brief period of time to nebulizer. Also found to have elevated BNP and significant lower extremity edema concerning for volume overload and CHF exacerbation. Medicine was consulted for admission and further management. Received dose of ceftriaxone prior to admission. On arrival and evaluation after arriving to the floor, patient appears in mild respiratory distress. Sats are in the low 90s on 2 L. Poor air movement on exam. Administering repeat nebulizer . Will obtain CTA of the chest. States she feels really short of breath after going to the bathroom and getting back in bed. Reports she has been having increased cough with yellow sputum production. Has had multiple episodes over the past 4 months of similar presentation both here and at other hospitals. Recently established with pulmonology. Patient lives alone in 1 story apt behind son. Family is involved in patient's life and checks on her daily. Assist with cleaning and IADLs as needed. Was not on 02 at home. Subjective I can get up. Instructed patietn on safety awareness to complete bed mobility, transfers, ambulation to recliner requiring Min A/CGA. No LOB noted. Objective Patient Orientation Person,Name,Age,Birthday,Year Right Upper Extremity Gross ROM WFL Left Upper Extremity Gross ROM WFL Bed Mobility bed mobility - supine/sit Assist Level Contact Guard/Hand Hold Transfer Training Sit/Stand/Pivot Transfer Assist Level Contact Guard/Hand Hold Chair Transfer Ability Supervision/Stand by Chair Transfer Technique Sit to/from Ambulatory Chair Transfer Assistive Devices Rolling Walker Rehab OT IP prob,goals,plan Problems Date of Evaluation: 09/03/23 OT IP Problems Bed Mobility,Transfers,Balance ,Self care,Safety Rehab Potential Rehab Potential Good Equipment Needs Assistive Devices Rolling / Wheeled Walker Plan OT intervention Plan Bed Mobility,Transfers,Balance ,Self care,Safety,Therapeutic Exercise OT Plan Frequency Daily Duration LOS Discharge Goals Bed Mobility Ability Assistance x1 Sit to Stand Chair Transfer Ability Supervision/Stand by Chair Transfer Ability Supervision/Stand by Chair Transfer Technique Sit to/from Ambulatory Chair Transfer Assistive Devices Rolling Walker Discharge Plan OT Discharge Plan REcommend patient to return home with services. Patient to continue skilled OT IP services while here at [facility]. Eval Complexity Eval Charge Codes 30677 - Low Complexity PHYSICIAN CERTIFICATION: I certify the specified therapy services for Ann Mcneill are required, authorized, and reviewed every 30 days.
--- NOTE | 2023-09-03 10:44 | HMH.PTEV ---
Physical Therapy Evaluation Rehab PT IP Evaluation Start: 09/02/23 12:26 Freq: ONCE Status: Active Protocol: Document 09/03/23 10:37 JEVONKELSEY (Rec: 09/03/23 10:43 JOEY [email or web address]) Subjective/History History History Per H&P: Ms. Mcneill is a 72-year- old female with history of A- fib, COPD, obesity, hypertension, diabetes, heart failure with preserved ejection fraction. She presented to the ER because of complaint of worsening shortness of breath over the past 2 to 3 days. Denies any fever, nausea, vomiting, chest pain. No known sick contacts . Saw her wick and base assembler 2 days ago, was short of breath at that time but has reportedly gotten worse since that visit. On arrival to the ER, concern for A-fib with RVR with heart rate in the 110-120 range, chest x-ray showing hyperinflation but no consolidation or airspace disease. White cell count normal with left shift. Significant work of breathing, placed on oxygen for comfort. Requiring 2 L at this time. Desats with ambulation. Responded for a brief period of time to nebulizer. Also found to have elevated BNP and significant lower extremity edema concerning for volume overload and CHF exacerbation. Medicine was consulted for admission and further management. Subjective Subjective PLOF per pt report: Pt lives alone in a single story home with 1STE. Pt lives behind her son who assists pt a needed. Pt IND with mobility using RW prior to ambulation. Family is involved in patient's life and checks on her daily. Was not on 02 at home. Driving prior to admission. New diagnosis of cancer in past 12 No months? Rehab PT IP Eval Objective Appearance Patient Behavior Appropriate,Cooperative Patient Orientation Person,Situation Difficulty following instructions none Speech Pattern Clear Ambulation Patient Able to Ambulate Yes Ambulation Observation Ambulation Distance (feet) 3 Ambulation Assistive Device Rolling Walker Ambulation Ability Contact Guard/Hand Hold Balance Ability to Arise Able, uses arms to help Sitting Balance Leans or slides in chair Standing Balance Steady, wide stance Transfers Bed Transfer Ability Contact Guard/Hand Hold Sit to Stand Bed Transfer Ability Contact Guard/Hand Hold Sit to Stand Chair Transfer Ability Contact Guard/Hand Hold Rehab PT IP prob,goals,plan Problems Date of Evaluation: 09/03/23 PT IP Problems Bed Mobility,Transfers,Gait, Balance,Self care,Safety Rehab Potential Rehab Potential Good Equipment Needs Assistive Devices Rolling / Wheeled Walker Plan PT Intervention Plan Transfers,Gait,Balance,Safety, Therapeutic Exercise Other Intervention Plan 1-2 times PT Plan Frequency Daily Duration LOS Discharge Goals Bed Transfer Ability Supervision/Stand by Sit to Stand Chair Transfer Ability Supervision/Stand by Ambulation Assistive Device Rolling Walker Ambulation Distance (feet) 30 Discharge Plan PT Discharge Plan Initial physical therapy evaluation performed. Pt's amb assessment limited by decreasing O2 Sats (88-84% SpO2). Patient presents below baseline at this time in functional mobility, transfers , gait, and strength. Pt would benefit from skilled PT while at [facility] to prevent further functional decline and maximize safety with mobility. Pt safe to d/c home when deemed medically necessary d/t current level of mobility, home set-up, and family support. PT recommending home health PT services to address deficits. Eval Complexity Eval Charge Codes 73996 - Moderate Complexity PHYSICIAN CERTIFICATION: I certify the specified therapy services for Ann Mcneill are required, authorized, and reviewed every 30 days.
[2023-09-03 10:48] LABS: Lymphocytes % 8 % (10-50); Monocytes % 2 % (2-9); Neutrophils % 90 % (42-76); Platelet Estimate Normal; RBC Morphology Normal; Total Cells Counted 100
[2023-09-03 11:02] LABS: POC Glucose,Bedside 251 (70-110)
[2023-09-03] MEDS: CEFTRIAXONE 1 GM 1 GM in 0.9 % SODIUM CHLORIDE 50 ML IV (14:28)
[2023-09-03] MEDS: AZITHROMYCIN 500 MG in 0.9 % SODIUM CHLORIDE 250 ML 250 MG IV (14:56)
--- NOTE | 2023-09-03 15:09 | EXP.ACUTE.PN ---
Subjective *Date: 09/03/23 *Time: 15:09 Interval history: Respiratory distress yesterday afternoon led to BiPAP overnight. Tolerated well. Improvement this morning in mentation. Still quite wheezy on exam but having some improvement in air movement. Sitting at bedside. Working with therapy. No nausea or vomiting. No fever overnight. Still appears in mild distress. Medical Exam Vital signs and Labs for Last 24 Hours: Vital Signs Temp Pulse Pulse Resp BP Pulse Ox O2 Del Method 09/03/23 14:42 96 Room Air 09/03/23 14:00 88 20 111/51 L 97 Nasal Cannula 09/03/23 13:28 85 09/03/23 13:28 87 09/03/23 13:28 91 L Nasal Cannula 09/03/23 13:00 Nasal Cannula 09/03/23 12:00 87 20 130/72 92 L Nasal Cannula 09/03/23 12:00 80 09/03/23 12:00 97.8 F 09/03/23 10:52 Nasal Cannula 09/03/23 10:00 94 H 24 145/88 H 93 L Nasal Cannula 09/03/23 09:00 Nasal Cannula 09/03/23 08:00 100 H 09/03/23 07:55 Nasal Cannula 09/03/23 07:49 98.2 F 102 H 36 H 139/82 98 Nasal Cannula 09/03/23 07:49 Nasal Cannula 09/03/23 07:00 BiPAP 09/03/23 06:00 90 23 94/44 L 93 L BiPAP 09/03/23 05:35 103 H 09/03/23 05:35 108 H 09/03/23 05:00 BiPAP 09/03/23 04:00 83 09/03/23 04:00 97.8 F 82 20 125/73 91 L BiPAP 09/03/23 03:16 91/32 L 09/03/23 03:00 87 90 L BiPAP 09/03/23 02:59 BiPAP 09/03/23 02:00 81 20 89/51 L 91 L 09/03/23 02:00 94 H 09/03/23 02:00 94 H 09/03/23 02:00 09/03/23 01:00 BiPAP 09/03/23 00:00 94 L BiPAP 09/03/23 00:00 97.9 F 90 20 91/52 L 93 L BiPAP 09/03/23 00:00 82 09/02/23 23:00 BiPAP 09/02/23 22:12 108 H 09/02/23 22:12 108 H 09/02/23 22:00 88 19 104/58 L 94 L BiPAP 09/02/23 22:00 09/02/23 21:00 93/59 L 09/02/23 21:00 BiPAP 09/02/23 20:15 110/50 L 09/02/23 20:00 101 H 09/02/23 20:00 97.5 F L 108 H 23 113/39 L 94 L BiPAP 09/02/23 19:47 98 H 92 L BiPAP 09/02/23 19:11 124 H 09/02/23 19:11 120 H 09/02/23 19:11 92 L BiPAP 09/02/23 19:11 09/02/23 18:34 BiPAP 09/02/23 18:00 113 H 28 H 137/70 92 L BiPAP 09/02/23 17:00 Nasal Cannula 09/02/23 16:00 110 H 09/02/23 15:44 98.1 F 09/02/23 15:37 101 H 18 137/61 92 L Nasal Cannula 09/02/23 15:12 92 L Nasal Cannula O2 Flow Rate FiO2 09/03/23 14:42 09/03/23 14:00 1 09/03/23 13:28 09/03/23 13:28 09/03/23 13:28 1 09/03/23 13:00 1 09/03/23 12:00 1.5 09/03/23 12:00 09/03/23 12:00 09/03/23 10:52 2 09/03/23 10:00 2 09/03/23 09:00 1 09/03/23 08:00 09/03/23 07:55 3.5 09/03/23 07:49 3.5 09/03/23 07:49 4 09/03/23 07:00 09/03/23 06:00 21 09/03/23 05:35 09/03/23 05:35 09/03/23 05:00 09/03/23 04:00 09/03/23 04:00 21 09/03/23 03:16 09/03/23 03:00 09/03/23 02:59 09/03/23 02:00 09/03/23 02:00 09/03/23 02:00 09/03/23 02:00 09/03/23 01:00 09/03/23 00:00 09/03/23 00:00 09/03/23 00:00 09/02/23 23:00 09/02/23 22:12 09/02/23 22:12 09/02/23 22:00 09/02/23 22:00 09/02/23 21:00 09/02/23 21:00 09/02/23 20:15 09/02/23 20:00 09/02/23 20:00 09/02/23 19:47 09/02/23 19:11 09/02/23 19:11 09/02/23 19:11 25 09/02/23 19:11 25 09/02/23 18:34 09/02/23 18:00 21 09/02/23 17:00 2 09/02/23 16:00 09/02/23 15:44 09/02/23 15:37 2 09/02/23 15:12 2 Intake and Output 09/02/23 09/03/23 09/03/23 23:59 07:59 15:59 Intake Total 600 / 1980 270 / 390 120 / 390 Output Total 450 / 450 Balance 600 / -220 -180 / -60 120 / -60 Intake: Intake, Oral Amount 270 / 390 120 / 390 Intake, Total IV Amount 600 / 600 Cefepime HCl 2 gm In 0.9 % 100 / 100 Sodium Chloride 100 ml @ 200 mls/hr IV Q8H [facility] Rx#:[id number] Vancomycin HCl 2,000 mg In 0.9 500 / 500 % Sodium Chloride 500 ml @ 250 mls/hr IV ONCE ONE Rx#:[id number] Output: Output, Urine Amount 450 / 450 Other: Number of Unmeasured Voids 1 Weight 93.553 kg 93.55 kg Patient Weight 09/03/23 23:59 Weight 93.55 kg Laboratory Results - last 24 hr 09/02/23 15:47: POC Glucose 225 H 09/02/23 17:30: Specimen Source Right radial, O2 % 100, ABG pH 7.16 L*, ABG pCO2 79.7 H, ABG pO2 263.3 H, ABG HCO3 27.6 H, ABG Total CO2 30.1 H, ABG O2 Saturation 100, ABG Base Excess -1.1, Rodney Test Acceptable 09/03/23 05:01: POC Glucose 212 H 09/03/23 05:30: WBC 10.2 D, RBC 4.38, Hgb 13.0, Hct 41.8, MCV 95.4, MCH 29.8, MCHC 31.2 L, RDW 15.7, Plt Count 203, MPV 9.3, Neut % (Auto) 92.1 H, Lymph % (Auto) 5.8 L, Blount % (Auto) 1.8, Eos % (Auto) 0.2, Baso % (Auto) 0.2, Neut # (Auto) 9.4 H, Lymph # (Auto) 0.6 L, Blount # (Auto) 0.2, Eos # (Auto) 0.0, Baso # (Auto) 0.0, Total Counted 100, Neutrophils % (Manual) 90 H, Lymphocytes % (Manual) 8 L, Monocytes % (Manual) 2, Platelet Estimate Normal, RBC Morphology Normal, Sodium 136, Potassium 4.7, Chloride 105, Carbon Dioxide 26, Anion Gap 9.7, BUN 32 H D, Creatinine 0.80, Estimated Creat Clear 74, Estimated GFR 70, Est GFR ( Amer) 85, Glucose 207 H, Calcium 9.3, Magnesium 2.0 D, Total Bilirubin 0.7, AST 93 H D, ALT 65 D, Alkaline Phosphatase 104, Total Protein 6.4, Albumin 3.5, Globulin 2.9, Albumin/Globulin Ratio 1.2 09/03/23 06:00: Specimen Source Right radial, O2 % 21%, ABG pH 7.38, ABG pCO2 40.7, ABG pO2 68.7 L, ABG HCO3 23.8, ABG Total CO2 25.0, ABG O2 Saturation 93, ABG Base Excess -1.3, Rodney Test Acceptable, Vent Rate 18, PEEP 6 09/03/23 10:52: POC Glucose 251 H I & O for Labs for Last 24 Hours: Intake & Output 08/31/23 09/01/23 09/02/23 09/03/23 23:59 23:59 23:59 23:59 Intake Total 135 / 255 1979 / 1979 390 / 390 Output Total 400 / 400 2200 / 2200 450 / 450 Balance -265 / -145 -220 / -220 -60 / -60 Weight 93.553 kg 93.553 kg 93.55 kg Constitutional: Present mild distress, obese, chronically ill appearing and cooperative Head: Present atraumatic and normocephalic ENT: Present normal exam Respiratory: Present accessory muscle use, prolonged expiratory phase, rhonchi, wheezes (Diffuse) and diminished air movement; Absent crackles Cardiac: Present Regular Rate Comment:: Irregularly irregular GI: Present soft and normal bowel sounds; Absent distention or tenderness Extremities: Present normal inspection and full ROM Skin: Present intact; Absent erythema Neuro: Present Grossly Intact, alert, awake, oriented x 3 and moves all extremities Assessment and Plan *Assessment and plan (1) Influenza due to identified 2008 H1N1 influenza virus with pneumonia: Status: Acute Category: Medical Code(s): J10.00 - Influenza due to other identified influenza virus with unspecified type of pneumonia (2) Acute respiratory failure with hypercapnia: Status: Acute Category: Medical Code(s): J96.02 - Acute respiratory failure with hypercapnia (3) Acute hypoxemic respiratory failure: Status: Acute Category: Medical Code(s): J96.01 - Acute respiratory failure with hypoxia (4) COPD exacerbation: Status: Acute Category: Medical Code(s): J44.1 - Chronic obstructive pulmonary disease with (acute) exacerbation (5) Obesity (BMI 30.0-34.9): Status: Chronic Category: Medical Code(s): E66.9 - Obesity, unspecified (6) Hypertension: Status: Chronic Qualifiers: Hypertension type: unspecified Qualified Code(s): I10 - Essential (primary) hypertension Category: Medical Code(s): I10 - Essential (primary) hypertension (7) Atrial flutter: Status: Acute Qualifiers: Atrial flutter type: typical Qualified Code(s): I48.3 - Typical atrial flutter Category: Medical Code(s): I48.92 - Unspecified atrial flutter (8) Diabetes type 2, controlled: Status: Acute Qualifiers: Diabetes mellitus continuous churn buttermaker insulin use: unspecified continuous churn buttermaker insulin use status Diabetes mellitus complication status: with unspecified complications Qualified Code(s): E11.8 - Type 2 diabetes mellitus with unspecified complications Category: Medical Code(s): E11.9 - Type 2 diabetes mellitus without complications (9) Atrial fibrillation with RVR: Status: Acute Category: Medical Code(s): I48.91 - Unspecified atrial fibrillation (10) (HFpEF) heart failure with preserved ejection fraction: Status: Acute Qualifiers: Heart failure chronicity: unspecified Qualified Code(s): I50.30 - Unspecified diastolic (congestive) heart failure Category: Medical Code(s): I50.30 - Unspecified diastolic (congestive) heart failure (11) CHF exacerbation: Status: Acute Category: Medical Code(s): I50.9 - Heart failure, unspecified Plan 72-year-old female with history of diabetes, COPD, A-fib. Presented to the ER with dyspnea. Workup in the ER concerning for COPD exacerbation, acute on diastolic heart failure, respiratory distress, A-fib/flutter with RVR. Discussed case with ER physician, request admission for new oxygen requirement and further management. Medicine agreed to admit. Found to be positive for flu (H1/N1). Patient hypoxic initially with development of hypercapnia yesterday. Necessitated initiation of BiPAP overnight. Has shown improvement with decrease in CO2 and normalization of pH. Pulmonology consulted and assisting with care. Continues to require inpatient management for her respiratory distress. Problems addressed as follows: Flu pneumonia Hypoxemic and hypercapnic respiratory failure COPD with exacerbation -Pulmonology consulted, appreciate their assistance in care. Necessitated BiPAP last night. Blood gases normalized with pH of 7.38, pCO2 of 40, pO2 of 68 on morning labs. -Discussed case this morning, recommend continuing Tamiflu 75 mg for 10 days, de-escalate antibiotics to ceftriaxone and azithromycin for total of 5 days. Continue incentive spirometry and flutter valve. Continue methylprednisolone 60 mg IV twice daily. - Continue supplemental oxygen for goal sats between 90 and 95%. On 2 L nasal cannula this time. - Levalbuterol and ipratropium scheduled every 4 hours -Continue home Breztri -Pulmicort twice daily -White cell count stable at 10. Afebrile overnight. -Repeat CBC, CMP, magnesium ordered for the morning - Continue Singulair 10 mg daily -Will hold on BiPAP therapy tonight pending worsening hypercapnia Atrial fibrillation Acute on chronic heart failure with preserved ejection fraction Hypertension Hyperlipidemia -On chronic anticoagulation with Eliquis, continue 5 mg twice daily. Continue diltiazem 240 mg daily -Continue metoprolol tartrate to 100 mg twice daily -Holding lisinopril given adjustments and rate controlling medications and their potential impact on blood pressure -Continue Lipitor 40 -Holding on further diuresis given her flu. Reevaluate need for diuresis tomorrow. Magnesium 1.8, potassium 4.6. No repletion today. - BNP 2900, troponin detectable at 0.05. No ischemic changes on EKG. Diabetes: A1c 7.8. Continue metformin 750 mg daily, continue empagliflozin 10 mg daily, Sliding scale insulin with fingersticks ACHS Full code Diabetic diet Eliquis
--- NOTE | 2023-09-03 16:27 | PC.NURSE ---
Pt up to chair. Currently on RA with sats in the low 90s. No complaints stated. VS currently stable. Medication administered per jul. Call light within reach.
[2023-09-03 16:35] LABS: POC Glucose,Bedside 230 (70-110)
[2023-09-03] MEDS: MONTELUKAST SODIUM 10MG TAB 10 MG PO (18:38)
[2023-09-03] MEDS: APIXABAN 5MG TABLET 5 MG PO (20:20)
[2023-09-03] MEDS: ATORVASTATIN 40MG TABLET 40 MG PO (20:20)
[2023-09-03] MEDS: METOPROLOL TARTRATE 50MG TABLET 100 MG PO (20:21)
[2023-09-03] MEDS: METFORMIN 750 MG 1 EACH PO (20:31)
[2023-09-03 20:47] LABS: POC Glucose,Bedside 323 (70-110)
[2023-09-04] VITALS (13 sets, daily range): BP systolic 93–145; BP diastolic 44–71; PULSE 82–110; RESP 16–24; TEMP 36.4; O2SAT 87–100; BMI 31.7
[2023-09-04] MEDS: IPRATROPIUM BROMIDE 0.5 MG/2.5ML SOLUTION IH ×4 (01:59→13:39)
[2023-09-04] MEDS: LEVALBUTEROL 1.25MG/3ML NEB 1.25 MG IH ×4 (01:59→13:39)
--- NOTE | 2023-09-04 05:02 | PC.NURSE ---
Patient has had a great night. Patient has not been anxious like the pervious mine shifter. Patient has been on 2-1L NC through the night. When patient would fall asleep patient would drop to the 87-88%. RN put 2L and titrated from there. Patient currently is on 1L NC stating 94%. Patient has had no complaints and has slept most of the shift. Patient remains with a purewick due to respiratory status. No other issues this shift.
[2023-09-04] MEDS: humaLOG 100 UNITS/ML 3ML VIAL (SSI) SQ ×2 (05:22→11:24)
[2023-09-04 05:47] LABS: POC Glucose,Bedside 223 (70-110)
[2023-09-04] MEDS: BUDESONIDE 0.5MG/2ML NEB 0.5 MG IH (06:12)
[2023-09-04 06:18] LABS: Chloride 105 mmol/L (98-107); Sodium 138 mmol/L (136-145)
[2023-09-04 06:19] LABS: Potassium 4.2 mmoL/L (3.5-5.1)
[2023-09-04 06:21] LABS: Alanine Aminotransferase 62 U/L (12-78); Alkaline Phosphatase 98 U/L (38-126); Anion Gap 5.2 mEq/L (5-15); Aspartate Amino Transferase 79 U/L (14-36); Bilirubin,Total 0.4 mg/dl (0.2-1.3); Blood Urea Nitrogen 35 mg/dl (7-17); Carbon Dioxide 32 mmol/L (22.0-30.0); Creatinine Clearance Estimated 73 mL/min (50-200); Estimated Glomerular Filt Rate 70 ml/min (>60); GFR (African American) 85 ML/MIN (>60)
[2023-09-04 06:22] LABS: Albumin Level 3.2 g/dl (3.5-5.0); Albumin/Globulin Ratio 1.2 (1.1-1.8); Calcium 9.1 mg/dl (8.4-10.2); Globulin 2.6 g/dL (1.3-3.2); Glucose 239 mg/dl (74-100); Total Protein,Serum 5.8 g/dl (6.3-8.2)
[2023-09-04 06:28] LABS: Basophils % 0.2 % (0.1-2.0); Eosinophils % 0.1 % (0.1-12.0); Hemoglobin 12.4 g/dL (12.2-16.2); Lymphocytes # 0.4 K/mm3 (0.7-4.5); Mean Corpuscular HGB Conc 30.9 g/dL (31.8-35.4); Mean Corpuscular Hemoglobin 29.1 pg (27.0-31.2); Mean Corpuscular Volume 94.1 fl (81-99); Mean Platelet Volume 9.1 fl (7.4-10.4); Monocytes # 0.3 K/mm3 (0.1-1.0); Monocytes % 4.2 % (1.7-9.3); Neutrophils # 5.3 K/mm3 (1.8-7.8); Neutrophils % 89.5 % (37.0-80.0); Platelet Count 190 K/mm3 (142-424); Red Blood Count 4.25 M/mm3 (4.20-5.40); Red Cell Distribution Width 15.9 % (11.5-17.5); White Blood Count 5.9 K/mm3 (4.8-10.8)
[2023-09-04 06:33] LABS: MANUAL DIFFERENTIAL MANUAL DIFFERENTIAL (MANUAL DIFF)
[2023-09-04 06:37] LABS: Magnesium 1.9 mg/dl (1.6-2.3)
[2023-09-04] MEDS: APIXABAN 5MG TABLET 5 MG PO (08:14)
[2023-09-04] MEDS: METOPROLOL TARTRATE 50MG TABLET 100 MG PO (08:15)
[2023-09-04] MEDS: LISINOPRIL 20MG TABLET 20 MG PO (08:15)
[2023-09-04] MEDS: OSELTAMIVIR 75MG CAPSULE 75 MG PO (08:15)
[2023-09-04] MEDS: FUROSEMIDE 40 MG TABLET PO (08:15)
[2023-09-04] MEDS: dilTIAZem ER 240MG CAPSULE 240 MG PO (08:15)
[2023-09-04] MEDS: METHYLPREDNISOLONE SOD SUCC 125MG VIAL 60 MG IV (08:16)
[2023-09-04 08:40] LABS: Lymphocytes % 4 % (10-50); Monocytes % 1 % (2-9); Neutrophils % 95 % (42-76); Total Cells Counted 100
[2023-09-04 08:41] LABS: Platelet Estimate Normal; RBC Morphology Normal
--- NOTE | 2023-09-04 09:19 | SW/DCPLANNER ---
Addendum entered by Holley Martinez 09/04/23 14:28: Services will start 09/06/23. Addendum entered by Holley Martinez 09/04/23 14:24: Yelitza soto/ [facility] stated that services will start this week. Original Note: I spoke w/ this patient regarding plans once medically stable for discharge. PT/OT evaluated patient and recommended home w/ home health services. Patient does not have a preference as to which agency just prefers one that will start the soonest. I will set up home health at time of discharge. Patient also stated that she will need a rolling walker at time of discharge and prefer this be ordered from [facility]. I will set up home health services and DME at time of discharge. Discharge date is unknown at this time.
[2023-09-04 11:32] LABS: POC Glucose,Bedside 282 (70-110)
--- NOTE | 2023-09-04 11:48 | P.PN_ITS ---
Subjective *Date: 09/04/23 *Time: 11:48 Pulmonology Exam Inpatient Vital signs and Labs for Last 24 Hours: Temp Pulse Resp BP Pulse Ox O2 Del Method O2 Flow Rate 97.6 F 90 18 124/66 92 L Room Air 1 09/04/23 11:42 09/04/23 11:42 09/04/23 11:42 09/04/23 11:42 09/04/23 11:42 09/04/23 11:42 09/04/23 08:15 FiO2 21 09/03/23 06:00 Laboratory Results - last 24 hr 09/03/23 16:03: POC Glucose 230 H 09/03/23 20:14: POC Glucose 323 H* 09/04/23 05:18: POC Glucose 223 H 09/04/23 05:19: WBC 5.9 D, RBC 4.25, Hgb 12.4, Hct 40.0, MCV 94.1, MCH 29.1, MCHC 30.9 L, RDW 15.9, Plt Count 190, MPV 9.1, Neut % (Auto) 89.5 H, Lymph % (Auto) 6.0 L, [place] % (Auto) 4.2, Eos % (Auto) 0.1, Baso % (Auto) 0.2, Neut # (Auto) 5.3, Lymph # (Auto) 0.4 L, [place] # (Auto) 0.3, Eos # (Auto) 0.0, Baso # (Auto) 0.0, Total Counted 100, Neutrophils % (Manual) 95 H, Lymphocytes % (Manual) 4 L, Monocytes % (Manual) 1 L, Platelet Estimate Normal, RBC Morphology Normal, Sodium 138, Potassium 4.2, Chloride 105, Carbon Dioxide 32 H, Anion Gap 5.2, BUN 35 H, Creatinine 0.80, Estimated Creat Clear 73, Estimated GFR 70, Est GFR ( Amer) 85, Glucose 239 H, Calcium 9.1, Magnesium 1.9, Total Bilirubin 0.4, AST 79 H, ALT 62, Alkaline Phosphatase 98, Total Protein 5.8 L, Albumin 3.2 L, Globulin 2.6, Albumin/Globulin Ratio 1.2 09/04/23 11:21: POC Glucose 282 H Temp Pulse Resp BP Pulse Ox O2 Del Method O2 Flow Rate 98.2 F 94 H 24 145/88 H 93 L Nasal Cannula 2 09/03/23 07:49 09/03/23 10:00 09/03/23 10:00 09/03/23 10:00 09/03/23 10:00 09/03/23 10:00 09/03/23 10:00 FiO2 21 09/03/23 06:00 Laboratory Results - last 24 hr 09/02/23 11:04: POC Glucose 177 H 09/02/23 15:47: POC Glucose 225 H 09/02/23 17:30: Specimen Source Right radial, O2 % 100, ABG pH 7.16 L*, ABG pCO2 79.7 H, ABG pO2 263.3 H, ABG HCO3 27.6 H, ABG Total CO2 30.1 H, ABG O2 Saturation 100, ABG Base Excess -1.1, Rodney Test Acceptable 09/03/23 05:01: POC Glucose 212 H 09/03/23 05:30: WBC 10.2 D, RBC 4.38, Hgb 13.0, Hct 41.8, MCV 95.4, MCH 29.8, MCHC 31.2 L, RDW 15.7, Plt Count 203, MPV 9.3, Neut % (Auto) 92.1 H, Lymph % (Auto) 5.8 L, [place] % (Auto) 1.8, Eos % (Auto) 0.2, Baso % (Auto) 0.2, Neut # (Auto) 9.4 H, Lymph # (Auto) 0.6 L, [place] # (Auto) 0.2, Eos # (Auto) 0.0, Baso # (Auto) 0.0, Sodium 136, Potassium 4.7, Chloride 105, Carbon Dioxide 26, Anion Gap 9.7, BUN 32 H D, Creatinine 0.80, Estimated Creat Clear 74, Estimated GFR 70, Est GFR ( Amer) 85, Glucose 207 H, Calcium 9.3, Magnesium 2.0 D, Total Bilirubin 0.7, AST 93 H D, ALT 65 D, Alkaline Phosphatase 104, Total Protein 6.4, Albumin 3.5, Globulin 2.9, Albumin/Globulin Ratio 1.2 09/03/23 06:00: Specimen Source Right radial, O2 % 21%, ABG pH 7.38, ABG pCO2 40.7, ABG pO2 68.7 L, ABG HCO3 23.8, ABG Total CO2 25.0, ABG O2 Saturation 93, ABG Base Excess -1.3, Rodney Test Acceptable, Vent Rate 18, PEEP 6 I & O for Labs for Last 24 Hours: Intake & Output 09/01/23 09/02/23 09/03/23 09/04/23 23:59 23:59 23:59 23:59 Intake Total 135 / 255 1979 / 1979 390 / 630 510 / 510 Output Total 400 / 400 2200 / 2200 3150 / 3150 900 / 900 Balance -265 / -145 -220 / -220 -2760 / -2520 -390 / -390 Weight 206 lb 4 oz 206 lb 3.985 oz 206 lb 3.879 oz 202 lb 2 oz Intake & Output 08/31/23 09/01/23 09/02/23 09/03/23 23:59 23:59 23:59 23:59 Intake Total 135 / 255 1979 / 1979 270 / 270 Output Total 400 / 400 2200 / 2200 450 / 450 Balance -265 / -145 -220 / -220 -180 / -180 Weight 206 lb 4 oz 206 lb 3.985 oz 206 lb 3.985 oz Constitutional: Present moderate distress Head: Present normocephalic and atraumatic ENT: Present normal exam, normal oropharynx and mucous membranes moist Neck: Present normal inspection and full ROM Respiratory: Present prolonged expiratory phase, respiratory distress, wheezes and able to speak in complete sentences; Absent normal respiratory effort Cardiac: Present S1/S2, Tachycardia and radial pulses present GI: Present soft and distention; Absent tenderness or guarding Rectal (female): Present deferred (female): Present deferred Skin: Present intact; Absent cyanosis or jaundice Neuro: Present alert, awake and oriented x 3 Extremities: Present normal inspection and edema; Absent clubbing or cyanosis Psychiatric: Present normal affect and cooperative Assessment and Plan *Assessment and plan (1) Influenza due to identified 2009 H1N1 influenza virus with pneumonia: Status: Acute Category: Medical Code(s): J10.00 - Influenza due to other identified influenza virus with unspecified type of pneumonia (2) Acute and chronic respiratory failure with hypoxia: Status: Acute Category: Medical Code(s): J96.21 - Acute and chronic respiratory failure with hypoxia Plan Ms. Mcneill is a 72-year-old female with reported history of COPD, A-fib, hypertension and diabetes heart failure with preserved ejection fraction presented to the ER complaining of worsening respiratory distress to the 2 days prior to her admission. Patient has been tolerating well since admission with nasal oxygen supplementation however during her hospital course noted to have worsening altered mentation and hypercarbic respiratory failure needing noninvasive ventilator therapy and pulmonary was called for further evaluation and management. Of note patient was recently seen in the hospital early July 2023 for similar presentation and discharged home on inhalers on levofloxacin to complete a total of 5-day course for presumed pneumonia Patient upon admission was managed for COPD exacerbation with continuing ceftriaxone, prednisone along with ablation therapies as needed on home inhaler therapy which include Breztri. Afebrile. Hemodynamically stable. No evidence of significant leukocytosis upon admission. CTA upon admission August 2023, no evidence of pulmonary embolism. No significant dense consolidative changes noted except for patchy areas of a irspace disease in the left lower lobe and groundglass opacity in the right lower lobe. These lower lobe findings were new from her prior CTA chest from Jun 2023 Patient was initiated on invasive ventilator therapy 09/01/2021 for worsening hypercarbic respiratory failure. Repeat gas from this morning improving provide with respiratory failure, PaO2 at 68.7 on FiO2 21% on BiPAP. Patient at basel ine on 2 to 4 L nasal cannula oxygen supplementation. Patient examination to moderate respiratory distress. Significant wheezing noted on auscultation. On 2 L saturating 90 to 96%. Will continue to wean as tolerated. Update: No acute respiratory events overnight. Weaned to room air this morning with saturations at rest maintained at 90 to 93%. Off BiPAP for the last 24 hours. Tolerating well. No change in mentation. Follow with ABG. Auscultation continues to show wheezing, though improved from prior. Plan: -Follow with ABG Continue ceftriaxone azithromycin to complete total of 5-day course. Can be weaned to cefdinir upon discharge. Continue Tamiflu for a total of 10 days Incentive spirometry and flutter valve Continue Breztri inhaler along with DuoNebs every 6 hours on as-needed basis Wean steroids to prednisone 40 mg oral daily for 2 more days. # Thank you for involving pulmonary in this patient care. Will follow the patient in pulmonary clinic 1 to 2 weeks post discharge. Patient will also need 6-minute walk testing to evaluate for exertional hypoxia and oxygen needs prior to discharge. Will follow with ABG to determine the need for NIV as an outpatient basis prior to discharge.
[2023-09-04 11:51] LABS: ABG Base Excess 2.6 mmol/L (-2.4-2.3); ABG HCO3 27.1 mmhg (22.0-26.0); ABG Oxygen Saturation 88 % (90-100); ABG PCO2 43.3 mmhg (35.0-45.0); ABG PH 7.42 mmol/L (7.35-7.45); ABG TCO2 28.5 mmhg (23-27); Allen's Test Acceptable; Oxygen RA %; Source Right Radial
--- NOTE | 2023-09-04 13:14 | EXP.DC.SUM ---
General Admission date:: 09/01/23 Discharge date: 09/04/23 HPI HPI HPI: Ms. Mcneill is a 72-year-old female with history of A-fib, COPD, obesity, hypertension, diabetes, heart failure with preserved ejection fraction. She presented to the ER because of complaint of worsening shortness of breath over the past 2 to 3 days. Denies any fever, nausea, vomiting, chest pain. No known sick contacts. Saw her cleaning custodian 2 days ago, was short of breath at that time but has reportedly gotten worse since that visit. On arrival to the ER, concern for A-fib with RVR with heart rate in the 110-120 range, chest x-ray showing hyperinflation but no consolidation or airspace disease. White cell count normal with left shift. Significant work of breathing, placed on oxygen for comfort. Requiring 2 L at this time. Desats with ambulation. Responded for a brief period of time to nebulizer. Also found to have elevated BNP and significant lower extremity edema concerning for volume overload and CHF exacerbation. Medicine was consulted for admission and further management. Received dose of ceftriaxone prior to admission. On arrival and evaluation after arriving to the floor, patient appears in mild respiratory distress. Sats are in the low 90s on 2 L. Poor air movement on exam. Administering repeat nebulizer. Will obtain CTA of the chest. States she feels really short of breath after going to the bathroom and getting back in bed. Reports she has been having increased cough with yellow sputum production. Has had multiple episodes over the past 4 months of similar presentation both here and at other hospitals. Recently established with pulmonology. Hospital Course Hospital Course Hospital Course: 72-year-old female with history of diabetes, COPD, A-fib. Presented to the ER with dyspnea. Workup in the ER concerning for COPD exacerbation, acute on diastolic heart failure, respiratory distress, A-fib/flutter with RVR. Discussed case with ER physician, request admission for new oxygen requirement and further management. Medicine agreed to admit. Found to be positive for flu (H1/N1). Patient hypoxic initially with development of hypercapnia yesterday. Necessitated initiation of BiPAP overnight. Has shown improvement with decrease in CO2 and normalization of pH. Pulmonology consulted they recommended DC on steroids and cefdinir and tamiflu Flu pneumonia Hypoxemic and hypercapnic respiratory failure - improved COPD with exacerbation - improved O2 sats on room air at rest 86%, so was started on home Oxygen therapy with 1L NC at rest and 2L while walking/exertion DC on cefdinir, prednisone and tamiflu at discharge Atrial fibrillation Acute on chronic heart failure with preserved ejection fraction - improved, no stable Hypertension Hyperlipidemia -On chronic anticoagulation with Eliquis, continue 5 mg twice daily. Continue diltiazem 240 mg daily -Continue metoprolol tartrate to 100 mg twice daily - Diabetes: A1c 7.8. Continue metformin 750 mg daily, continue empagliflozin 10 mg daily Patient was seen and evaluated at the bedside on the day of discharge. Patient wishes to be discharged. All patient questions were answered and patient was given time to ask questions. Patient was discharged in stable condition. Patient understands that she can return to ER in case of any sudden changes in health. Total time spent on DC - 38 mins Exam Data for Last 24 hours Vital signs and Labs for Last 24 Hours: Temp Pulse Resp BP Pulse Ox O2 Del Method O2 Flow Rate 97.6 F 100 H 18 124/66 87 L Room Air 1 09/04/23 11:42 09/04/23 12:00 09/04/23 11:42 09/04/23 11:42 09/04/23 12:10 09/04/23 12:10 09/04/23 08:15 FiO2 21 09/03/23 06:00 Laboratory Results - last 24 hr 09/03/23 16:03: POC Glucose 230 H 09/03/23 20:14: POC Glucose 323 H* 09/04/23 05:18: POC Glucose 223 H 09/04/23 05:19: WBC 5.9 D, RBC 4.25, Hgb 12.4, Hct 40.0, MCV 94.1, MCH 29.1, MCHC 30.9 L, RDW 15.9, Plt Count 190, MPV 9.1, Neut % (Auto) 89.5 H, Lymph % (Auto) 6.0 L, [place] % (Auto) 4.2, Eos % (Auto) 0.1, Baso % (Auto) 0.2, Neut # (Auto) 5.3, Lymph # (Auto) 0.4 L, [place] # (Auto) 0.3, Eos # (Auto) 0.0, Baso # (Auto) 0.0, Total Counted 100, Neutrophils % (Manual) 95 H, Lymphocytes % (Manual) 4 L, Monocytes % (Manual) 1 L, Platelet Estimate Normal, RBC Morphology Normal, Sodium 138, Potassium 4.2, Chloride 105, Carbon Dioxide 32 H, Anion Gap 5.2, BUN 35 H, Creatinine 0.80, Estimated Creat Clear 73, Estimated GFR 70, Est GFR ( Amer) 85, Glucose 239 H, Calcium 9.1, Magnesium 1.9, Total Bilirubin 0.4, AST 79 H, ALT 62, Alkaline Phosphatase 98, Total Protein 5.8 L, Albumin 3.2 L, Globulin 2.6, Albumin/Globulin Ratio 1.2 09/04/23 11:21: POC Glucose 282 H 09/04/23 11:25: Specimen Source Right radial, O2 % Ra, ABG pH 7.42, ABG pCO2 43.3, ABG pO2 55.0 L, ABG HCO3 27.1 H, ABG Total CO2 28.5 H, ABG O2 Saturation 88 L, ABG Base Excess 2.6 H, Rodney Test Acceptable I & O for Last 24 hours: Intake & Output 09/01/23 09/02/23 09/03/23 09/04/23 23:59 23:59 23:59 23:59 Intake Total 135 / 255 1980 / 1980 390 / 630 780 / 780 Output Total 400 / 400 2200 / 2200 3150 / 3150 1150 / 1150 Balance -265 / -145 -220 / -220 -2760 / -2520 -370 / -370 Weight 93.553 kg 93.553 kg 93.55 kg 91.682 kg Constitutional Constitutional: no acute distress *Routine HEENT Exam Head: Present normocephalic Eye: Present EOMI and PERRL ENT: Present mucous membranes moist *Routine Neck Exam Neck: Present supple; Absent lymphadenopathy *Routine Respiratory Exam Respiratory: Present diminished air movement Comments: no wheezing *Routine Cardiovascular Exam Cardiovascular: Present RRR *Routine Abdominal Exam Abdominal: Present soft and normoactive bowel sounds; Absent tenderness *Routine Extremities Exam Extremities: Absent cyanosis, clubbing or edema *Routine Skin Exam Skin: Present warm; Absent rash *Routine Neurological Exam Neurological: Present alert and oriented X3 Results Data Completed and Pending Labs on day of discharge: Labs from last 24 hours 09/04/23 09/04/23 09/04/23 11:25 11:21 05:19 WBC 5.9 D RBC 4.25 Hgb 12.4 Hct 40.0 MCV 94.1 MCH 29.1 MCHC 30.9 L RDW 15.9 Plt Count 190 MPV 9.1 Neut % (Auto) 89.5 H Lymph % (Auto) 6.0 L [place] % (Auto) 4.2 Eos % (Auto) 0.1 Baso % (Auto) 0.2 Neut # (Auto) 5.3 Lymph # (Auto) 0.4 L [place] # (Auto) 0.3 Eos # (Auto) 0.0 Baso # (Auto) 0.0 Total Counted 100 Neutrophils % (Manual) 95 H Lymphocytes % (Manual) 4 L Monocytes % (Manual) 1 L Platelet Estimate Normal RBC Morphology Normal Specimen Source Right radial O2 % Ra ABG pH 7.42 ABG pCO2 43.3 ABG pO2 55.0 L ABG HCO3 27.1 H ABG Total CO2 28.5 H ABG O2 Saturation 88 L ABG Base Excess 2.6 H Rodney Test Acceptable Sodium 138 Potassium 4.2 Chloride 105 Carbon Dioxide 32 H Anion Gap 5.2 BUN 35 H Creatinine 0.80 Estimated Creat Clear 73 Estimated GFR 70 Est GFR ( Amer) 85 Glucose 239 H POC Glucose 282 H Calcium 9.1 Magnesium 1.9 Total Bilirubin 0.4 AST 79 H ALT 62 Alkaline Phosphatase 98 Total Protein 5.8 L Albumin 3.2 L Globulin 2.6 Albumin/Globulin Ratio 1.2 09/04/23 09/03/23 09/03/23 05:18 20:14 16:03 WBC RBC Hgb Hct MCV MCH MCHC RDW Plt Count MPV Neut % (Auto) Lymph % (Auto) [place] % (Auto) Eos % (Auto) Baso % (Auto) Neut # (Auto) Lymph # (Auto) [place] # (Auto) Eos # (Auto) Baso # (Auto) Total Counted Neutrophils % (Manual) Lymphocytes % (Manual) Monocytes % (Manual) Platelet Estimate RBC Morphology Specimen Source O2 % ABG pH ABG pCO2 ABG pO2 ABG HCO3 ABG Total CO2 ABG O2 Saturation ABG Base Excess Rodney Test Sodium Potassium Chloride Carbon Dioxide Anion Gap BUN Creatinine Estimated Creat Clear Estimated GFR Est GFR ( Amer) Glucose POC Glucose 223 H 323 H* 230 H Calcium Magnesium Total Bilirubin AST ALT Alkaline Phosphatase Total Protein Albumin Globulin Albumin/Globulin Ratio DS: Diagnosis Discharge Diagnosis (1) Influenza due to identified 2009 H1N1 influenza virus with pneumonia: Status: Acute Code(s): J10.00 - Influenza due to other identified influenza virus with unspecified type of pneumonia (2) Acute and chronic respiratory failure with hypoxia: Status: Acute Code(s): J96.21 - Acute and chronic respiratory failure with hypoxia Meds Home Medications and Allergies Home Medications Medication Instructions Recorded Confirmed Type omega 3-ggd-xvd-fish oil 1,000 mg 2,000 mg PO DAILY 06/19/19 09/01/23 History (120 mg-180 mg) capsule ipratropium 0.5 mg-albuterol 3 mg 3 ml inhalation QIDP PRN Wheezing 06/21/19 09/01/23 Rx (2.5 mg base)/3 mL nebulization #120 neb soln atorvastatin 40 mg tablet 40 mg PO HS Cholesterol 12/08/21 09/01/23 History cholecalciferol (vitamin D3) 50 50 mcg PO DAILY Supplement 12/08/21 09/01/23 History mcg (2,000 unit) capsule lisinopril 20 mg tablet 20 mg PO DAILY Hypertension 12/08/21 09/01/23 History metoprolol tartrate 50 mg tablet 50 mg PO BID Hypertension 12/08/21 09/01/23 History budesonide 160 mcg-glycopyr 9 2 puff inhalation BID COPD 12/13/21 09/01/23 History mcg-formot 4.8 mcg/actuation HFA inhaler diltiazem HCl 240 mg 240 mg PO DAILY Hypertension 06/16/23 09/01/23 History capsule,extended release 24 hr furosemide 20 mg tablet 20 mg PO DAILY Edema 06/16/23 09/01/23 History metformin 750 mg tablet,extended 750 mg PO HS Diabetes 06/16/23 09/03/23 History release 24 hr montelukast 10 mg tablet 10 mg PO DAILY 06/16/23 09/01/23 History zinc gluconate 50 mg tablet 50 mg PO DAILY 06/16/23 09/01/23 History apixaban 5 mg tablet (Eliquis) 5 mg PO BID 07/19/23 09/01/23 History albuterol sulfate 90 mcg/actuation 1 - 2 inh inhalation Q4HP PRN 09/02/23 09/02/23 History aerosol inhaler SHORTNESS OF AIR cefdinir 300 mg capsule 300 mg PO Q12H 1 day #2 caps 09/04/23 Rx oseltamivir 75 mg capsule (Tamiflu) 75 mg PO Q12 8 days #16 caps 09/04/23 Rx prednisone 20 mg tablet 40 mg (2 x 20 mg) PO DAILY 5 days 09/04/23 Rx #10 tabs New Prescriptions to Start Prescriptions: cefdinir Tita Mendez oseltamivir [Tamiflu] Tita Mendez prednisone Tita Mendez Allergies Allergy/AdvReac Type Severity Reaction Status Date / Time No Known Allergies Allergy Verified 09/01/23 10:41 Discharge Plan Disposition Patient Disposition: Home Health Service Condition: Good Discharge Order Discharge Orders: Discharge Order (Routine); Ordered 09/04/23 Ordered By: Tita Mendez Follow up Plan Follow up with: Rodney Presley MD [Physician] - 2 weeks Tyrell Owens MD [Primary Care Provider] - 2 weeks Prescriptions/Medication Reconciliation: New prednisone 20 mg Tablet 40 mg PO DAILY 5 Days Qty: 10 0RF oseltamivir [Tamiflu] 75 mg Capsule 75 mg PO Q12 8 Days Qty: 16 0RF cefdinir 300 mg capsule 300 mg PO Q12H 1 Days Qty: 2 0RF Continued diltiazem HCl 240 mg capsule,extended release 24hr 240 mg PO DAILY furosemide 20 mg tablet 20 mg PO DAILY Patient Comments: TAKE ONE TABLET BY MOUTH EVERY DAY metformin 750 mg tablet extended release 24 hr 750 mg PO HS montelukast 10 mg tablet 10 mg PO DAILY zinc gluconate 50 mg Tablet 50 mg PO DAILY Eliquis 5 mg tablet 5 mg PO BID omega 6-dnu-wmn-fish oil 1,000 MG capsule 2,000 mg PO DAILY ipratropium-albuterol 3 ML solution for nebulization 3 ml inhalation QIDP PRN (Reason: Wheezing) Qty: 120 2RF atorvastatin 40 MG tablet 40 mg PO HS lisinopril 20 MG tablet 20 mg PO DAILY cholecalciferol (vitamin D3) 50 MCG capsule 50 mcg PO DAILY metoprolol tartrate 50 MG tablet 50 mg PO BID [id number]-zjtwfyhj-mgyqhgoioi 10.7 GM HFA aerosol inhaler 2 puff IH BID albuterol sulfate 90 mcg/actuation HFA aerosol inhaler 1 - 2 inh INHALATION Q4HP PRN (Reason: SHORTNESS OF AIR) Other Ambulatory Orders: Home Medical Equipment (Routine) Location: None Selected Ordered By: Tita Mendez Problem Reconciliation Problems Reviewed?: Yes Patient Discharge Instructions ACTIVITY: Ambulate as tolerated DIET: continue same diet Patient Instructions: DI for Heart Failure, DI for Atrial Fibrillation Providers Primary Care Provider: Tyrell Owens Admit Provider: Cholo Valdez Attending Provider: Cholo Valdez
--- NOTE | 2023-09-04 13:22 | HMH.PHAINT1 ---
Pharmacy Intervention Comments: DISCHARGE MEDICATION COUNSELING WAS PROVIDED TO PATIENT ON CEFDINIR, PREDNISONE, AND TAMIFLU FOR INDICATION, DOSE, AND POSSIBLE SIDE EFFECTS. PATIENT VERBALIZED UNDERSTANDING.
--- NOTE | 2023-09-04 14:43 | PC.NURSE ---
[id number] Presley in regards to pt discharge meds wanted by MD and if pt still needed 6 minute walk test to qualify for O2. per Dr presley pt needs to be prescribed the following. Cefdinir 300mg 1 capsulePO x 2 day Tamiflu 75mg 1 capsule PO BID x 7 days Prednisone 40 mg 1 tablet PO Daily x 2 days corrected medication doses called into Clinic pharmacy by myself to Fausto @ [phone]
--- NOTE | 2023-09-05 11:25 | CARE MANAGER ---
Contacted patient related to hospital discharge. Patient states she received her new medications prior to leaving the house. She is aware of follow up appointments. Provided her with the home health phone number. She denies other questions or concerns at this time. AFIA Gonsalez
== END 2023-09-04 16:12 | disposition home health service (06) | DRG 193 ==
LOC: ER 14:07 → 2ND 14:10
PROVIDERS: Internal Medicine Pulmonary Disease; Nurse Practitioner Family; Admitting Provider Internal Medicine Adolescent Medicine; Emergency Provider Emergency Medicine; PCP Internal Medicine Adolescent Medicine; Visit Provider Internal Medicine Adolescent Medicine
DX: J10.00 Influenza due to other identified influenza virus with unspecified type of pneumonia (principal); I50.33 Acute on chronic diastolic (congestive) heart failure; J96.01 Acute respiratory failure with hypoxia; J44.1 Chronic obstructive pulmonary disease with (acute) exacerbation; I48.3 Typical atrial flutter; E66.9 Obesity, unspecified; I48.91 Unspecified atrial fibrillation; E11.9 Type 2 diabetes mellitus without complications; Z79.85 Long-term (current) use of injectable non-insulin antidiabetic drugs; Z79.84 Long term (current) use of oral hypoglycemic drugs; F17.210 Nicotine dependence, cigarettes, uncomplicated; Z68.31 Body mass index [BMI] 31.0-31.9, adult; M19.90 Unspecified osteoarthritis, unspecified site; I11.0 Hypertensive heart disease with heart failure; E78.5 Hyperlipidemia, unspecified; J44.9 Chronic obstructive pulmonary disease, unspecified
CPT/HCPCS: 36415; 71045; 71046; 71275; 80053; 82803; 82962; 83605; 83735; 83880; 84484; 85007; 85025; 87070; 87205; 87632; 87635; 93005; 93225; 94640; 94660; 94667; 94668; 94760; 94761; 97110; 97162; 97165; 97530; 99285; G0238; J0456; J0696; J3370; Q9967

== ENCOUNTER 2023-09-18 14:14 | Outpatient (CLI) | payer MEDICARE, MEDICAID, SELFPAY ==
[2023-09-18 14:44] LABS: ABG Base Excess 2.3 mmol/L (-2.4-2.3); ABG HCO3 26.3 mmhg (22.0-26.0); ABG Oxygen Saturation 93 % (90-100); ABG PCO2 38.3 mmhg (35.0-45.0); ABG PH 7.45 mmol/L (7.35-7.45); ABG PO2 65.3 mmhg (80-100); ABG TCO2 27.4 mmhg (23-27)
[2023-09-18 14:47] LABS: Allen's Test ACCEPTABLE; Oxygen ROOM AIR %; Source R RADIAL
[2023-09-18 16:04] LABS: Blood Urea Nitrogen 14 mg/dl (7-17); Estimated Glomerular Filt Rate 70 ml/min (>60); GFR (African American) 85 ML/MIN (>60)
[2023-09-24 10:09] LABS: D001-IgE D pteronyssinus <0.10 kU/L (Class 0); D002-IgE D farinae 0.49 kU/L (Class I); E001-IgE Cat Dander <0.10 kU/L (Class 0); E005-IgE Dog Dander <0.10 kU/L (Class 0); E072-IgE Mouse Urine <0.10 kU/L (Class 0); G002-IgE Bermuda Grass <0.10 kU/L (Class 0); G006-IgE Timothy Grass <0.10 kU/L (Class 0); I006-IgE Cockroach, German <0.10 kU/L (Class 0); Immunoglobulin E, Total 26 IU/mL (6-495); M001-IgE Penicillium chrysogen <0.10 kU/L (Class 0); M002-IgE Cladosporium herbarum 0.12 kU/L (Class 0/I); M003-IgE Aspergillus fumigatus <0.10 kU/L (Class 0); M006-IgE Alternaria alternata <0.10 kU/L (Class 0); T001-IgE Maple/Box Elder <0.10 kU/L (Class 0); T003-IgE Common Silver Birch <0.10 kU/L (Class 0); T006-IgE Cedar, Mountain <0.10 kU/L (Class 0); T007-IgE Oak, White <0.10 kU/L (Class 0); T008-IgE Elm, American <0.10 kU/L (Class 0); T010-IgE Walnut <0.10 kU/L (Class 0); T011-IgE Maple Leaf Sycamore <0.10 kU/L (Class 0); T014-IgE Cottonwood <0.10 kU/L (Class 0); T015-IgE Ash, White <0.10 kU/L (Class 0); T022-IgE Pecan, Hickory <0.10 kU/L (Class 0); T070-IgE White Mulberry <0.10 kU/L (Class 0); W001-IgE Ragweed, Short <0.10 kU/L (Class 0); W011-IgE Thistle, Russian <0.10 kU/L (Class 0); W014-IgE Pigweed, Common <0.10 kU/L (Class 0); W018-IgE Sheep Sorrel <0.10 kU/L (Class 0)
== END 2023-09-18 23:59 | disposition home or self-care (01) ==
LOC: LAB 14:15
PROVIDERS: PCP Internal Medicine Adolescent Medicine; Visit Provider Internal Medicine Pulmonary Disease
DX: R09.02 Hypoxemia (principal); J30.9 Allergic rhinitis, unspecified; R06.09 Other forms of dyspnea; J44.9 Chronic obstructive pulmonary disease, unspecified
CPT/HCPCS: 36415; 82565; 82785; 82803; 84520; 86003; 86140

== ENCOUNTER 2023-10-22 08:35 | Day surgery (SDC) | payer MEDICARE, MEDICAID, SELFPAY ==
[2023-10-18 08:19] VITALS: BMI 29.7
[2023-10-22] VITALS (8 sets, daily range): BP systolic 105–127; BP diastolic 53–83; PULSE 76–105; RESP 16–18; TEMP 36.1–36.3; O2SAT 95–99
--- NOTE | 2023-10-22 08:47 | CA_ITS ---
APPROVED REPORT EXAM: Comprehensive 2D, Doppler, and color-flow Echocardiogram Hospice Social Worker: Estela MontalvoKAT Ht: 5 ft 7 in Wt: 196lbs BSA: 2.00 BP: 118/59 mmHg Indications: AIB WITH CARDIOVERSION,CHF,COPD,DM,EX SMOKER,TACHYCARDIA Procedure After obtaining informed consent, patient underwent transesophageal echo in the [facility]. Type of Sedation : MAC Sedation was administered by Samara GarcesNEvita Sedation start time: 10:50 Case end Time: 11:05 Transesophageal probe was inserted and advanced into esophagus without difficulty by Dr. Hudson Gastelum. The BEE was performed without complications. Synchronized Cardioversion acheived with 150 Joules after 1 attempt(s). Throughout the procedure, the blood pressure, pulse oximetry, cardiac rhythm, and rate were monitored. The patient tolerated the procedure without adverse effects. Recovery from conscious sedation was uneventful and vital signs were stable. Left Ventricle The left ventricle is normal size. The left ventricular systolic function is normal. The left ventricular ejection fraction is within the normal range. There is increased LV wall thickness. There is normal LV segmental wall motion. LVEF is 60%. Right Ventricle The right ventricle is normal size. The right ventricular systolic function is normal. Atria The left atrium is dilated. No thrombus is visualized in the left atrium or appendage. The right atrium size is normal. Small PFO is noted. Color Doppler demonstrates left to right interatrial shunt through the PFO. Aortic Valve Aortic valve opens well. The aortic valve is trileaflet. Trace aortic regurgitation. Mitral Valve The mitral valve is normal in structure. No evidence of mitral valve stenosis. Mild mitral regurgitation. Tricuspid Valve The tricuspid valve leaflets are thin and pliable. Moderate tricuspid regurgitation. RVSP is 35 mmHg + RA pressure. Pulmonic Valve The pulmonary valve is normal in structure. Mild pulmonic regurgitation. Great Vessels The aortic root is normal in size. The ascending aorta is normal in size. Pericardium Small sized pericardial effusion is present. The effusion is located distally towards the apical RV free wall. No echo indications of tamponade. Other Information Study Quality: Adequate Conclusion Normal left ventricular systolic function. LA dilation. No evidence of LA or JUAN F thrombus. Small PFO is present with left to right interatrial shunt. Mild MR, mild TR, mild VT. RVSP is 35 mmHg + RA pressure. Small sized pericardial effusion is present. The effusion is located distally towards the apical RV free wall. No echo indications of tamponade. Once the BEE confirmed no evidence of LA or JUAN F thrombus, the patient underwent successful DCCV with 150 J, after which she converted to normal sinus rhythm after 1 attempt. Electronically signed by : Juliane Gastelum MD 10/25/2023 01:05:54
[2023-10-22 09:18] LABS: POC Glucose,Bedside 149 (70-110)
--- NOTE | 2023-10-22 09:18 | ECG_ITS ---
APPROVED REPORT Exam: Resting ECG HR:106 bpm ECG Measurements Heart Rate 106 AXES QRSd 146 QRS 84 QT 353 T 131 QTc 415 Conclusion ATRIAL FIBRILLATION WITH RAPID VENTRICULAR RESPONSE INTRAVENTRICULAR CONDUCTION DELAY [130+ ms QRS DURATION] ABNORMAL ECG UNCONFIRMED REPORT Electronically signed by : Tyrell Owens MD 10/23/2023 17:28:58
[2023-10-22 09:21] LABS: Basophils # 0.1 K/mm3 (0-0.2); Basophils % 0.8 % (0.1-2.0); Eosinophils % 16.7 % (0.1-12.0); Hematocrit 40.3 % (37.0-47.0); Lymphocytes # 1.4 K/mm3 (0.7-4.5); Mean Corpuscular HGB Conc 32.3 g/dL (31.8-35.4); Mean Corpuscular Hemoglobin 30.1 pg (27.0-31.2); Mean Platelet Volume 9.7 fl (7.4-10.4); Monocytes # 0.5 K/mm3 (0.1-1.0); Neutrophils # 7.8 K/mm3 (1.8-7.8); Neutrophils % 66.5 % (37.0-80.0); Platelet Count 235 K/mm3 (142-424); Red Blood Count 4.33 M/mm3 (4.20-5.40); Red Cell Distribution Width 16.3 % (11.5-17.5); White Blood Count 11.7 K/mm3 (4.8-10.8)
[2023-10-22 09:23] LABS: Chloride 100 mmol/L (98-107); Potassium 4.6 mmoL/L (3.5-5.1); Sodium 139 mmol/L (136-145)
--- NOTE | 2023-10-22 09:23 | P.PNANES_ITS ---
[facility] Disclaimer: The information contained in this section may have been updated after the patient was seen, as this information can be updated by other users. Medical History Dyspnea on exertion History of COPD Smoking greater than 30 pack years COPD mixed type Hypoxia Abnormal electrocardiogram [ECG] [EKG] Hypertension Chest pain Acute and chronic respiratory failure with hypoxia Afib Tachycardia Acute respiratory failure with hypoxia Osteoarthritis HTN (hypertension) HLD (hyperlipidemia) Diabetes type 2, controlled COPD (chronic obstructive pulmonary disease) Surgical History History of phacoemulsification of cataract of both eyes with intraocular lens implantation History of bilateral tubal ligation Family History Other Coronary artery disease Hypertension Social History Smoking Status: Former smoker tobacco type: cigarettes packs per day: 1 smoking status stop date: 2013 second hand exposure: No alcohol intake: never substance use type: denies use current occupational status: retired and disabled Travel in the last 8 weeks: None household members: none housing: apartment caffeine: No [facility] Anesthesia Checklist Patient Identification Patient Identification: Arm Band and Verbal (Name & ) Structural Data Admitted From: Home Planned Operative Procedure/s: BEE/Cardioversion Consent for Planned Operative Procedure(s) Verified: Yes NPO Status Verified Time NPO: 00:00 Additional verifications Anesthesia Reactions: No Airway Assessment Mallampati Score:: Class II C-Spine Mobility Assessed: Yes TMJ Mobility Assessed: Yes Dentition: Edentulous Neurological Assessment Level of Consciousness: Awake Hx Seizures: No Numbness or tingling in extremities: No Anesthesia Plan Anesthesia Risk discussed: Yes Anesthesia Plan: Verified ASA Class: IV Anesthesia Type: MAC
[2023-10-22 09:26] LABS: Anion Gap 15.6 mEq/L (5-15); Blood Urea Nitrogen 29 mg/dl (7-17); Carbon Dioxide 28 mmol/L (22.0-30.0); Creatinine Clearance Estimated 52 mL/min (50-200); Estimated Glomerular Filt Rate 40 ml/min (>60); GFR (African American) 48 ML/MIN (>60)
[2023-10-22 09:27] LABS: Calcium 10.4 mg/dl (8.4-10.2); Glucose 164 mg/dl (74-100)
[2023-10-22 09:30] LABS: Prothrombin Time 10.8 seconds (10.1-12.5)
[2023-10-22] MEDS: LACTATED RINGERS 1000ML 1,000 ML 25 ML IV (09:54)
[2023-10-22] MEDS: APIXABAN 5MG TABLET 5 MG PO (10:31)
--- NOTE | 2023-10-22 11:06 | SUR.OPER ---
1056- cardioversion performed at this time. 150j shock delivered by dr. aguilar. pt in nsr at this time. vss.
--- NOTE | 2023-10-22 11:13 | ECG_ITS ---
APPROVED REPORT Exam: Resting ECG HR:85 bpm ECG Measurements Heart Rate 85 AXES ND 160 P 80 QRSd 86 QRS 81 QT 371 T 64 QTc 413 Conclusion SINUS RHYTHM WITH OCCASIONAL SUPRAVENTRICULAR PREMATURE COMPLEXES NONSPECIFIC T-WAVE ABNORMALITY BORDERLINE ECG UNCONFIRMED REPORT Electronically signed by : Tyrell Owens MD 10/23/2023 17:28:31
== END 2023-10-22 11:41 | disposition home or self-care (01) ==
PROVIDERS: PCP Internal Medicine Adolescent Medicine; Visit Provider Internal Medicine
DX: R94.31 Abnormal electrocardiogram [ECG] [EKG] (principal); I48.91 Unspecified atrial fibrillation; E11.9 Type 2 diabetes mellitus without complications; Z79.899 Other long term (current) drug therapy; I11.0 Hypertensive heart disease with heart failure; Z79.84 Long term (current) use of oral hypoglycemic drugs; J44.9 Chronic obstructive pulmonary disease, unspecified; E78.5 Hyperlipidemia, unspecified; I50.30 Unspecified diastolic (congestive) heart failure
CPT/HCPCS: 80048; 82962; 85025; 85610; 92960; 93005; 93270; 93312; 93319; J7120

== ENCOUNTER 2023-11-06 14:07 | Outpatient (CLI) | payer MEDICARE, MEDICAID, SELFPAY ==
--- NOTE | 2023-11-06 14:08 | CA_ITS ---
APPROVED REPORT EXAM: Limited 2D Echocardiogram Chef German: Debra Hodge CRT Ht: 5 ft 7 in Wt: 192lbs BSA: 1.99 BP: 126/53 mmHg Indications: Pericardial Effusion I31.3 M-Mode Dimensions RVDd 2.73 cm (0.9-2.6) LVDd 4.02 cm (3.5-5.7) LVDs 2.61 cm (3.5-5.7) IVSd 1.00 cm (0.6-1.1) PWd 0.92 cm (0.6-1.1) EF (Teich) 65.00% FS 35.10% EDV (Teich) 70.80 mL ESV (Teich) 24.80 mL Other Information Study Quality: Fair Conclusion This is a limited TTE to evaluate for pericardial effusion. Limited windows were obtained. There is a small sized, circumferential pericardial effusion present. The largest pockets are noted anteriorly and posteriorly and measuring up to 0.3 cm in diastole. No evidence of chamber collapse. IVC is small and collapsible. No echo indications of tamponade. Compared to the recent BEE from 10/22/2023 and the prior TTE from 08/17/2023, the effusion size and location overall appears grossly unchanged. Electronically signed by : Juliane Gastelum MD 11/08/2023 10:45:21
== END 2023-11-06 23:59 | disposition home or self-care (01) ==
LOC: RT 14:08
PROVIDERS: PCP Internal Medicine Adolescent Medicine; Visit Provider Internal Medicine
DX: I31.39 Other pericardial effusion (noninflammatory) (principal)
CPT/HCPCS: 93308

== ENCOUNTER 2023-11-29 16:29 | Outpatient (CLI) | payer MEDICARE, MEDICAID, SELFPAY ==
[2023-11-29 17:01] LABS: Basophils # 0.1 K/mm3 (0-0.2); Basophils % 1.1 % (0.1-2.0); Eosinophils # 0.6 K/mm3 (0.0-0.4); Eosinophils % 9.1 % (0.1-12.0); Hematocrit 38.3 % (37.0-47.0); Hemoglobin 12.6 g/dL (12.2-16.2); Lymphocytes # 1.3 K/mm3 (0.7-4.5); Lymphocytes % 20.5 % (10-50); Mean Corpuscular HGB Conc 32.9 g/dL (31.8-35.4); Mean Corpuscular Hemoglobin 30.6 pg (27.0-31.2); Mean Corpuscular Volume 93.2 fl (81-99); Mean Platelet Volume 9.8 fl (7.4-10.4); Monocytes # 0.4 K/mm3 (0.1-1.0); Monocytes % 5.8 % (1.7-9.3); Neutrophils # 4.1 K/mm3 (1.8-7.8); Neutrophils % 63.5 % (37.0-80.0); Platelet Count 256 K/mm3 (142-424); Red Blood Count 4.11 M/mm3 (4.20-5.40); Red Cell Distribution Width 15.6 % (11.5-17.5); White Blood Count 6.5 K/mm3 (4.8-10.8)
[2023-11-29 17:11] LABS: Alanine Aminotransferase 24 U/L (12-78); Alkaline Phosphatase 97 U/L (38-126); Anion Gap 10.9 mEq/L (5-15); Aspartate Amino Transferase 29 U/L (14-36); Bilirubin,Indirect 0.4 mg/dL (0.0-0.9); Bilirubin,Total 0.4 mg/dl (0.2-1.3); Bilirubin,Unconjugated 0.5 mg/dL (0.0-1.1); Blood Urea Nitrogen 22 mg/dl (7-17); Carbon Dioxide 28 mmol/L (22.0-30.0); Chloride 103 mmol/L (98-107); Chol/HDL Ratio 2.4 (1-3.5); Cholesterol 137 mg/dl (140-200); Estimated Glomerular Filt Rate 54 ml/min (>60); GFR (African American) 66 ML/MIN (>60); Glucose 207 mg/dl (74-100); HDL Cholesterol 57 mg/dl (40-60); Magnesium 1.7 mg/dl (1.6-2.3); Potassium 4.9 mmoL/L (3.5-5.1); Sodium 137 mmol/L (136-145); Total Protein,Serum 6.5 g/dl (6.3-8.2); Triglycerides 102 mg/dl (30-150); VLDL Cholesterol 20 mg/dL (0-40)
[2023-11-29 17:22] LABS: Direct LDL Cholesterol 43.76 mg/dL (100-129)
[2023-11-29 17:26] LABS: Free T4 (Free Thyroxine) 1.13 ng/dl (0.78-2.19)
[2023-11-29 17:41] LABS: Thyroid Stimulating Hormone 2.83 uIU/mL (0.465-4.68)
== END 2023-11-29 23:59 | disposition home or self-care (01) ==
LOC: LAB 16:30
PROVIDERS: PCP Internal Medicine Adolescent Medicine; Visit Provider Internal Medicine
DX: I10 Essential (primary) hypertension (principal); R94.31 Abnormal electrocardiogram [ECG] [EKG]; R06.09 Other forms of dyspnea; I50.30 Unspecified diastolic (congestive) heart failure; I31.39 Other pericardial effusion (noninflammatory); I48.91 Unspecified atrial fibrillation
CPT/HCPCS: 36415; 80048; 80061; 80076; 83735; 84439; 84443; 85025

== ENCOUNTER 2023-12-20 09:46 | Outpatient (CLI) | payer MEDICARE, MEDICAID, SELFPAY ==
[2023-12-20 10:50] VITALS: PULSE 71; PULSE 72
[2023-12-20] MEDS: ALBUTEROL 0.083% 2.5 MG/3 ML NEB IH (10:50)
== END 2023-12-20 23:59 | disposition home or self-care (01) ==
LOC: RT 09:46
PROVIDERS: PCP Internal Medicine Adolescent Medicine; Visit Provider Internal Medicine Pulmonary Disease
DX: R06.09 Other forms of dyspnea (principal)
CPT/HCPCS: 94060; 94618; 94640; 94726; 94729; J7613

== ENCOUNTER 2024-01-16 07:48 | Outpatient (CLI) | payer MEDICARE, MEDICAID, SELFPAY ==
--- NOTE | 2024-01-16 07:48 | CA_ITS ---
APPROVED REPORT EXAM: Limited 2D Echocardiogram [employer]: Keke Talbot, RCS, RVS Ht: 5 ft 7 in Wt: 192lbs BSA: 1.99 BP: 126/53 mmHg Indications: Limited pericardial effusion check 2D Dimensions IVSd 0.94 cm LVEF (Visual) 66.90 % PWd 0.70 cm EF AP4 55.00 % LVDd 4.55 cm GL Strain -13.0 % LVDs 2.87 cm M-Mode Dimensions LVDd 4.55 cm (3.5-5.7) LVDs 2.87 cm (3.5-5.7) IVSd 0.94 cm (0.6-1.1) PWd 0.70 cm (0.6-1.1) FS 36.90% Other Information Study Quality: Technically Difficult Conclusion This is a limited TTE to evaluate for pericardial effusion. Limited windows were obtained. Technically difficult study. There is a small sized, circumferential pericardial effusion present. The largest pocket measures 0.4 cm in diastole and is located posteriorly. The anterior pocket is smaller in size. No evidence of chamber collapse. The IVC is not well-visualized. Compared to prior study from 08/17/2023, the size of the pericardial effusion appears slightly improved. Electronically signed by : Juliane Gastelum MD 01/17/2024 11:28:34
== END 2024-01-16 23:59 | disposition home or self-care (01) ==
LOC: RT 07:48
PROVIDERS: PCP Internal Medicine Adolescent Medicine; Visit Provider Internal Medicine
DX: R06.09 Other forms of dyspnea; I31.39 Other pericardial effusion (noninflammatory)
CPT/HCPCS: 93308

== ENCOUNTER 2024-07-08 13:40 | Outpatient (CLI) | payer MEDICARE, MEDICAID, SELFPAY ==
[2024-07-08 15:28] LABS: Basophils # 0.1 K/mm3 (0-0.2); Basophils % 0.9 % (0.1-2.0); Eosinophils # 1.9 K/mm3 (0.0-0.4); Eosinophils % 22.7 % (0.1-12.0); Hematocrit 38.6 % (37.0-47.0); Hemoglobin 12.6 g/dL (12.2-16.2); Lymphocytes # 1.5 K/mm3 (0.7-4.5); Lymphocytes % 18.8 % (10-50); Mean Corpuscular HGB Conc 32.6 g/dL (31.8-35.4); Mean Corpuscular Volume 91.9 fl (81-99); Mean Platelet Volume 11.1 fl (7.4-10.4); Monocytes # 0.5 K/mm3 (0.1-1.0); Monocytes % 6.6 % (1.7-9.3); Neutrophils # 4.2 K/mm3 (1.8-7.8); Neutrophils % 50.9 % (37.0-80.0); Platelet Count 299 K/mm3 (142-424); Red Cell Distribution Width 14.2 % (11.5-17.5); White Blood Count 8.2 K/mm3 (4.8-10.8)
[2024-07-08 15:30] LABS: Albumin Level 4.4 g/dl (3.5-5.0); Chloride 100 mmol/L (98-107)
[2024-07-08 15:31] LABS: Potassium 4.4 mmoL/L (3.5-5.1); Sodium 139 mmol/L (136-145)
[2024-07-08 15:33] LABS: Alanine Aminotransferase 37 U/L (12-78); Anion Gap 14.4 mEq/L (5-15); Aspartate Amino Transferase 41 U/L (14-36); Bilirubin,Unconjugated 0.3 mg/dL (0.0-1.1); Blood Urea Nitrogen 36 mg/dl (7-17); Carbon Dioxide 29 mmol/L (22.0-30.0); Estimated Glomerular Filt Rate 34 ml/min (>60); GFR (African American) 41 ML/MIN (>60); Total Protein,Serum 6.8 g/dl (6.3-8.2)
[2024-07-08 15:34] LABS: Alkaline Phosphatase 95 U/L (38-126); Bilirubin,Indirect 0.3 mg/dL (0.0-0.9); Bilirubin,Total 0.3 mg/dl (0.2-1.3); Chol/HDL Ratio 2.3 (1-3.5); Cholesterol 138 mg/dl (140-200); Glucose 141 mg/dl (74-100); HDL Cholesterol 61 mg/dl (40-60); Triglycerides 112 mg/dl (30-150); VLDL Cholesterol 22 mg/dL (0-40)
[2024-07-08 15:46] LABS: Direct LDL Cholesterol 40.21 mg/dL (100-129)
[2024-07-08 15:52] LABS: Free T4 (Free Thyroxine) 1.01 ng/dl (0.78-2.19)
[2024-07-08 16:13] LABS: Thyroid Stimulating Hormone 2.66 uIU/mL (0.465-4.68)
== END 2024-07-08 23:59 | disposition home or self-care (01) ==
LOC: LAB 13:41
PROVIDERS: PCP Internal Medicine Adolescent Medicine; Visit Provider Internal Medicine
DX: R94.31 Abnormal electrocardiogram [ECG] [EKG] (principal); R06.09 Other forms of dyspnea; I11.0 Hypertensive heart disease with heart failure; I50.30 Unspecified diastolic (congestive) heart failure; I31.39 Other pericardial effusion (noninflammatory); I48.91 Unspecified atrial fibrillation; E11.9 Type 2 diabetes mellitus without complications
CPT/HCPCS: 36415; 80048; 80061; 80076; 83735; 84439; 84443; 85025

== ENCOUNTER 2024-07-17 09:04 | Outpatient (CLI) | payer MEDICARE, MEDICAID, SELFPAY ==
[2024-07-17 10:11] LABS: Anion Gap 12.7 mEq/L (5-15); Blood Urea Nitrogen 46 mg/dl (7-17); Calcium 10.2 mg/dl (8.4-10.2); Carbon Dioxide 30 mmol/L (22.0-30.0); Chloride 98 mmol/L (98-107); Estimated Glomerular Filt Rate 29 ml/min (>60); GFR (African American) 36 ML/MIN (>60); Glucose 127 mg/dl (74-100); Potassium 4.7 mmoL/L (3.5-5.1); Sodium 136 mmol/L (136-145)
== END 2024-07-17 23:59 | disposition home or self-care (01) ==
LOC: LAB 09:05
PROVIDERS: PCP Internal Medicine Adolescent Medicine; Visit Provider Internal Medicine
DX: I50.30 Unspecified diastolic (congestive) heart failure (principal); R94.31 Abnormal electrocardiogram [ECG] [EKG]; I10 Essential (primary) hypertension; I31.39 Other pericardial effusion (noninflammatory); I48.91 Unspecified atrial fibrillation; R06.09 Other forms of dyspnea
CPT/HCPCS: 36415; 80048

== ENCOUNTER 2024-07-29 13:39 | Outpatient (CLI) | payer MEDICARE, MEDICAID, SELFPAY ==
[2024-07-29 16:23] LABS: Chloride 106 mmol/L (98-107); Sodium 137 mmol/L (136-145)
[2024-07-29 16:24] LABS: Potassium 4.2 mmoL/L (3.5-5.1)
[2024-07-29 16:26] LABS: Anion Gap 11.2 mEq/L (5-15); Blood Urea Nitrogen 16 mg/dl (7-17); Calcium 9.3 mg/dl (8.4-10.2); Carbon Dioxide 24 mmol/L (22.0-30.0); Estimated Glomerular Filt Rate 49 ml/min (>60); GFR (African American) 59 ML/MIN (>60); Glucose 101 mg/dl (74-100)
[2024-07-29 16:27] LABS: Magnesium 1.9 mg/dl (1.6-2.3)
== END 2024-07-29 23:59 | disposition home or self-care (01) ==
LOC: LAB 13:40
PROVIDERS: PCP Internal Medicine Adolescent Medicine; Visit Provider Internal Medicine
DX: I48.91 Unspecified atrial fibrillation (principal); I10 Essential (primary) hypertension; R06.09 Other forms of dyspnea; Z87.891 Personal history of nicotine dependence
CPT/HCPCS: 36415; 80048; 83735

== ENCOUNTER 2024-08-19 15:32 | Outpatient (CLI) | payer MEDICARE, MEDICAID, SELFPAY ==
[2024-08-19 18:19] LABS: Anion Gap 13.1 mEq/L (5-15); Blood Urea Nitrogen 22 mg/dl (7-17); Carbon Dioxide 29 mmol/L (22.0-30.0); Chloride 101 mmol/L (98-107); Estimated Glomerular Filt Rate 40 ml/min (>60); GFR (African American) 48 ML/MIN (>60); Glucose 105 mg/dl (74-100); Potassium 4.1 mmoL/L (3.5-5.1); Sodium 139 mmol/L (136-145)
== END 2024-08-19 23:59 | disposition home or self-care (01) ==
LOC: LAB 15:34
PROVIDERS: PCP Internal Medicine Adolescent Medicine; Visit Provider Internal Medicine
DX: I10 Essential (primary) hypertension (principal); J96.01 Acute respiratory failure with hypoxia; R07.9 Chest pain, unspecified
CPT/HCPCS: 36415; 80048; 83735; 94762

== ENCOUNTER 2024-09-18 14:13 | Outpatient (CLI) | payer MEDICARE, MEDICAID, SELFPAY ==
[2024-09-18 14:30] LABS: Basophils # 0.1 K/mm3 (0-0.2); Basophils % 0.9 % (0.1-2.0); Eosinophils # 1.8 Kmm3 (0.0-0.4); Eosinophils % 20.3 % (0.1-12.0); Hematocrit 40.8 % (37.0-47.0); Hemoglobin 13.1 g/dL (12.2-16.2); Lymphocytes # 1.6 K/mm3 (0.7-4.5); Lymphocytes % 18.3 % (10-50); Mean Corpuscular HGB Conc 32.1 g/dL (31.8-35.4); Mean Corpuscular Hemoglobin 29.5 pg (27.0-31.2); Mean Corpuscular Volume 91.9 fl (81-99); Mean Platelet Volume 10.9 fl (7.4-10.4); Monocytes # 0.5 K/mm3 (0.1-1.0); Monocytes % 5.8 % (1.7-9.3); Neutrophils # 4.7 K/mm3 (1.8-7.8); Neutrophils % 54.6 % (37.0-80.0); Nucleated Red Blood Cells # 0 10^3/uL; Nucleated Red Blood Cells % 0 %; Platelet Count 252 K/mm3 (142-424); Red Blood Count 4.44 M/mm3 (4.20-5.40); Red Cell Distribution Width 13.9 % (11.5-17.5); Red Cell Distribution Width-SD 47.2 fL; White Blood Count 8.6 K/mm3 (4.8-10.8)
[2024-09-18 14:35] LABS: Albumin Level 4.4 g/dl (3.5-5.0); Chloride 102 mmol/L (98-107); Sodium 138 mmol/L (136-145)
[2024-09-18 14:36] LABS: Potassium 4.1 mmoL/L (3.5-5.1)
[2024-09-18 14:38] LABS: Alanine Aminotransferase 33 U/L (12-78); Alkaline Phosphatase 98 U/L (38-126); Anion Gap 12.1 mEq/L (5-15); Aspartate Amino Transferase 39 U/L (14-36); Bilirubin,Indirect 0.5 mg/dL (0.0-0.9); Bilirubin,Total 0.5 mg/dl (0.2-1.3); Bilirubin,Unconjugated 0.5 mg/dL (0.0-1.1); Blood Urea Nitrogen 23 mg/dl (7-17); Calcium 10.3 mg/dl (8.4-10.2); Carbon Dioxide 28 mmol/L (22.0-30.0); Estimated Glomerular Filt Rate 29 ml/min (>60); GFR (African American) 36 ML/MIN (>60); Glucose 230 mg/dl (74-100); Magnesium 1.8 mg/dl (1.6-2.3); Total Protein,Serum 7.2 g/dl (6.3-8.2); Triglycerides 128 mg/dl (30-150); VLDL Cholesterol 26 mg/dL (0-40)
[2024-09-18 14:39] LABS: HDL Cholesterol 53 mg/dl (40-60)
[2024-09-18 14:43] LABS: Hemoglobin A1C 6.6 % (4.0-6.0)
[2024-09-18 14:50] LABS: Direct LDL Cholesterol 38.19 mg/dL (100-129)
[2024-09-18 14:53] LABS: Troponin I 0.02 ng/ml (0.00-0.034)
[2024-09-18 15:12] LABS: Thyroid Stimulating Hormone 2.01 uIU/mL (0.465-4.68)
[2024-09-18 16:02] LABS: Chol/HDL Ratio 2.4 (1-3.5); Cholesterol 129 mg/dl (140-200)
[2024-09-18 16:24] LABS: Free T4 (Free Thyroxine) 1.06 ng/dl (0.78-2.19)
== END 2024-09-18 23:59 | disposition home or self-care (01) ==
LOC: LAB 14:14
PROVIDERS: PCP Internal Medicine Adolescent Medicine; Visit Provider Internal Medicine
DX: I50.30 Unspecified diastolic (congestive) heart failure (principal); I48.91 Unspecified atrial fibrillation; R94.31 Abnormal electrocardiogram [ECG] [EKG]; R06.09 Other forms of dyspnea; I31.39 Other pericardial effusion (noninflammatory); E11.8 Type 2 diabetes mellitus with unspecified complications; E66.811 Obesity, class 1; Z68.30 Body mass index [BMI] 30.0-30.9, adult
CPT/HCPCS: 36415; 80048; 80061; 80076; 83036; 83735; 84439; 84443; 84484; 85025

== ENCOUNTER 2024-09-25 06:53 | Outpatient (CLI) | payer MEDICARE, MEDICAID, SELFPAY ==
--- NOTE | 2024-09-25 | CA_ITS ---
APPROVED REPORT Exam: Pharmacologic Technologist: Adia Rousseau Ht: 5 ft 7 in Wt: 197 lbs BSA: 2.01 m2 HR: 65 bpm BP: 115/51 mmHg Medical History Medical History: HTN, Hyperlipidemia, Diabetes, Smoking Medications: Albuterol, Apixaban, Atorvastatin, Azithromycin, Vit D3, Diltiazem HCl CD, Farxiga, Furosemide, Duo, Lisinopril, Metformin ER, Metoprolol Succinate ER, Montelukast, Zinc Gluconate, Diclofenac sodium 1%, Xejekjyjgp-wzqycfr-ggwgfxcfuj actuation Allergies: Empagliflozin Cardiac Risk Factors: HTN, Hyperlipidemia, Diabetes, FHX of CAD, Smoking Stress Test Details Test: Lexiscan HR Resting HR: 65 bpm Max Heart Rate (APMHR): 146 bpm Target HR (85% APMHR): 124 bpm Recovery HR: 78 bpm BP Resting BP: 115.0/51.0 mmHg Max BP: 146.0/51.0 mmHg Recovery BP: 133.0/57.0 mmHg ECG Stress ECG Conclusion Pt had soa with lexiscan Unremarkable with lexiscan infusion Electronically signed by : Juliane Gastelum MD 09/25/2024 12:48:14
--- NOTE | 2024-09-25 07:00 | NM_ITS ---
APPROVED REPORT Exam: Nuclear Stress Test Indication: chest pain..soa..palpitations..fatigue Patient Location: Outpatient Stress Tech: Adia Rousseau GA Tech:Shauna Li EMMYEz RT(R)(N) Ht: 5 ft 7 in Wt: 198 lbs Bra Size: 38c HR: 66 bpm BP: 107/50 mmHg BSA: 2.01 m2 TID: 1.26 BMI: 31.0 History: chest pain..soa..palpitations..fatigue Procedure: Patient received 0.4 mg of intravenous Lexiscan, resting heart rate 66 bpm, resting blood pressure 107/50 mmHg, with Lexiscan maximum heart rate achieved was 83 bpm which is 85 % of the maximum predicted heart rate and blood pressure was 146/51 mmHg. With Lexiscan, patient denied any complaint of chest pain. Cardiac Stress and Resting SPECT Images: Cardiac Stress and Resting SPECT images were obtained using technetium 99m Myoview 30.7 mCi stress and 10.51 mCi at rest. Resting and stress imaging in supine and prone positions demonstrate no evidence of fixed or reversible perfusion defects. There is increase in transient ischemic dilatation ratio (TID 1.26), suggestive of possible multivessel disease or balanced ischemia. Gated images normal global and regional function. LVEF is calculated at > 75%. Conclusion: No evidence of fixed or reversible perfusion defects. There is increase in transient ischemic dilatation ratio (TID 1.26), suggestive of possible multivessel disease or balanced ischemia. Gated images normal global and regional function. LVEF is calculated at > 75%. Electronically signed by : Juliane Gastelum MD 09/25/2024 12:46:46
[2024-09-25] MEDS: ISOTOPE MYOVIEW (PER STUDY) 1 DOSE IV (09:44)
[2024-09-25] MEDS: REGADENOSON 0.4MG/5ML SYRINGE 0.4 MG IV (09:44)
[2024-09-25] MEDS: SODIUM CHLORIDE 0.9% 10ML SYR (RAD ONLY) 10 ML IV ×2 (09:44)
== END 2024-09-25 23:59 | disposition home or self-care (01) ==
LOC: RAD 06:54
PROVIDERS: PCP Internal Medicine Adolescent Medicine; Visit Provider Internal Medicine
DX: R06.09 Other forms of dyspnea (principal); I48.91 Unspecified atrial fibrillation; R94.31 Abnormal electrocardiogram [ECG] [EKG]; I50.30 Unspecified diastolic (congestive) heart failure; I31.39 Other pericardial effusion (noninflammatory); E66.811 Obesity, class 1; E11.8 Type 2 diabetes mellitus with unspecified complications
CPT/HCPCS: 78452; 93017; 93018; A9502; J2785

== ENCOUNTER 2024-09-30 09:09 | Outpatient (CLI) | payer MEDICARE, MEDICAID, SELFPAY ==
--- NOTE | 2024-09-30 | CA_ITS ---
APPROVED REPORT EXAM: Comprehensive 2D, Doppler, and color-flow Echocardiogram Ict Security Specialist: Renée Puga RT(R) Ht: 5 ft 7 in Wt: 197lbs BSA: 2.01 BP: 139/47 mmHg Indications: CP, COPD, ex smoker, HTN, DM, SOB, HLD, hx pericardial effusion, AFIB 2D Dimensions LA Volume 32.90 mL LA Volume Index 16.37 mL/m2 (M/F) 16-34 EF AP4 70.00 % GL Strain -22.0 % M-Mode Dimensions RVDd 2.79 cm (0.9-2.6) LA Diam 4.05 cm (1.9-4.0) LVDd 4.57 cm (3.5-5.7) LVDs 3.59 cm (3.5-5.7) IVSd 0.63 cm (0.6-1.1) PWd 0.68 cm (0.6-1.1) EF (Teich) 43.60% FS 21.40% EDV (Teich) 95.90 mL ESV (Teich) 54.10 mL LV Diastology E Decel Time 190 (160-240 msec) E/A Ratio 1.1 Mitral Valve MV E Max Maksim. 83.0 (40-130 cm/s) MV A Velocity 78.0 (40-130 cm/s) E/A Ratio 1.07 MV PHT 56.0 ms Tricuspid Valve TR P. Velocity 279.00 cm/s Left Ventricle The left ventricle is normal size. The left ventricular systolic function is normal. The left ventricular ejection fraction is within the normal range. There is normal left ventricular wall thickness. There is normal LV segmental wall motion. The left ventricular diastolic function is normal. LVEF is 55%. Right Ventricle The right ventricle is normal size. The right ventricular systolic function is normal. Atria The left atrium size is normal. The right atrium size is normal. There is no Doppler evidence of interatrial shunt. Aortic Valve Aortic valve is mildly thickened. Trace aortic regurgitation. There is no aortic valvular stenosis. Mitral Valve The mitral valve leaflets are mildly thickened. Trace mitral regurgitation. No evidence of mitral valve stenosis. Tricuspid Valve Tricuspid valve is grossly normal in structure and function. Mild tricuspid regurgitation. RVSP is 30-35 mmHg. Pulmonic Valve The pulmonary valve is normal in structure. Trace pulmonic regurgitation. Great Vessels The aortic root is normal in size. IVC is normal in size and collapses >50% with inspiration. Pericardium There is no pericardial effusion. Other Information Study Quality: Fair Conclusion Normal biventricular systolic function. Mild TR. RVSP 30-35 mmHg. Electronically signed by : Juliane Gastelum MD 10/10/2024 23:26:48
== END 2024-09-30 23:59 | disposition home or self-care (01) ==
LOC: RT 09:10
PROVIDERS: PCP Internal Medicine Adolescent Medicine; Visit Provider Internal Medicine
DX: I07.1 Rheumatic tricuspid insufficiency (principal); I48.91 Unspecified atrial fibrillation; R94.31 Abnormal electrocardiogram [ECG] [EKG]; I31.39 Other pericardial effusion (noninflammatory); E66.811 Obesity, class 1; I11.0 Hypertensive heart disease with heart failure; I50.33 Acute on chronic diastolic (congestive) heart failure; E11.9 Type 2 diabetes mellitus without complications; J44.9 Chronic obstructive pulmonary disease, unspecified; E78.5 Hyperlipidemia, unspecified
CPT/HCPCS: 93306

== ENCOUNTER 2024-10-20 15:12 | Outpatient (CLI) | payer MEDICARE, MEDICAID, SELFPAY ==
--- NOTE | 2024-10-20 15:30 | CT_ITS ---
FINAL REPORT TECHNIQUE: Thin section axial images were obtained through the lungs using a low-dose technique per lung cancer screening protocol. Reconstruction images were obtained using the axial data. Exam was performed using dose reduction technique. CLINICAL HISTORY: lung cancer screening, hx smoker, quit 11 years ago, smoked 2ppd for 48 years COMPARISON: CTA 09/01/2023 FINDINGS: CTDLvol: 2.90 DLP: 102.12 Former smoker 96 pack year history Lungs: No suspicious mass or nodule. Previously seen reticulonodular opacities in the left lower lobe and to a lesser extent right lower lobe have resolved. Lymph nodes: No thoracic lymphadenopathy. Mediastinum: Heart size is normal. Pleura/pericardium: No pleural or pericardial effusion. Other: Incompletely imaged cystic mass in the pancreas is unchanged from the prior exam. IMPRESSION: No suspicious pulmonary nodule or mass. Resolved pneumonia. Lung RADS: 1S Recommendation: 12-month follow-up CT low-dose chest per Fleischner criteria. Modifier S: Stable incompletely imaged pancreatic mass. Reviewed, Interpreted and Dictated by Talia Yancey MD Transcribed by Vilma Poon Authenticated and [facility]
== END 2024-10-20 23:59 | disposition home or self-care (01) ==
LOC: RAD 15:13
PROVIDERS: PCP Internal Medicine Adolescent Medicine; Visit Provider Internal Medicine Pulmonary Disease
DX: K86.89 Other specified diseases of pancreas (principal); F17.210 Nicotine dependence, cigarettes, uncomplicated; Z12.2 Encounter for screening for malignant neoplasm of respiratory organs
CPT/HCPCS: 71271

== ENCOUNTER 2024-10-27 14:06 | Outpatient (CLI) | payer MEDICARE, MEDICAID, SELFPAY ==
--- OUTSIDE RECORDS SUMMARY | 2024-10-27 14:09 | XMS_ITS | Clinical Summary ---
Author Organization [facility] Address [address] [place] [address] Care Team Providers Care Gis Administrator Name Role Phone Tyrell Owens MD Primary Care Provider [phone] Allergies No known active allergies Medications dilTIAZem XR (Dilacor XR) 240 MG 24 hr capsule Take 1 capsule (240 mg) by mouth 1 (one) time each day at the same time. Active omega-3 (Fish Oil) 1000 MG capsule Take 2 capsules (2,000 mg) by mouth 1 (one) time each day at the same time. Active ipratropium-albute rol (Duo-Neb) 0.5-2.5 mg/3 mL nebulizer solution Take 3 mL by nebulization 4 (four) times a day if needed. Active lisinopril 20 MG tablet Take 1 tablet (20 mg) by mouth 1 (one) time each day. 01/21/20 23 Active metFORMIN XR (Glucophage-XR) 750 MG 24 hr tablet Take 1 tablet (750 mg) by mouth 1 (one) time each day with dinner. 03/05/20 23 Active metoprolol tartrate (Lopressor) 50 MG tablet Take 1 tablet (50 mg) by mouth 2 (two) times a day. Active cholecalciferol (Vitamin D-3) 50 MCG (2000 UT) capsule Take 1 tablet by mouth Daily. Active Zinc Sulfate 140 (50 Zn) MG tablet Take 1 tablet by mouth Daily. Active montelukast (Singulair) 10 MG tablet Take 1 tablet (10 mg) by mouth 1 (one) time each day at the same time. 03/05/20 Active pantoprazole (Protonix) 40 MG EC tablet Take 1 tablet (40 mg) by mouth 1 (one) time each day in the morning. 02/26/20 Active ondansetron ODT (Zofran-ODT) 4 MG disintegrating tablet Take 1 tablet (4 mg) by mouth every 8 (eight) hours if needed. 02/06/20 Active albuterol 108 (90 Base) MCG/ACT inhaler Inhale 1-2 puffs Every 4 (four) to 6 (six) hours if needed. 03/14/20 Active apixaban (Eliquis) 5 MG tablet Take 1 tablet (5 mg) by mouth 2 (two) times a day. Active atorvastatin (Lipitor) 40 MG tablet Take 1 tablet (40 mg) by mouth Daily. Active azithromycin (Zithromax) 250 MG tablet Take 1 tablet (250 mg) by mouth 3 (three) times a week. Active Budeson-Glycopyrro l-Formoterol (Breztri Aerosphere) 160-9-4.8 MCG/ACT aerosol Inhale 2 puffs 2 (two) times a day. Active diclofenac (Voltaren) 1 % topical gel Place 1-2 g on the skin 4 (four) times a day if needed. Apply as directed Active furosemide (Lasix) 20 MG tablet Take 1 tablet (20 mg) by mouth 1 (one) time each day. Active Active Problems Problem Noted Date Diagnosed Date Pancreatic cyst 05/16/2023 Immunizations Immunization Administration Dates Next Due Influenza, high-dose, quadrivalent 03/05,03/05/2023,01/25/2022,01/27,02/04/2020,02/04/2020,02/14/2019 ,02/14/2019 Influenza, seasonal, injecta ble, preservative free 02/24/2014,06/24/2013 Pneumococcal Conjugate PCV 13 02/23/2020 Pneumococcal Polysaccharide PPV23 01/17/2019, Tdap 06/24/2013 Family History Medical History Relation Name Comments Diabetes Brother 1 Tushar Orosco Diabetes Brother 2 Sree Ana Luisa Heart attack Brother 3 Cholo Ana Luisa Heart attack Father Olayinka Ana Luisa Hypertension Father Olayinka Ana Luisa Alcohol abuse Father's Brother Fuad Ana Luisa Heart attack Mother Tushar Ana Luisa Hypertension Mother Tushar Orosco Anesthesia problems Neg Hx Malig Hyperthermia Neg Hx Relation Name Status Comments Brother 1 Tushar Ana Luisa Brother 2 Sree Ana Luisa Brother 3 Cholo Ana Luisa Father Olayinka Ana Luisa Father's Brother Fuad Ana Luisa Mother Tushar Orosco Social History Tobacco Use Types Packs/Day Years Used Date Smoking Tobacco: Former Cigarettes 2 50 0 05/21/1963 - 05/21/2013 Smokeless Tobacco: Never Alcohol Use Standard Drinks/Week Comments Not Currently 10 (1 standard drink = 0.6 oz pu re alcohol) PHQ-2 Answer Date Recorded Patient Health Questionnaire-2 Score 2 03/20/2023 PHQ-2A Answer Date Recorded Patient Health Questionnaire-2 Score 2 03/20/2023 Comments No Sex and Gender Information Value Date Recorded Sex Assigned at Not on file Legal Sex Female 2:35 PM EDT Gender Identity Not on file Sexual Orientation Not on file Last Filed Vital Signs Vital Sign Reading Time Taken Comments Blood Pressure 123/73 07/11/2023 3:10 PM EST Pulse 82 07/11/2023 3:15 PM EST Temperature 36.4 C (97.5 F) 07/11/2023 2:40 PM EST Respiratory Rate 25 07/11/2023 3:15 PM EST Oxygen Saturation 95% 07/11/2023 3:15 PM EST Inhaled Oxygen Concentration - - Weight 97.3 kg (214 lb 8.1 oz) 07/11/2023 11:10 AM EST Height 170.2 cm (5' 7 ) 07/11/2023 11:10 AM EST Body Mass Index 33.6 07/11/2023 11:10 AM EST Plan of Treatment Health Maintenance Due Date Last Done Comments [facility]-Bone Density Scan 1950 [facility]-Hepatitis C Screening 1950 [facility]-Medicare Annual Wellness (AWV) 1950 [facility]-/Child/Adol SDOH Screenings 1950 [facility]- SDOH Screenings 10/16/1967 [facility]-Adult SDOH Screenings 10/16/1967 CT Colonography 1994 Colonoscopy 1994 FIT-DNA 1994 FIT 1994 FOBT 1994 Sigmoidoscopy 1994 [facility]-Colorectal Cancer Screening 1994 [facility]-Zoster Vaccines (1 of 2) 10/16/1999 [facility]-DTaP,Tdap,and Td Vaccines (2 - Td or Tdap) 06/24/2023 06/24/2013 [id number]-09 Vaccine ( - season) 2024 [facility]-Depression Screening 03/20/2024 03/20/2023 [facility]-Lung Cancer Screening 04/02/2024 04/02/2023 [facility]-Influenza Vaccine (Season Ended) 2025 03/05/2023, 03/05/2023, 01/25/2022, Additional history exists [facility]-Pneumococcal Vaccine: 50+ Years Completed 02/23/2020, 01/17/2019, 03/19/2014 [facility]-Diabetes: Hemoglobin A1C Discontinued 03/26/2023 [facility]-Obesity Intervention Completed 03/26/2023, 02/20 [facility]-RSV Vaccine: 60+ Years or Completed 04/11/2023 HPV Vaccines Aged Out No longer eligi ble based on patient's age to complete this topic [facility]-HIB Vaccines Aged Out No longer e ligible based on patient's age to complete this topic [facility]-Hepatitis A Vaccines Aged Out No longer eligible based on patient's age to complete this topic [facility]-IPV Vaccines Aged Out No longer e ligible based on patient's age to complete this topic [facility]-Rotavirus Vaccines Aged Out No lo nger eligible based on patient's age to complete this topic Procedures Procedure Name Priority Date/Time Associated Diagnosis Comments CT CHEST WO IV CONTRAST Routine 04/02/2023 2:03 PM EST Pancreatic cyst HEMOGLOBIN A1C Routine 03/26/2023 9:38 AM EST Pancreatic cyst from Last 3 Months or Most Recently Relevant to Health Maintenance Results * CT Chest wo IV Contrast (04/02/2023 2:03 PM EST) Anatomical Region Laterality Modality Chest Computed Tomogra phy Impressions 04/02/2023 8:53 PM EST No suspicious pulmonary nodules, masses or consolidation. CRITICAL RESULT: No. COMMUNICATION: Per this written report. Drafted by Mckenna Bhatti MD on 04/02/2023 8:51 PM Final report signed by Mckenna Bhatti MD on 04/02/2023 8:53 PM Narrative 04/02/2023 8:53 PM EST CLINICAL INDICATION: pancreatic cyst TECHNIQUE: Multiple CT helical images were obtained from thoracic inlet through upper abdomen without administration of IV contrast. Total DLP (Dose-Length Product): 391.28 mGy.cm. Please note: The reported value represents the total of one or more individual components during the CT acquisition on this date and at this time, and as such, the same value may appear in more than one CT report depending on the interpreting/reporting physicians. COMPARISON: None. FINDINGS: Mediastinum and Pleura: No mediastinal or hilar adenopathy. No pleural or pericardial effusion. Aortic root calcification. Ectasia of the mid ascending thoracic aorta measuring 3.8 cm. Lungs: Lingular linear atelectasis. Mild bronchial wall thickening in the lower lobes. No suspicious pulmonary nodules. Upper Abdomen: No suspicious lesions in the partially visualized upper abdomen. Musculoskeletal: No suspicious lytic or sclerotic lesion. Procedure Note Mckenna Bhatti MD - 04/02/2023 CLINICAL INDICATION: pancreatic cyst TECHNIQUE: Multiple CT helical images were obtained from thoracic inlet through upperabdomen without administration of IV contrast. Total DLP (Dose-Length Product): 391.28 mGy.cm. Please note: The reportedvalue represents the total of one or more individual components during theCT acquisition on this date and at this time, and as such, the same valuemay appear in more than one CT report depending on theinterpreting/reporting physicians. COMPARISON: None. FINDINGS: Mediastinum and Pleura: No mediastinal or hilar adenopathy. No pleural orpericardial effusion. Aortic root calcification. Ectasia of the midascending thoracic aorta measuring 3.8 cm. Lungs: Lingular linear atelectasis. Mild bronchial wall thickening in thelower lobes. No suspicious pulmonary nodules. Upper Abdomen: No suspicious lesions in the partially visualized upperabdomen. Musculoskeletal: No suspicious lytic or sclerotic lesion. IMPRESSION: No suspicious pulmonary nodules, masses or consolidation. CRITICAL RESULT: No. COMMUNICATION: Per this written report. Drafted by Mckenna Bhatti MD on 04/02/2023 8:51 PM Final report signed by Mckenna Bhatti MD on 04/02/2023 8:53 PM us Suraj Fall MD IMG CT PROCEDURES Fin al Result * (ABNORMAL) Hemoglobin A1c (03/26/2023 9:38 AM EST) Hemoglobin A1c 7.9(H) <5.7 % 03/26/2023 9:53 AM EST [facility] Blood Venous blood specimen / Unknown Venipuncture / Unknown 03/26/2023 9:38 AM EST 03/26/2023 9:47 AM EST Narrative [facility] - 03/26/2023 9:53 AM EST HA1C Interpretive Data: Diagnosis of Diabetes: Diabetic > or = 6.5% Pre-diabetic 5.7 to 6.4% Non-diabetic < or = 5.6% Glycemic Targets for Type I and Type II Diabetics: Non- Adults <7.0% Adults <6.0% Children and Adolescents <7.5% Source: [place] [employer]. Standards of medical care in diabetes,2017. Diabetes Care.2017:40 (suppl 1):S1-S135. HbA1c assay performed by an ion-exchange chromatography method that is certified traceable to the DCCT. us Suraj Fall MD LAB BLOOD ORDERABLES Final Result [facility] [address] [place] [id number] from Last 3 Months or Most Recently Relevant to Health Maintenance Insurance [facility] MEDICARE MEDICAID-[place] Care Teams Gis Administrator Relationship Specialty Start Date End Date Tyrell Owens MD [address] [place] [address] PCP - General Internal Medicine 02/08/23
--- OUTSIDE RECORDS SUMMARY | 2024-10-27 14:09 | XMS_ITS | Encounter Summary ---
Author Organization [facility] Address [address] [place] [address] Care Team Providers Care Leasing Property Manager Name Role Phone Tyrell Owens MD Primary Care Provider [phone] Reason for Referral * Consultation (Routine) - Closed Specialty Diagnoses / Procedures Referred By Francisca ta Referred To Contact Gastroenterology Diagnoses Pancreas cyst Early satiety Nausea Tyrell Owens MD [address] [facility] [address] [place] [address] Phone: tel: fax: Referral ID Status Reason Start Date Expiration Date V isits Requested Visits Authorized [id number] Closed Specialty Services Required 03/08/2023 09/06/2024 1 1 Encounter Details Date Type Department Care Team (Late st Contact Info) Description 03/08/2023 Community Orders Community Practice [address] [place] [address] Tyrell Owens MD [address] [facility] [address] [place] [address] Pancreas cyst (Primary Dx); Early satiety; Nausea Social History Tobacco Use Types Packs/Day Years Used Date Smoking Tobacco: Never Assessed Comments Unknown Sex and Gender Information Value Date Recorded Sex Assigned at Not on file Legal Sex Female 2:35 PM EDT Gender Identity Not on file Sexual Orientation Not on file documented as of this encounter Plan of Treatment Scheduled Referrals Name Type Priority Associated Diagnoses Order Schedule Ambulatory referral to Gastroenterology Outpatient Referral Routine Pancreas cyst Early satiety Nausea Expected: 03/08/2023 (Approximate), Expires: 09/06/2024 documented as of this encounter Visit Diagnoses Diagnosis Pancreas cyst- Primary Cyst and pseudocyst of pancreas Early satiety Nausea Nausea alone documented in this encounter Care Teams Leasing Property Manager Relationship Specialty Start Date End Date Tyrell Owens MD [address] [place] [id number] PCP - General Internal Medicine 02/08/23 documented as of this encounter
--- OUTSIDE RECORDS SUMMARY | 2024-10-27 14:09 | XMS_ITS | Encounter Summary ---
Author Organization [facility] Address [address] [place] [address] Care Team Providers Care Community Relations Liaison Name Role Phone Tyrell Owens MD Primary Care Provider [phone] Reason for Referral * Consultation (Routine) - Closed Specialty Diagnoses / Procedures Referred By Francisca ta Referred To Contact Gastroenterology Diagnoses Pancreatic cyst Ann Larson, MACHINIST [address] [place] [address] Phone: tel: fax: [facility] Endoscopy [address] [place] [address] Phone: tel: Referral ID Status Reason Start Date Expiration Date V isits Requested Visits Authorized [id number] Closed Specialty Services Required 02/28/2023 08/29/2024 1 1 Encounter Details Date Type Department Care Team (Late st Contact Info) Description 02/28/2023 Community Orders Community Practice [address] [place] [address] Ann Larson, MACHINIST [address] [place] [address] Pancreatic cyst (Primary Dx) Social History Tobacco Use Types Packs/Day Years [...] Ambulatory referral to Gastroenterology Outpatient Referral Routine Pancreatic cyst Ordered: 02/28/2023 documented as of this encounter Visit Diagnoses Diagnosis Pancreatic cyst- Primary Cyst and pseudocyst of pancreas documented in this encounter Care Teams Community Relations Liaison Relationship Specialty Start Date End Date Tyrell Owens MD [address] [place] [address] PCP - General Internal Medicine 02/08/23 documented as of this encounter
[2024-10-27 14:24] LABS: Basophils # 0.1 K/mm3 (0-0.2); Eosinophils # 1.7 Kmm3 (0.0-0.4); Eosinophils % 20.6 % (0.1-12.0); Hematocrit 39.5 % (37.0-47.0); Hemoglobin 12.6 g/dL (12.2-16.2); Immature Granulocytes # 0.02 10^3uL; Immature Granulocytes % 0.3 %; Lymphocytes # 1.5 K/mm3 (0.7-4.5); Lymphocytes % 18.4 % (10-50); Mean Corpuscular HGB Conc 31.9 g/dL (31.8-35.4); Mean Corpuscular Hemoglobin 29.3 pg (27.0-31.2); Mean Corpuscular Volume 91.9 fl (81-99); Mean Platelet Volume 10.6 fl (7.4-10.4); Monocytes # 0.6 K/mm3 (0.1-1.0); Monocytes % 7.5 % (1.7-9.3); Neutrophils # 4.2 K/mm3 (1.8-7.8); Neutrophils % 52.2 % (37.0-80.0); Nucleated Red Blood Cells # 0 10^3/uL; Nucleated Red Blood Cells % 0 %; Platelet Count 267 K/mm3 (142-424); Red Cell Distribution Width 14.6 % (11.5-17.5); Red Cell Distribution Width-SD 49.1 fL
[2024-10-27 14:50] LABS: Albumin Level 4.4 g/dl (3.5-5.0); Chloride 103 mmol/L (98-107); Sodium 139 mmol/L (136-145)
[2024-10-27 14:51] LABS: Potassium 4.8 mmoL/L (3.5-5.1)
[2024-10-27 14:53] LABS: Alanine Aminotransferase 24 U/L (12-78); Anion Gap 9.8 mEq/L (5-15); Aspartate Amino Transferase 31 U/L (14-36); Bilirubin,Unconjugated 0.4 mg/dL (0.0-1.1); Blood Urea Nitrogen 28 mg/dl (7-17); Carbon Dioxide 31 mmol/L (22.0-30.0); Cholesterol 150 mg/dl (140-200); Estimated Glomerular Filt Rate 44 ml/min (>60); GFR (African American) 53 ML/MIN (>60); Total Protein,Serum 6.8 g/dl (6.3-8.2); Triglycerides 120 mg/dl (30-150); VLDL Cholesterol 24 mg/dL (0-40)
[2024-10-27 14:54] LABS: Alkaline Phosphatase 104 U/L (38-126); Bilirubin,Direct 0.1 mg/dl (0.0-0.4); Bilirubin,Indirect 0.4 mg/dL (0.0-0.9); Bilirubin,Total 0.5 mg/dl (0.2-1.3); Chol/HDL Ratio 2.4 (1-3.5); Glucose 100 mg/dl (74-100); HDL Cholesterol 63 mg/dl (40-60)
[2024-10-27 15:05] LABS: Direct LDL Cholesterol 39.39 mg/dL (100-129)
== END 2024-10-27 23:59 | disposition home or self-care (01) ==
LOC: LAB 14:06
PROVIDERS: PCP Internal Medicine Adolescent Medicine; Visit Provider Internal Medicine
DX: I11.0 Hypertensive heart disease with heart failure (principal); R93.1 Abnormal findings on diagnostic imaging of heart and coronary circulation; I50.9 Heart failure, unspecified; R94.31 Abnormal electrocardiogram [ECG] [EKG]; I48.92 Unspecified atrial flutter
CPT/HCPCS: 36415; 80048; 80061; 80076; 82565; 83735; 84520; 85025

== ENCOUNTER 2024-11-24 08:43 | Outpatient (CLI) | payer MEDICARE, MEDICAID, SELFPAY ==
--- OUTSIDE RECORDS SUMMARY | 2024-08-23 17:30 | XMS_ITS ---
Author Organization [facility] Address [address] [place] [address] Care Team Providers Care Cross Tie Maker Name Role Phone Tyrell Owens Primary Care Provider Tyrell Owens Unavailable Unavailable Migration, Provider Unavailable Unavailable REASON FOR VISIT [facility] To [facility] Conversion Encounter Medications Medication SIG (Take, Route, Frequency, Duration) Notes Start Date End Date Status Eliquis 5 MG TAKE 1 TABLET TWICE DAILY; Duration: 90 Active DILTIAZEM (EQV-DILACOR XR) 240 MG/24 HOURS 1 CAP(S) ORALLY ONCE A DAY; Duration: 90 DAYS *Please review for potential replacement for e-prescription and drug interaction check* Active TRUE METRIX TEST STRIPS 1 TEST STRIP FOR DIABETIC TESTING FINGERSTICK TWICE DAILY; Duration: 90 DAYS *Please review for potential replacement for e-prescription and drug interaction check* Active metFORMIN HCl ER 750 MG 1 tab(s) orally once a day; Duration: 30 day(s) Active Breztri Aerosphere 160 MCG-4.8 MCG-9 MCG/INH INHALE 2 PUFFS TWICE DAILY; Duration: 90 *Please review and pick correct strength-formulatio n from [facility] options. If intended option is not shown, discontinue and re-order from Quick Search* Active Ipratropium-Albutero l 0.5-2.5 (3) MG/3ML 3 ml by nebulizer 4 times a day prn; Duration: 90 days Active Ketoconazole 2 % 1 marilyn applied topically once a day; Duration: 14 days 06/25/2023 Active Atorvastatin Calcium 40 MG 1 tab(s) orally once a day; Duration: 90 days Active Diclofenac Sodium 1 % as directed applied topically 4 times a day; Duration: 30 days 10/10/2023 Active Lisinopril 20 MG 1 tab(s) orally once a day; Duration: 90 days Active Zinc 50 MG 1 tab(s) orally once a day; Duration: 30 day(s) Active Vitamin D3 50 MCG (2000 UT) 1 tab(s) orally once a day; Duration: 30 day(s) Active Fish Oil 1000 MG 2 TABS ORALLY ONCE DAILY *Please review and pick correct strength-formulatio n from [employer] options. If intended option is not shown, discontinue and re-order from Quick Search* Active TEST STRIPS AND LANCETS NA FOR BID FSBS TESTING NA TWICE DAILY; Duration: 90 DAYS *Please review for potential replacement for e-prescription and drug interaction check* 08/20/2020 Active ALBUTEROL (EQV-PROVENTIL HFA) 90 MCG/INH INHALE 2 PUFF(S) EVERY 4-6 HOURS NEEDED; Duration: 50 *Please review for potential replacement for e-prescription and drug interaction check* Active Farxiga 10 MG 1 tab(s) orally once a day Active Napa-3 Fatty Acids 1000 MG 1 cap(s) orally twice a day Active Metoprolol Succinate ER 25 MG 1/2 tab orally once a day; Duration: 30 days Active Torsemide 20 MG 1 tab(s) orally once a day Active metOLazone 2.5 MG 1 tab(s) orally once a day; Duration: 30 days not taking 09/25/2023 Active Montelukast Sodium 10 MG 1 tab(s) orally once a day; Duration: 90 days Active Furosemide 20 MG 1 tab(s) orally once a day; Duration: 90 days not taking 05/05/2024 Active Azithromycin 250 MG 1 tab(s) orally once daily on Sunday, Sunday and Sunday; Duration: 30 days [facility] Active Famotidine 20 MG 1 tab(s) orally 2 times a day; Duration: 90 days 05/05/2024 Active Encounters Encounter Location Date Provider Diagnosis [facility] PED ROBIN [address] [place] [address] 08/23/2024 Provider Migration Plan Of Treatment Medication Medication Name Sig Start Date Stop Date Notes Montelukast Sodium 10 MG 1 tab(s) orally once a day; Duration: 90 days Next Appt Details Provider Name:Tyrell Owens, 11/26/2024 11:15:00 AM, [address] [facility] [address] [facility], [address], [place], [address], Progress Notes * Ann CLAYDOB: [birth year] (74 yo F)Acc No.[id number]:08/23/2024 Patient: Ann RICHARDSON Provider: Suleiman clevel[place] Migration :1950 A ge:73 Y S ex:Female Date:08/23/2024 Address:[address] [place] [address], [facility] Pcp:Tyrell Owens Subjective: * Chief Complaints: * 1 . [facility]. * Medical History: * Medications: T aking Torsemide 20 MG Tablet 1 tab(s) orally once a day , Taking Farxiga 10 MG Tablet 1 tab(s) orally once a day , Taking Napa-3 Fatty Acids 1000 MG Capsule 1 cap(s) orally twice a day , Taking Vitamin D3 50 MCG (2000 UT) Tablet 1 tab(s) orally once a day , Taking Fish Oil 1000 MG 2 TABS ORALLY ONCE DAILY , Notes to Pharmacist: *Please review and pick correct strength-formulation from [facility] options. If intended option is not shown, discontinue and re-order from Quick Search*, Taking Zinc 50 MG Tablet 1 tab(s) orally once a day , Taking TEST STRIPS AND LANCETS NA PER INSURANCE COVERAGE WITH GLUCOMETER FOR BID FSBS TESTING NA TWICE DAILY , Notes to Pharmacist: *Please review for potential replacement for e-prescription and drug interaction check*, Taking ALBUTEROL (EQV-PROVENTIL HFA) 90 MCG/INH AEROSOL INHALE 2 PUFF(S) EVERY 4-6 HOURS NEEDED , Notes to Pharmacist: *Please review for potential replacement for e-prescription and drug interaction check*, Taking Ketoconazole 2 % Cream 1 marilyn applied topically once a day , Taking Atorvastatin Calcium 40 MG Tablet 1 tab(s) orally once a day , Taking Diclofenac Sodium 1 % Gel as directed applied topically 4 times a day , Taking Lisinopril 20 MG Tablet 1 tab(s) orally once a day , Taking Ipratropium-Albuterol 0.5-2.5 (3) MG/3ML Solution 3 ml by nebulizer 4 times a day prn , Taking Eliquis 5 MG Tablet TAKE 1 TABLET TWICE DAILY , Taking DILTIAZEM (EQV-DILACOR XR) 240 MG/24 HOURS CAPSULE, EXTENDED RELEASE 1 CAP(S) ORALLY ONCE A DAY , Notes to Pharmacist: *Please review for potential replacement for e- prescription and drug interaction check*, Taking TRUE METRIX TEST STRIPS 1 TEST STRIP FOR DIABETIC TESTING FINGERSTICK TWICE DAILY , Notes to Pharmacist: *Please review for potential replacement for e-prescription and drug interaction check*, Taking metFORMIN HCl ER 750 MG Tablet Extended Release 24 Hour 1 tab(s) orally once a day , Taking Breztri Aerosphere 160 MCG-4.8 MCG-9 MCG/INH AEROSOL INHALE 2 PUFFS TWICE DAILY , Notes to Pharmacist: *Please review and pick correct strength-formulation from [employer] options. If intended option is not shown, discontinue and re-order from Quick Search*, Taking Famotidine 20 MG Tablet 1 tab(s) orally 2 times a day , Taking Furosemide 20 MG Tablet 1 tab(s) orally once a day , Notes to Pharmacist: not taking, Taking Azithromycin 250 MG Tablet 1 tab(s) orally once daily on Sunday, Sunday and Sunday , Notes to Pharmacist: MWF, Taking Metoprolol Succinate ER 25 MG Tablet Extended Release 24 Hour 1/2 tab orally once a day , Taking metOLazone 2.5 MG Tablet 1 tab(s) orally once a day , Notes to Pharmacist: not taking Objective: * Vitals: Assessment: Plan: * Treatment: * * Electronic signature of Prov ider Migration on 11/24/2024 at 08:45 AM EDT Sign off status: Pending * Provider: Suleiman [place] Migration Date: 08/23/2024 Generated for Patricia magdaleno/Lacy/Kathryn on: 11/24/2024 08:45 AM EDT
--- OUTSIDE RECORDS SUMMARY | 2024-11-24 08:45 | XMS_ITS | Encounter Summary ---
Author Organization [facility] Address [address] [place] [address] Care Team Providers Care Configuration Management Architect Name Role Phone Tyrell Owens MD Primary Care Provider [phone] Reason for Referral * Consultation (Routine) - Closed Specialty Diagnoses / Procedures Referred By Francisca ta Referred To Contact Gastroenterology Diagnoses Pancreatic cyst Ann Larson, REFRIGERATION MECHANIC [address] [place] [address] Phone: tel: fax: [facility] Endoscopy [address] [place] [address] Phone: tel: Referral ID Status Reason Start Date Expiration Date V isits Requested Visits Authorized [id number] Closed Specialty Services Required 02/28/2023 08/29/2024 1 1 Encounter Details Date Type Department Care Team (Late st Contact Info) Description 02/28/2023 Community Orders Community Practice [address] [place] [address] Ann Larson, REFRIGERATION MECHANIC [address] [place] [address] Pancreatic cyst (Primary Dx) Social History Tobacco [...] pancreas documented in this encounter Care Teams Configuration Management Architect Relationship Specialty Start Date End Date Tyrell Owens MD [address] [place] [id number] PCP - General Internal Medicine 02/08/23 documented as of this encounter
--- OUTSIDE RECORDS SUMMARY | 2024-11-24 08:46 | XMS_ITS | Encounter Summary ---
Author Organization [facility] Address [address] [place] [address] Care Team Providers Care Jacquard Loom Weaver Name Role Phone Tyrell Owens MD Primary Care Provider [phone] Reason for Referral * Consultation (Routine) - Closed Specialty Diagnoses / Procedures Referred By Francisca ta Referred To Contact Gastroenterology Diagnoses Pancreas cyst Early satiety Nausea Tyrell Owens MD [address] [facility] [address] [place] [address] Phone: tel: fax: Referral ID Status Reason Start Date Expiration Date V isits Requested Visits Authorized [id number] Closed Specialty Services Required 03/08/2023 09/06/2024 1 1 Encounter Details Date Type Department Care Team (Late st Contact Info) Description 03/08/2023 Community Orders Community Practice [address] [place] [address] Tyrell Owens MD [address] [facility] [address] [place] [address] Pancreas cyst (Primary Dx); Early satiety; Nausea [...] alone documented in this encounter Care Teams Jacquard Loom Weaver Relationship Specialty Start Date End Date Tyrell Owens MD [address] [place] [address] PCP - General Internal Medicine 02/08/23 documented as of this encounter
--- OUTSIDE RECORDS SUMMARY | 2024-11-24 08:46 | XMS_ITS | Clinical Summary ---
Author Organization [facility] Address [address] [place] [address] Care Team Providers Care Ethylene Plant Helper Name Role Phone Tyrell Owens MD Primary Care Provider [phone] Allergies No known active allergies Medications dilTIAZem [...] (2 - Td or Tdap) 06/24/2023 06/24/2013 [id number]-30 Vaccine (1 - season) 2024 [facility]-Depression Screening 03/20/2024 03/20/2023 [facility]-Lung Cancer Screening 04/02/2024 04/02/2023 [facility]-Influenza Vaccine (#1) 01/19/202503/05, 03/05/2023, 01/25/2022, Additional history exists [facility]-Pneumococcal Vaccine: [...] Adults <6.0% Children and Adolescents <7.5% Source: [place] [employer]. Standards of medical care in diabetes,2017. Diabetes Care.2017:40 (suppl 1):S1-S135. HbA1c assay performed by an ion-exchange chromatography method that is certified traceable to the DCCT. us Suraj Fall MD LAB BLOOD ORDERABLES Final Result [facility] [address] [place] [phone] from Last 3 Months or Most Recently Relevant to Health Maintenance Insurance [facility] MEDICARE MEDICAID-[place] Care Teams Ethylene Plant Helper Relationship Specialty Start Date End Date Tyrell Owens MD [address] [place] [address] PCP - General Internal Medicine 02/08/23
--- OUTSIDE RECORDS SUMMARY | 2024-11-24 08:46 | XMS_ITS | Patient Health Record ---
Author Organization [facility] Address [address] [place] [address] Care Team Providers Care Double End Tenon Operator Name Role Phone Tyrell Owens Primary Care Provider [phone] Tyrell Owens Unavailable Unavailable MarshaAnn Unavailable [phone] Migration, Provider Unavailable Unavailable Allergies No Known Allergies Results Component Value Reference Range Notes HEMOGLOBIN A1c (496) Reviewed date:09/04/2024 01:56:51 PM Interpretation: Performing Lab:[facility] [id number], [facility] IvevPH[address] Rolly Rolon Notes/Report: NON-FASTING; NON-FASTING; NON-FASTING HEMOGLOBIN A1c 6.8 <5.7 % For someone without known diabetes, a hemoglobin A1c value of 6.5% or greater indicates that they may have diabetes and this should be confirmed with a follow-up test. For someone with known diabetes, a value <7% indicates that their diabetes is well controlled and a value greater than or equal to 7% indicates suboptimal control. A1c targets should be individualized based on duration of diabetes, age, comorbid conditions, and other considerations. Currently, no consensus exists regarding use of hemoglobin A1c for diagnosis of diabetes for children. BASIC METABOLIC PANEL (41735 ) Reviewed date:09/04/2024 01:56:51 PM Interpretation: Performing Lab:[facility] [id number], [place] (by isePankur)JpxuHE[address] Rolly Rolon Notes/Report: NON-FASTING; NON-FASTING; NON-FASTING GLUCOSE 110 65-99 mg/dL Fasting reference interval For someone without known diabetes, a glucose value between 100 and 125 mg/dL is consistent with prediabetes and should be confirmed with a follow-up test. UREA NITROGEN (BUN) 27 7-25 mg/dL CREATININE 1.40 0.60-1.00 mg/dL EGFR 39 > OR = 60 mL/min/1.73m2 BUN/CREATININE RATIO 19 6-22 (calc) SODIUM 139 135-146 mmol/L POTASSIUM 4.2 3.5-5.3 mmol/L CHLORIDE 101 98-110 mmol/L CARBON DIOXIDE 29 20-32 mmol/L CALCIUM 9.8 8.6-10.4 mg/dL THYROID PANEL WITH TSH (7444 ) Reviewed date:09/04/2024 01:56:51 PM Interpretation: Performing Lab:[facility] (by ise[place]ankur)[address], Feeding ForwardOkvnAW[address] Rolly Rolon Notes/Report: NON-FASTING; NON-FASTING; NON-FASTING T3 UPTAKE 29 22-35 % T4 (THYROXINE), TOTAL 9.1 5.1-11.9 mcg/dL FREE T4 INDEX (T7) 2.6 1.4-3.8 TSH 3.21 0.40-4.50 mIU/L Urinalysis Reviewed date:07/17/2024 01:44:29 PM Interpretation: Performing Lab: Notes/Report: Color/Clarity YELLOW Leuk TRACE Nitrite NEG Urobili 0.2 Protein 30MG/DL pH 6.0 Blood NEG Sp. Gr. 1.015 Ketone NEG Bili NEG Glucose 100MG/DL Microalbumin (In-House) Reviewed date:07/07/2024 12:03:54 PM Interpretation: Performing Lab: Notes/Report: ALB 10mg CRE 50mg A:C 30-300 THYROID PANEL WITH TSH (7444 ) Reviewed date:02/20/2024 10:12:30 AM Interpretation: Performing Lab:[facility] [employer], Feeding ForwardTwapJD[address] Rolly Rolon Notes/Report: NON-FASTING; NON-FASTING; NON-FASTING; NON-FASTING; NON-FAST T3 UPTAKE 27 22-35 % T4 (THYROXINE), TOTAL 9.4 5.1-11.9 mcg/dL FREE T4 INDEX (T7) 2.5 1.4-3.8 TSH 1.86 0.40-4.50 mIU/L COMPREHENSIVE METABOLIC PANE (30269) Reviewed date:02/20/2024 10:12:31 AM Interpretation: Performing Lab:[facility] [id number] [facility], [facility] HospitalHnssKQ[address] Rolly Rolon Notes/Report: NON-FASTING; NON-FASTING; NON-FASTING; NON-FASTING; NON-FAST GLUCOSE 124 65-99 mg/dL Fasting reference interval For someone without known diabetes, a glucose value between 100 and 125 mg/dL is consistent with prediabetes and should be confirmed with a follow-up test. UREA NITROGEN (BUN) 29 7-25 mg/dL CREATININE 1.18 0.60-1.00 mg/dL EGFR 48 > OR = 60 mL/min/1.73m2 BUN/CREATININE RATIO 25 6-22 (calc) SODIUM 141 135-146 mmol/L POTASSIUM 4.1 3.5-5.3 mmol/L CHLORIDE 103 98-110 mmol/L CARBON DIOXIDE 26 20-32 mmol/L CALCIUM 10.0 8.6-10.4 mg/dL PROTEIN, TOTAL 6.9 6.1-8.1 g/dL ALBUMIN 4.3 3.6-5.1 g/dL GLOBULIN 2.6 1.9-3.7 g/dL (calc) ALBUMIN/GLOBULIN RATIO 1.7 1.0-2.5 (calc) BILIRUBIN, TOTAL 0.4 0.2-1.2 mg/dL ALKALINE PHOSPHATASE 86 37-153 U/L AST 22 10-35 U/L ALT 13 6-29 U/L MAGNESIUM (622) Reviewed date:02/20/2024 10:12:31 AM Interpretation: Performing Lab:[facility] [employer] [id number] [facility] CenterNOMERMAIL.[facility]URut[facility], [facility] HospitalIhngZH[address] Rolly Rolon Notes/Report: NON-FASTING; NON-FASTING; NON-FASTING; NON-FASTING; NON-FAST MAGNESIUM 1.9 1.5-2.5 mg/dL CBC (INCLUDES DIFF/PLT) (639 9) Reviewed date:02/20/2024 10:12:31 AM Interpretation: Performing Lab:[facility] [id number] [facility], [facility] HospitalVrjyML[address] Rolly Rolon Notes/Report: NON-FASTING; NON-FASTING; NON-FASTING; NON-FASTING; NON-FAST WHITE BLOOD CELL COUNT 7.6 3.8-10.8 Thousand/ uL RED BLOOD CELL COUNT 4.37 3.80-5.10 Million/uL HEMOGLOBIN 12.7 11.7-15.5 g/dL HEMATOCRIT 40.4 35.0-45.0 % MCV 92.4 80.0-100.0 fL MCH 29.1 27.0-33.0 pg MCHC 31.4 32.0-36.0 g/dL For adults, a slight decrease in the calculated MCHC value (in the range of 30 to 32 g/dL) is most likely not clinically significant; however, it should be interpreted with caution in correlation with other red cell parameters and the patient's clinical condition. RDW 13.2 11.0-15.0 % PLATELET COUNT 248 140-400 Thousand/uL MPV 11.2 7.5-12.5 fL ABSOLUTE NEUTROPHILS 3929 1092-8819 cells/uL ABSOLUTE LYMPHOCYTES 3499 964-7284 cells/uL ABSOLUTE MONOCYTES 479 200-950 cells/uL ABSOLUTE EOSINOPHILS 1794 15-500 cells/uL ABSOLUTE BASOPHILS 76 0-200 cells/uL NEUTROPHILS 51.7 LYMPHOCYTES 17.4 MONOCYTES 6.3 EOSINOPHILS 23.6 BASOPHILS 1.0 HEMOGLOBIN A1c (496) Reviewed date:02/20/2024 10:12:31 AM Interpretation: Performing Lab:[facility] [id number] [address] [facility], [facility] HospitalAlzgTO[address] Rolly Rolon Notes/Report: NON-FASTING; NON-FASTING; NON-FASTING; NON-FASTING; NON-FAST HEMOGLOBIN A1c 7.6 <5.7 % of total Hgb Currently, no consensus exists regarding use of hemoglobin A1c for diagnosis of diabetes for children. For someone without known diabetes, a hemoglobin A1c value of 6.5% or greater indicates that they may have diabetes and this should be confirmed with a follow-up test. For someone with known diabetes, a value <7% indicates that their diabetes is well controlled and a value greater than or equal to 7% indicates suboptimal control. A1c targets should be individualized based on duration of diabetes, age, comorbid conditions, and other considerations. VITAMIN D,25-OH,TOTAL,IA (17 306) Reviewed date:02/20/2024 10:12:31 AM Interpretation: Performing Lab:[facility], [facility]-Aníbal [id number] [facility], Aníbal MarquezKkmyFI[address] Rollyluba Rolon Notes/Report: NON-FASTING; NON-FASTING; NON-FASTING; NON-FASTING; NON-FAST VITAMIN D,25-OH,TOTAL,IA 30 30-100 ng/mL http://education.[email or web address]/faq/JOV735 (This link is being provided for informational/ educational purposes only.) Vitamin D Status 25-OH Vitamin D: Deficiency: <20 ng/mL Insufficiency: 20 - 29 ng/mL Optimal: > or = 30 ng/mL For 25-OH Vitamin D testing on patients on D2-supplementation and patients for whom quantitation of D2 and D3 fractions is required, the QuestAssureD(TM) 25-OH VIT D, (D2,D3), LC/MS/MS is recommended: order code 34831 (patients >2yrs). See Note 1 Note 1 For additional information, please refer to Reason For Referral No Information Medications Medication SIG (Take, Route, Frequency, Duration) Notes Start Date End Date Status Diclofenac Sodium 1 % as directed applied topically 4 times a day; Duration: 30 days 10/10/2023 Active Montelukast Sodium 10 MG 1 tab(s) orally once a day; Duration: 90 days Active Lisinopril 20 MG 1 tab(s) orally once a day; Duration: 90 days Active Azithromycin 250 MG 1 tab(s) orally once daily on Sunday, Sunday and Sunday; Duration: 30 days MW Active Farxiga 10 MG 1 tab(s) orally once a day Active Ipratropium-Albutero l 0.5-2.5 (3) MG/3ML 3 ml by nebulizer 4 times a day prn; Duration: 90 days on hold Active [place]-3 Fatty Acids 1000 MG 1 cap(s) orally twice a day Active Eliquis 5 MG TAKE 1 TABLET TWICE DAILY; Duration: 90 Active Breztri Aerosphere 160 MCG-4.8 MCG-9 MCG/INH INHALE 2 PUFFS TWICE DAILY; Duration: 90 *Please review and pick correct strength-formulatio n from Vivartes options. If intended option is not shown, discontinue and re-order from Quick Search* Active ALBUTEROL (EQV-PROVENTIL HFA) 90 MCG/INH INHALE 2 PUFF(S) EVERY 4-6 HOURS NEEDED; Duration: 50 *Please review for potential replacement for e-prescription and drug interaction check* Active Furosemide 40 MG 1 tab(s) orally once a day; Duration: 90 days 05/05/2024 Active Ketoconazole 2 % 1 marilyn applied topically once a day; Duration: 14 days 06/25/2023 Active Metoprolol Succinate ER 25 MG 1/2 tab orally once a day; Duration: 30 days Active Atorvastatin Calcium 40 MG 1 tab(s) orally once a day; Duration: 90 days Active metOLazone 2.5 MG 1/2tab(s) orally once a day; Duration: 30 days not taking 09/25/2023 Active Vitamin D3 50 MCG (2000 UT) 1 tab(s) orally once a day; Duration: 30 day(s) Active DILTIAZEM (EQV-DILACOR XR) 240 MG/24 HOURS 1 CAP(S) ORALLY ONCE A DAY; Duration: 90 DAYS *Please review for potential replacement for e-prescription and drug interaction check* Active Fish Oil 1000 MG 2 TABS ORALLY ONCE DAILY *Please review and pick correct strength-formulatio n from Vivartes options. If intended option is not shown, discontinue and re-order from Quick Search* Active TRUE METRIX TEST STRIPS 1 TEST STRIP FOR DIABETIC TESTING FINGERSTICK TWICE DAILY; Duration: 90 DAYS *Please review for potential replacement for e-prescription and drug interaction check* Active Zinc 50 MG 1 tab(s) orally once a day; Duration: 30 day(s) Active metFORMIN HCl ER 750 MG 1 tab(s) orally once a day; Duration: 30 day(s) Active TEST STRIPS AND LANCETS NA FOR BID FSBS TESTING NA TWICE DAILY; Duration: 90 DAYS *Please review for potential replacement for e-prescription and drug interaction check* 08/20/2020 Active Immunizations Vaccine Route Administration Date Status Comme nts Prevnar PCV-20 (Pneumococcal conjugate 20) IM Intramuscular 02/18/2024 Administered Prevnar PCV-13 (Pneumococcal conjugate 13) IM Intramuscular 02/23/2020 Administered Pneumovax 23 IM Intramuscular 01/17/2019 Administered Fluzone High Dose IM Intramuscular 02/14/2019 Administered Fluzone High Dose IM Intramuscular 02/04/2020 Administered Fluzone High Dose IM Intramuscular 01/27/2021 Administered Fluzone High Dose IM Intramuscular 01/25/2022 Administered Fluzone High Dose IM Intramuscular 03/05/2023 Administered Fluzone High Dose IM Intramuscular 02/18/2024 Administered Boostrix IM Intramuscular 09/22/2024 Administered Arexvy IM Intramuscular 04/11/2023 Administered Social History Tobacco Use: Social History Observation Description Date Details (start date - stop date) Former Smoker NA - NA Smoking: Question Answer Notes Are you a: former smoker How long has it been since you last smoked? 1-5 years Problems Problem Type SNOMED Code ICD Code Onset Dates Problem Status W/U Status Risk Notes Problem Typical atrial flutter (243587948) Typical atrial flutter (I48.3) Active confirmed Problem Panlobular emphysema (8252005) Panlobular emphysema (J43.1) Active confirmed Problem Vitamin D deficiency (01297565) Vitamin D deficiency (E55.9) Active confirmed Problem Type II diabetes mellitus without complication (232195965) Diabetes mellitus type 2, noninsulin dependent (E11.9) Active confirmed Problem Essential hypertension (84376393) Hypertension, essential (I10) Active confirmed Problem Acute exacerbation of chronic obstructive airways disease (898171567) COPD with acute exacerbation (J44.1) Active confirmed Problem Acute exacerbation of chronic obstructive airways disease (983942428) COPD exacerbation (J44.1) Active confirmed Problem Dysuria (25849785) Burning with urination (R30.0) Active confirmed Problem Thyroid nodule (877456035) Thyroid nodule (E04.1) Active confirmed Problem Gastroesophageal reflux disease without esophagitis (563086377) Gastroesophageal reflux disease without esophagitis (K21.9) Active confirmed Problem Atrial fibrillation (57240216) A-fib (I48.91) Active confirmed Problem Chronic diastolic heart failure (825794861) Diastolic CHF, chronic (I50.32) Active confirmed Problem Atrial flutter (3913699) Atrial flutter (I48.92) Active confirmed Problem Chronic kidney disease stage 2 (660732789) Chronic kidney disease, stage 2, mildly decreased GFR (N18.2) Active confirmed Problem Chronic obstructive lung disease (55769401) COPD without exacerbation (J44.9) Active confirmed Problem Adult health examination (793596813) Healthcare maintenance (Z00.00) Active confirmed Problem Type II diabetes mellitus without complication (797682839) Type 2 diabetes mellitus without complication, without long-term current use of insulin (E11.9) Active confirmed Problem History of raised blood lipids (155898031) History of hyperlipidemia (Z86.39) Active confirmed Problem Acute exacerbation of chronic obstructive airways disease (150099238) Acute exacerbation of chronic obstructive pulmonary disease (COPD) (J44.1) Active confirmed Problem Chronic obstructive lung disease co-occurrent with acute bronchitis (625295446433184) Acute bronchitis with chronic obstructive pulmonary disease (COPD) (J44.0) Active confirmed Problem Inflammation of joint of shoulder region (305596361) Shoulder arthritis (M19.019) Active confirmed Problem Atrial flutter (0604876) Atrial flutter, unspecified type (I48.92) Active confirmed Problem Diastolic dysfunction (9188198) Diastolic dysfunction (I51.89) Active confirmed Problem Gastroesophageal reflux disease (844364977) Gastroesophageal reflux disease, unspecified whether esophagitis present (K21.9) Active confirmed Problem Acute cough (590715356594746676 ) Acute cough (R05.1) Active confirmed Problem Cough (45411916) Cough (R05.9) Active confirmed Vital Signs Heart Rate 80 /min 09/22/2024 Temperature 97.7 degrees Fahrenheit 09/22/2024 Blood pressure diastolic 62 mm Hg 09/22/2024 Height 65 in 09/22/2024 Blood pressure systolic 122 mm Hg 09/22/2024 Weight 199 lbs 09/22/2024 BMI 33.11 kg/m2 09/22/2024 Encounters Encounter Location Date Provider Diagnosis [facility] [address] [place] [address] 08/23/2024 Provider Migration [facility] [address] [place] [address] 12/12/2023 Tyrell Owens Chronic hypoxic respiratory failure J96.11 [facility] [address] [facility] [address] [place] [address] 02/18/2024 Tyrell Owens Hypertension, essent ial I10 ; Atrial flutter, unspecified type I48.92 ; Chronic kidney disease, stage 2, mildly decreased GFR N18.2 ; Vitamin D deficiency E55.9 ; Fatigue, unspecified type R53.83 and Immunization(s) administered Z23 [facility] [address] [facility] [address] [place] [address] 05/05/2024 Tyrell Owens Other hypervolemia E87.79 ; Gastroesophageal reflux disease without esophagitis K21.9 and Routine medical exam Z00.00 [facility] [address] [facility] [address] [place] [address] 07/07/2024 Tyrell Owens Diabetes mellitus ty pe 2, noninsulin dependent E11.9 ; Chronic kidney disease, stage 2, mildly decreased GFR N18.2 ; Dyspnea on exertion R06.09 and Gastroesophageal reflux disease without esophagitis K21.9 [facility] [address] [place], [place] [address] 07/17/2024 Ann Larson Acute left-sided low back pain without sciatica M54.50 and Elevated serum creatinine R79.89 [facility] [address] [place] [address] 09/03/2024 Tyrell Owens Diabetes mellitus ty pe 2, noninsulin dependent E11.9 ; Thyroid nodule E04.1 ; Diastolic CHF, chronic I50.32 and COPD without exacerbation J44.9 [facility] [address] [place] [address] 09/22/2024 Tyrell Owens Unspecified fall, initial encounter W19.XXXA ; Unspecified place in unspecified non-institutional (private) residence as the place of occurrence of the external cause Y92.009 ; Abrasion of left knee, initial encounter S80.212A ; Atrial flutter, unspecified type I48.92 ; Diastolic dysfunction I51.89 ; Diabetes mellitus type 2, noninsulin dependent E11.9 ; Encounter for immunization Z23 and Routine medical exam Z00.00 [facility] [address] [facility] [address] [place] [address] 12/05/2023 Tyrell Escobarson [facility] [address] [address] 02/01/2024 Tyrell Besson [facility] [address] [address] 06/03/2024 Tyrell Besson [place] [address] [address] 08/13/2024 Tyrell Owens Assessments Encounter Date Diagnosis (ICD Code) Assessment Notes Treatment Notes Treatment Clinical Notes Section Notes 12/12/2023 Chronic hypoxic respiratory failure (ICD-10 - J96.11) Significant hypoxia. 86 to 87% at rest. Will benefit from portable oxygen device. I will see her in 2 months to follow-up cardiac and pulmonary issues. 02/18/2024 Hypertension, essential (ICD-10 - I10) - BP today 112/62 - denies any orthostatic symptoms - metoprolol was decreased to 25 at last visit by cardiology, did have small improvement PLAN - cardiology follow up 02/27/24 - cont current regimen 05/05/2024 Gastroesophageal reflux disease without esophagitis (ICD-10 - K21.9) Change primary medication to Famotidine and discuss sxs at next visit. 05/05/2024 Other hypervolemia (ICD-10 - E87.79) No additional symptoms of CHF. Patient likely overloaded due to lack of synergistic effect only taking Metolazone-- OK to add back Lasix 20 mg daily. RTC 3 months for lab check. 07/07/2024 Diabetes mellitus type 2, noninsulin dependent (ICD-10 - E11.9) Continue taking Farxiga and Metformin. Follow-up in 6-8 weeks for labs. 07/07/2024 Chronic kidney disease, stage 2, mildly decreased GFR (ICD-10 - N18.2) Continue Farxiga. Will be due for labs at next visit. 07/17/2024 Elevated serum creatinine (ICD-10 - R79.89) 07/17/2024 Acute left-sided low back pain without sciatica (ICD-10 - M54.50) samples of tylenol provided, may take up to 3 gram per day as needed for pain. alternate heat and ice and may continue topical diclofenac but encouraegd to avoid oral NSAID due to elevated creatinine and cardiac disease 09/03/2024 Diabetes mellitus type 2, noninsulin dependent (ICD-10 - E11.9) Check A1c, remains on SGLT2 inhibitor. No side effects. Indicated also for CHF issues 09/03/2024 Thyroid nodule (ICD-10 - E04.1) Clinically euthyroid, no change in plans at this point 02/18/2024 Atrial flutter, unspecified type (ICD-10 - I48.92) - follows with cardiology - irregularly irregular on exam today - on diltiazem and metoprolol 09/22/2024 Unspecified fall, initial encounter (ICD-10 - W19.XXXA) Reviewed fall prevention plan at home. Overall seems to be doing well. Seems to be a mechanical fall. Discussed using supports when she goes outside, watching for light on the patio where she fell 09/22/[address] in unspecified non-institutional (private) residence as the place of occurrence of the external cause (ICD-10 - Y92.009) 05/05/2024 Routine medical exam (ICD-10 - Z00.00) Patient has good functional status. No falls. Depression screening is negative. Cognitive impairment not noted last Medicare annual wellness visit with 3/3 word recall. Up-to-date with all vaccinations. Follows with her specialist. Out of range of cancer screenings 09/03/2024 Diastolic CHF, chronic (ICD-10 - I50.32) Clinically euvolemic. No changes 02/18/2024 Chronic kidney disease, stage 2, mildly decreased GFR (ICD-10 - N18.2) 09/22/2024 Abrasion of left knee, initial encounter (ICD-10 - S80.212A) No evidence of infection, recommended Neosporin and warm compresses for pain 07/07/2024 Dyspnea on exertion (ICD-10 - R06.09) Wear oxygen when you begin to feel short of breath and use nebulizer treatments as needed. Continue following with pulmonology. 02/18/2024 Vitamin D deficiency (ICD-10 - E55.9) 09/22/2024 Atrial flutter, unspecified type (ICD-10 - I48.92) Rate controlled. No changes in plan 07/07/2024 Gastroesophageal reflux disease without esophagitis (ICD-10 - K21.9) Begin Famotidine. Monitor symtpoms. 09/03/2024 COPD without exacerbation (ICD-10 - J44.9) Overall doing very nicely. Continue use oxygen supplementally 02/18/2024 Fatigue, unspecified type (ICD-10 - R53.83) - patient does continue to endorse some fatigue - could largely be due to age and de-conditioning. Also follows with cardiology for afib, they are working on decreasing medication burden - there could be electrolyte/vitam in deficiency component PLAN - thyroid panel, cmp, mag, cbc, vit D ordered 09/22/2024 Diastolic dysfunction (ICD-10 - I51.89) Clinically euvolemic. No changes at this point 09/22/2024 Diabetes mellitus type 2, noninsulin dependent (ICD-10 - E11.9) Previous A1c under good control, reviewed with patient 02/18/2024 Immunization(s) administered (ICD-10 - Z23) - flu and prevnar 20 administered today 09/22/2024 Encounter for immunization (ICD-10 - Z23) 09/22/2024 Routine medical exam (ICD-10 - Z00.00) Updated Tdap as noted. Colonoscopy screening up-to-date. Mammography screening up-to-date. Fall risk discussed. Family is healthcare surrogate. Depression screening negative. Functional status reviewed. 07/21 word recall. Plan Of Treatment Pending Test Test Name Order Date C-BASIC METABOLIC 06/03/2020 M-Complete Blood Count Auto Diff 020 M-Comprehensive Metabolic Panel 01/12/20 20 M-Hemoglobin A1C 08/02/2020 M-Hemoglobin A1C 02/17/2019 M-Lipid Panel 01/12/2020 M-Thyroid Stimulating Hormone 01/12/2020 Next Appt Details Provider Name:Tyrell Owens, 11/26/2024 11:15:00 AM, [address], [place], [address], Insurance Providers Payer Name Payer Address Payer Phone Subscriber Number Group Number Insured Name Patient Relationship to Insured Coverage Start Date Coverage End Date [employer] DUAL [address] [address] [place] [address] [id number] Ann Hernandez Self - patient is the insured Medications Administered Medication Instructions Date of Administration Dosage Notes Ceftriaxone 500 01/15/2023 500 mg Dexamethasone 4mg Injection 09/12/2022 4 mg Dexamethasone 4mg Injection 01/15/2023 4 mg Dexamethasone 4mg Injection 05/07/2023 4 mg Dexamethasone 4mg Injection 07/17/2024 4 mg Triamcinolone Acetonide 40mg Injection 08/08/2019 1 mL Triamcinolone Acetonide 40mg Injection 01/12/2020 1 mL Triamcinolone Acetonide 40mg Injection 03/30/2020 1 mL Medical (General) History Medical History History ICD Code COPD Shingles HTN Normal mammogram 01/2020 and normal 10/10 normal DEXA scan January 2020 Chest pain - negative myoview scan Diabetes Normal LDCT 10/12 Surgical History Surgery Date(Month/Year) tubal ligation 1985 cataract removal 11/2021 Hospitalization History Reason Date(Month/Year) [facility]- Flu A 08/31-09/04 2023 [facility] Jul 18-Jul [address]0924 [facility] Jun 16-2023 A fib, COPD 05/2019 childbirth
[2024-11-24 08:55] VITALS: BMI 31.4
[2024-11-24] MEDS: 0.9 % SODIUM CHLORIDE 1000ML 1,000 ML 999 ML IV (09:15)
[2024-11-24] MEDS: METOPROLOL TARTRATE 50MG TABLET PO (09:19)
[2024-11-24] MEDS: IVABRADINE HCL 7.5MG TABLET PO (09:19)
[2024-11-24 09:23] VITALS: BP 145/88; PULSE 75; RESP 16; TEMP 36.6; O2SAT 98
[2024-11-24] MEDS: NITROGLYCERIN 0.4MG SL TABLET SL (10:00)
--- NOTE | 2024-11-24 10:00 | CT_ITS ---
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 A noncontrast coronary calcium scan was performed. A CT attenuation threshold of 130 Hounsfield units (HU) was used for the detection of calcium in contiguous voxels of 1 sq mm in area to be counted as individual lesions. Bolus tracking in the ascending aorta with a threshold of 180 HU was performed. Immediately afterwards, ECG synchronized cardiac CT was then performed from the cardiac base to apex using retrospective gating with ECG tube current modulation. A total of 85 mL of Isovue 370 mg/mL contrast medium was administered at 5 mL/sec followed by a saline flush using a biphasic injection protocol. A tube voltage of 120 KVp was used. The average heart rate at the time of acquisition was 61 bpm and regular. Image Reconstruction Transaxial images were reconstructed at 0.67 mm slide thickness. Data was reviewed interactively on an advanced workstation capable of 2 and 3-dimensional displays in all conventional reconstruction formats, including multiplanar reformations, maximum intensity projections, curved multiplanar reformations, and volume rendered reconstructions. When applicable, selected routine images describing the relevant coronary anatomy and pathology were saved and sent to PACS. Complications None Technical Quality Overall image quality was subptimal due to significant motion. Coronary artery opacification was fair. Total DLP (Dose-Length Product) is 1947.1 mGy-cm. The reported value represents the total of one or more individual components during the CT acquisition of this date and at this time, and as such, the same value may appear in more than one CT report depending on the interpreting/reporting physicians. COMPARISON None FINDINGS CT Coronary Calcium Scoring LMA (Left Main Artery) = 0 LAD (Left Anterior Descending) = 8 LCX (Left Coronary Circumflex) = 12 RCA (Right Coronary Artery) = 15 Total Calcium Score = 35 using the AJ-130 method. The observed calcium score of 35 is at 45th percentile for subjects of the same age, sex, and race/ethnicity. The interpretation of the calcium heart score is based on the following continuum*: 0 = no calcified plaque detected (risk of coronary artery disease is very low ??? less than 5%) 1-10 = calcium detected in extremely minimal levels (risk of coronary diseases is still low ??? less than 10%) 11-100 = mild levels of plaque detected with certainty (mild or minimal narrowing of heart arteries is likely) 101-400 = definite,at least moderate levels of plaque detected (relatively high risk of a heart attack within 3-5 years) >401-999 = extensive levels of plaque detected (high risk of heart attack, high levels of vascular disease are present, high likelihood of at least one significant coronary narrowing) *The calcium heart score quantifies the burden of coronary calcification/plaque in the coronary arteries. The calcium heart score is not able to evaluate the presence or burden of non-calcified (i.e. soft) plaque. There is mild calcification in the aortic valve. Coronary CT Angiography The coronary arterial system is right dominant. Quantitative Stenosis Grading: Left Main (LM): The left main originates normally from the left sinus of Valsalva. The LM bifurcates into the left anterior descending artery and left circumflex artery. There is no evidence of atherosclerosis of the left main. Left Anterior Descending (LAD) and Diagonal Branches: The LAD gives off 2 diagonal branch(es). There is mixed calcified/noncalcified plaque in the proximal LAD segment with up to 25-49% luminal stenosis. There is no evidence of LAD-myocardial bridge. Left Circumflex (LCX) and Obtuse Marginals (OM): The LCX gives off 1 Obtuse Marginal (OM) branch(es). There is mild calcified plaque along the proximal LCx segment, with no evidence of luminal stenosis. Right Coronary Artery (RCA): The RCA originates normally from the right sinus of Valsalva. The RCA gives off a posterior descending artery (PDA) and posterolateral (PL) branches. There is mild calcified plaque along the proximal LCx segment, with no evidence of luminal stenosis. Non-Coronary Cardiac Findings: Analysis of the left ventricular (LV) structure and function was performed after 3-D reconstruction of the LV from axial images, with user-corrected automatic contouring for assessment of LV volumes and user-defined reconstruction from oblique planes for measurement of 3-D cardiac structure and function. -The left ventricle systolic function is normal. -There is no left atrial appendage filling defect. Two right pulmonary veins and two left pulmonary veins drain normally into the left atrium. -No pericardial thickening or calcification. -Central and branch pulmonary arteries in the [id number] are unremarkable. -Thoracic aorta within the visualized thoracic aortic-branches in the [id number] is unremarkable. Extracardiac Structures No significant extra-cardiac findings. Note, however, that this study is focused on the cardiac findings. IMPRESSION -Subptimal image quality due to significant motion. -Presence of coronary calcification with an Agatston score = 35 using the AJ-130 method. -The observed calcium score of 35 is at 45th percentile for subjects of the same age, sex, and race/ethnicity. -Mild, nonobstructive atherosclerotic coronary disease in the proximal LAD, with no evidence of significant luminal stenosis. -CAD-RADS 2. Management recommendations per ACC/AHA guidelines*, as clinically appropriate. -Incidental finding of mild calcification in the aortic valve. *Recommendations: CAD RADS 0: Reassurance. Consider non-atherosclerotic causes of chest pain. CAD RADS 1: Consider non-atherosclerotic causes of chest pain. Consider preventive therapy and risk factor modification. CAD RADS 2: Consider non-atherosclerotic causes of chest pain. Consider preventive therapy and risk factor modification, particularly for patients with nonobstructive plaque in multiple segments. CAD RADS 3: Consider further functional testing. Consider symptom-guided anti-ischemic and preventive pharmacotherapy as well as risk factor modification per published guideline statements. CAD RADS 4A: Consider further functional testing or invasive coronary angiography with revascularization per published guideline statements. Consider symptom-guided anti-ischemic and preventive pharmacotherapy as well as risk factor modification per published guideline statements. CAD RADS 4B: Invasive coronary angiography recommended with revascularization per published guideline statements. Consider symptom-guided anti-ischemic and preventive pharmacotherapy as well as risk factor modification per published guideline statements. CAD RADS 5: Consider invasive angiography and/or viability assessment with revascularization per published guideline statements. Consider symptom-guided anti-ischemic and preventive pharmacotherapy as well as risk factor modification per published guideline statements. CRITICAL RESULT None COMMUNICATION Per this written report The coronary and cardiac findings of this CCTA were reviewed, reported, and signed by Hudson Gastelum MD (Hot Metal Mixer Operator) Conclusion Electronically signed by : Juliane Gastelum MD 11/25/2024 23:45:24
[2024-11-24] MEDS: 0.9 % SODIUM CHLORIDE 50 ML VIAL IV (10:09)
[2024-11-24] MEDS: IOPAMIDOL-370 (76%);100ML BOTTLE 85 ML IV (10:09)
[2024-11-24] MEDS: SODIUM CHLORIDE 0.9% 10ML SYR (RAD ONLY) 10 ML IV (10:09)
== END 2024-11-24 10:24 | disposition home or self-care (01) ==
PROVIDERS: PCP Internal Medicine Adolescent Medicine; Visit Provider Internal Medicine
DX: I25.10 Atherosclerotic heart disease of native coronary artery without angina pectoris (principal)
CPT/HCPCS: 75574; J7030; Q9967

== ENCOUNTER 2024-11-27 13:47 | Outpatient (CLI) | payer MEDICARE, MEDICAID, SELFPAY ==
--- OUTSIDE RECORDS SUMMARY | 2024-11-26 07:15 | XMS_ITS ---
Author Organization [facility] Address [address] [place] [address] Care Team Providers Care Final Canoe Inspector Name Role Phone Tyrell Owens Primary Care Provider [phone] Tyrell Owens Unavailable Unavailable Allergies No Known Allergies Results Component Value Reference Range Notes COMPREHENSIVE METABOLIC PANE L (46143) (Not yet reviewed by provider) Interpretation: Performing Lab:[facility], [facility] [id number], [id number] Rolly Rolon Notes/Report: NON-FASTING; NON-FASTING; NON-FASTING GLUCOSE 120 65-99 mg/dL Fasting reference interval For someone without known diabetes, a glucose value between 100 and 125 mg/dL is consistent with prediabetes and should be confirmed with a follow-up test. UREA NITROGEN (BUN) 25 7-25 mg/dL CREATININE 1.36 0.60-1.00 mg/dL EGFR 41 > OR = 60 mL/min/1.73m2 BUN/CREATININE RATIO 18 6-22 (calc) SODIUM 142 135-146 mmol/L POTASSIUM 4.6 3.5-5.3 mmol/L CHLORIDE 104 98-110 mmol/L CARBON DIOXIDE 27 20-32 mmol/L CALCIUM 10.1 8.6-10.4 mg/dL PROTEIN, TOTAL 6.9 6.1-8.1 g/dL ALBUMIN 4.4 3.6-5.1 g/dL GLOBULIN 2.5 1.9-3.7 g/dL (calc) ALBUMIN/GLOBULIN RATIO 1.8 1.0-2.5 (calc) BILIRUBIN, TOTAL 0.5 0.2-1.2 mg/dL ALKALINE PHOSPHATASE 90 37-153 U/L AST 25 10-35 U/L ALT 22 6-29 U/L CBC (INCLUDES DIFF/PLT) (639 9) (Not yet reviewed by provider) Interpretation: Performing Lab:[facility], [facility] [id number] [employer], [id number] Rolly Rolon Notes/Report: NON-FASTING; NON-FASTING; NON-FASTING WHITE BLOOD CELL COUNT 7.0 3.8-10.8 Thousand/ uL RED BLOOD CELL COUNT 4.25 3.80-5.10 Million/uL HEMOGLOBIN 12.6 11.7-15.5 g/dL HEMATOCRIT 41.6 35.0-45.0 % MCV 97.9 80.0-100.0 fL MCH 29.6 27.0-33.0 pg MCHC 30.3 32.0-36.0 g/dL For adults, a slight decrease in the calculated MCHC value (in the range of 30 to 32 g/dL) is most likely not clinically significant; however, it should be interpreted with caution in correlation with other red cell parameters and the patient's clinical condition. RDW 15.4 11.0-15.0 % PLATELET COUNT 224 140-400 Thousand/uL MPV 11.0 7.5-12.5 fL ABSOLUTE NEUTROPHILS 4277 6580-6442 cells/uL ABSOLUTE LYMPHOCYTES 690 655-3553 cells/uL ABSOLUTE MONOCYTES 329 200-950 cells/uL ABSOLUTE EOSINOPHILS 1463 15-500 cells/uL ABSOLUTE BASOPHILS 49 0-200 cells/uL NEUTROPHILS 61.1 LYMPHOCYTES 12.6 MONOCYTES 4.7 EOSINOPHILS 20.9 BASOPHILS 0.7 SED RATE BY MODIFIED TALI SUAREZ (809) (Not yet reviewed by provider) Interpretation: Performing Lab:[facility], [facility] [employer], [id number] Rolly Rolon Notes/Report: NON-FASTING; NON-FASTING; NON-FASTING SED RATE BY MODIFIED MELLO 2 < OR = 30 mm/h REASON FOR VISIT 2 mo FU, left side face pain Medications Medication SIG (Take, Route, Frequency, Duration) Notes Start Date End Date Status Azithromycin 250 MG 1 tab(s) orally once daily on Sunday, Sunday and Sunday; Duration: 30 days [facility] Active Montelukast Sodium 10 MG 1 tab(s) orally once a day; Duration: 90 days Active Metoprolol Succinate ER 25 MG 1/2 tab orally once a day; Duration: 30 days Active metOLazone 2.5 MG 1/2tab(s) orally once a day; Duration: 30 days not taking 09/25/2023 Active Furosemide 40 MG 1 tab(s) orally once a day; Duration: 90 days 05/05/2024 Active TRUE METRIX TEST STRIPS 1 TEST STRIP FOR DIABETIC TESTING FINGERSTICK TWICE DAILY; Duration: 90 DAYS *Please review for potential replacement for e-prescription and drug interaction check* Active metFORMIN HCl ER 750 MG 1 tab(s) orally once a day; Duration: 30 day(s) Active Eliquis 5 MG TAKE 1 TABLET TWICE DAILY; Duration: 90 Active DILTIAZEM (EQV-DILACOR XR) 240 MG/24 HOURS 1 CAP(S) ORALLY ONCE A DAY; Duration: 90 DAYS *Please review for potential replacement for e-prescription and drug interaction check* Active Breztri Aerosphere 160 MCG-4.8 MCG-9 MCG/INH INHALE 2 PUFFS TWICE DAILY; Duration: 90 *Please review and pick correct strength-formulatio n from Rule. options. If intended option is not shown, discontinue and re-order from Quick Search* Active Lisinopril 20 MG 1 tab(s) orally once a day; Duration: 90 days Active Ipratropium-Albutero l 0.5-2.5 (3) MG/3ML 3 ml by nebulizer 4 times a day prn; Duration: 90 days on hold Active Ketoconazole 2 % 1 marilyn applied topically once a day; Duration: 14 days 06/25/2023 Active Atorvastatin Calcium 40 MG 1 tab(s) orally once a day; Duration: 90 days Active Diclofenac Sodium 1 % as directed applied topically 4 times a day; Duration: 30 days 10/10/2023 Active Acetaminophen-Codein e 300-30 MG 1-2 tabs Orally twice a day; Duration: 7 days As needed for severe pain 11/26/2024 Active Zinc 50 MG 1 tab(s) orally once a day; Duration: 30 day(s) Active predniSONE 20 MG 3 tabs orally once a day for two days, then 2 daily for 2 days, then one daily for two days; Duration: 6 day(s) 11/26/2024 Active TEST STRIPS AND LANCETS NA FOR [...] 1 tab(s) orally once a day Active Fish Oil 1000 MG 2 TABS ORALLY ONCE DAILY *Please review and pick correct strength-formulatio n from Rule. options. If intended option is not shown, discontinue and re-order from Quick Search* Active Amoxicillin-Pot Clavulanate 875-125 MG as directed orally every 12 hours; Duration: 7 days 11/26/2024 Active Reading-3 Fatty Acids 1000 MG 1 cap(s) orally twice a day Active Vitamin D3 50 MCG (2000 UT) 1 tab(s) orally once a day; Duration: 30 day(s) Active Social History Tobacco Use: Social History Observation Description Date Details (start date - stop date) Former Smoker NA - NA Smoking: Question Answer Notes Are you a: former smoker How long has it been since you last smoked? 1-5 years Vital Signs Temperature 97.8 degrees Fahrenheit 11/27/19 25 Blood pressure systolic 130 mm Hg 11/27/19 25 Blood pressure diastolic 60 mm Hg 025 Heart Rate 80 /min 11/26/2024 Height 65 in 11/26/2024 Weight 193.6 lbs 11/26/2024 BMI 32.21 kg/m2 11/26/2024 Encounters Encounter Location Date Provider Diagnosis [facility] [address] [place] [address] 11/26/2024 Tyrell Owens Pain of maxillary sinus J34.89 and Acute febrile illness R50.9 Assessments Encounter Date Diagnosis (ICD Code) Assessment Notes Treatment Notes Treatment Clinical Notes Section Notes 11/26/2024 Pain of maxillary sinus (ICD-10 - J34.89) - Presents with 1 week of maxillary pain, was intermittent but now constant. - Describes pain as sharp, stabbing worse with chewing, unable to put in dentures or drink through straw. Tylenol has not provided relief - Highest temperature has been around 99.8 - Notes she may have had an episode of double vision. - Pain does not seem to be exacerbated by washing face, wind blowing or being exposed to sun - Ddx is acute bacterial maxillary sinusitis, dental abscess, GCA or trigeminal neuralgia - Will treat with Augmentin and steriods to cover for infection and inflammation and use tylenol with codeine for pain. Patient appears very uncomfortable - Lab work up including CBC, CMP, ESR, CRP - Will do CT scan of sinuses to look for abscess, signs of inflammation - Follow up with PRINCIPAL INVESTIGATOR within the next week 11/26/2024 Acute febrile illness (ICD-10 - R50.9) - See above Plan Of Treatment Medication Medication Name Sig Start Date Stop Date Notes Acetaminophen-Codeine 300-30 MG 1-2 tabs Orally twice a day; Duration: 7 days 11/26/2024 predniSONE 20 MG 3 tabs orally once a day for two days, then 2 daily for 2 days, then one daily for two days; Duration: 6 day(s) 11/26/2024 Amoxicillin-Pot Clavulanate 875-125 MG as directed orally every 12 hours; Duration: 7 days 11/26/2024 Treatment Notes Assessment Notes Pain of maxillary sinus - Presents with 1 week of maxillary pain, was intermittent but now constant. - Describes pain as sharp, stabbing worse with chewing, unable to put in dentures or drink through straw. Tylenol has not provided relief - Highest temperature has been around 99.8 - Notes she may have had an episode of double vision. - Pain does not seem to be exacerbated by washing face, wind blowing or being exposed to sun - Ddx is acute bacterial maxillary sinusitis, dental abscess, GCA or trigeminal neuralgia - Will treat with Augmentin and steriods to cover for infection and inflammation and use tylenol with codeine for pain. Patient appears very uncomfortable - Lab work up including CBC, CMP, ESR, CRP - Will do CT scan of sinuses to look for abscess, signs of inflammation - Follow up with PRINCIPAL INVESTIGATOR within the next week Acute febrile illness - See above Pending Test Test Name Order Date CT Scan : Maxillofacial 11/26/2024 COMPREHENSIVE METABOLIC PANEL (05298) CBC (INCLUDES DIFF/PLT) (6399) SED RATE BY MODIFIED MELLO (809) Next Appt Details Follow Up: prn, Reason: Provider Name:Melvi Ochoa, 12/02/2024 10:45:00 AM, [address], [address], [place], [address], Progress Notes * Ann CLAYDOB: [birth year] (74 yo F)Acc No.[id number]:11/26/2024 Progress Notes Patient: Ann RICHARDSON Provider: Nirmala Owens MD :1950 A ge:74 Y S ex:Female Date:11/26/2024 Address:[facility] [place] , [facility] Subjective: * Chief Complaints: * 1 . 2 mo FU. 2. Left side face pain. * HPI: g en: Ann Clay is a 74 yo women here today for follow up. She complains of unilateral facial pain over the last week. Pain was initially intermittent but is now constant. It is waking her up at night. She has been unable to wear dentures. She has pain with chewing and sipping through a straw. She describes the pain as sharp and stabbing. She has never had this before. Does not notice it is worse with washing her face or outside. She denies vision changes but may have had one episode of double vision earlier this week. She has not been febrile but had a temperature of 99.8. * Medical History: C OPD, Shingles, HTN, Normal mammogram 01/2020 and normal 10/10, normal DEXA scan January 2020, Chest pain - negative myoview scan 05/2020, Diabetes, Normal LDCT 10/12. * Surgical History: t ubal ligation 1984, cataract removal 11/2021. * Hospitalization/Major Diagno stic Procedure: c hildbirth , A fib, COPD 05/2019, [facility] Jun 16-2023, [facility] Jul 18-Jul [address], [facility]- Flu A 08/31-09/04 2023. * Family History: F ather: , HTN, emphysema. M other: , angina, diabetes, parkinsons. P aternal Grand Father: . P aternal Grand Mother: . M aternal Grand Father: unknown. M aternal Grand Mother: unknown. P aternal uncle: , cancer. P aternal aunt: . M aternal uncle: unknown. M aternal aunt: unknown. S donna: alive, brother -, sister . Verónica reinoso: alive, oldest son-prostate cancer, diagnosed with Cancer, Stroke. 5 brother(s) , 1 sister(s) - healthy. 5 son(s) , 1 daughter(s) - healthy. . * Social History: S moking A re you a: f ormer smoker, H ow long has it been since you last smoked??1-5 years. R ecreational drug use: no. Exercise: no. Home smoke detector use: yes. Caffeine: no. Living Will: Yes. Alcohol: no. Sexually active: no. Travel outside [place]: no. Occupation: retired. * Medications: T aking Farxiga 10 MG Tablet 1 tab(s) orally once a day , Taking Reading-3 Fatty Acids 1000 MG Capsule 1 cap(s) orally twice a day , Taking Vitamin D3 50 MCG (2000 UT) Tablet 1 tab(s) orally once a day , Taking Fish Oil 1000 MG 2 TABS ORALLY ONCE DAILY , Notes to Pharmacist: *Please review and pick correct strength-formulation from PAAYan options. If intended option is not shown, [...] nebulizer 4 times a day prn , Notes to Pharmacist: on hold, Taking Eliquis 5 MG Tablet TAKE 1 TABLET TWICE DAILY , Taking DILTIAZEM (EQV-DILACOR XR) 240 MG/24 HOURS CAPSULE, EXTENDED RELEASE 1 CAP(S) ORALLY ONCE A DAY , Notes to Pharmacist: *Please review for potential replacement for e-prescription and drug interaction check*, Taking TRUE METRIX [...] *Please review and pick correct strength-formulation from Rule. options. If intended option is not shown, discontinue and re-order from Quick Search*, Taking Furosemide 40 MG Tablet 1 tab(s) orally once a day , Taking Metoprolol Succinate ER 25 MG Tablet Extended Release 24 Hour 1/2 tab orally once a day , Taking metOLazone 2.5 MG Tablet 1/2tab(s) orally once a day , Notes to Pharmacist: not taking, Taking Montelukast Sodium 10 MG Tablet 1 tab(s) orally once a day , Taking Azithromycin 250 MG Tablet 1 tab(s) orally once daily on Sunday, Sunday and Sunday , Notes to Pharmacist: JASPER, Medication List reviewed and reconciled with the patient * Allergies: N .K.D.A. Objective: * Vitals: N urse:sw, Pain:10-jaw pain, Temp:97.8, RR:16, HR:80, BP:130/60, Ht: 65, Wt:193.6, BMI:32.21. * Examination: G eneral Examination: General a ppear uncomfortable, applying pressure to L side of face. Chest: c lear to auscultation. HEENT: t priscila to palpation on rudy prominence of maxillary sinus, ear and throat clear pain with jaw opening. Assessment: * Assessment: 1. P ain of maxillary sinus - J34.89 (Primary) 2 . A cute febrile illness - R50.9 Plan: * Treatment: * Notes: - Presents with 1 week of maxillary pain, was intermittent but now constant. - Describes pain as sharp, stabbing worse with chewing, unable to put in dentures or drink through straw. Tylenol has not provided relief - Highest temperature has been around 99.8 - Notes she may have had an episode of double vision. - Pain does not seem to be exacerbated by washing face, wind blowing or being exposed to sun - Ddx is acute bacterial maxillary sinusitis, dental abscess, GCA or trigeminal neuralgia - Will treat with Augmentin and steriods to cover for infection and inflammation and use tylenol with codeine for pain. Patient appears very uncomfortable - Lab work up including CBC, CMP, ESR, CRP - Will do CT scan of sinuses to look for abscess, signs of inflammation - Follow up with PRINCIPAL INVESTIGATOR within the next week??2.?Acute febrile illness?LAB: COMPREHENSIVE METABOLIC PANEL (63977) ?LAB: CBC (INCLUDES DIFF/PLT) (6399) ?LAB: SED RATE BY MODIFIED WESTERGREN (809) ?Imaging: CT Scan : Maxillofacial* STAT PleaseNo Perlita Carcamo 11/26/2024 12:29:32 PM EDT > No Precert needed per [facility] Case # [id number] 11/26/24 * Notes: - See above ?? * Follow Up: p rn * * Sign off status: Completed true * Provider: Nirmala Owens MD Date: 11/26/2024 Generated for Patricia magdaleno/Lacy/eTransmitting on: 11/27/2024 01:53 PM EDT History and Physical Notes * HPI (History of Present Illness) Category Sub-Category Detail Notes Category Not es gen Ann gallardo is a 74 yo women here today for follow up. She complains of unilateral facial pain over the last week. Pain was initially intermittent but is now constant. It is waking her up at night. She has been unable to wear dentures. She has pain with chewing and sipping through a straw. She describes the pain as sharp and stabbing. She has never had this before. Does not notice it is worse with washing her face or outside. She denies vision changes but may have had one episode of double vision earlier this week. She has not been febrile but had a temperature of 99.8. Examination Category Sub-Category Detail Notes Category Not es General Examination HEENT: tender to pa lpation on rudy prominence of maxillary sinus, ear and throat clear pain with jaw opening Chest: clear to auscultatio n General appear uncomfortable , applying pressure to L side of face
--- NOTE | 2024-11-27 13:49 | CT_ITS ---
FINAL REPORT TECHNIQUE: Thin section axial CT images of the facial bones and sinuses were obtained without contrast. Coronal and sagittal reformatted images were also obtained. This study was performed with techniques to keep radiation doses as low as reasonably achievable, (ALARA). Individualized dose reduction techniques using automated exposure control or adjustment of mA and/or kV according to the patient's size were employed. CLINICAL HISTORY: PAIN OF MAXILLARY SINUS/ACUTE FEBRILE ILLNESS COMPARISON: None FINDINGS: There is no evidence of mucosal thickening. No fluid levels are identified. The ostiomeatal units have an unremarkable appearance. The nasal septum is in the midline. No fracture or acute bony abnormality is identified. The patient demonstrates mild hyperostosis frontalis interna. The mastoid air cells are unremarkable. IMPRESSION: No focal abnormality identified of the sinuses. Reviewed, Interpreted and Dictated by Kenneth Denny MD Transcribed by Cheryle Patten Authenticated and [facility]
--- OUTSIDE RECORDS SUMMARY | 2024-11-27 13:52 | XMS_ITS | Encounter Summary ---
Author Organization [facility] Address [address] [place] [address] Care Team Providers Care Vocational Instructor Name Role Phone Tyrell Owens MD Primary Care Provider [phone] Reason for Referral * Consultation (Routine) - Closed Specialty Diagnoses / Procedures Referred By Francisca ta Referred To Contact Gastroenterology Diagnoses Pancreatic cyst Ann Larson, PRINTING BINDERY ASSISTANT [address] [place] [address] Phone: tel: fax: [facility] Endoscopy [address] [place] [address] Phone: tel: Referral ID Status Reason Start Date Expiration Date V isits Requested Visits Authorized [id number] Closed Specialty Services Required 02/28/2023 08/29/2024 1 1 Encounter Details Date Type Department Care Team (Late st Contact Info) Description 02/28/2023 Community Orders Community Practice [address] [place] [address] Ann Larson, PRINTING BINDERY ASSISTANT [address] [place] [address] Pancreatic cyst (Primary Dx) Social History Tobacco [...] pancreas documented in this encounter Care Teams Vocational Instructor Relationship Specialty Start Date End Date Tyrell Owens MD [address] [place] [address] PCP - General Internal Medicine 02/08/23 documented as of this encounter
--- OUTSIDE RECORDS SUMMARY | 2024-11-27 13:53 | XMS_ITS | Clinical Summary ---
Author Organization [facility] Address [address] [place] [address] Care Team Providers Care Helicopter Technician Name Role Phone Tyrell Owens MD Primary Care Provider [phone] Allergies No known active allergies Medications dilTIAZem [...] Screening 1950 [facility]-Medicare Annual Wellness (AWV) 1950 [facility]-Infant/Child/Adol SDOH Screenings 1949 [facility]- SDOH Screenings 10/16/1967 [facility]-Adult SDOH Screenings 10/16/1967 CT Colonography 1994 Colonoscopy 1994 FIT-DNA 1994 FIT 1994 FOBT 1994 Sigmoidoscopy 1994 [facility]-Colorectal Cancer Screening 1994 [facility]-Zoster Vaccines (1 of 2) 10/16/1999 [facility]-DTaP,Tdap,and Td Vaccines (2 - Td or Tdap) 06/24/2023 06/24/2013 INC-ECUME-10 Vaccine (1 - season) 2024 [facility]-Depression Screening [...] Adults <6.0% Children and Adolescents <7.5% Source: [place] [employer]. Standards of medical care in diabetes,2017. Diabetes Care.2017:40 (suppl 1):S1-S135. HbA1c assay performed by an ion-exchange chromatography method that is certified traceable to the DCCT. us Suraj Fall MD LAB BLOOD ORDERABLES Final Result [facility] [address] [place] [address] from Last 3 Months or Most Recently Relevant to Health Maintenance Insurance [facility] MEDICARE [place]ICAID-[place] Care Teams Helicopter Technician Relationship Specialty Start Date End Date Tyrell Owens MD [address] [place] [address] PCP - General Internal Medicine 02/08/23
--- OUTSIDE RECORDS SUMMARY | 2024-11-27 13:53 | XMS_ITS | Encounter Summary ---
Author Organization [facility] Address [address] [place] [address] Care Team Providers Care Rubber Belt Splicer Name Role Phone Tyrell Owens MD Primary Care Provider [phone] Reason for Referral * Consultation (Routine) - Closed Specialty Diagnoses / Procedures Referred By Francisca ta Referred To Contact Gastroenterology Diagnoses Pancreas cyst Early satiety Nausea Tyrell Owens MD [address] [place] [address] Phone: tel: fax: Referral ID Status Reason Start Date Expiration Date V isits Requested Visits Authorized [id number] Closed Specialty Services Required 03/08/2023 09/06/2024 1 1 Encounter Details Date Type Department Care Team (Late st Contact Info) Description 03/08/2023 Community Orders Community Practice [address] [place] [address] Tyrell Owens MD [address] [place] [address] Pancreas cyst (Primary Dx); Early satiety; Nausea [...] alone documented in this encounter Care Teams Rubber Belt Splicer Relationship Specialty Start Date End Date Tyrell Owens MD [address] [place] [address] PCP - General Internal Medicine 02/08/23 documented as of this encounter
--- OUTSIDE RECORDS SUMMARY | 2024-11-27 13:53 | XMS_ITS | Patient Health Record ---
Author Organization [facility] Address [address] [place] [address] Care Team Providers Care Stock Sorter Name Role Phone Tyrell Owens Primary Care Provider Tyrell Owens Unavailable Unavailable Marsha Ann Unavailable [phone] Migration, Provider Unavailable Unavailable Allergies No Known Allergies Results Component Value Reference Range Notes SED RATE BY MODIFIED WESTERG ERICK (809) (Not yet reviewed by provider) Interpretation: Performing Lab:[facility], [facility] [address], [facility] LabsOutsVO[address] Rolly Rolon Notes/Report: NON-FASTING; NON-FASTING; NON-FASTING SED RATE BY MODIFIED WESTERGREN 2 < OR = 30 mm/h CBC (INCLUDES DIFF/PLT) (639 9) (Not yet reviewed by provider) Interpretation: Performing Lab:[facility], [facility] [address], [facility] LabsDzijGQ[address] Rolly Rolon Notes/Report: NON-FASTING; NON-FASTING; NON-FASTING WHITE [...] MPV 11.0 7.5-12.5 fL ABSOLUTE NEUTROPHILS 4277 [phone] cells/uL ABSOLUTE LYMPHOCYTES 472 704-0477 cells/uL ABSOLUTE MONOCYTES 329 200-950 cells/uL ABSOLUTE EOSINOPHILS 1463 15-500 cells/uL ABSOLUTE BASOPHILS 49 0-200 cells/uL NEUTROPHILS 61.1 LYMPHOCYTES 12.6 MONOCYTES 4.7 EOSINOPHILS 20.9 BASOPHILS 0.7 COMPREHENSIVE METABOLIC PANE L (44503) (Not yet reviewed by provider) Interpretation: Performing Lab:[facility], [facility] [address], [facility] HospitalXahmQY[address] Rolly Rolon Notes/Report: NON-FASTING; NON-FASTING; NON-FASTING GLUCOSE [...] 25 10-35 U/L ALT 22 6-29 U/L HEMOGLOBIN A1c (496) Reviewed date:09/04/2024 01:56:51 PM Interpretation: Performing Lab:[facility] [address] [employer] [employer], [place] DxrsOT[address] Rolly Rolon Notes/Report: NON-FASTING; NON-FASTING; NON-FASTING HEMOGLOBIN [...] of diabetes for children. BASIC METABOLIC PANEL (09800 ) Reviewed date:09/04/2024 01:56:51 PM Interpretation: Performing Lab:[facility] [address] [employer], [place] CrvoJZ[address] Rolly Rolon Notes/Report: NON-FASTING; NON-FASTING; NON-FASTING GLUCOSE [...] Reviewed date:09/04/2024 01:56:51 PM Interpretation: Performing Lab:[facility] [address], [place] ZksxKG[address] Rolly Rolon Notes/Report: NON-FASTING; NON-FASTING; NON-FASTING T3 UPTAKE 29 22-35 % T4 (THYROXINE), TOTAL 9.1 5.1-11.9 mcg/dL FREE T4 INDEX (T7) 2.6 1.4-3.8 TSH 3.21 0.40-4.50 mIU/L Microalbumin (In-House) Reviewed date:07/07/2024 12:03:54 PM Interpretation: Performing Lab: Notes/Report: ALB 10mg CRE 50mg A:C 30-300 THYROID PANEL WITH TSH (7444 ) Reviewed date:02/20/2024 10:12:30 AM Interpretation: Performing Lab:[facility], [facility] [address] [place], [place] QdtaLD[address] Rolly Rolon Notes/Report: NON-FASTING; NON-FASTING; NON-FASTING; NON-FASTING; NON-FAST T3 UPTAKE 27 22-35 % T4 (THYROXINE), TOTAL 9.4 5.1-11.9 mcg/dL FREE T4 INDEX (T7) 2.5 1.4-3.8 TSH 1.86 0.40-4.50 mIU/L COMPREHENSIVE METABOLIC PANE L (96222) Reviewed date:02/20/2024 10:12:31 AM Interpretation: Performing Lab:[facility] [place], [facility] SciencesVtlvCB[address] Rolly Rolon Notes/Report: NON-FASTING; NON-FASTING; NON-FASTING; NON-FASTING; [...] (622) Reviewed date:02/20/2024 10:12:31 AM Interpretation: Performing Lab:[facility], [facility] Wkpv[address] [facility], [facility] HospitalZzzzGS[address] Rolly Rolon Notes/Report: NON-FASTING; NON-FASTING; NON-FASTING; NON-FASTING; NON-FAST MAGNESIUM 1.9 1.5-2.5 mg/dL CBC (INCLUDES DIFF/PLT) (639 9) Reviewed date:02/20/2024 10:12:31 AM Interpretation: Performing Lab:[facility], [address] [employer], [facility] HospitalXwjxNV[address] Rolly Rolon Notes/Report: NON-FASTING; NON-FASTING; NON-FASTING; NON-FASTING; [...] MPV 11.2 7.5-12.5 fL ABSOLUTE NEUTROPHILS [phone] cells/uL ABSOLUTE LYMPHOCYTES 9285 226-3346 cells/uL ABSOLUTE MONOCYTES 479 200-950 cells/uL ABSOLUTE EOSINOPHILS 1794 15-500 cells/uL ABSOLUTE BASOPHILS 76 0-200 cells/uL NEUTROPHILS 51.7 LYMPHOCYTES 17.4 MONOCYTES 6.3 EOSINOPHILS 23.6 BASOPHILS 1.0 HEMOGLOBIN A1c (496) Reviewed date:02/20/2024 10:12:31 AM Interpretation: Performing Lab:[facility], [facility] [address], [place] ZahzMM[address] Rolly Rolon Notes/Report: NON-FASTING; NON-FASTING; NON-FASTING; NON-FASTING; [...] 306) Reviewed date:02/20/2024 10:12:31 AM Interpretation: Performing Lab:CB, [facility] [address]mhl[address] [employer], [place] BdtuPZ[address] Rolly Rolon Notes/Report: NON-FASTING; NON-FASTING; NON-FASTING; NON-FASTING; NON-FAST VITAMIN D,25-OH,TOTAL,IA 30 30-100 ng/mL http://education.[employer]/faq/QLO164 (This link is being provided for informational/ educational purposes only.) Vitamin D Status 25-OH Vitamin D: Deficiency: <20 ng/mL Insufficiency: 20 - 29 ng/mL Optimal: > or = 30 ng/mL For 25-OH Vitamin D testing on patients on D2-supplementation and patients for whom quantitation of D2 and D3 fractions is required, the QuestAssureD(TM) 25-OH VIT D, (D2,D3), LC/MS/MS is recommended: order code 98291 (patients >2yrs). See Note 1 Note 1 For additional information, please refer to Urinalysis Reviewed date:07/17/2024 01:44:29 PM Interpretation: Performing Lab: Notes/Report: Color/Clarity YELLOW Leuk TRACE Nitrite NEG Urobili 0.2 Protein 30MG/DL pH 6.0 Blood NEG Sp. Gr. 1.015 Ketone NEG Bili NEG Glucose 100MG/DL Reason For Referral No Information Medications Medication SIG (Take, Route, Frequency, Duration) Notes Start Date End Date Status Azithromycin 250 MG 1 tab(s) orally once daily on Sunday, Sunday and Sunday; Duration: 30 days [facility] Active Farxiga 10 MG 1 tab(s) orally once a day Active Montelukast Sodium 10 MG 1 tab(s) orally once a day; Duration: 90 days Active Acetaminophen-Codein e 300-30 MG 1-2 tabs Orally twice a day; Duration: 7 days As needed for severe pain 11/26/2024 Active Fish Oil 1000 MG 2 TABS ORALLY ONCE DAILY *Please review and pick correct strength-formulatio n from Sabre options. If intended option is not shown, discontinue and re-order from Quick Search* Active Zinc 50 MG 1 tab(s) orally once a day; Duration: 30 day(s) Active Amoxicillin-Pot Clavulanate 875-125 MG as directed orally every 12 hours; Duration: 7 days 11/26/2024 Active Buffalo-3 Fatty Acids 1000 MG 1 cap(s) orally twice a day Active predniSONE 20 MG 3 tabs orally once a day for two days, then 2 daily for 2 days, then one daily for two days; Duration: 6 day(s) 11/26/2024 Active Vitamin D3 50 MCG (2000 UT) 1 tab(s) orally once a day; Duration: 30 day(s) Active Ketoconazole 2 % 1 marilyn applied topically once a day; Duration: 14 days 06/25/2023 Active Atorvastatin Calcium 40 MG 1 tab(s) orally once a day; Duration: 90 days Active TEST STRIPS AND LANCETS NA FOR BID FSBS TESTING NA TWICE DAILY; Duration: 90 DAYS *Please review for potential replacement for e-prescription and drug interaction check* 08/20/2020 Active ALBUTEROL (EQV-PROVENTIL HFA) 90 MCG/INH INHALE 2 PUFF(S) EVERY 4-6 HOURS NEEDED; Duration: 50 *Please review for potential replacement for e-prescription and drug interaction check* Active Diclofenac Sodium 1 % as directed applied topically 4 times a day; Duration: 30 days 10/10/2023 Active Lisinopril 20 MG 1 tab(s) orally once a day; Duration: 90 days Active Ipratropium-Albutero l 0.5-2.5 (3) MG/3ML 3 ml by nebulizer 4 times a day prn; Duration: 90 days on hold Active TRUE METRIX TEST STRIPS 1 TEST [...] for e-prescription and drug interaction check* Active Metoprolol Succinate ER 25 MG 1/2 tab orally once a day; Duration: 30 days Active metOLazone 2.5 MG 1/2tab(s) orally once a day; Duration: 30 days not taking 09/25/2023 Active Breztri Aerosphere 160 MCG-4.8 MCG-9 MCG/INH INHALE 2 PUFFS TWICE DAILY; Duration: 90 *Please review and pick correct strength-formulatio n from Sabre options. If intended option is not shown, discontinue and re-order from Quick Search* Active Furosemide 40 MG 1 tab(s) orally once a day; Duration: 90 days 05/05/2024 Active Immunizations Vaccine Route Administration Date Status Comme nts Arexvy IM Intramuscular 04/11/2023 Administered Boostrix IM Intramuscular 09/22/2024 Administered Fluzone High Dose IM Intramuscular 02/14/2019 Administered Fluzone High Dose IM Intramuscular 02/04/2020 Administered Fluzone High Dose IM Intramuscular 01/27/2021 Administered Fluzone High Dose IM Intramuscular 01/25/2022 Administered Fluzone High Dose IM Intramuscular 03/05/2023 Administered Fluzone High Dose IM Intramuscular 02/18/2024 Administered Pneumovax 23 IM Intramuscular 01/17/2019 Administered Prevnar PCV-13 (Pneumococcal conjugate 13) IM Intramuscular 02/23/2020 Administered Prevnar PCV-20 (Pneumococcal conjugate 20) IM Intramuscular 02/18/2024 Administered Social History Tobacco Use: Social History Observation Description Date Details (start date - stop date) Former Smoker NA - NA Smoking: Question Answer Notes Are you a: former smoker How long has it been since you last smoked? 1-5 years Problems Problem Type SNOMED Code ICD Code Onset Dates Problem Status W/U Status Risk Notes Problem Typical atrial flutter (733535928) Typical atrial flutter (I48.3) Active confirmed Problem Panlobular emphysema (4448805) Panlobular emphysema (J43.1) Active confirmed Problem Vitamin D deficiency (55257188) Vitamin D deficiency (E55.9) Active confirmed Problem Type II diabetes mellitus without complication (780864123) Diabetes mellitus type 2, noninsulin dependent (E11.9) Active confirmed Problem Essential hypertension (80032170) Hypertension, essential (I10) Active confirmed Problem Acute exacerbation of chronic obstructive airways disease (536233312) COPD with acute exacerbation (J44.1) Active confirmed Problem Acute exacerbation of chronic obstructive airways disease () COPD exacerbation (J44.1) Active confirmed Problem Dysuria (34221656) Burning with urination (R30.0) Active confirmed Problem Thyroid nodule (814420218) Thyroid nodule (E04.1) Active confirmed Problem Gastroesophageal reflux disease without esophagitis (205042435) Gastroesophageal reflux disease without esophagitis (K21.9) Active confirmed Problem Atrial fibrillation (90720913) A-fib (I48.91) Active confirmed Problem Chronic diastolic heart failure (949192406) Diastolic CHF, chronic (I50.32) Active confirmed Problem Atrial flutter (2371313) Atrial flutter (I48.92) Active confirmed Problem Chronic kidney disease stage 2 (275592497) Chronic kidney disease, stage 2, mildly decreased GFR (N18.2) Active confirmed Problem Chronic obstructive lung disease (24985161) COPD without exacerbation (J44.9) Active confirmed Problem Adult health examination (842441644) Healthcare maintenance (Z00.00) Active confirmed Problem Type II diabetes mellitus without complication (127504217) Type 2 diabetes mellitus without complication, without long-term current use of insulin (E11.9) Active confirmed Problem History of raised blood lipids (429595212) History of hyperlipidemia (Z86.39) Active confirmed Problem Acute exacerbation of chronic obstructive airways disease (871119402) Acute exacerbation of chronic obstructive pulmonary disease (COPD) (J44.1) Active confirmed Problem Chronic obstructive lung disease co-occurrent with acute bronchitis (793164526113947) Acute bronchitis with chronic obstructive pulmonary disease (COPD) (J44.0) Active confirmed Problem Inflammation of joint of shoulder region (018005775) Shoulder arthritis (M19.019) Active confirmed Problem Atrial flutter (7832032) Atrial flutter, unspecified type (I48.92) Active confirmed Problem Diastolic dysfunction (1740254) Diastolic dysfunction (I51.89) Active confirmed Problem Gastroesophageal reflux disease (628504508) Gastroesophageal reflux disease, unspecified whether esophagitis present (K21.9) Active confirmed Problem Acute cough (966595156629642969 ) Acute cough (R05.1) Active confirmed Problem Cough (68254885) Cough (R05.9) Active confirmed Vital Signs Heart Rate 80 /min 11/26/2024 Temperature 97.8 degrees Fahrenheit 11/26/2024 Blood pressure diastolic 60 mm Hg 11/26/2024 Height 65 in 11/26/2024 Blood pressure systolic 130 mm Hg 11/26/2024 Weight 193.6 lbs 11/26/2024 BMI 32.21 kg/m2 11/26/2024 Encounters Encounter Location Date Provider Diagnosis [facility] [address] [place] [address] 08/23/2024 Provider Migration [facility] [address] [place] [address] 12/12/2023 Tyrell Owens Chronic hypoxic respiratory failure J96.11 [facility] [address] [place] [address] 02/18/2024 Tyrell Owens Hypertension, essent ial I10 ; Atrial flutter, unspecified type I48.92 ; Chronic kidney disease, stage 2, mildly decreased GFR N18.2 ; Vitamin D deficiency E55.9 ; Fatigue, unspecified type R53.83 and Immunization(s) administered Z23 [facility] [address] [place] [address] 05/05/2024 Tyrell Owens Other hypervolemia E87.79 ; Gastroesophageal reflux disease without esophagitis K21.9 and Routine medical exam Z00.00 [facility] [address] [place] [address] 07/07/2024 Tyrlel Besson Diabetes mellitus ty pe 2, noninsulin dependent E11.9 ; Chronic kidney disease, stage 2, mildly decreased GFR N18.2 ; Dyspnea on exertion R06.09 and Gastroesophageal reflux disease without esophagitis K21.9 [facility] [address] [facility] [address] [place], [place] [address] 07/17/2024 Ann Larson Acute left-sided low back pain without sciatica M54.50 and Elevated serum creatinine R79.89 [facility] [address] [facility] [address] [place], [place] [address] 09/03/2024 Tyrell Besson Diabetes mellitus ty pe 2, noninsulin dependent E11.9 ; Thyroid nodule E04.1 ; Diastolic CHF, chronic I50.32 and COPD without exacerbation J44.9 [facility] [address] [facility] [address] [place], [place] [address] 09/22/2024 Tyrellmeena Owens Unspecified fall, initial encounter W19.XXXA ; Unspecified place in unspecified non-institutional (private) residence as the place of occurrence of the external cause Y92.009 ; Abrasion of left knee, initial encounter S80.212A ; Atrial flutter, unspecified type I48.92 ; Diastolic dysfunction I51.89 ; Diabetes mellitus type 2, noninsulin dependent E11.9 ; Encounter for immunization Z23 and Routine medical exam Z00.00 [facility] [address] [place], [place] [address] 11/26/2024 Tyrell Besson Pain of maxillary si nus J34.89 and Acute febrile illness R50.9 [facility] [address] [place], [place] [address] 12/05/2023 Tyrell Besson [facility] [place] [address] [address] 02/01/2024 Tyrell Besson [facility] [place] [address] [address] 06/03/2024 Tyrell Besson [facility] [place] [address] [address] 08/13/2024 Tyrell Besson Assessments Encounter Date Diagnosis (ICD Code) Assessment [...] of the external cause (ICD-10 - Y92.009) 11/26/2024 Acute febrile illness (ICD-10 - R50.9) - See above 11/26/2024 Pain of maxillary sinus (ICD-10 - [...] signs of inflammation - Follow up with [facility] within the next week 07/07/2024 Dyspnea on exertion (ICD-10 - R06.09) Wear oxygen when you begin to feel short of breath and use nebulizer treatments as needed. Continue following with pulmonology. 09/22/2024 Abrasion of left knee, initial encounter (ICD-10 - S80.212A) No evidence of infection, recommended Neosporin and warm compresses for pain 05/05/2024 Routine medical exam (ICD-10 - Z00.00) [...] 2, mildly decreased GFR (ICD-10 - N18.2) 02/18/2024 Vitamin D deficiency (ICD-10 - E55.9) 07/07/2024 Gastroesophageal reflux disease without esophagitis (ICD-10 - K21.9) Begin Famotidine. Monitor symtpoms. 09/03/2024 COPD without exacerbation (ICD-10 - J44.9) Overall doing very nicely. Continue use oxygen supplementally 09/22/2024 Atrial flutter, unspecified type (ICD-10 - I48.92) Rate controlled. No changes in plan 09/22/2024 Diastolic dysfunction (ICD-10 - I51.89) Clinically euvolemic. No changes at this point 02/18/2024 Fatigue, unspecified type (ICD-10 - R53.83) - patient does continue to endorse some fatigue - could largely be due to age and de-conditioning. Also follows with cardiology for afib, they are working on decreasing medication burden - there could be electrolyte/vitam in deficiency component PLAN - thyroid panel, cmp, mag, cbc, vit D ordered 02/18/2024 Immunization(s) administered (ICD-10 - Z23) - flu and prevnar 20 administered today 09/22/2024 Diabetes mellitus type 2, noninsulin dependent (ICD-10 - E11.9) Previous A1c under good control, reviewed with patient 09/22/2024 Encounter for immunization (ICD-10 - Z23) 09/22/2024 Routine medical exam (ICD-10 - Z00.00) Updated Tdap as noted. Colonoscopy screening up-to-date. Mammography screening up-to-date. Fall risk discussed. Family is healthcare surrogate. Depression screening negative. Functional status reviewed. 07/21 word recall. Plan Of Treatment Pending Test Test Name Order Date CT Scan : Maxillofacial 11/26/2024 C-BASIC METABOLIC 06/03/2020 M-Complete Blood Count Auto Diff 020 M-Comprehensive Metabolic Panel 01/12/20 20 M-Hemoglobin A1C 02/17/2019 M-Hemoglobin A1C 08/02/2020 M-Lipid Panel 01/12/2020 M-Thyroid Stimulating Hormone 01/12/2020 COMPREHENSIVE METABOLIC PANEL (29771) CBC (INCLUDES DIFF/PLT) (6399) SED RATE BY MODIFIED MELLO (809) Next Appt Details Provider Name:Melvi Ochoa, 12/02/2024 10:45:00 AM, [address], [place], [address], Insurance Providers Payer Name Payer Address Payer Phone Subscriber Number Group Number Insured Name Patient Relationship to Insured Coverage Start Date Coverage End Date [employer] MED[employer] DUAL [address] [address] [place] [address] [phone] [id number] Ann Hernandez Self - patient is the [...] 2020 Chest pain - negative myoview scan 1 Diabetes Normal LDCT 10/12 Surgical History Surgery Date(Month/Year) tubal ligation 1985 cataract removal 11/2021 Hospitalization History Reason Date(Month/Year) [facility]- Flu A 08/31-09/04 2023 [facility] Jul 18-Jul [address] [facility] Jun 162023 A fib, COPD 05/2019 childbirth
== END 2024-11-27 23:59 | disposition home or self-care (01) ==
LOC: RAD 13:48
PROVIDERS: PCP Internal Medicine Adolescent Medicine; Visit Provider Internal Medicine Adolescent Medicine
DX: J34.89 Other specified disorders of nose and nasal sinuses (principal); R50.9 Fever, unspecified
CPT/HCPCS: 70486

== ENCOUNTER 2025-01-16 09:00 | Outpatient (RCR) | payer MEDICARE, MEDICAID, SELFPAY ==
--- NOTE | 2024-12-31 15:54 | HMH.OPLYMPH ---
Rehab Inpt Wound Evaluation Rehab OP Lymphedema Evaluation Start: 12/31/24 12:07 Freq: Status: Active Protocol: Document 12/31/24 12:08 JENNIFER (Rec: 12/31/24 15:54 JENNIFER [id number]) E-signed By Celestino Christensen, PT Subjective/History History History This is the initial PT Lymphedema eval for Ann Mcneill, 74 yowf who presents with c/o B LE increased edema, L greater than R, x ~ 1 yr, but worse over the past 3-4 weeks. She reports difficulty controlling her a-fib lately, which appears to be contributing to her increased edema. She reports she is scheduled to see cardiology in the next 3 weeks. She reports increased pain in B LE with increased edema. She has PMH of COPD, HTN, DM, a-fib. Subjective Subjective Current pain in B EL is 5/10, 2/4 TTP to B lower legs. 3+ pitting edema to L lower leg and 2+ pitting edema to R LE. Mild erythema to B lower legs. Lymphedema Eval Classification of Lymphedema Secondary Lymphedema Yes: CVI Stemmer's sign Stemmer's Sign yes Stage of Lymphedema Lymphedema stages Stage I (Pitting edema, reduces w/ elevation, no fibrosis) Skin Changes Dry Skin Yes Skin Folds Yes Redness Yes Discoloration of Yes Skin Other Changes Yes Pain Scale Pain Scale (0-10) 5 Affected Extremities Areas Affected by Right Lower Extremity,Left Lower Extremity Lymphedema/Edema Lower Extremity Measurements Right MTP Measurement (cm) 21.6 Heel Measurement (cm 32.4 ) 10 cm Proximal to 25.0 Lateral Malleoli Measurement (cm) 20 cm Proximal to 32.4 Lateral Malleoli Measurement (cm) 30 cm Proximal to 36.0 Lateral Malleoli Measurement (cm) 40 cm Proximal to 0 Lateral Malleoli Measurement (cm) 50 cm Proximal to 0 Lateral Malleoli Measurement (cm) 60 cm Proximal to 0 Lateral Malleoli Measurement (cm) Lower Extremity 147.4 Measurement Total ( cm) Left MTP Measurement (cm) 22.8 Heel Measurement (cm 34.0 ) 10 cm Proximal to 28.0 Lateral Malleoli Measurement (cm) 20 cm Proximal to 34.2 Lateral Malleoli Measurement (cm) 30 cm Proximal to 38.9 Lateral Malleoli Measurement (cm) 40 cm Proximal to 0 Lateral Malleoli Measurement (cm) 50 cm Proximal to 0 Lateral Malleoli Measurement (cm) 60 cm Proximal to 0 Lateral Malleoli Measurement (cm) Lower Extremity 157.9 Measurement Total ( cm) Manual Lymphatic Drainage Treatment Area MLD Treatment Area Right Lower Extremity,Left Lower Extremity Wound Problems/Impairments Impairments Problems/ Impaired Endurance,Impaired Walking,Impaired Household Impairmments Care,Increased Edema,Lymphedema Present,Subjective C/O Pain,Impaired Self Care/Self Management Prognosis Rehab Potential Good Comment Skilled therapy is indicated in order to reduce overall lymphedema and decrease pain in order to aid pt improvement in overall functional mobility and QOL. Signs and symptoms consistent with B LE lymphedema secondary to CVI and a-fib. Clinical Impression Consistent with Yes Diagnosis Consistent with ALSO Additional details: I89.0 Lymphedema Lymphedema Patient Goals Lymphedema Patient Goals Lymphedema Short in 2 wks pt will: Term Patient Goals 1) Reduce pitting edema to 2+ in L LE 2) Reduce circumferential measurements in B LE by 5 cm 3) Reduce pain in B LE to 3/10 Lymphedema Halfway in 4 wks pt will: Patient Goals 1) Reduce pitting edema to 1+ in B LE 2) Reduce circumferential measurements in B LE by 15 cm 3) Be independent with donning/doffing of compression garments 4) be independent with Lymphedema management via HEP 5) Reduce B LE pain to 1/10 Outpatient Therapy Plan of Care Treatment Plan May Include Therapeutic Exercise Yes Including Home Exercise Program Manual Therapy Yes Techniques Neuromuscular Re- Yes education Therapeutic Yes Activities to Return to Previous Functional/Work Level ADL/Self Care Yes Education Orthotics/Bracing/ Yes Splinting Vasopneumatic Yes Compression Pump Manual Lymphatic Yes Drainage Eval/Re-Eval Yes Frequency Times per week 2 Duration Number of Weeks 4 Addendums This patient is a No candidate for social or vocational rehab ? Patient/Guardian Yes verbally acknowledges understanding of treatment program and consents to further treatment? Patient/Guardian Yes verbally acknowledges understanding of diagnosis, prognosis and goals for treatment? Eval Complexity PT Charges 24051 - High Complexity PHYSICIAN CERTIFICATION: I certify the specified therapy services for Ann Mcneill are required, authorized, and reviewed every 30 days.
== END 2025-01-16 23:59 | disposition home or self-care (01) ==
LOC: PT 09:00
PROVIDERS: Visit Provider Internal Medicine Adolescent Medicine
DX: R60.9 Edema, unspecified (principal)
CPT/HCPCS: 97140; 97163

== ENCOUNTER 2025-02-11 10:00 | Outpatient (RCR) | payer MEDICARE, MEDICAID, SELFPAY ==
--- NOTE | 2025-01-28 12:46 | HMH.RHREAS ---
Rehab Reassessment Rehab OP Re-assessment Start: 01/22/25 09:40 Freq: Status: Active Protocol: Document 01/28/25 12:32 [email or web address] (Rec: 01/28/25 12:46 PHORNE [id number]) E-signed By Celestino Christensen, PT Rehab Re-assessment Subjective Subjective Pt reports no c/o pain or tenderness to B lower legs at this time. She feels better overall with her edema, but continues to have mild difficulty with donning her compression garments. Objective Objective Notes Circumferential measurements: R LE total is 142.9 cm which is -4.5 cm since IE. L LE total is 146.2 cm which is -11.7 cm since IE. Edema: No pitting edema noted to B lower legs this date . TTP: 0/4 to B lower legs at this time. Assessment Progress Assessment Progressing as Expected Assessment Notes Pt has shown significant reduction of B LE edema overall based on circumferential measurements as noted. Skilled therapy remains indicated to further reduce B LE edema as able and to ensure pt is independent with edema management at home in order to aid pt improvement in QOL. Lymphedema Patient Goals Lymphedema Short in 2 wks pt will: Term Patient Goals 1) Reduce circumferential measurements in B LE by 5 cm Lymphedema Cinder Pitman in 4 wks pt will: Patient Goals 1) Reduce circumferential measurements in B LE by 5 cm 2) Pt will be independent with donning/doffing B LE compression garments. Plan Plan Continued pt treatment may include any or all of the following interventions in order to improve functional outcomes and aid pt improvement in QOL: Frequency of Therapy 1 x/wk Duration of Therapy 4 wks Therapeutic Exercise Yes Including Home Exercise Program Manual Therapy Yes Techniques Neuromuscular Re- Yes education Therapeutic Yes Activities to Return to Previous Functional/Work Level ADL/Self Care Yes Education Orthotics/Bracing/ Yes Splinting Manual Lymphatic Yes Drainage Eval/Re-Eval Yes Time and Billing Re-Eval Time 13 Re-Eval Billing 0 Units Charge for PT No reassessment? PHYSICIAN CERTIFICATION: I certify the specified therapy services for Ann Mcneill are required, authorized, and reviewed every 30 days.
== END 2025-02-11 23:59 | disposition home or self-care (01) ==
LOC: PT 10:00
PROVIDERS: Visit Provider Internal Medicine Adolescent Medicine
DX: R60.9 Edema, unspecified (principal)
CPT/HCPCS: 97140

== ENCOUNTER 2025-02-25 09:36 | Outpatient (RCR) | payer MEDICARE, MEDICAID, SELFPAY | END 2025-02-25 23:59 | disposition home or self-care (01) | LOC: PT 09:36 | PROVIDERS: Visit Provider Internal Medicine Adolescent Medicine | DX: R60.9 Edema, unspecified (principal) | CPT/HCPCS: 97140 ==